=== PATIENT | female | born 1955 | race African-American/Black ===

== ENCOUNTER 2016-10-01 20:55 | Inpatient (IN) | payer OTHER ==
[~2016-10-01] VITALS: Ht 165.1 cm; Wt 65.5 kg
[~2016-10-01 20:55] MED LIST: AMLO-145 PO; ATEN50TA PO; CLON0.2T5 PO; HYDR-762 PO; LORA-444 PO; OXYC20TA41 PO
[2016-10-01] MEDS ORDERED: ONDANSETRON 4 MG INJ IV STA (22:24)
[2016-10-01] MEDS ORDERED: SOD CHLORIDE 0.9% 1,000 ML IV STA (22:24)
[2016-10-01] MEDS ORDERED: morphine 4 MG/ML VIAL IV STA (22:24)
[2016-10-01] MEDS ORDERED: LABETALOL HCL 20MG INJ IV ONE (22:30)
[2016-10-01] MEDS ORDERED: DICLOFENAC SODIUM 37.5 MG/ML VIAL IV STA (23:18)
[2016-10-01 23:27] LABS: BASOPHIL # 0.1 10^3/ul (0.0-0.1); BASOPHILS % 0.7 % (0.0-2.0); EOSINOPHILS # 0.1 10^3/ul (0.0-0.5); EOSINOPHILS % 0.5 % (0.0-7.0); HEMATOCRIT 34.6 % (37.0-47.0); HEMOGLOBIN 12.4 g/dl (12.0-16.0); LYMPHOCYTES # 2.9 10^3/ul (0.8-2.9); LYMPHOCYTES % 16.9 % (15.0-51.0); MEAN CORPUSCULAR HEMOGLOBIN 30.2 pg (29.0-33.0); MEAN CORPUSCULAR HGB CONC 35.9 g/dl (32.0-37.0); MEAN CORPUSCULAR VOLUME 84.2 fl (82.0-101.0); MEAN PLATELET VOLUME 8.9 fl (7.4-10.4); MONOCYTE # 0.9 10^3/ul (0.3-0.9); MONOCYTES % 5.5 % (0.0-11.0); NEUTROPHILS % 76.4 % (39.0-77.0); PLATELET COUNT 484 10^3/UL (140-440); RED BLOOD COUNT 4.11 10^6/ul (4.20-5.40); RED CELL DISTRIBUTION WIDTH 13.6 % (11.5-14.5)
[2016-10-01 23:34] LABS: ALBUMIN 3.8 g/dl (3.3-4.9); POTASSIUM 3.3 mmol/L (3.5-5.1)
[2016-10-01 23:36] LABS: BILIRUBIN,INDIRECT 0.2 mg/dl (0-1.1); BILIRUBIN,TOTAL 0.2 mg/dl (0.2-1.3); CREATININE 1.39 mg/dl (0.44-1.00)
[2016-10-01 23:37] LABS: ALBUMIN/GLOBULIN RATIO 1.05; CALCIUM 9.5 mg/dl (8.4-10.2); TOTAL PROTEIN 7.4 g/dl (6.1-8.1)
[2016-10-01 23:46] LABS: CONDITION 1; PARTIAL THROMBOPLASTIN TIME 27.4 Sec (25.0-35.0); PROTIME 13.2 Sec (12.2-14.2)
[2016-10-01 23:49] LABS: TROPONIN-I 0.029 ng/ml (0.00-0.12)
[2016-10-01 23:54] LABS: ADD UMIC YES; URINE BILIRUBIN (Dip) NEGATIVE (NEGATIVE); URINE BLOOD (Dip) TRACE (NEGATIVE); URINE COLOR LT. YELLOW (YELLOW); URINE GLUCOSE (Dip) NEGATIVE (NEGATIVE); URINE KETONES (Dip) TRACE (NEGATIVE); URINE LEUKOCYTE ESTERASE (Dip) 1+ (NEGATIVE); URINE NITRITE (Dip) NEGATIVE (NEGATIVE); URINE TOTAL PROTEIN (Dip) 2+ (NEGATIVE); URINE UROBILINOGEN (Dip) 0.2 E.U./dL (0.1-1.0)
[2016-10-02] VITALS (13 sets, daily range): BP systolic 132–227; BP diastolic 70–107; PULSE 82–101; RESP 18–20; Ht 165.1 cm; Wt 65.5 kg
[2016-10-02] MEDS ORDERED: FENTAnyl 50 MCG/ML VIAL IV ONE
[2016-10-02 00:11] LABS: BACTERIA,URINE MODERATE; SQUAMOUS EPITHELIAL CELL,UR MANY; URINE RBCS 0-2 /HPF ([, 0])
--- NOTE | 2016-10-02 00:21 | RADRPT ---
PROCEDURE: CT Abdomen and pelvis without contrast. CLINICAL INDICATION: Abdominal pain. TECHNIQUE: CT scan of the abdomen and pelvis was performed on the [employer] 6 4 slice VCT scanner. Contiguous axial images using 2.5 mm slice thickness were obtained from the lisa ng bases to the ischial tuberosities without intravenous contrast. Coronal and sagittal reformatted images were also obtained. Images were reviewed on the PACS workstation. One or more of the following dose reduction techniques were used: - Automated exposure control. - Adjustment of the mA and/or kV according to patient size. - Use of iterative reconstruction technique. Exam CTD/vol = 6.56 mGy. Total exam DLP = 358.25 mGy-cm. COMPARISON: None. FINDINGS: Evaluation of the lung bases demonstrates mild bibasilar atelectasis. The heart is mildly enlarged with coronary artery calcifications. Abdomen: The liver is normal in size. There is no focal mass or dilatation of the biliary tree. T he gallbladder is not distended. A small gallstone is identified. The spleen, pancreas and bilateral adrenal glands are within normal limits. The right kidney is mildly atrophic. There is bilateral renal cortical scarring. There is a hyperdense lesion off of the lower pole of the right kidney agatha suring 3.8 x 4.1 cm. There are 1-2 mm renal calculi bilaterally. There is no radiopaque ureteral c alculus identified. There is no hydronephrosis or hydroureter. There is no retroperitoneal adenopa thy. The abdominal aorta is of normal caliber with scattered atherosclerotic calcifications. There is no abnormal bowel wall thickening or distension. There is no bowel obstruction or free air . A normal appendix is identified. There is no diverticulosis or diverticulitis. There is no asci maegan. Pelvis: The bladder is unremarkable. The uterus and adnexa are within normal limits. There is no significant pelvic adenopathy or free fluid. Evaluation of the osseous structures demonstrates diffuse ground-glass and bony expansion of the pel vis, T12 and L5 vertebral bodies consistent with Paget's disease. IMPRESSION: Hyperdense lesion off of the lower pole of the right kidney measuring 3.8 x 4.1 cm. Further evaluat ion by ultrasound is recommended to determine solid or cystic. Bilateral renal scarring and mild right renal atrophy. Bilateral nonobstructing renal calculi. Mild bibasilar atelectasis. Mild cardiomegaly with coronary artery calcifications. Cholelithiasis. Vascular calcifications reflective of atherosclerosis. Diffuse ground-glass and bony expansion of the pelvis, T12 and L5 vertebral bodies consistent with P aget's disease. .Arnaud Zurita MD, Date Time Electronically viewed and signed by .Arnaud Zurita MD, on 10/02/2016 00:21 .T/
[2016-10-02] MEDS ORDERED: POTASSIUM CHLORIDE (SR) 20 MEQ TAB PO STA ×2 (00:46→09:33)
[2016-10-02] MEDS ORDERED: HYDROmorphONE 1 MG/ML SYG IV STA (00:55)
[2016-10-02] MEDS ORDERED: hydrALAzine 20 MG INJ IV ONE ×2 (01:00→03:00)
[2016-10-02] MEDS ORDERED: CEFTRIAXONE 1 GM/50 ML (PMX) 50 ML IVPB ONE (01:00)
--- NOTE | 2016-10-02 01:18 | RADRPT ---
PROCEDURE: Chest. CLINICAL INDICATION: Chest pain. TECHNIQUE: Single frontal view of the chest was obtained. COMPARISON: 01/05/2015. FINDINGS: The cardiac silhouette is enlarged. The aortic arch is tortuous and calcified. There is no focal c onsolidation, vascular congestion or pleural effusion. There is no pneumothorax. IMPRESSION: Cardiomegaly. Tortuous aorta with atherosclerotic calcifications. .Arnaud Zurita MD, Date Time Electronically viewed and signed by .Arnaud Zurita MD, MD on 10/02/2016 01:18 .T/
[2016-10-02] MEDS ORDERED: ACETAMINOPHEN 325 MG TAB PO PRN ×2 (02:30→08:30)
[2016-10-02] MEDS ORDERED: ONDANSETRON 4 MG INJ IV PRN ×2 (02:30→08:30)
[2016-10-02] MEDS ORDERED: LABETALOL HCL 20MG INJ IV PRN (03:40)
[2016-10-02] MEDS ORDERED: LORAZEPAM 2 MG INJ IV PRN (04:00)
[2016-10-02] MEDS: morphine 2 MG INJ IV PRN (05:06)
[2016-10-02] MEDS: HYDROmorphONE 1 MG/ML SYG IV PRN ×5 (06:24→21:57)
[2016-10-02] MEDS ORDERED: morphine 2 MG INJ IV PRN (08:30)
[2016-10-02] MEDS ORDERED: NACL 0.9% 3 ML SYG IV SCH (08:30)
[2016-10-02] MEDS ORDERED: NITROGLYCERIN (SL) 0.4 MG TAB SL PRN (08:30)
[2016-10-02] MEDS ORDERED: ZOLPIDEM 5 MG TAB PO PRN (08:30)
[2016-10-02] MEDS: ENOXAPARIN 40 MG/0.4 ML SYG SC SCH (09:00)
[2016-10-02] MEDS: CEFTRIAXONE 1 GM/50 ML (PMX) 50 ML IVPB SCH (09:31)
[2016-10-02] MEDS: ATENOLOL 50 MG TAB PO SCH ×2 (09:31→21:02)
[2016-10-02] MEDS: AMLODIPINE 5 MG TAB PO SCH ×2 (09:32→21:02)
[2016-10-02] MEDS: LORAZEPAM 2 MG INJ IV PRN (09:52)
--- NOTE | 2016-10-02 10:43 | HP ---
DATE OF ADMISSION: 10/02/2016 TIME: 7:30 a.m. CHIEF COMPLAINT: Diffuse pains of the body. 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 The patient also has a history of hypertension. Patient is on chronic pain me dications. The patient comes in with unbearable pain throughout her body. She states that typicall y she can handle it with p.o. medications, but her pain became excessive. It is diffuse throughout her chest and back and secondary to her Paget disease. 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 She has no other complaints at this time. She denies any dysuria. PAST MEDICAL HISTORY: Paget disease, hypertension, and chronic pain secondary to Padget, also deafn ess secondary to Padget. HOME MEDICATIONS: 1. Norvasc. 2. Atenolol. 3. Clonidine. 4. [place]. 5. Ativan. 6. Oxycodone. ALLERGIES: 1. KETOROLAC. 2. MOXIFLOXACIN. FAMILY HISTORY: Diabetes in sister. SOCIAL HISTORY: Denies alcohol, tobacco, or drug abuse. REVIEW OF SYSTEMS: A 12-point review of systems negative except for that as in HPI. PHYSICAL EXAMINATION: VITAL SIGNS: Temperature is 98.1, pulse 75, respirations 18, BP is 137/88, O2 saturation 92% on petey m air. GENERAL: No acute distress, alert and oriented. HEENT: Dysmorphic head shape. CHEST: Clear to auscultation. CARDIOVASCULAR: Regular rate and rhythm. ABDOMEN: Nondistended, nontender, soft. EXTREMITIES: No clubbing, cyanosis, or edema. LABORATORIES: White count 17.0, hemoglobin 12.4, platelets are 284,000. Chemistry: Sodium is 143, potassium is 3.3, anion gap is 19, BUN is 27, creatinine is 1.39. Alkaline phosphatase . INR is 1.0. UA shows trace ketones, 1+ leukocyte esterase, WBCs 5 to 10. DIAGNOSTICS: Abdominal pelvis CT shows hypodense lesion of the lower pole of the right kidney measu ring 0.2 x 4.1 cm, bilateral renal scarring, and mild renal atrophy, bilateral nonobstructing renal calculi, mild basilar atelectasis, mild cardiomegaly, cholelithiasis, vascular calcification reflect nicolas of atherosclerosis, diffuse ground glass and bony extension of the pelvis, T12 and L5 vertebral bodies consistent with Paget disease. Chest x-ray shows cardiomegaly, tortuous aorta with atherosclerotic calcifications. ASSESSMENT AND PLAN: 1. Atypical chest pain. The patient has chronic pain in the chest and back, but is acutely worse. The pain is likely secondary to bone pain for her Padget disease, rule out any acute coronary syndr ome with troponins. 2. Right kidney mass. We will obtain an ultrasound to further evaluate if Padget disease. Continue pain medications. 3. Hypertension. Continue home atenolol and Norvasc. 4. History of tachycardia. We will continue patient's home Ativan, which she states she takes keep her heart rate down. 5. Urinary tract infection. Obtain a urine culture and treat with Rocephin empirically. 6. Prophylaxis. Lovenox. Dictated By: SHAWANDA RANDALL/YARI Conf#: [id number] DID#: [id number]
[2016-10-02] MEDS: LORAZEPAM 1 MG TAB PO PRN ×2 (16:42→23:59)
[2016-10-02] MEDS: oxyCODONE (CR) 20 MG TAB [oxyCONTIN] PO SCH (21:00)
[2016-10-03] VITALS (11 sets, daily range): BP systolic 120–196; BP diastolic 70–100; PULSE 70–87; RESP 17–20
[2016-10-03] MEDS: morphine 2 MG INJ IV PRN ×2 (00:39→05:36)
[2016-10-03 07:23] LABS: BASOPHIL # 0.1 10^3/ul (0.0-0.1); BASOPHILS % 0.7 % (0.0-2.0); EOSINOPHILS # 0.2 10^3/ul (0.0-0.5); EOSINOPHILS % 1.5 % (0.0-7.0); HEMATOCRIT 31.1 % (37.0-47.0); LYMPHOCYTES # 3.4 10^3/ul (0.8-2.9); LYMPHOCYTES % 26.3 % (15.0-51.0); MEAN CORPUSCULAR HEMOGLOBIN 30.1 pg (29.0-33.0); MEAN CORPUSCULAR HGB CONC 35.5 g/dl (32.0-37.0); MEAN CORPUSCULAR VOLUME 84.8 fl (82.0-101.0); MEAN PLATELET VOLUME 9.1 fl (7.4-10.4); MONOCYTE # 1.1 10^3/ul (0.3-0.9); MONOCYTES % 8.2 % (0.0-11.0); NEUTROPHIL # 8.2 10^3/ul (1.6-7.5); NEUTROPHILS % 63.3 % (39.0-77.0); PLATELET COUNT 440 10^3/UL (140-440); RED BLOOD COUNT 3.67 10^6/ul (4.20-5.40); RED CELL DISTRIBUTION WIDTH 13.5 % (11.5-14.5); UNCORRECTED WBC 12.9 10^3/ul (4.8-10.8); WHITE BLOOD COUNT 12.9 10^3/ul (4.8-10.8)
[2016-10-03 07:26] LABS: CONDITION 1
[2016-10-03 07:44] LABS: POTASSIUM 3.3 mmol/L (3.5-5.1)
[2016-10-03 07:47] LABS: CREATININE 1.03 mg/dl (0.44-1.00)
[2016-10-03 07:48] LABS: CALCIUM 9.4 mg/dl (8.4-10.2); CHOL/HDL RATIO 4.3 RATIO; MAGNESIUM 1.4 mg/dl (1.7-2.5)
[2016-10-03] MEDS: oxyCODONE (CR) 20 MG TAB [oxyCONTIN] PO SCH ×2 (09:00→21:00)
[2016-10-03] MEDS: ENOXAPARIN 40 MG/0.4 ML SYG SC SCH (09:00)
[2016-10-03] MEDS: CEFTRIAXONE 1 GM/50 ML (PMX) 50 ML IVPB SCH (09:11)
[2016-10-03] MEDS: LORAZEPAM 1 MG TAB PO PRN ×3 (09:12→21:09)
[2016-10-03] MEDS: ATENOLOL 50 MG TAB PO SCH ×2 (09:12→21:10)
[2016-10-03] MEDS: AMLODIPINE 5 MG TAB PO SCH ×2 (09:13→21:10)
[2016-10-03] MEDS: HYDROmorphONE 1 MG/ML SYG IV PRN ×4 (11:47→22:50)
[2016-10-03] MEDS: HYDROCODONE/APAP (10/325) TAB PO PRN ×2 (13:22→21:22)
--- NOTE | 2016-10-03 16:43 | CONS ---
Date/Time of Note Date/Time of Note DATE: 10/03/16 TIME: 16:34 Consult Date/Type/Reason Admit Date/Time Oct 02, 2016 at 02:14 Initial Consult Date Type of Consultation: Internal Medicine. Subjective Feels little better, less pain. Objective Vital Signs Date Time Temp Pulse Resp B/P Pulse Ox O2 Delivery O2 Flow Rate FiO2 10/03/16 15:47 98.1 72 17 164/83 95 10/02/16 03:50 Room Air Intake and Output 10/02/16 10/02/16 10/03/16 15:00 23:00 07:00 Intake Total 830 ml 400 ml Output Total 400 ml Balance -400 ml 830 ml 400 ml PHYSICAL EXAMINATION: VITAL SIGNS: as above GENERAL: No acute distress, alert and oriented. HEENT: Dysmorphic head shape. CHEST: Clear to auscultation. CARDIOVASCULAR: Regular rate and rhythm. ABDOMEN: Nondistended, nontender, soft. EXTREMITIES: No clubbing, cyanosis, or edema. Results/Medications Result Diagram: 10/03/16 0628 10/03/16 0628 Results 24 hrs Laboratory Tests Test 10/02/16 18:50 10/03/16 06:28 10/03/16 16:30 Troponin I 0.028 Anion Gap 14 Basophils # 0.1 Basophils % 0.7 Blood Urea Nitrogen 20 Calcium Level 9.4 Carbon Dioxide Level 28 Chloride Level 103 Cholesterol Level 166 Cholesterol/HDL Ratio 4.3 Creatinine 1.03 H Eosinophils # 0.2 Eosinophils % 1.5 Glucose Level 164 HDL Cholesterol 38 Hematocrit 31.1 L Hemoglobin 11.0 L Hemoglobin A1c 7.7 H LDL Cholesterol, Calculated 100 Lymphocytes # 3.4 H Lymphocytes % 26.3 Magnesium Level 1.4 L Mean Corpuscular Hemoglobin 30.1 Mean Corpuscular Hemoglobin Concent 35.5 Mean Corpuscular Volume 84.8 Mean Platelet Volume 9.1 Monocytes # 1.1 H Monocytes % 8.2 Neutrophils # 8.2 H Neutrophils % 63.3 Nucleated Red Blood Cells # 0.0 Nucleated Red Blood Cells % 0.0 Platelet Count 440 Potassium Level 3.3 L Red Blood Count 3.67 L Red Cell Distribution Width 13.5 Sodium Level 142 Triglycerides Level 138 White Blood Count 12.9 #H Bedside Glucose 138 Medications Current Medications Labetalol HCl (Labetalol) 20 mg Q2 PRN IV ELEVATED BP Last administered on 03:52; Admin Dose 20 MG; Start 10/02/16 at 03:40 Morphine Sulfate (morphine) 2 mg Q4H PRN IV PAIN LEVEL 6-10 Last administered on 10/03/16 05:36; Admin Dose 2 MG; Start 10/02/16 at 03:40 Hydromorphone HCl (Dilaudid) 0.5 mg Q3 PRN IV PAIN Last administered on 15:32; Admin Dose 0.5 MG; Start 10/02/16 at 06:00 Ondansetron HCl (Zofran Inj) 4 mg Q6H PRN IV NAUSEA AND/OR VOMITING; Start 10/02 at 08:30 Acetaminophen (Tylenol Tab) 650 mg Q6H PRN PO PAIN LEVEL 1-3 OR FEVER; Start at 08:30 Acetaminophen/ Hydrocodone Bitart ([place] (5/325)) 1 tab Q6H PRN PO MODERATE PAIN LEVEL 4-6; Start 10/02/16 at 08:30 Morphine Sulfate (morphine) 2 mg Q2 PRN IV SEVERE PAIN LEVEL 7-10 Last administered on 10/03/16 09:11; Admin Dose 2 MG; Start 10/02/16 at 08:30 Zolpidem Tartrate (Ambien) 5 mg QHS PRN PO SLEEP; Start 10/02/16 at 08:30 Enoxaparin Sodium (Lovenox) 40 mg DAILY SC ; Start 10/02/16 at 09:00 Nitroglycerin 1 tab 1 tab Q5M PRN SL CHEST PAIN; Start 10/02/16 at 08:30 Ceftriaxone Sodium (Rocephin) 50 ml @ 100 mls/hr Q24H IVPB Last administered on 10/03/16 09:11; Admin Dose 100 MLS/HR; Start 10/02/16 at 08:30 Amlodipine Besylate (Norvasc) 5 mg BID PO Last administered on 10/03/16 09:13; Admin Dose 5 MG; Start 10/02/16 at 09:00 Atenolol (Tenormin) 50 mg BID PO Last administered on 10/03/16 09:12; Admin Dose 50 MG; Start 10/02/16 at 09:00 Clonidine (Catapres) 0.2 mg QID PO Last administered on 10/03/16 13:26; Admin Dose 0.2 MG; Start 10/02/16 at 09:00 Acetaminophen/ Hydrocodone Bitart ([place] (10/325)) 1 tab QID PRN PO PAIN Last administered on 10/03/16 13:22; Admin Dose 1 TAB; Start 10/02/16 at 08:30 Lorazepam (Ativan) 2 mg Q6H PRN PO AGITATION/ANXIETY Last administered on 14:59; Admin Dose 2 MG; Start 10/02/16 at 08:30 Oxycodone HCl (Oxycontin) 20 mg Q12 PO ; Start 10/02/16 at 21:00 Lorazepam (Ativan) 0.5 mg Q4H PRN IV ANXIETY Last administered on 10/02/16 09: 52; Admin Dose 0.5 MG; Start 10/02/16 at 09:00 Assessment/Plan Chief Complaint/Hosp Course ASSESSMENT AND PLAN: 1. Atypical chest pain. The patient has chronic pain in the chest and back, pain likely musculoskeletal, unlikely cardiac. Continue current meds. 2. Right kidney mass. We will obtain an ultrasound to further evaluate if Padget disease. Continue pain medications. 3. Hypertension. Continue home atenolol and Norvasc. 4. History of tachycardia. We will continue patient's home Ativan, which she states she takes keep her heart rate down. 5. Urinary tract infection. Obtain a urine culture and treat with Rocephin empirically. 6. Prophylaxis. Lovenox. Problems: CHEPE VALENZUELA MD, [facility] Oct 03, 2016 16:43
--- NOTE | 2016-10-03 16:44 | RADRPT ---
Echocardiogram Report Patient Name: OMKAR ELIZALDE Gender: Female Date: 1955 Study Date: 03-Oct-2016 Motor Grader Operator: Liyah Son [facility] Location: [place] Ref. Physician: SHAWANDA QUINONES Quality: Good Procedures: Transthoracic echocardiogram with complete 2D, M-Mode, and doppler examination. Indications: Chest Pain. 2D/M Mode Doppler Measurement Value Normal Ranges Measurement Value Normal Ranges LVIDd 2D 4.6 3.5 - 5.6 cm AV Peak Floyd 1.6 m/sec LVIDs 2D 2.3 2.1 - 4.1 cm AV Peak PG 10.2 mmHg LVPWd 2D 1.2 0.6 - 1.1 cm LVOT Peak Floyd 1.1 m/sec IVSd 2D 1.3 0.6 - 1.1 cm LVOT Peak PG 4.5 mmHg AoR Diam 2D 2.6 2.0 - 3.7 cm MV E Peak Floyd 0.5 m/sec EDV 2D 96.9 cm3 MV A Peak Floyd 1.0 m/sec ESV 2D 12.1 cm3 MV E/A 0.5 LA Dimen 2D 3.8 2.3 - 4.0 cm MV Decel Time 141 msec MV Decel [place] 4 MV E/A 0.5 TR Peak Floyd 2.3 m/sec TR Peak PG 21.1 mmHg RVSP 24.0 mmHg Findings Left Ventricle: Normal left ventricular systolic function. Normal left ventricular cavity size. Mild concentric left ventricular hypertrophy. Ejection fraction is visually estimated at 6065 %. Tissue Doppler/Mitral Doppler indices are consistent with impaired relaxation (Stage I diastolic dysfunction). Right Ventricle: Normal right ventricular size. Normal right ventricular systolic function. Left Atrium: The left atrium is normal in size. Right Atrium: The right atrium is normal in size. Mitral Valve: Mild mitral leaflet calcification. Mild mitral annular calcification. Trace mitral regurgitation. Aortic Valve: No hemodynamically significant aortic stenosis by doppler. Aortic cusps appear mildly calcified. Mild aortic valve regurgitation. Tricuspid Valve: Normal appearance of the tricuspid valve. Estimated peak PA systolic pressure 24 mmHg. There is trace tricuspid regurgitation. Pericardium: Normal pericardium with no significant pericardial effusion. Aorta: Normal aortic root. IVC: Normal size and normal respiratory collapse consistent with normal right atrial pressure. Conclusions 1.The left ventricle is normal in size and systolic function. 2.Estimated left ventricular ejection fraction of 60-65%. 3.Mild concentric left ventricular hypertrophy. Mild left ventricular diastolic dysfunction. Electronically Signed By: Jorge Mcqueen 03-Oct-2016 16:43:21 -0800 Patient Name: OMKAR ELIZALDE Study Date: 03-Oct-[id number]
--- NOTE | 2016-10-03 19:25 | RADRPT ---
PROCEDURE: Retroperitoneal US. CLINICAL INDICATION: renal mass on CT TECHNIQUE: Multiple sonographic images of the retroperitoneum were obtained. The images were revi ewed on a PACS workstation. COMPARISON: CT abdomen/pelvis from 10/02/2016 FINDINGS: The right kidney measures 10.7 x 4.6 x 4.3 cm. The left kidney measures 8.7 x 4.8 x 4.2 cm. There is renal cortical thinning bilaterally. The renal parenchymal echotexture is normal. There is no hydronephrosis. There is no focal renal mass or calcification seen. There is a 4.3 cm simple cyst in the lower pole of the right kidney which likely correlates with the similarly sized lesion seen in this region on the CT study from yesterday. IMPRESSION: 4.3 cm simple cyst in the lower pole of the right kidney correlates with the similarly sized lesion seen in this region on the CT study from yesterday. Atrophic and echogenic kidneys suggest medical renal disease. Correlation with BUN and creatinine l evels is recommended. RPTAT: EE Physician Giovanny Date Time Electronically viewed and signed by Physician Giovanny on 10/03/2016 19:24 /
[2016-10-04] MEDS: HYDROmorphONE 1 MG/ML SYG IV PRN ×7 (03:07→23:35)
[2016-10-04] MEDS: LORAZEPAM 2 MG INJ IV PRN (04:16)
[2016-10-04 07:57] VITALS: BP 193/84; RESP 20
[2016-10-04] MEDS: ATENOLOL 50 MG TAB PO SCH ×2 (08:20→20:50)
[2016-10-04] MEDS: AMLODIPINE 5 MG TAB PO SCH ×2 (08:20→20:50)
[2016-10-04] MEDS: LORAZEPAM 1 MG TAB PO PRN ×3 (08:28→22:22)
[2016-10-04] MEDS: CEFTRIAXONE 1 GM/50 ML (PMX) 50 ML IVPB SCH ×2 (08:30→09:49)
[2016-10-04] MEDS: ENOXAPARIN 40 MG/0.4 ML SYG SC SCH (08:32)
[2016-10-04] MEDS: oxyCODONE (CR) 20 MG TAB [oxyCONTIN] PO SCH ×2 (09:48→20:49)
[2016-10-04 13:08] VITALS: BP 145/65
[2016-10-04] MEDS ORDERED: POTASSIUM CHLORIDE (SR) 20 MEQ TAB PO STA (14:08)
--- NOTE | 2016-10-04 14:23 | PN ---
Date/Time of Note Date/Time of Note DATE: 10/04/16 TIME: 14:11 Assessment/Plan VTE Prophylaxis VTE Prophylaxis Intervention: LMWH Lines/Catheters IV Catheter Type (from Nrsg): Saline Lock Urinary Cath still in place: No Assessment/Plan Assessment/Plan 1. Chest pain, musculoskeletal from Paget disease, pain management 2. Urinary tract infection, on rocephin 3. Hypokalemia, KCl 4. Hypomagnesemia, MgSO4 5. Right kidney cyst, no further treatment needed 6. Hypertension. Continue home atenolol and Norvasc. 7. Acute renal failure, improving, follow up with BMP 8. DM, start metformin, on ISS 9. Prophylaxis. Lovenox. Subjective 24 Hr Interval Summary Free Text/Dictation generalized body pain, especially on pelvis Exam/Review of Systems Vital Signs Vitals Vital Signs Date Time Temp Pulse Resp B/P Pulse Ox O2 Delivery O2 Flow Rate FiO2 10/04/16 13:08 145/65 10/04/16 07:57 97.8 78 20 98 10/03/16 22:30 Room Air Intake and Output 10/03/16 10/03/16 10/04/16 15:00 23:00 07:00 Intake Total 50 ml 250 ml 380 ml Balance 50 ml 250 ml 380 ml Exam Constitutional: alert, oriented, well developed Psych: nl mood/affect, no complaints Head: atraumatic, normocephalic Eyes: EOMI, PERRL, nl conjunctiva, nl lids, nl sclera ENMT: mucosa pink and moist, nl external ears & nose, nl lips & teeth, nl nasal mucosa & septum Neck: non-tender, supple Respiratory: clear to auscultation, normal air movement Cardiovascular: regular rate and rhythm Gastrointestinal: nl liver, spleen, non-tender, soft Musculoskeletal: nl extremities to inspection, nl gait and stance Extremities: normal pulses Neurological: CHILD PROTECTIVE SERVICES SPECIALIST II-XII intact, nl mental status, nl speech, nl strength Skin: nl turgor, rash or lesions Lymph: nl lymph nodes Results Result Diagram: 10/03/1628 10/03/16627 Results 24 hrs Laboratory Tests Test 10/03/16 16:30 Bedside Glucose 138 Medications Medications Current Medications Morphine Sulfate (morphine) 2 mg Q4H PRN IV PAIN LEVEL 6-10 Last administered on 10/03/16t 05:36; Admin Dose 2 MG; Start 10/02/16 at 03:40 Hydromorphone HCl (Dilaudid) 0.5 mg Q3 PRN IV PAIN Last administered on 13:08; Admin Dose 0.5 MG; Start 10/02/16 at 06:00 Ondansetron HCl (Zofran Inj) 4 mg Q6H PRN IV NAUSEA AND/OR VOMITING; Start 10/02 at 08:30 Acetaminophen (Tylenol Tab) 650 mg Q6H PRN PO PAIN LEVEL 1-3 OR FEVER Last administered on 10/04/16 00:05; Admin Dose 650 MG; Start 10/02/16 at 08:30 Acetaminophen/ Hydrocodone Bitart ([place] (5/325)) 1 tab Q6H PRN PO MODERATE PAIN LEVEL 4-6; Start 10/02/16 at 08:30 Morphine Sulfate (morphine) 2 mg Q2 PRN IV SEVERE PAIN LEVEL 7-10 Last administered on 10/03/16 09:11; Admin Dose 2 MG; Start 10/02/16 at 08:30 Zolpidem Tartrate (Ambien) 5 mg QHS PRN PO SLEEP; Start 10/02/16 at 08:30 Enoxaparin Sodium (Lovenox) 40 mg DAILY SC ; Start 10/02/16 at 09:00 Nitroglycerin 1 tab 1 tab Q5M PRN SL CHEST PAIN; Start 10/02/16 at 08:30 Ceftriaxone Sodium (Rocephin) 50 ml @ 100 mls/hr Q24H IVPB Last administered on 10/03/16 09:11; Admin Dose 100 MLS/HR; Start 10/02/16 at 08:30 Amlodipine Besylate (Norvasc) 5 mg BID PO Last administered on 10/04/16 08:20 ; Admin Dose 5 MG; Start 10/02/16 at 09:00 Atenolol (Tenormin) 50 mg BID PO Last administered on 10/04/16 08:20; Admin Dose 50 MG; Start 10/02/16 at 09:00 Clonidine (Catapres) 0.2 mg QID PO Last administered on 10/04/16 13:09; Admin Dose 0.2 MG; Start 10/02/16 at 09:00 Acetaminophen/ Hydrocodone Bitart ([place] (10/325)) 1 tab QID PRN PO PAIN Last administered on 10/03/16 21:22; Admin Dose 1 TAB; Start 10/02/16 at 08:30 Lorazepam (Ativan) 2 mg Q6H PRN PO AGITATION/ANXIETY Last administered on 08:28; Admin Dose 2 MG; Start 10/02/16 at 08:30 Oxycodone HCl (Oxycontin) 20 mg Q12 PO Last administered on 10/04/16 09:48; Admin Dose 20 MG; Start 10/02/16 at 21:00 Lorazepam (Ativan) 0.5 mg Q4H PRN IV ANXIETY Last administered on 10/04/16 04: 16; Admin Dose 0.5 MG; Start 10/02/16 at 09:00 JOSSELIN KIDD MD Oct 04, 2016 14:23
[2016-10-04] MEDS ORDERED: DEXTROSE 50% 50 ML SYRINGE IV PRN ×2 (14:30)
[2016-10-04] MEDS ORDERED: GLUCOSE GEL 15 GRAM TUBE BUCCAL PRN (14:30)
[2016-10-04] MEDS ORDERED: GLUCAGON 1 MG INJ IM PRN (14:30)
[2016-10-04] MEDS ORDERED: GLUCOSE GEL 15 GRAM TUBE PO PRN ×2 (14:30)
[2016-10-04] MEDS ORDERED: MAGNESIUM SULFATE 2 GM/50 ML 50 ML IVPB ONE (16:00)
[2016-10-04] MEDS: INSULIN ASPART [NOVOLOG] 3 ML PEN SC SCH ×2 (17:55→21:00)
[2016-10-04] MEDS: metFORMIN 500 MG TAB PO SCH (17:55)
[2016-10-04 19:42] VITALS: BP 187/80; RESP 19
[2016-10-05] MEDS: ACCUCHECK XX SCH (01:55)
[2016-10-05] MEDS: HYDROmorphONE 1 MG/ML SYG IV PRN ×5 (03:19→22:14)
[2016-10-05] MEDS: LORAZEPAM 1 MG TAB PO PRN ×3 (05:00→17:55)
[2016-10-05 05:24] LABS: BASOPHIL # 0.1 10^3/ul (0.0-0.1); BASOPHILS % 0.4 % (0.0-2.0); EOSINOPHILS # 0.1 10^3/ul (0.0-0.5); EOSINOPHILS % 1.2 % (0.0-7.0); HEMOGLOBIN 11.5 g/dl (12.0-16.0); LYMPHOCYTES % 25.1 % (15.0-51.0); MEAN CORPUSCULAR HEMOGLOBIN 30.6 pg (29.0-33.0); MEAN CORPUSCULAR HGB CONC 35.9 g/dl (32.0-37.0); MEAN CORPUSCULAR VOLUME 85.2 fl (82.0-101.0); MEAN PLATELET VOLUME 8.9 fl (7.4-10.4); MONOCYTE # 0.9 10^3/ul (0.3-0.9); MONOCYTES % 7.4 % (0.0-11.0); NEUTROPHILS % 65.9 % (39.0-77.0); PLATELET COUNT 414 10^3/UL (140-440); RED BLOOD COUNT 3.75 10^6/ul (4.20-5.40); RED CELL DISTRIBUTION WIDTH 13.7 % (11.5-14.5); UNCORRECTED WBC 12.1 10^3/ul (4.8-10.8); WHITE BLOOD COUNT 12.1 10^3/ul (4.8-10.8)
[2016-10-05 05:28] LABS: POTASSIUM 4.1 mmol/L (3.5-5.1)
[2016-10-05 05:30] LABS: CREATININE 1.07 mg/dl (0.44-1.00)
[2016-10-05 05:31] LABS: CALCIUM 9.7 mg/dl (8.4-10.2); MAGNESIUM 1.6 mg/dl (1.7-2.5)
[2016-10-05 05:34] LABS: CONDITION 1
[2016-10-05] MEDS: INSULIN ASPART [NOVOLOG] 3 ML PEN SC SCH ×4 (07:50→21:00)
[2016-10-05] MEDS: metFORMIN 500 MG TAB PO SCH ×2 (08:06→17:55)
[2016-10-05] MEDS: CEFTRIAXONE 1 GM/50 ML (PMX) 50 ML IVPB SCH (08:09)
[2016-10-05] MEDS: ATENOLOL 50 MG TAB PO SCH ×2 (08:09→21:37)
[2016-10-05] MEDS: AMLODIPINE 5 MG TAB PO SCH (08:09)
[2016-10-05] MEDS: oxyCODONE (CR) 20 MG TAB [oxyCONTIN] PO SCH ×2 (09:00→21:37)
[2016-10-05] MEDS: ENOXAPARIN 40 MG/0.4 ML SYG SC SCH (09:00)
[2016-10-05 09:14] VITALS: BP 178/95; PULSE 85
[2016-10-05] MEDS ORDERED: METF500T PO (13:20)
--- NOTE | 2016-10-05 13:28 | PN ---
Date/Time of Note Date/Time of Note DATE: 10/05/16 TIME: 13:26 Assessment/Plan VTE Prophylaxis VTE Prophylaxis Intervention: SCD's Lines/Catheters IV Catheter Type (from Nrsg): Saline Lock Urinary Cath still in place: No Assessment/Plan Assessment/Plan 1. Chest pain, musculoskeletal from Paget disease, pain management 2. Urinary tract infection, on rocephin 3. Hypokalemia, corrected 4. Hypomagnesemia, MgSO4 5. Right kidney cyst, no further treatment needed 6. Hypertension. not controlled, change norvasc to procardia, decrease clonidine 7. Acute renal failure, improving, follow up with BMP 8. DM, start metformin, on ISS Subjective 24 Hr Interval Summary Free Text/Dictation tired, generalized body ache Exam/Review of Systems Vital Signs Vitals Vital Signs Date Time Temp Pulse Resp B/P Pulse Ox O2 Delivery O2 Flow Rate FiO2 10/05/16 09:14 97.3 85 178/95 10/04/16 19:42 19 96 10/03/16 22:30 Room Air Intake and Output 10/04/16 10/04/16 10/05/16 15:00 23:00 07:00 Intake Total 650 ml 400 ml Balance 650 ml 400 ml Exam Constitutional: alert, oriented, well developed Psych: nl mood/affect, no complaints Head: atraumatic, normocephalic Eyes: EOMI, PERRL, nl conjunctiva, nl lids, nl sclera ENMT: mucosa pink and moist, nl external ears & nose, nl lips & teeth, nl nasal mucosa & septum Neck: non-tender, supple Respiratory: clear to auscultation, normal air movement Cardiovascular: nl pulses, regular rate and rhythm Gastrointestinal: nl liver, spleen, non-tender, soft Extremities: normal pulses, No calf tenderness, No clubbing, No cyanosis, No edema, No palpable cord, No pitting pedal edema, No tenderness Neurological: WIRE FENCE ERECTOR II-XII intact, nl mental status, nl speech, nl strength Skin: nl turgor, rash or lesions Lymph: nl lymph nodes Results Result Diagram: 10/05/16 0430 10/05/16 0420 Results 24 hrs Laboratory Tests Test 10/04/16 21:05 10/05/16 04:20 10/05/16 04:30 10/05/16 07:54 Bedside Glucose 234 H 175 Anion Gap 14 Blood Urea Nitrogen 24 H Calcium Level 9.7 Carbon Dioxide Level 30 Chloride Level 102 Creatinine 1.07 H Glucose Level 165 Magnesium Level 1.6 L Potassium Level 4.1 Sodium Level 142 Basophils # 0.1 Basophils % 0.4 Eosinophils # 0.1 Eosinophils % 1.2 Hematocrit 32.0 L Hemoglobin 11.5 L Lymphocytes # 3.0 H Lymphocytes % 25.1 Mean Corpuscular Hemoglobin 30.6 Mean Corpuscular Hemoglobin Concent 35.9 Mean Corpuscular Volume 85.2 Mean Platelet Volume 8.9 Monocytes # 0.9 Monocytes % 7.4 Neutrophils # 8.0 H Neutrophils % 65.9 Nucleated Red Blood Cells # 0.0 Nucleated Red Blood Cells % 0.0 Platelet Count 414 Red Blood Count 3.75 L Red Cell Distribution Width 13.7 White Blood Count 12.1 H Test 10/05/16 11:57 Bedside Glucose 142 Medications Medications Current Medications Morphine Sulfate (morphine) 2 mg Q4H PRN IV PAIN LEVEL 6-10 Last administered on 10/03/16 05:36; Admin Dose 2 MG; Start 10/02/16 at 03:40 Hydromorphone HCl (Dilaudid) 0.5 mg Q3 PRN IV PAIN Last administered on 11:06; Admin Dose 0.5 MG; Start 10/02/16 at 06:00 Ondansetron HCl (Zofran Inj) 4 mg Q6H PRN IV NAUSEA AND/OR VOMITING; Start 10/02 at 08:30 Acetaminophen (Tylenol Tab) 650 mg Q6H PRN PO PAIN LEVEL 1-3 OR FEVER Last administered on 10/04/16 00:05; Admin Dose 650 MG; Start 10/02/16 at 08:30 Acetaminophen/ Hydrocodone Bitart ([place] (5/325)) 1 tab Q6H PRN PO MODERATE PAIN LEVEL 4-6; Start 10/02/16 at 08:30 Morphine Sulfate (morphine) 2 mg Q2 PRN IV SEVERE PAIN LEVEL 7-10 Last administered on 10/03/16 09:11; Admin Dose 2 MG; Start 10/02/16 at 08:30 Zolpidem Tartrate (Ambien) 5 mg QHS PRN PO SLEEP; Start 10/02/16 at 08:30 Enoxaparin Sodium (Lovenox) 40 mg DAILY SC ; Start 10/02/16 at 09:00 Nitroglycerin 1 tab 1 tab Q5M PRN SL CHEST PAIN; Start 10/02/16 at 08:30 Ceftriaxone Sodium (Rocephin) 50 ml @ 100 mls/hr Q24H IVPB Last administered on 10/05/16 08:09; Admin Dose 100 MLS/HR; Start 10/02/16 at 08:30 Amlodipine Besylate (Norvasc) 5 mg BID PO Last administered on 10/05/16 08:09 ; Admin Dose 5 MG; Start 10/02/16 at 09:00 Atenolol (Tenormin) 50 mg BID PO Last administered on 10/05/16 08:09; Admin Dose 50 MG; Start 10/02/16 at 09:00 Clonidine (Catapres) 0.2 mg QID PO Last administered on 10/05/16 13:12; Admin Dose 0.2 MG; Start 10/02/16 at 09:00 Acetaminophen/ Hydrocodone Bitart ([place] (10/325)) 1 tab QID PRN PO PAIN Last administered on 10/03/16 21:22; Admin Dose 1 TAB; Start 10/02/16 at 08:30 Lorazepam (Ativan) 2 mg Q6H PRN PO AGITATION/ANXIETY Last administered on 11:53; Admin Dose 2 MG; Start 10/02/16 at 08:30 Oxycodone HCl (Oxycontin) 20 mg Q12 PO Last administered on 10/04/16 20:49; Admin Dose 20 MG; Start 10/02/16 at 21:00 Lorazepam (Ativan) 0.5 mg Q4H PRN IV ANXIETY Last administered on 10/04/16 04: 16; Admin Dose 0.5 MG; Start 10/02/16 at 09:00 Diagnostic Test (Pha) (Accucheck) 1 ea 02 XX ; Start 10/05/16 at 02:00 Miscellaneous Information 1 ea NOTE XX ; Start 10/04/16 at 14:30 Glucose (Glutose) 15 gm Q15M PRN PO DECREASED GLUCOSE; Start 10/04/16 at 14:30 Glucose (Glutose) 22.5 gm Q15M PRN PO DECREASED GLUCOSE; Start 10/04/16 at 14: 30 Dextrose (D50w Syringe) 25 ml Q15M PRN IV DECREASED GLUCOSE; Start 10/04/16 at 14:30 Dextrose (D50w Syringe) 50 ml Q15M PRN IV DECREASED GLUCOSE; Start 10/04/16 at 14:30 Glucagon (Glucagen) 1 mg Q15M PRN IM DECREASED GLUCOSE; Start 10/04/16 at 14:30 Glucose (Glutose) 15 gm Q15M PRN BUCCAL DECREASED GLUCOSE; Start 10/04/16 at 14 :30 JOSSELIN KIDD MD Oct 05, 2016 13:28
[2016-10-05] MEDS ORDERED: MAGNESIUM SULFATE 2 GM/50 ML 50 ML IVPB ONE (14:30)
[2016-10-05] MEDS: NIFEdipine (XL) 60 MG TAB PO SCH (16:20)
[2016-10-05 19:54] VITALS: BP 131/61; RESP 18
[2016-10-06] MEDS: LORAZEPAM 1 MG TAB PO PRN ×4 (00:28→18:13)
[2016-10-06] MEDS: HYDROmorphONE 1 MG/ML SYG IV PRN ×7 (01:11→22:11)
[2016-10-06] MEDS: ACCUCHECK XX SCH (02:00)
[2016-10-06 06:27] LABS: CREATININE 1.33 mg/dl (0.44-1.00)
[2016-10-06 06:28] LABS: CALCIUM 9.6 mg/dl (8.4-10.2); MAGNESIUM 2.1 mg/dl (1.7-2.5)
[2016-10-06] MEDS: INSULIN ASPART [NOVOLOG] 3 ML PEN SC SCH ×4 (07:50→21:00)
[2016-10-06 08:15] VITALS: BP 180/86; RESP 18
[2016-10-06] MEDS: metFORMIN 500 MG TAB PO SCH ×2 (08:19→17:20)
[2016-10-06] MEDS: ATENOLOL 50 MG TAB PO SCH ×2 (08:20→21:08)
[2016-10-06] MEDS: NIFEdipine (XL) 60 MG TAB PO SCH (08:20)
[2016-10-06] MEDS: CEFTRIAXONE 1 GM/50 ML (PMX) 50 ML IVPB SCH (08:23)
[2016-10-06] MEDS: oxyCODONE (CR) 20 MG TAB [oxyCONTIN] PO SCH ×3 (08:25→22:34)
[2016-10-06] MEDS: ENOXAPARIN 40 MG/0.4 ML SYG SC SCH (08:25)
[2016-10-06 11:43] VITALS: BP 199/89; PULSE 64
--- NOTE | 2016-10-06 12:32 | PN ---
Date/Time of Note Date/Time of Note DATE: 10/06/16 TIME: 12:29 Assessment/Plan VTE Prophylaxis VTE Prophylaxis Intervention: SCD's Lines/Catheters IV Catheter Type (from Nrsg): Saline Lock Urinary Cath still in place: No Assessment/Plan Assessment/Plan 1.Hypertension. not controlled, increase procardia 2. 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 Urinary tract infection, treated 4. Hypokalemia, corrected 5. Hypomagnesemia, corrected 6. Right kidney cyst, no further treatment needed 7. Acute renal failure, improving, follow up with BMP 8. DM, start metformin, on ISS Subjective 24 Hr Interval Summary Free Text/Dictation weak, generalized body pain Exam/Review of Systems Vital Signs Vitals Vital Signs Date Time Temp Pulse Resp B/P Pulse Ox O2 Delivery O2 Flow Rate FiO2 10/06/16 11:43 64 199/89 10/06/16 08:15 97.9 18 98 10/03/16 22:30 Room Air Intake and Output 10/05/16 10/05/16 10/06/16 15:00 23:00 07:00 Intake Total 100 ml 800 ml Balance 100 ml 800 ml Exam Constitutional: alert, oriented, well developed Head: atraumatic, normocephalic Eyes: EOMI, PERRL, nl conjunctiva, nl lids ENMT: nl external ears & nose, nl lips & teeth, nl nasal mucosa & septum Neck: non-tender, supple Respiratory: clear to auscultation, normal air movement Cardiovascular: nl pulses, regular rate and rhythm Gastrointestinal: nl liver, spleen, non-tender, soft Musculoskeletal: nl extremities to inspection, nl gait and stance Extremities: normal pulses Neurological: TECHNICAL DELIVERY MANAGER II-XII intact, nl mental status, nl speech, nl strength Skin: nl turgor, rash or lesions Lymph: nl lymph nodes Results Result Diagram: 10/05/16 0430 10/06/16 0510 Results 24 hrs Laboratory Tests Test 10/05/16 17:48 10/06/16 05:10 10/06/16 08:05 10/06/16 11:31 Bedside Glucose 158 169 198 Anion Gap 14 Blood Urea Nitrogen 35 #H Calcium Level 9.6 Carbon Dioxide Level 29 Chloride Level 100 Creatinine 1.33 H Glucose Level 138 Magnesium Level 2.1 Potassium Level 4.0 Sodium Level 139 Medications Medications Current Medications Morphine Sulfate (morphine) 2 mg Q4H PRN IV PAIN LEVEL 6-10 Last administered on 10/03/16 05:36; Admin Dose 2 MG; Start 10/02/16 at 03:40 Hydromorphone HCl (Dilaudid) 0.5 mg Q3 PRN IV PAIN Last administered on 11:27; Admin Dose 0.5 MG; Start 10/02/16 at 06:00 Ondansetron HCl (Zofran Inj) 4 mg Q6H PRN IV NAUSEA AND/OR VOMITING; Start 10/02 at 08:30 Acetaminophen (Tylenol Tab) 650 mg Q6H PRN PO PAIN LEVEL 1-3 OR FEVER Last administered on 10/04/16 00:05; Admin Dose 650 MG; Start 10/02/16 at 08:30 Acetaminophen/ Hydrocodone Bitart ([place] (5/325)) 1 tab Q6H PRN PO MODERATE PAIN LEVEL 4-6; Start 10/02/16 at 08:30 Morphine Sulfate (morphine) 2 mg Q2 PRN IV SEVERE PAIN LEVEL 7-10 Last administered on 10/03/16 09:11; Admin Dose 2 MG; Start 10/02/16 at 08:30 Zolpidem Tartrate (Ambien) 5 mg QHS PRN PO SLEEP; Start 10/02/16 at 08:30 Enoxaparin Sodium (Lovenox) 40 mg DAILY SC ; Start 10/02/16 at 09:00 Nitroglycerin 1 tab 1 tab Q5M PRN SL CHEST PAIN; Start 10/02/16 at 08:30 Ceftriaxone Sodium (Rocephin) 50 ml @ 100 mls/hr Q24H IVPB Last administered on 10/06/16 08:23; Admin Dose 100 MLS/HR; Start 10/02/16 at 08:30 Atenolol (Tenormin) 50 mg BID PO Last administered on 10/06/16 08:20; Admin Dose 50 MG; Start 10/02/16 at 09:00 Acetaminophen/ Hydrocodone Bitart ([place] (10/325)) 1 tab QID PRN PO PAIN Last administered on 10/03/16 21:22; Admin Dose 1 TAB; Start 10/02/16 at 08:30 Lorazepam (Ativan) 2 mg Q6H PRN PO AGITATION/ANXIETY Last administered on 12:21; Admin Dose 2 MG; Start 10/02/16 at 08:30 Oxycodone HCl (Oxycontin) 20 mg Q12 PO Last administered on 10/05/16 21:37; Admin Dose 20 MG; Start 10/02/16 at 21:00 Lorazepam (Ativan) 0.5 mg Q4H PRN IV ANXIETY Last administered on 10/04/16 04: 16; Admin Dose 0.5 MG; Start 10/02/16 at 09:00 Diagnostic Test (Pha) (Accucheck) 1 ea 02 XX ; Start 10/05/16 at 02:00 Miscellaneous Information 1 ea NOTE XX ; Start 10/04/16 at 14:30 Glucose (Glutose) 15 gm Q15M PRN PO DECREASED GLUCOSE; Start 10/04/16 at 14:30 Glucose (Glutose) 22.5 gm Q15M PRN PO DECREASED GLUCOSE; Start 10/04/16 at 14: 30 Dextrose (D50w Syringe) 25 ml Q15M PRN IV DECREASED GLUCOSE; Start 10/04/16 at 14:30 Dextrose (D50w Syringe) 50 ml Q15M PRN IV DECREASED GLUCOSE; Start 10/04/16 at 14:30 Glucagon (Glucagen) 1 mg Q15M PRN IM DECREASED GLUCOSE; Start 10/04/16 at 14:30 Glucose (Glutose) 15 gm Q15M PRN BUCCAL DECREASED GLUCOSE; Start 10/04/16 at 14 :30 Clonidine (Catapres) 0.1 mg QID PO Last administered on 10/06/16 12:21; Admin Dose 0.1 MG; Start 10/05/16 at 17:00 Nifedipine (Procardia Xl) 90 mg DAILY PO ; Start 10/07/16 at 09:00; Status JOSSELIN SANDOVAL MD Oct 06, 2016 12:32
[2016-10-06] MEDS: HYDROCODONE/APAP (10/325) TAB PO PRN (12:50)
[2016-10-06] MEDS ORDERED: BISACODYL (EC) 5 MG TAB PO ONE (13:00)
[2016-10-06 19:06] VITALS: BP_SYST 181; BP_SYST 221; BP_DIAS 102; BP_DIAS 80; PULSE 68; PULSE 73; RESP 16
[2016-10-06 22:20] VITALS: BP 221/102; PULSE 73; RESP 16
[2016-10-06] MEDS ORDERED: ENALAPRILAT 1.25 MG INJ IV ONE (22:30)
[2016-10-06 22:50] VITALS: BP 213/100; PULSE 75; RESP 18
[2016-10-06 23:30] VITALS: BP 203/98; PULSE 72; RESP 17
[2016-10-06] MEDS ORDERED: NA PHOSPHATE/BIPHOS 133 ML ENEMA PR PRN (23:30)
[2016-10-06] MEDS ORDERED: BISACODYL (EC) 5 MG TAB PO PRN (23:30)
[2016-10-07] VITALS (9 sets, daily range): BP systolic 140–203; BP diastolic 68–97; PULSE 68–78; RESP 16–20
[2016-10-07] MEDS: LORAZEPAM 1 MG TAB PO PRN ×5 (00:17→23:57)
[2016-10-07] MEDS: ACCUCHECK XX SCH (00:24)
[2016-10-07] MEDS: HYDROmorphONE 1 MG/ML SYG IV PRN ×6 (01:14→22:35)
[2016-10-07] MEDS ORDERED: NIFEdipine (XL) 90 MG TAB PO SCH ×2 (05:36→09:00)
[2016-10-07 06:30] LABS: CREATININE 1.05 mg/dl (0.44-1.00)
[2016-10-07 06:31] LABS: CALCIUM 9.9 mg/dl (8.4-10.2)
[2016-10-07] MEDS: INSULIN ASPART [NOVOLOG] 3 ML PEN SC SCH ×4 (07:50→20:39)
[2016-10-07] MEDS: metFORMIN 500 MG TAB PO SCH ×2 (07:50→17:26)
[2016-10-07] MEDS: CEFTRIAXONE 1 GM/50 ML (PMX) 50 ML IVPB SCH (08:59)
[2016-10-07] MEDS ORDERED: NIFEdipine (XL) 60 MG TAB PO SCH (09:00)
[2016-10-07] MEDS: ENOXAPARIN 40 MG/0.4 ML SYG SC SCH (09:00)
[2016-10-07] MEDS: ATENOLOL 50 MG TAB PO SCH ×2 (09:00→20:35)
[2016-10-07] MEDS: oxyCODONE (CR) 20 MG TAB [oxyCONTIN] PO SCH ×2 (09:00→20:35)
--- NOTE | 2016-10-07 13:55 | PN ---
Date/Time of Note Date/Time of Note DATE: 10/07/16 TIME: 13:48 Assessment/Plan VTE Prophylaxis VTE Prophylaxis Intervention: LMWH Lines/Catheters IV Catheter Type (from Nrs): Saline Lock Urinary Cath still in place: No Assessment/Plan Assessment/Plan 1.Hypertension. not controlled, patient has been refusiong procardia, I talked to her she agrees to take it today 2. 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 Urinary tract infection, treated 4. Hypokalemia, corrected 5. Hypomagnesemia, corrected 6. Right kidney cyst, no further treatment needed 7. Acute renal failure, improving, follow up with BMP 8. DM, start metformin, on ISS Subjective 24 Hr Interval Summary Free Text/Dictation weak, generalized body pain Exam/Review of Systems Vital Signs Vitals Vital Signs Date Time Temp Pulse Resp B/P Pulse Ox O2 Delivery O2 Flow Rate FiO2 10/07/16 09:02 71 169/83 95 Room Air 10/07/16 05:00 17 10/06/16 08:15 97.9 Intake and Output 10/06/16 10/06/16 10/07/16 15:00 23:00 07:00 Intake Total 50 ml 740 ml Balance 50 ml 740 ml Exam Constitutional: alert, oriented, well developed Head: atraumatic, normocephalic Eyes: EOMI, PERRL, nl conjunctiva, nl lids, nl sclera ENMT: nl external ears & nose, nl lips & teeth, nl nasal mucosa & septum Neck: non-tender, supple Respiratory: clear to auscultation, normal air movement Cardiovascular: nl pulses, regular rate and rhythm Gastrointestinal: nl liver, spleen, non-tender, soft Extremities: normal pulses, No calf tenderness, No clubbing, No cyanosis, No edema, No palpable cord, No pitting pedal edema, No tenderness Neurological: PATIENT SERVICE SPECIALIST II-XII intact, nl mental status, nl speech, nl strength Skin: nl turgor, rash or lesions Lymph: nl lymph nodes Results Result Diagram: 10/05/16 0430 10/07/16 0445 Results 24 hrs Laboratory Tests Test 10/06/16 16:25 10/06/16 21:09 10/07/16 04:45 10/07/16 08:05 Bedside Glucose 150 162 164 Anion Gap 18 H Blood Urea Nitrogen 23 #H Calcium Level 9.9 Carbon Dioxide Level 30 Chloride Level 99 Creatinine 1.05 H Glucose Level 144 Potassium Level 4.0 Sodium Level 143 Test 10/07/16 12:05 Bedside Glucose 152 Medications Medications Current Medications Morphine Sulfate (morphine) 2 mg Q4H PRN IV PAIN LEVEL 6-10 Last administered on 10/03/16 05:36; Admin Dose 2 MG; Start 10/02/16 at 03:40 Hydromorphone HCl (Dilaudid) 0.5 mg Q3 PRN IV PAIN Last administered on 12:28; Admin Dose 0.5 MG; Start 10/02/16 at 06:00 Ondansetron HCl (Zofran Inj) 4 mg Q6H PRN IV NAUSEA AND/OR VOMITING; Start 10/02 at 08:30 Acetaminophen (Tylenol Tab) 650 mg Q6H PRN PO PAIN LEVEL 1-3 OR FEVER Last administered on 10/04/16 00:05; Admin Dose 650 MG; Start 10/02/16 at 08:30 Acetaminophen/ Hydrocodone Bitart ([place] (5/325)) 1 tab Q6H PRN PO MODERATE PAIN LEVEL 4-6; Start 10/02/16 at 08:30 Morphine Sulfate (morphine) 2 mg Q2 PRN IV SEVERE PAIN LEVEL 7-10 Last administered on 10/03/16 09:11; Admin Dose 2 MG; Start 10/02/16 at 08:30 Zolpidem Tartrate (Ambien) 5 mg QHS PRN PO SLEEP; Start 10/02/16 at 08:30 Enoxaparin Sodium (Lovenox) 40 mg DAILY SC ; Start 10/02/16 at 09:00 Nitroglycerin 1 tab 1 tab Q5M PRN SL CHEST PAIN; Start 10/02/16 at 08:30 Ceftriaxone Sodium (Rocephin) 50 ml @ 100 mls/hr Q24H IVPB Last administered on 10/07/16 08:59; Admin Dose 100 MLS/HR; Start 10/02/16 at 08:30 Atenolol (Tenormin) 50 mg BID PO Last administered on 10/06/16 21:08; Admin Dose 50 MG; Start 10/02/16 at 09:00 Acetaminophen/ Hydrocodone Bitart ([place] (10/325)) 1 tab QID PRN PO PAIN Last administered on 10/06/16 12:50; Admin Dose 1 TAB; Start 10/02/16 at 08:30 Lorazepam (Ativan) 2 mg Q6H PRN PO AGITATION/ANXIETY Last administered on 12:03; Admin Dose 2 MG; Start 10/02/16 at 08:30 Oxycodone HCl (Oxycontin) 20 mg Q12 PO Last administered on 10/06/16 22:34; Admin Dose 20 MG; Start 10/02/16 at 21:00 Lorazepam (Ativan) 0.5 mg Q4H PRN IV ANXIETY Last administered on 10/04/16 04: 16; Admin Dose 0.5 MG; Start 10/02/16 at 09:00 Diagnostic Test (Pha) (Accucheck) 1 ea 02 XX ; Start 10/05/16 at 02:00 Miscellaneous Information 1 ea NOTE XX ; Start 10/04/16 at 14:30 Glucose (Glutose) 15 gm Q15M PRN PO DECREASED GLUCOSE; Start 10/04/16 at 14:30 Glucose (Glutose) 22.5 gm Q15M PRN PO DECREASED GLUCOSE; Start 10/04/16 at 14: 30 Dextrose (D50w Syringe) 25 ml Q15M PRN IV DECREASED GLUCOSE; Start 10/04/16 at 14:30 Dextrose (D50w Syringe) 50 ml Q15M PRN IV DECREASED GLUCOSE; Start 10/04/16 at 14:30 Glucagon (Glucagen) 1 mg Q15M PRN IM DECREASED GLUCOSE; Start 10/04/16 at 14:30 Glucose (Glutose) 15 gm Q15M PRN BUCCAL DECREASED GLUCOSE; Start 10/04/16 at 14 :30 Bisacodyl (Dulcolax) 10 mg DAILY PRN PO CONSTIPATION Last administered on 00:16; Admin Dose 10 MG; Start 10/06/16 at 23:30 Sodium Biphosphate/ Sodium Phosphate (Fleet Enema) 133 ml DAILY PRN [place] CONSTIPATION Last administered on 10/07/16 04:11; Admin Dose 133 ML; Start 09/10 at 23:30 Nifedipine (Procardia Xl) 90 mg DAILY PO ; Start 10/07/16 at 05:36 Clonidine (Catapres) 0.2 mg QID PO ; Start 10/07/16 at 17:00 JOSSELIN KIDD MD Oct 07, 2016 13:55
[2016-10-07] MEDS: NIFEdipine (XL) 90 MG TAB PO SCH ×2 (14:00→17:28)
[2016-10-08 00:05] VITALS: BP 129/70; PULSE 70; RESP 18
[2016-10-08] MEDS: HYDROCODONE/APAP (5/325) TAB PO PRN ×2 (00:56→13:24)
[2016-10-08] MEDS: HYDROmorphONE 1 MG/ML SYG IV PRN ×4 (01:41→11:42)
[2016-10-08] MEDS: ACCUCHECK XX SCH (02:00)
[2016-10-08 03:50] VITALS: BP 130/75; PULSE 69; RESP 18
[2016-10-08 05:19] LABS: HEMATOCRIT 34.5 % (37.0-47.0); HEMOGLOBIN 12.3 g/dl (12.0-16.0); MEAN CORPUSCULAR HEMOGLOBIN 30.2 pg (29.0-33.0); MEAN CORPUSCULAR HGB CONC 35.5 g/dl (32.0-37.0); MEAN CORPUSCULAR VOLUME 85.1 fl (82.0-101.0); MEAN PLATELET VOLUME 9.9 fl (7.4-10.4); PLATELET COUNT 279 10^3/UL (140-440); RED BLOOD COUNT 4.06 10^6/ul (4.20-5.40); RED CELL DISTRIBUTION WIDTH 13.7 % (11.5-14.5); WHITE BLOOD COUNT 13.3 10^3/ul (4.8-10.8)
[2016-10-08 05:51] LABS: POTASSIUM 3.8 mmol/L (3.5-5.1)
[2016-10-08 05:54] LABS: CREATININE 1.04 mg/dl (0.44-1.00)
[2016-10-08 05:55] LABS: CALCIUM 9.8 mg/dl (8.4-10.2)
[2016-10-08] MEDS: LORAZEPAM 1 MG TAB PO PRN ×2 (05:59→12:15)
[2016-10-08 06:46] LABS: CONDITION 1; LH ANALYZER COMMENTS 1; SUSPECT 1; UNCORRECTED WBC 15.8 10^3/ul (4.8-10.8)
[2016-10-08] MEDS: INSULIN ASPART [NOVOLOG] 3 ML PEN SC SCH ×2 (07:50→11:40)
[2016-10-08] MEDS: metFORMIN 500 MG TAB PO SCH (08:32)
[2016-10-08] MEDS: ATENOLOL 50 MG TAB PO SCH (08:33)
[2016-10-08] MEDS: oxyCODONE (CR) 20 MG TAB [oxyCONTIN] PO SCH (08:35)
[2016-10-08] MEDS: NIFEdipine (XL) 90 MG TAB PO SCH (08:35)
[2016-10-08] MEDS: ENOXAPARIN 40 MG/0.4 ML SYG SC SCH (08:42)
[2016-10-08 10:11] LABS: EOSINOPHILS # 0.1 10^3/ul (0.0-0.5); LYMPHOCYTES # 4.9 10^3/ul (0.8-2.9); MONOCYTE # 1.3 10^3/ul (0.3-0.9); NEUTROPHIL # 6.7 10^3/ul (1.6-7.5)
[2016-10-08 10:12] LABS: POIKILOCYTOSIS 1+
[2016-10-08 10:13] LABS: ACANTHOCYTES OCCASIONAL; BURR CELLS FEW; OVALOCYTES OCCASIONAL; PLATELET ESTIMATE PLT APPEAR ADEQUATE; PLATELETS CLUMPS OCCASIONAL
[2016-10-08 11:25] VITALS: BP 143/74
[2016-10-08] MEDS ORDERED: LORA1TAB PO (13:08)
--- NOTE | 2016-10-08 13:10 | PDOCDIS ---
Discharge Instructions CONDITION Patient Condition: Good HOME CARE INSTRUCTIONS: Special Diet: low fat, low salt ACTIVITY: Activity Restrictions: No Restrictions FOLLOW UP/APPOINTMENTS Appointments Follow-up with primary care physician as outpatient Follow up with nephrology as outpatient WILLY BAPTISTE MD Oct 08, 2016 13:09
[2016-10-08] MEDS ORDERED: LEVO500T72 PO (13:25)
[2016-10-08] MEDS ORDERED: NIFE60TA7 PO (13:25)
[2016-10-08] MEDS ORDERED: ATEN50TA PO (13:26)
--- NOTE | 2016-10-08 18:08 | DS ---
DATE OF ADMISSION: 10/02/2016 DATE OF DISCHARGE: 10/08/2016 CONSULTANTS: None. DIAGNOSES 1. Essential hypertension, better controlled. 2. Atypical chest musculoskeletal secondary to Paget's disease. Continue pain medication. 3. Urinary tract infection, status post Levaquin. The patient will be discharged home on Levaquin for 5 days. 4. Hypokalemia, repleted. 5. Hypomagnesia, repleted. 6. Right renal cyst, no further treatment needed. 7. Acute renal insufficiency, improved status post IV fluid. 8. Diabetes mellitus, status post insulin sliding scale, has been started on metformin. MEDICATIONS: 1. [place]. 2. Amlodipine. 3. Atenolol. 4. Clonidine 5. Lorazepam. 6. Metformin. 7. OxyContin. 8. Will be discharged home on Levaquin. 9. Hypokalemia, repleted. 10. Hypomagnesia, repleted. 11. Acute renal insufficiency, improved. 12. Diabetes mellitus, has been started on metformin. 13. Right kidney cyst, no further treatment needed. MEDICATIONS: 1. Atenolol 50 mg p.o. b.i.d. 2. Levaquin 500 mg daily. 3. Lorazepam 1 mg p.o. q. 6 hours. 4. Metformin 500 mg p.o. b.i.d. 5. Nifedipine 60 mg p.o. b.i.d. 6. Clonidine 0.2 mg p.o. q.i.d. 7. [place] 10/325. 8. OxyContin 20 mg p.o. q. 12 hours. ALLERGIES: KETOROLAC AND MOXIFLOXACIN. VITAL SIGNS: Temperature 97.9, pulse 69, respiration 18, blood pressure 143/74, oxygen saturation 9 5%. LABORATORY: WBC 13.3, hemoglobin 12.3, hematocrit 34.5, platelets 79. Sodium 139, potassium 3.8, c hloride 98, bicarbonate 28, BUN 27, creatinine 1.04, glucose 184, calcium 9.8, hemoglobin A1c 7.7. Triglyceride 138, total cholesterol , LDL 100, HDL 38. HOSPITAL COURSE: This is a 61,-year-old female with past medical history of Paget's disease with di ffuse body aches, hypertension, chronic pain syndrome, anxiety who presents to [facility] secondary to having diffuse body ache and atypical chest pain. The pain has been unbearable in the body. She states that the patient can handle the p.o. medication but her pain became excess nicolas, was diffuse throughout her chest, back, secondary to Paget's disease. She also has some deafne ss as a results from Paget's disease. A 2D echocardiogram was obtained, showed the left ventricle w as normal in size and systolic function, estimated ejection fraction 60% to 65%, mild conservative l eft ventricular hypertrophy, moderate left ventricle diastolic dysfunction. The patient was placed on Dilaudid, morphine and [place]. The patient was also found to have uncontrolled hypertension upon evaluation in the course of the emergency with systolic blood pressure 230/118. The patient was sta rted on nifedipine, clonidine, continued on Atenolol. Her blood pressure has been labile during the course of the hospitalization, although since 10/07/2016, patient's blood pressure has been improvi ng significantly since patient has been placed on nifedipine and continued on atenolol and has been on clonidine. The patient has refused some medical management during this course of hospitalization such as refusi ng nifedipine during this course of hospitalization, although today she has been compliant with her medication and her blood pressure is 130/75, 143/74. The patient also was found to have new diagnos is of diabetes mellitus. The patient was placed on low carb diet, insulin sliding scale, has been s tarted on metformin but Dr. Sam Elizondo. This morning, the patient's blood glucose is better contr olled and 184, 158, and 173. I have discussed the importance of low carb diet her. The patient at this time is medically stable to be discharged home with close followup with primary care physician as outpatient. CONDITION AT TIME OF DISCHARGE: Stable. Total amount of time was spent for evaluation of patient and discharge workup 40 minutes. Dictated By: WILLY HOLLIS/YARI Conf#: [id number] DID#: [id number]
--- NOTE | 2016-10-12 14:23 | ERA ---
DATE OF SERVICE: 10/02/2016 HISTORY OF PRESENT ILLNESS: This 61-year-old female complains of chest pain as well as what she calls kidney pain of her left flank that has been going on for 2 hours. She also has a headache and nausea that is preventing her from being able to eat. The patient is well known to the ER and has chronic pain from her Paget disease. She says at this time it is different. She states that she has had chills but is not sure if she has had fevers. REVIEW OF SYSTEMS: A 10-point review of systems is negative except as in the HPI. PAST MEDICAL HISTORY: Paget disease, hypertension, anxiety, chronic pain, IV drug abuse. PAST SURGICAL HISTORY: Denies. FAMILY HISTORY: Noncontributory. SOCIAL HISTORY: Currently denies tobacco, alcohol, or other drug abuse. PHYSICAL EXAMINATION: VITAL SIGNS: Temperature 98.9, pulse 89, blood pressure 130/118, respirations 18, oxygen saturation 99% on room air. GENERAL: Mild distress. HEENT: Normocephalic, atraumatic. Dry mucous membranes in the mouth. NECK: Supple, no JVD. No meningismus. HEART: Regular tachycardia. LUNGS: Clear to auscultation bilaterally. ABDOMEN: Soft. Moderate left lower abdominal tenderness without guarding or rebound. Nondistended. Bowel sounds positive. EXTREMITIES: No cyanosis, clubbing, or edema. NEUROLOGIC: Alert and oriented x3, no focal deficits. SKIN: No rashes or other lesions. DIAGNOSTIC DATA: Imaging: Chest x-ray interpretation by myself: Cardiomegaly with no acute process, no infiltrates, no pulmonary edema, no pneumothorax, no fractures. CT abdomen and pelvis interpretation: Large hyperdense lesion of the right kidney, 4 x 4 cm, right renal atrophy, bilateral kidney stones without signs of obstruction, gallstones, bony abnormalities of pelvis consistent with erosion of Paget disease, no obstruction, no free air. LABORATORY DATA: BMP significant for a mildly depressed potassium, elevated BUN at 27, and creatinine of 1.39. When compared to patient's earlier levels, this is significantly elevated somewhat. Lactic acid is 2. LFTs are within normal limits except for alkaline phosphatase of 1450. Lipase is not elevated. Coagulation studies within normal limits. INR of 1. CBC significant for elevated white blood cell count at 17 and platelet increase to 44, likely reactive. Urinalysis is unequivocal for urinary tract infection as the patient has 5 to 10 white cells and moderate bacteria; however, there were many squamous epithelial cells indicating possible dirty catch. EMERGENCY DEPARTMENT COURSE AND MEDICAL DECISION MAKING: The patient was somewhat ill appearing and does have an elevated white blood cell count compared to others and tachycardia in the emergency room consistent with sepsis , possibly secondary to urinary tract infection which would explain the flank pain. The patient also has significantly elevated blood pressure in the emergency room along with a headache making a hypertensive urgency and was given labetalol and hydralazine in order to lower her blood pressure. She was also given potassium for hypokalemia. She has acute kidney injury as well indicating dehydration likely secondary to nausea, her other acute processes, and sepsis. She was hydrated with normal saline, and pain was treated with fentanyl and Dyloject which reduced her pain. Rocephin was given for possible sepsis with septic diagnosis made at 22:50 when her laboratories and urine studies returned. I spoke with Dr. Garcia who will be admitting the patient to telemetry for further evaluation and management and monitoring. teletypesetter monitor interpretation: Sinus tachycardia alternating with normal sinus rhythm, no other arrhythmias. Critical care time: 42 minutes. This includes treatment of such things as dehydration as well as hypertensive urgency with extremely high blood pressure using labetalol and hydralazine as a vasoactive agent, multiple visits to the patient's bedside to assess status while receiving these as well as assess fluid status after fluid administration, chart review, antibiotic selection, discussion with patient and admitting doctor. This does not include any billable procedures. ADMISSION DIAGNOSES 1. Sepsis. 2. Hypertensive emergency. 3. Acute kidney injury. 4. Flank pain. 5. Large renal density. 6. Gallstones. 7. Thrombocytosis. 8. Acute headache. DISPOSITION: Admitted in serious condition. Dictated By: TONE SWAIN Conf#: [id number] DID#: [id number] MTDD
== END 2016-10-08 16:10 | disposition home or self-care (01) | DRG 92 ==
LOC: E/R 20:55 → TEL 10-02 02:14 → MS1 10-03 22:25
PROVIDERS: ADMIT Internal Medicine; ATTEND Internal Medicine
DX: G89.29 Other chronic pain (principal); N17.9 Acute kidney failure, unspecified; N39.0 Urinary tract infection, site not specified; E83.42 Hypomagnesemia; M88.89 Osteitis deformans of multiple sites; R07.89 Other chest pain; I10 Essential (primary) hypertension; N28.89 Other specified disorders of kidney and ureter; E87.6 Hypokalemia; E11.9 Type 2 diabetes mellitus without complications; F41.9 Anxiety disorder, unspecified
CPT/HCPCS: 71010; 74176; 76775; 80048; 80053; 80061; 81001; 81003; 82962; 83036; 83605; 83690; 83735; 84484; 85025; 85610; 85730; 87040; 87086; 93005; 93306; J0360; J0696; J1170; J1650; J1815; J2060; J2270; J2405; J3010; J3475; J7030

== ENCOUNTER 2017-03-22 21:29 | Emergency (ER) | payer OTHER ==
[~2017-03-22] VITALS: Ht 167.6 cm; Wt 65.0 kg
[~2017-03-22 21:29] MED LIST changes: -AMLO-145 PO; +LEVO500T72 PO; -LORA-444 PO; +LORA1TAB PO; +METF500T PO; +NIFE60TA7 PO
[2017-03-22 21:31] VITALS: Ht 167.6 cm; Wt 65.0 kg
[2017-03-22] MEDS ORDERED: BENA40TA41 PO (23:21)
[2017-03-22] MEDS ORDERED: LORAZEPAM 1 MG TAB PO ONE (23:30)
[2017-03-22] MEDS ORDERED: NICARDipine HCL 30 MG CAPSULE PO ONE (23:30)
[2017-03-23] MEDS ORDERED: LORAZEPAM 1 MG TAB PO ONE (01:30)
[2017-03-23] MEDS ORDERED: HYDR-906 PO (01:46)
--- NOTE | 2017-03-23 01:48 | ERD ---
ER Documentation Chief Complaint Date/Time DATE: 03/23/17 TIME: 01:46 Chief Complaint elevated BP = 240/100 HPI This is a 62-year-old female with a history of hypertension. The patient says that she was feeling dizzy so she checked her blood pressure at home and it was 240s over 100. The patient denies headache chest pain or shortness of breath but does feel slightly dizzy. She has no numbness weakness or focal neurological complaint. She says that works the best is taking Ativan to lower her pressure. She says she takes multiple blood pressure medications and may have forgotten to take some today. ROS All systems reviewed and are negative except as per history of present illness. Medications Home Meds Active Scripts Hydrocodone/Acetaminophen ([place] 5-325 Tablet) 1 Each Tablet, 1 TAB PO Q6H Y for PAIN, #20 TAB Prov:NUHA ROSA DO 03/23/17 Nifedipine* (Nifedipine ER*) 60 Mg Tablet.sa, 60 MG PO BID, #60 TAB.SA Prov:WILLY BAPTISTE MD 10/08/16 Lorazepam* (Lorazepam*) 1 Mg Tablet, 1 MG PO Q6 Y for ANXIETY, #30 TAB Prov:WILLY BAPTISTE MD 10/08/16 Metformin Hcl (Glucophage) 500 Mg Tablet, 500 MG PO BID WITH MEALS for 30 Days, TAB Prov:JOSSELIN KIDD MD 10/05/16 Reported Medications Benazepril Hcl* (Benazepril Hcl*) 40 Mg Tablet, 40 MG PO DAILY, #30 TAB 03/22/17 Atenolol* (Atenolol*) 50 Mg Tablet, 50 MG PO BID, TAB 06/22/14 Hydrocodone Bit-Acetaminophen* ([place]*) 10-325 Mg Tablet, 1 TAB PO QID Y for PAIN, TAB 06/22/14 Clonidine Hcl* (Clonidine Hcl*) 0.2 Mg Tablet, 0.2 MG PO QID, TAB 06/22/14 Discontinued Reported Medications Oxycodone Hcl* (Oxycontin*) 20 Mg Tab.er.12h, 20 MG PO Q12 Y for SEVERE PAIN LEVEL 7-10, TAB 06/22/14 Discontinued Scripts Atenolol* (Atenolol*) 50 Mg Tablet, 50 MG PO BID, #60 TAB Prov:WILLY BAPTISTE MD 10/08/16 Levofloxacin* (Levaquin*) 500 Mg Tablet, 500 MG PO DAILY, #5 TAB Prov:WILLY BAPTISTE MD 10/08/16 Allergies Allergies: Coded Allergies: ketorolac (Unverified Allergy, Mild, RASHES, 03/22/17) moxifloxacin HCl (Unverified Allergy, Mild, 03/22/17) PMhx/Soc History of Surgery: Yes (SPLEENECTOMY) Anesthesia Reaction: No Hx Neurological Disorder: No Hx Respiratory Disorders: No Hx Cardiac Disorders: Yes (HTN) Hx Psychiatric Problems: Yes (anxiety) Hx Miscellaneous Medical Probl: No (CHRONIC BACK PAIN) Hx Alcohol Use: No Hx Substance Use: Yes Hx Tobacco Use: Yes (quit) Smoking Status: Former smoker FmHx Family History: No coronary disease Physical Exam Vitals Vital Signs Date Time Temp Pulse Resp B/P Pulse Ox O2 Delivery O2 Flow Rate FiO2 03/23/17 01:24 80 16 127/71 100 Room Air 03/23/17 00:10 64 14 184/81 96 Room Air 03/22/17 21:31 98.5 87 20 240/100 98 Physical Exam Const: Well-developed, well-nourished Head: Atraumatic, normocephalic Eyes: Normal Conjunctiva, PERRLA, EOMI, normal sclera, no nystagmus ENT: Normal External Ears, Nose and Mouth, moist mucus membranes. Neck: Full range of motion. No meningismus, no lymphadenopathy. Resp: Clear to auscultation bilaterally, no wheezing, rhonchi, rales Cardio: Regular rate and rhythm, no murmurs, S1 S2 present Abd: Soft, non tender x 4, non distended. Normal bowel sounds, no guarding or rebound, no pulsitile abdominal masses or bruits Skin: No petechiae or rashes, no ecchymosis , no maculopapular rash Back: No midline or flank tenderness Ext: No cyanosis, or edema, FROM x 4, normal inspection, neurovascularly intact x 4 Neur: Awake and alert, STR 5/5 x 4, sensation intact x 4, no focal findings, cerebellum intact Psych: Normal Mood and Affect Results 24 hrs Current Medications Medications (Trade) Dose Ordered Sig/Jordin Route PRN Reason Start Time Stop Time Status Last Admin Dose Admin Nicardipine HCl (Cardene) 60 mg ONCE ONCE PO 03/22/17 23:30 03/22/17 23:31 DC 03/22/17 23:32 Lorazepam (Ativan) 1 mg ONCE ONCE PO 03/22/17 23:30 03/22/17 23:31 DC 03/22/17 23:32 Lorazepam (Ativan) 1 mg ONCE ONCE PO 03/23/17 01:30 03/23/17 01:31 DC 03/23/17 01:22 Procedures/MDM She is given Cardene 60 mg p.o. followed by some Ativan. The patient says she feels better. Blood pressures currently 140/84 Departure Diagnosis: Primary Impression: Hypertension, uncontrolled Condition: Stable Patient Instructions: High Blood Pressure (Hypertension) Referrals: ADITI REES MD (PCP) NUHA ROSA DO Mar 23, 2017 01:48
[2017-03-23 01:55] VITALS: BP 128/77; PULSE 80; RESP 16; TEMP 98.5
== END 2017-03-23 01:59 | disposition home or self-care (01) ==
LOC: E/R 21:29
DX: I10 Essential (primary) hypertension (principal); R40.2142 Coma scale, eyes open, spontaneous, at arrival to emergency department; R40.2252 Coma scale, best verbal response, oriented, at arrival to emergency department; R40.2362 Coma scale, best motor response, obeys commands, at arrival to emergency department; Z87.891 Personal history of nicotine dependence
CPT/HCPCS: Z7502; Z7610; 99283

== ENCOUNTER 2017-09-05 19:58 | Emergency (ER) | payer OTHER ==
[~2017-09-05] VITALS: Ht 175.3 cm; Wt 79.5 kg
[~2017-09-05 19:58] MED LIST changes: +BENA40TA41 PO; +HYDR-906 PO; -LEVO500T72 PO; -OXYC20TA41 PO
[2017-09-05 20:28] VITALS: Ht 175.3 cm; Wt 79.5 kg
[2017-09-05] MEDS ORDERED: ASPIRIN 325 MG TAB PO STA (21:50)
--- NOTE | 2017-09-05 22:29 | RADRPT ---
PROCEDURE: XR Chest. CLINICAL INDICATION: Chest pain TECHNIQUE: Single AP portable chest. COMPARISON: 10/02/2016 Chest x-ray FINDINGS: The cardiac silhouette is mildly enlarged. Patchy upper and lower lobe airspace opacity and areas of atelectasis right greater than left. Atherosclerotic calcification of the aorta. The lungs are kayla ar without pleural effusion or focal consolidation. No pneumothorax. The osseous structures and sof t tissues are unremarkable. IMPRESSION: 1. Patchy right upper and lower lobe airspace disease and atelectasis suspicious for multifocal pneu monia . RPTAT:AAJJ Hannah Sagastume Physician Date Time Electronically viewed and signed by Physician Sergio on 09/05/2017 22:29 TERELL/
[2017-09-05] MEDS ORDERED: BUME1TAB18 PO (22:54)
[2017-09-05] MEDS ORDERED: APIX5TAB PO (22:55)
[2017-09-05] MEDS ORDERED: LABETALOL HCL 20MG INJ IV ONE (23:00)
[2017-09-05] MEDS ORDERED: NITROGLYCERIN (SL) 0.4 MG TAB SL ONE (23:30)
[2017-09-05] MEDS ORDERED: LORA-444 PO (23:30)
[2017-09-05 23:49] LABS: ABNORMAL IP MESSAGE 1; HEMATOCRIT 42.1 % (37.0-47.0); HEMOGLOBIN 14.7 g/dl (12.0-16.0); MEAN CORPUSCULAR HEMOGLOBIN 30.4 pg (29.0-33.0); MEAN CORPUSCULAR HGB CONC 34.9 g/dl (32.0-37.0); MEAN PLATELET VOLUME 11.8 fl (7.4-10.4); NUCLEATED RED BLOOD CELLS% 0.1 /100WBC (0.0-0.0); PLATELET COUNT 285 10^3/UL (140-415); RED BLOOD COUNT 4.84 10^6/ul (4.20-5.40); RED CELL DISTRIBUTION WIDTH 13.2 % (11.5-14.5); WHITE BLOOD COUNT 29.1 10^3/ul (4.8-10.8)
[2017-09-05 23:51] LABS: POSITIVE DIFF @See below
[2017-09-06 00:13] LABS: CALCIUM 8.4 mg/dl (8.4-10.2); CREATININE 2.01 mg/dl (0.44-1.00); POTASSIUM 3.3 mmol/L (3.5-5.1)
[2017-09-06 00:22] LABS: TROPONIN-I 0.059 ng/ml (0.00-0.12)
[2017-09-06] MEDS ORDERED: ONDANSETRON 4 MG INJ IV STA (00:29)
[2017-09-06] MEDS ORDERED: HYDROmorphONE 1 MG/ML SYG IV STA ×2 (00:29→02:30)
[2017-09-06 01:22] LABS: ANISOCYTOSIS 3+ (0-0); GIANT THROMBO% (M) 1 % (0-0); MICROCYTOSIS 3+ (0-0); MONOCYTES % (M) 1 % (0-11); PLATELET ESTIMATE NORMAL; POIKILOCYTOSIS 2+ (0-0); POLYCHROMASIA 3+ (0-0)
--- NOTE | 2017-09-06 01:36 | ERD ---
ER Documentation Chief Complaint Chief Complaint BIB SELF, CC: CHEST PAIN AND SOB X 2 DAYS, UNABLE TO EAT HPI This is a 62-year-old female brought in by her son complaining of chest pain shortness breath for 2 days. She is well-known to us secondary to multiple previous visits. Patient states she wants pain medication. Denies any nausea vomiting fevers or chills. Denies any other current issues. Patient has history of Paget's disease ROS All systems reviewed and are negative except as per history of present illness. Medications Home Meds Active Scripts Metformin Hcl (Glucophage) 500 Mg Tablet, 500 MG PO BID WITH MEALS for 30 Days, TAB Prov:JOSSELIN KIDD MD 10/05/16 Reported Medications Lorazepam* (Ativan*) 2 Mg Tablet, 1 MG PO HS Y for ANXIETY, #30 TAB 09/05/17 Apixaban* (Eliquis*) 5 Mg Tablet, 5 MG PO BID, TAB 09/05/17 Bumetanide* (Bumetanide*) 1 Mg Tablet, 1 MG PO DAILY, TAB 09/05/17 Clonidine Hcl* (Clonidine Hcl*) 0.2 Mg Tablet, 0.2 MG PO QID, TAB 06/22/14 Discontinued Reported Medications Benazepril Hcl* (Benazepril Hcl*) 40 Mg Tablet, 40 MG PO DAILY, #30 TAB 03/22/17 Atenolol* (Atenolol*) 50 Mg Tablet, 50 MG PO BID, TAB 06/22/14 Hydrocodone Bit-Acetaminophen* ([place]*) 10-325 Mg Tablet, 1 TAB PO QID Y for PAIN, TAB 06/22/14 Discontinued Scripts Hydrocodone/Acetaminophen ([place] 5-325 Tablet) 1 Each Tablet, 1 TAB PO Q6H Y for PAIN, #20 TAB Prov:NUHA ROSA DO 03/23/17 Nifedipine* (Nifedipine ER*) 60 Mg Tablet.sa, 60 MG PO BID, #60 TAB.SA Prov:WILLY BAPTISTE MD 10/08/16 Lorazepam* (Lorazepam*) 1 Mg Tablet, 1 MG PO Q6 Y for ANXIETY, #30 TAB Prov:WILLY BAPTISTE MD 10/08/16 Allergies Allergies: Coded Allergies: ketorolac (Unverified Allergy, Mild, RASHES, 09/05/17) moxifloxacin HCl (Unverified Allergy, Mild, 09/05/17) PMhx/Soc History of Surgery: Yes (SPLEENECTOMY) Anesthesia Reaction: No Hx Neurological Disorder: No Hx Respiratory Disorders: No Hx Cardiac Disorders: Yes (HTN) Hx Psychiatric Problems: Yes (anxiety) Hx Miscellaneous Medical Probl: No (CHRONIC BACK PAIN) Hx Alcohol Use: No Hx Substance Use: Yes Hx Tobacco Use: Yes (quit) Smoking Status: Former smoker Physical Exam Vitals Vital Signs Date Time Temp Pulse Resp B/P Pulse Ox O2 Delivery O2 Flow Rate FiO2 09/05/17 20:28 98.2 82 18 230/101 92 Physical Exam Const: [] Head: Atraumatic Eyes: Normal Conjunctiva ENT: Normal External Ears, Nose and Mouth. Neck: Full range of motion..~ No meningismus. Resp: Clear to auscultation bilaterally Cardio: Regular rate and rhythm, no murmurs Abd: Soft, non tender, non distended. Normal bowel sounds Skin: No petechiae or rashes Back: No midline or flank tenderness Ext: No cyanosis, or edema Neur: Awake and alert Psych: Normal Mood and Affect Result Diagram: 09/05/17230609/05/172306 Results 24 hrs Laboratory Tests Test 09/05/17 23:07 White Blood Count 29.110^3/ul Red Blood Count 4.8410^6/ul Hemoglobin 14.7g/dl Hematocrit 42.1% Mean Corpuscular Volume 87.0fl Mean Corpuscular Hemoglobin 30.4pg Mean Corpuscular Hemoglobin Concent 34.9g/dl Red Cell Distribution Width 13.2% Platelet Count 04241^3/UL Mean Platelet Volume 11.8fl Neutrophils % % Segmented Neutrophils % (Manual) 77% Band Neutrophils % (Manual) 17% Lymphocytes % % Lymphocytes % (Manual) 5% Monocytes % % Monocytes % (Manual) 1% Eosinophils % % Basophils % % Nucleated Red Blood Cells % 0.1/100WBC Neutrophils # 10^3/ul Neutrophils # (Manual) 23.810^3/ul Band Neutrophils # 4.910^3/ul Absolute Lymphocytes (Manual) 1.410^3/ul Lymphocytes # 10^3/ul Monocytes # 10^3/ul Absolute Monocytes (Manual) 0.210^3/ul Eosinophils # 10^3/ul Basophils # 10^3/ul Nucleated Red Blood Cells # 10^3/ul Platelet Estimate NORMAL Giant Platelets 1% Polychromasia 3+ Poikilocytosis 2+ Anisocytosis 3+ Microcytosis 3+ Sodium Level 140mmol/L Potassium Level 3.3mmol/L Chloride Level 99mmol/L Carbon Dioxide Level 27mmol/L Anion Gap 17 Blood Urea Nitrogen 70mg/dl Creatinine 2.01mg/dl Glucose Level 158mg/dl Calcium Level 8.4mg/dl Troponin I 0.059ng/ml B-Type Natriuretic Peptide Pending Current Medications Medications (Trade) Dose Ordered Sig/Jordin Route PRN Reason Start Time Stop Time Status Last Admin Dose Admin Aspirin (Aspirin) 325 mg ONCE STAT PO 09/05/17 21:50 09/05/17 21:51 DC 09/05/17 22:00 Labetalol HCl (Labetalol) 20 mg ONCE ONCE IV 09/05/17 23:00 09/05/17 23:01 DC 09/05/17 23:56 Nitroglycerin (Nitroglycerin (Sl Tab) 0.4 Mg) 1 tab ONCE ONCE SL 09/05/17 23:30 09/05/17 23:31 DC 09/05/17 23:56 Hydromorphone HCl (Dilaudid) 1 mg ONCE STAT IV 09/06/17 00:29 09/06/17 00:30 DC 09/06/17 00:37 Ondansetron HCl (Zofran Inj) 4 mg ONCE STAT IV 09/06/17 00:29 09/06/17 00:30 DC 09/06/17 00:37 Procedures/MDM EKG: Rate/Rhythm: [Normal Sinus Rhythm] QRS, ST, T-waves: [No changes consistent w/ acute ischemia] Impression: [No evidence of ischemia or arrhythmia] Chest X-ray 1V Interpreted by me: Soft Tissue: No acute abnormalities Bones: No acute abnormalities Mediastinum/Cardiac Silhouette/Lungs: [No acute abnormalities] Patient's thoracic symptoms have stabilized while in the department and are stable for outpatient follow up. Exam and work up not consistent w/ ischemia, arrhythmia, PE or dissection. His elevated white count, likely stress reaction. No evidence of infection. Departure Diagnosis: Primary Impression: Chest pain Chest pain type: unspecified Qualified Code: R07.9 - Chest pain, unspecified type Additional Impressions: Chronic pain disorder Hypertension, uncontrolled Paget's disease of bone Condition: Stable SADIE JIMENEZ Sep 06, 2017 01:36
[2017-09-06] MEDS ORDERED: BUME1TAB18 PO (01:37)
[2017-09-06] MEDS ORDERED: APIX5TAB PO (01:37)
[2017-09-06] MEDS ORDERED: METF500T PO (01:37)
[2017-09-06] MEDS ORDERED: CLON0.2T5 PO (01:37)
[2017-09-06] MEDS ORDERED: LORA-444 PO (01:37)
[2017-09-06 02:48] VITALS: BP 170/96; RESP 16
== END 2017-09-06 02:48 | disposition home or self-care (01) ==
LOC: E/R 19:58
DX: R07.9 Chest pain, unspecified (principal); G89.4 Chronic pain syndrome; I10 Essential (primary) hypertension; M88.9 Osteitis deformans of unspecified bone; Z87.891 Personal history of nicotine dependence
CPT/HCPCS: 36415; 71010; 80048; 83880; 84484; 85025; 93005; 96374; 96375; 96376; J1170; J2405; Z7502; Z7610

== ENCOUNTER 2018-05-01 10:48 | Inpatient (IN) | END 2018-05-04 19:16 | disposition home or self-care (01) | DRG 639 ==

== ENCOUNTER 2018-09-09 11:00 | Inpatient (IN) | payer OTHER ==
[~2018-09-09] VITALS: Ht 165.1 cm; Wt 75.7 kg
[~2018-09-09 11:00] MED LIST changes: -ATEN50TA PO; -BENA40TA41 PO; +BENA40TA56 PO; +BLOO1EAC85 MC; +CLON0.1T14 PO; -CLON0.2T5 PO; -HYDR-762 PO; -HYDR-906 PO; +INSU100I12 SQ; +INSU100I33 SC; +ISOP1TOW MC; +LANC-831 MC; -LORA1TAB PO; -METF500T PO; +METF500T24 PO; +NIFE60TA2 PO; -NIFE60TA7 PO; +TRAM50TA PO; +glucose test strips
[2018-09-09] MEDS ORDERED: ASPIRIN 325 MG TAB PO STA (12:05)
[2018-09-09] MEDS ORDERED: ONDANSETRON 4 MG INJ IV STA (12:05)
[2018-09-09] MEDS ORDERED: morphine 4 MG/ML VIAL IV STA (12:05)
[2018-09-09] MEDS ORDERED: LORA-444 PO (12:27)
[2018-09-09] MEDS ORDERED: CLON0.2T5 PO (12:27)
[2018-09-09] MEDS ORDERED: APIX5TAB PO (12:28)
[2018-09-09] MEDS ORDERED: traMADol 50 MG TAB PO ONE (13:00)
[2018-09-09] MEDS ORDERED: NITROGLYCERIN (SL) 0.4 MG TAB SL PRN ×2 (13:00→15:00)
[2018-09-09] MEDS ORDERED: FUROSEMIDE 40 MG INJ IV ONE (13:30)
[2018-09-09] MEDS ORDERED: NITROGLYCERIN 50 MG/D5W (PMX) 250 ML IV STA (14:03)
--- NOTE | 2018-09-09 14:03 | ERD ---
ER Documentation Chief Complaint Chief Complaint CHEST PAIN, SWELLING ON ARMS/LEGS X1 WEEK HPI This is a 63-year-old female with a known history of Paget's disease, diabetes mellitus hypertension on Eliquis who presents to the emergency department complaining of chest pressure. Patient indicates that the chest pre ssure has been present for 1 week. It is intermittent. She also states that she is noticed swelling of both her lower extremities. She denies any pain in her lower extremities. She complains of paroxysmal nocturnal dyspnea. She denies any recent travel or prolonged immobilization. The patient has a remote history of heroin abuse but denies any recent drug use. The pain in the chest does not radiate to the neck arm back or jaw. She denies a headache. She has no neck pain. She said no fevers or shaking or chills. ROS All systems reviewed and are negative except as per history of present illness. Medications Home Meds Active Scripts Tramadol Hcl* (Ultram*) 50 Mg Tablet, 25 MG PO Q6H PRN for PAIN for 3 Days, #10 TAB Prov:NURYS CHATMAN MD 05/04/18 Insulin Lispro (Humalog Kwikpen U-100) 100 Unit/1 Ml Insuln.pen, 6 UNIT SQ TIDAC for 30 Days, #1 EA Prov:NURYS CHATMAN MD 05/04/18 Metformin Hcl* (Metformin Hcl*) 500 Mg Tablet, 500 MG PO WITH BREAKFAST DINNE for 30 Days, #60 TAB Prov:NURYS CHATMAN MD 05/04/18 Benazepril Hcl* (Benazepril Hcl*) 40 Mg Tablet, 40 MG PO BID for 30 Days, #60 TAB Prov:NURYS CHATMAN MD 05/04/18 Reported Medications Apixaban* (Eliquis*) 5 Mg Tablet, 5 MG PO BID, TAB 09/09/18 Lorazepam* (Ativan*) 2 Mg Tablet, 2 MG PO Q6 PRN for ANXIETY, #60 TAB 09/09/18 Clonidine Hcl* (Clonidine Hcl*) 0.2 Mg Tablet, 0.2 MG PO QID, TAB 09/09/18 Discontinued Scripts [glucose test strips] No Conflict Check, EA, #100 check your blood sugar three times daily before meals and before bed Prov:NURYS CHATMAN MD 8/10/18 Isopropyl Alcohol (ALCOH-WIPE) 1 Each [place], EACH , #100 check your blood sugar three times daily before meals and before bed Prov:NURYS CHATMAN MD 05/04/18 Lancets (Blood Lancets) 1 Each Each, EACH , #100 check your blood sugar three times daily before meals and before bed Prov:NURYS CHATMAN MD 05/04/18 Blood-Glucose Meter (Blood Glucose Meter) 1 Each Each, EACH MC, #1 check your blood sugar three times daily before meals and before bed Prov:NURYS CHATMAN MD 05/04/18 Insulin Glargine,Hum.rec.anlog (Basaglar Kwikpen U-100) 100 Unit/1 Ml Ins uln.pen, 16 UNIT SC DAILY for 30 Days, #1 EA Prov:NURYS CHATMAN MD 05/04/18 Nifedipine (Procardia Xl) 60 Mg Tab.er.24, 60 MG PO DAILY for 30 Days, #30 TAB Prov:NURYS CHATMAN MD 05/04/18 Clonidine Hcl* (Catapres*) 0.1 Mg Tablet, 0.3 MG PO Q8H for 30 Days, #90 TAB Prov:NURYS CHATMAN MD 05/04/18 Allergies Allergies: Coded Allergies: ketorolac (Unverified Allergy, Mild, RASHES, 09/09/18) moxifloxacin HCl (Unverified Allergy, Mild, 09/09/18) PMhx/Soc History of Surgery: No Anesthesia Reaction: No Hx Neurological Disorder: No Hx Respiratory Disorders: No Hx Cardiac Disorders: Yes (HTN) Hx Psychiatric Problems: Yes (FORMER HEROIN ADDICT) Hx Miscellaneous Medical Probl: Yes (THIN, PAGET'S) Hx Alcohol Use: Yes Hx Substance Use: No Hx Tobacco Use: No Smoking Status: Never smoker Physical Exam Vitals Vital Signs Date Temp Pulse Resp B/P (MAP) Pulse Ox O2 O2 Flow FiO2 Time Delivery Rate 09/09/18 98.5 71 24 217/131 94 11:11 (159) Physical Exam Constitutional:Well-developed. Well-nourished. HEENT:Normocephalic. Atraumatic.Pupils were equal round reactive to light. Moist mucous membranes.No tonsillar exudates. Neck: No nuchal rigidity. No lymphadenopathy. No posterior cervical spine tenderness or step-offs. Respiratory: Not using accessory muscles of respiration.Lungs were clear to auscultation bilaterally. No rhonchi. No rales. No wheezing. Cardiovascular: Regular rate regular rhythm.No murmurs. No rubs were appreciated.S1, S2 normal. Distal pulses palpable 1+ bilaterally GI: Abdomen was soft. Nontender. Non Distended. No pulsatile abdominal masses or bruits. No rebound. No guarding. Bowel sounds were present and normal. Muscle skeletal: Full range of motion of both the upper and lower extremities bilaterally.Normal muscle tone. Skin: Multiple pot mckenna on the bilateral lower extremities from previous heroin use. No fluctuance no induration. NEURO: Patient was alert, awake, orientated x3.No facial droop. Gait observed and normal with no ataxia.Speech had regular rate and rhythm. No focal neurological deficits. Result Diagram: 09/09/18 1215 09/09/18 1215 Results 24 hrs Laboratory Tests Test 09/09/18 12:15 White Blood Count 7.3 10^3/ul Red Blood Count 5.27 10^6/ul Hemoglobin 15.7 g/dl Hematocrit 50.9 % Mean Corpuscular Volume 96.6 fl Mean Corpuscular Hemoglobin 29.8 pg Mean Corpuscular Hemoglobin Concent 30.8 g/dl Red Cell Distribution Width 15.4 % Platelet Count 197 10^3/UL Mean Platelet Volume 12.1 fl Immature Granulocytes % 0.400 % Neutrophils % 66.6 % Lymphocytes % 25.6 % Monocytes % 6.7 % Eosinophils % 0.3 % Basophils % 0.4 % Nucleated Red Blood Cells % 0.0 /100WBC Immature Granulocytes # 0.030 10^3/ul Neutrophils # 4.8 10^3/ul Lymphocytes # 1.9 10^3/ul Monocytes # 0.5 10^3/ul Eosinophils # 0.0 10^3/ul Basophils # 0.0 10^3/ul Nucleated Red Blood Cells # 0.0 10^3/ul Prothrombin Time 13.1 Sec Prothrombin Time Ratio 1.0 INR International Normalized Ratio 0.98 Activated Partial Thromboplast Time 26.4 Sec Sodium Level 143 mmol/L Potassium Level 4.1 mmol/L Chloride Level 105 mmol/L Carbon Dioxide Level 27 mmol/L Anion Gap 11 Blood Urea Nitrogen 32 mg/dl Creatinine 1.59 mg/dl Est Glomerular Filtrat Rate mL/min 40 mL/min Glucose Level 155 mg/dl Calcium Level 9.3 mg/dl Total Bilirubin 0.9 mg/dl Direct Bilirubin 0.00 mg/dl Indirect Bilirubin 0.9 mg/dl Aspartate Amino Transf (AST/SGOT) 52 IU/L Alanine Aminotransferase (ALT/SGPT) 35 IU/L Alkaline Phosphatase 1315 IU/L Creatine Kinase 54 IU/L Creatine Kinase Index 4.6 Creatinine Kinase MB (Mass) 2.46 ng/ml Troponin I 0.130 ng/ml B-Type Natriuretic Peptide 17281 PG/ML Total Protein 6.8 g/dl Albumin 3.8 g/dl Globulin 3.00 g/dl Albumin/Globulin Ratio 1.26 Lipase 459 U/L Current Medications Medications Dose Sig/Jordin Start Time Status Last (Trade) Ordered Route PRN Stop Time Admin Dose Reason Admin Aspirin 325 mg ONCE STAT 09/09/18 DC 09/09/18 (Aspirin) PO 12:05 12:58 09/09/18 12:07 Morphine 4 mg ONCE STAT 09/09/18 DC Sulfate IV 12:05 (morphine) 09/09/18 12:07 Ondansetron 4 mg ONCE STAT 09/09/18 DC HCl (Zofran IV 12:05 Inj) 09/09/18 12:07 Tramadol 50 mg ONCE ONCE 09/09/18 DC 09/09/18 HCl PO 13:00 13:05 (Ultram) 09/09/18 13:01 1 tab Q5M UP TO 3 09/09/18 Nitroglycerin DOSES PRN 13:00 SL CHEST (Nitroglyceri PAIN n (Sl Tab) 0.4 Mg) Furosemide 40 mg ONCE ONCE 09/09/18 UNV (Lasix) IV 13:30 09/09/18 13:31 Procedures/MDM The patient presented to the emergency department with chest pain. My clinical evaluation and workup was to distinguish minor causes of chest pain from acute life threatening conditions such as myocardial infarction, pulmonary embolism, aortic dissection, esophageal rupture, cardiac tamponade. The patient was placed on a cardiac technician and continuous pulse oximetry. IV access established by nursing staff. The patient was given aspirin and nitroglycerin. This did not improve her chest pain and therefore she was requesting tramadol which was provided to the patient. The patient presented with significantly elevated blood pressure and concerns of endorgan damage given that the troponin was elevated and the patient also was in severe congestive heart failure exacerbation with pulmonary vascular congestion seen on chest radiograph reviewed by myself and an elevated BNP. The patient was given nitroglycerin drip for improvement of her blood pressure. 12 Lead EKG tracing ordered and reviewed by myself showed: Normal sinus rhythm of 100 bpm and no arrhythmia with PVCs NC interval normal. QRS duration normal. No ST segment elevation No ST segment depression. No changes consistent with acute ischemia. Also obtain venous duplex ultrasounds of her lower extremities which was read by the radiologist and reviewed by myself and indicated the following: Right leg DVT. Complex right popliteal Helms's cyst. The patient is currently already on Eliquis. Critical Care: Time: 65 minutes Treatments/Evaluations: Close monitoring and treatment of unstable vital signs, cardiorespiratory, and neurologic status, while maintaining tight balance of fluid, respiratory, and cardiac interventions. Time does not include performing any of the above billable procedures. Departure Diagnosis: Primary Impression: Acute exacerbation of CHF (congestive heart failure) Heart failure type: unspecified Qualified Codes: I50.9 - Heart failure, unspecified Additional Impressions: Non-STEMI (non-ST elevated myocardial infarction) Deep vein thrombosis DVT location: lower extremity Affected thrombotic vein of extremity: unspecified vein of extremity Chronicity: acute Laterality: right Qualified Codes: I82.401 - Acute embolism and thrombosis of unspecified deep veins of right lower extremity Hypertensive emergency Condition: Serious LINDA MEI MD Sep 09, 2018 13:48
[2018-09-09] MEDS ORDERED: ACETAMINOPHEN 325 MG TAB PO PRN (14:30)
[2018-09-09] MEDS ORDERED: ONDANSETRON 4 MG INJ IV PRN (14:30)
[2018-09-09] MEDS ORDERED: LORAZEPAM 2 MG INJ IV ONE (14:30)
[2018-09-09] MEDS ORDERED: LABETALOL HCL 20MG INJ IV ONE (14:30)
[2018-09-09] MEDS ORDERED: LORAZEPAM 4 MG/ML VIAL IV ONE (14:36)
--- NOTE | 2018-09-09 14:55 | HP ---
Date/Time of Note Date/Time of Note DATE: 09/09/18 TIME: 14:55 Assessment/Plan VTE Prophylaxis SCD applied (from Nsg): Yes Pharmacological prophylaxis: apixaban Lines/Catheters IV Catheter Type (from Nrsg): Peripheral IV Assessment/Plan Assessment/Plan 1. Acute bilateral lower extremity swelling - Most likely secondary to CHF exacerbation - LE doppler shows R DVT but patient already on Eliquis. Unsure if new or chronic. Will continue to monitor - No rashes or erythema noted 2. Acute congestive heart failure - Patient denies history of CHF so most likely new onset - Will check ECHO to assess EF - [place], [address] - CXR shows pulmonary congestion as well as b/l effusion - Lasix IV BID initiated and will monitor I/O and daily weights - Cardiology consultation placed for further recommendations 3. Hypertensive emergency - BP improved after given Labetalol in ED. Was also on nitro for chest pressure - Continue home medication and will need to adjust as needed- - secondary to noncompliance as patient states she ran out of "one of her medications" - per last d/c summary was on Nifedipine 60 and will restart 4. ARMIDA - most likely ATN vs cardiorenal - Will avoid nephrotoxic agents - Monitor for improvement and if needed consider Nephrology if continues to worsen - Baseline Cr appears 0.9 5. Elevated trop - most likely secondary to demand given uncontrolled BP, acute CHF and elevated Cr - Will continue to trend. Currently denies any chest pain - Cardiology aware of trop level 6. Elevated Alk Phos - chronically elevated - most likely secondary to Pagets 7. Right popliteal Bakers cyst - chronic. pt aware 8. Diabetes mellitus - Will check A1c. noted to be >14 04/2018 - continue ISS and accuchecks - hold home Metformin - On AC coverage but unsure why not on Lantus. Noted to be on 16 during last admission and will restart as well 9. Pagets disease - pain control 10. Diet - cardiac/carb controlled 11. DVT ppx - Eliquis 12. Disposition - Admit to telemetry for treatment of uncontrolled HTN and CHF exacerbation HPI/ROS Admit Date/Time Admit Date/Time 09/09/18 1500 Hx of Present Illness 63 yo F with PMH Pagets disease with hearing loss, Diabetes Mellitus, HTN, ?afib on Eliquis presented to ED complaining of lower extremity pain and swelling. Patient is hard of hearing and history challenging to obtain. Patient states shes been experiencing pain and swelling in lower legs as well as chest pressure and shortness of breath for the past week. She states she feels as if her legs are very heavy and has been difficult to walk. She was found with elevated BP as well as states she does take her medication as home but ran out recently of one but unsure of name. Patient currently admits to pain in legs but denies any chest pain, worsening shortness of breath, wheezing, dizziness, abdominal pain, constipation or diarrhea. ROS All 12 systems reviewed and pertinent positives as per HPI. All others negative. Constitutional: No fatigue, No febrile Eyes: No discharge ENT: other (hard of hearing); No congestion Respiratory: shortness of breath; No pain, No cough, No sputum, No wheezing Cardiovascular: No chest pain, No lightheadedness, No palpitations Gastrointestinal: No pain, No constipation, No diarrhea, No nausea, No vomiting Genitourinary: no complaints Musculoskeletal: bone/joint pain, swelling (lower extremities) Skin: other (chronic skin changes lower extremities) Neurologic: headache; No confusion, No focal-weakness, No syncope Endocrine: no complaints Lymphatic: no complaints Psychological: nl mood/affect Immunologic: no complaints PMH/Family/Social Past Medical History Medical History: diabetes, hypertension, other (Pagets disease) Coded Allergies: ketorolac (Unverified Allergy, Mild, RASHES, 09/09/18) moxifloxacin HCl (Unverified Allergy, Mild, 09/09/18) Past Surgical History Past Surgical Hx: noncontributory Family History Significant Family History: no pertinent family hx Social History Alcohol Use: none Smoking Status: Former smoker Drug Use: none, other (past IVDU history, 20 years ago) Exam/Review of Systems Vital Signs Vitals Vital Signs Date Temp Pulse Resp B/P (MAP) Pulse Ox O2 O2 Flow FiO2 Time Delivery Rate 09/09/18 88 16 162/88 97 Nasal 3.0 14:53 (112) Cannula 09/09/18 98.5 14:01 Exam Exam General: Patient is a very pleasant female, hard of hearing, no acute distress. answering questions appropriately HEENT: Atraumatic, normocephalic. The pupils are equal, round and reactive. Extraocular motor are intact Neck: Supple with full range of motion. No rigidity or meningismus Chest: Tender to palpation Lungs: Diminished bibasilar R>L. no wheezing or rhonchi Heart: Normal S1-S2, Regular rhythm and rate. no murmurs appreciated Abdomen: Soft , nontender, nondistended , bowel sounds are present. No guarding no rebound tenderness, No masses or organomegaly. No costovertebral temporal angle mass Extremities: Lower extremity edema bilaterally R>L. no clubbing or cyanosis Neurologic: Normal mental status, speech normal, cranial nerves II through XII are intact, motor and sensory are intact, no focal neurological deficits noted. Skin: chronic pitting in lower extremities, no new rashes or lesions appreciated. Medications Medications Home medications reviewed Current Medications Nitroglycerin (Nitroglycerin (Sl Tab) 0.4 Mg) 1 tab Q5M UP TO 3 DOSES PRN SL CHEST PAIN; Start 09/09/18 at 13:00 Nitroglycerin/ Dextrose 250 ml @ 12 mls/hr ONCE STAT IV Last administered on 09/09/18at 14:08; Admin Dose 30 MLS/HR; Start 09/09/18 at 14:03; Stop 09/10/18 at 10:52 Ondansetron HCl (Zofran Inj) 4 mg ER BRIDGE PRN IV NAUSEA AND/OR VOMITING; Start 09/09/18 at 14:30; Stop 09/10/18 at 14:29 Acetaminophen (Tylenol Tab) 650 mg ER BRIDGE PRN PO MILD PAIN(1-3)OR ELEVATED TEMP; Start 09/09/18 at 14:30; Stop 09/10/18 at 14:29 Benazepril HCl (Lotensin) 40 mg BID PO ; Start 09/09/18 at 21:00; Status UNV Clonidine (Catapres) 0.2 mg QID PO ; Start 09/09/18 at 17:00; Status UNV Lorazepam (Ativan) 2 mg Q6 PRN PO ANXIETY; Start 09/09/18 at 15:00; Status UNV Tramadol HCl (Ultram) 25 mg Q6H PRN PO PAIN; Start 09/09/18 at 15:00; Status UNV Miscellaneous Information 6 unit TIDAC SQ ; Start 09/09/18 at 15:00; Status UNV Apixaban (Eliquis) 5 mg BID PO ; Start 09/09/18 at 21:00; Status UNV IV Flush (NS 3 ml) 3 ml PER PROTOCOL IV ; Start 09/09/18 at 15:00; Status UNV Ondansetron HCl (Zofran Inj) 4 mg Q6H PRN IV NAUSEA AND/OR VOMITING; Start 09/09/18 at 15:00; Status UNV Nitroglycerin (Nitroglycerin (Sl Tab) 0.4 Mg) 1 tab Q5M PRN SL CHEST PAIN; Start 09/09/18 at 15:00; Status UNV Acetaminophen (Tylenol Tab) 650 mg Q6H PRN PO PAIN LEVEL 1-3 OR FEVER; Start 09/09/18 at 15:00; Status UNV Acetaminophen/ Hydrocodone Bitart ([place] (5/325)) 1 tab Q6H PRN PO PAIN LEVEL 4-6; Start 09/09/18 at 15:00; Status UNV Docusate Sodium (Colace) 100 mg Q12H PRN PO CONSTIPATION; Start 09/09/18 at 15:00; Status UNV Magnesium Hydroxide (Milk Of Mag) 30 ml DAILY PRN PO CONSTIPATION; Start 09/09/18 at 15:00; Status UNV Results Result Diagram: 09/09/18 1215 09/09/18 1215 Results 24 hrs Laboratory Tests Test 09/09/18 12:15 White Blood Count 7.3 # Red Blood Count 5.27 # Hemoglobin 15.7 # Hematocrit 50.9 #H Mean Corpuscular Volume 96.6 Mean Corpuscular Hemoglobin 29.8 Mean Corpuscular Hemoglobin Concent 30.8 L Red Cell Distribution Width 15.4 #H Platelet Count 197 # Mean Platelet Volume 12.1 H Immature Granulocytes % 0.400 Neutrophils % 66.6 Lymphocytes % 25.6 Monocytes % 6.7 Eosinophils % 0.3 Basophils % 0.4 Nucleated Red Blood Cells % 0.0 Immature Granulocytes # 0.030 Neutrophils # 4.8 Lymphocytes # 1.9 Monocytes # 0.5 Eosinophils # 0.0 Basophils # 0.0 Nucleated Red Blood Cells # 0.0 Prothrombin Time 13.1 Prothrombin Time Ratio 1.0 INR International Normalized Ratio 0.98 Activated Partial Thromboplast Time 26.4 Sodium Level 143 Potassium Level 4.1 Chloride Level 105 Carbon Dioxide Level 27 Anion Gap 11 Blood Urea Nitrogen 32 H Creatinine 1.59 H Est Glomerular Filtrat Rate mL/min 40 L Glucose Level 155 Calcium Level 9.3 Total Bilirubin 0.9 Direct Bilirubin 0.00 Indirect Bilirubin 0.9 Aspartate Amino Transf (AST/SGOT) 52 H Alanine Aminotransferase (ALT/SGPT) 35 Alkaline Phosphatase 1315 H Creatine Kinase 54 Creatine Kinase Index 4.6 Creatinine Kinase MB (Mass) 2.46 H Troponin I 0.130 *H B-Type Natriuretic Peptide 41615 H Total Protein 6.8 Albumin 3.8 Globulin 3.00 Albumin/Globulin Ratio 1.26 Lipase 459 H Imaging PROCEDURE: XR Chest. CLINICAL INDICATION: shortness of breath TECHNIQUE: Single portable view of the chest was obtained COMPARISON: None FINDINGS: There is mild cardiomegaly. There is a moderate right pleural effusion and small left pleural effusion. There is mild pulmonary vascular congestion. There are bilateral lower lobe increased interstitial changes. The thoracic aorta is calcified.. There is no pneumothorax. RPTAT: AA IMPRESSION: Mild cardiomegaly with pulmonary vascular congestion. Moderate right pleural effusion and small left pleural effusion. .Nnamdi Davis MD, MD Date Time Electronically viewed and signed by .Nnamdi Davis MD, MD on 09/09/2018 12:32 TREY BOWEN MD Sep 09, 2018 14:55
[2018-09-09] MEDS ORDERED: DOCUSATE SODIUM 100 MG CAP PO PRN (15:00)
[2018-09-09] MEDS ORDERED: MAGNESIUM HYDROXIDE 30ML CUP PO PRN (15:00)
[2018-09-09] MEDS ORDERED: traMADol 50 MG TAB PO PRN (15:00)
[2018-09-09] MEDS ORDERED: NACL 0.9% 3 ML SYG IV SCH (15:00)
[2018-09-09] MEDS ORDERED: LABETALOL HCL 20MG INJ IV PRN (15:00)
[2018-09-09] MEDS ORDERED: GLUCAGON 1 MG INJ IM PRN (15:30)
[2018-09-09] MEDS ORDERED: GLUCOSE GEL 15 GRAM TUBE PO PRN ×2 (15:30)
[2018-09-09] MEDS ORDERED: DEXTROSE 50% 50 ML SYRINGE IV PRN ×2 (15:30)
[2018-09-09] MEDS ORDERED: GLUCOSE GEL 15 GRAM TUBE BUCCAL PRN (15:30)
[2018-09-09] MEDS: HYDROCODONE/APAP (5/325) TAB PO PRN (15:39)
[2018-09-09] MEDS ORDERED: HYDROmorphONE 0.5 MG/0.5 ML SYG IV PRN (16:00)
[2018-09-09] MEDS: INSULIN ASPART [NOVOLOG] 3 ML PEN SC SCH ×4 (17:30→21:00)
[2018-09-09 19:02] VITALS: PULSE 76
[2018-09-09 19:40] VITALS: BP 184/101; PULSE 76; RESP 22
[2018-09-09 20:00] VITALS: PULSE 98
[2018-09-09 20:15] VITALS: Ht 165.1 cm; Wt 75.7 kg
--- NOTE | 2018-09-09 20:15 | NUR ---
Pt refused admit photos. Pt is alert and oriented x4. See pt skin assessment.
[2018-09-09] MEDS: APIXABAN 5 MG TABLET PO SCH (20:59)
[2018-09-09] MEDS: BENAZEPRIL 40 MG TAB PO SCH (20:59)
[2018-09-09] MEDS: LORAZEPAM 1 MG TAB PO PRN (21:00)
[2018-09-09] MEDS: traMADol 50 MG TAB PO PRN (21:13)
[2018-09-09] MEDS: hydrALAzine 20 MG INJ IV PRN ×2 (21:13→21:15)
[2018-09-09] MEDS: INSULIN GLARGINE [LANTus] (100 UNITS/ML) SYG SC SCH (23:07)
[2018-09-10] VITALS (17 sets, daily range): BP systolic 121–211; BP diastolic 56–118; PULSE 76–182; RESP 15–21
[2018-09-10] MEDS: hydrALAzine 20 MG INJ IV PRN ×3 (01:19→22:19)
[2018-09-10] MEDS ORDERED: LORAZEPAM 2 MG INJ IV ONE (02:00)
[2018-09-10] MEDS: ACETAMINOPHEN 325 MG TAB PO PRN (03:33)
[2018-09-10] MEDS: LORAZEPAM 1 MG TAB PO PRN ×3 (04:43→17:57)
[2018-09-10] MEDS: traMADol 50 MG TAB PO PRN ×2 (04:44→14:13)
--- NOTE | 2018-09-10 06:00 | NUR ---
End of Shift Summary No change in pt condition. See pt assessment and EMAR. Pt complained of headache during shift. Pain medication given and headache subsided.
[2018-09-10] MEDS: INSULIN ASPART [NOVOLOG] 3 ML PEN SC SCH ×7 (08:00→20:40)
[2018-09-10] MEDS: NIFEdipine (XL) 60 MG TAB PO SCH (08:41)
[2018-09-10] MEDS: BENAZEPRIL 40 MG TAB PO SCH ×2 (08:42→21:01)
[2018-09-10] MEDS: APIXABAN 5 MG TABLET PO SCH ×2 (08:42→21:02)
--- NOTE | 2018-09-10 11:00 | NUR ---
OT KEVEN 63 yo F with PMH Pagets disease with hearing loss, Diabetes Mellitus, HTN, ?afib on Eliquis presented to ED complaining of lower extremity pain and swelling. Patient is hard of hearing and history challenging to obtain. PLOF: Pt reports living with her son who acts as her primary caregiver. Pt states that she performs all ADl's independently and uses a FWW outside the home for ambulation. Pt's son assists with cleaning and cooking. CLOF: RN cleared pt for skilled OT evaluation. PT received supine in bed and agreeable to tx. Pt stated 8/10 generalized pain. Pt performed supine->sit at EOB with supervision. Pt demonstrated functional mob using FWW with Min A requiring vc for proper positioning. Pt asked to sit after 4 steps due to weakness. Pt hayes standing at sink with CGA for 2 min while performing h/g tasks with Supervision. Pt demonstrated donning and doffing socks with SBA. Pt returned to bed with Min A and left supine in bed with all needs met. RN notified PT will benefit from skilled OT tx 1x daily for 3-5 x weekly for ther ex/act, safety awareness, balance and independence with ADL's. D/C according to MD recommendation.
--- NOTE | 2018-09-10 11:09 | NUR ---
PT NOTE Received MD orders for PT evaluation. Charts reviewed, noted pt with elevated troponin at critical levels and pending cardiology consult. Will follow up after cardiology consult. Communicated with RN.
[2018-09-10] MEDS: HYDROCODONE/APAP (5/325) TAB PO PRN ×2 (11:41→21:02)
--- NOTE | 2018-09-10 12:30 | CONS ---
Date/Time of Note Date/Time of Note DATE: 09/10/18 TIME: 12:22 Assessment/Plan Assessment/Plan Additional Assessment/Plan Hypertension urgency Acute kidney injury On anticoagulation, unclear etiology DVT Diabetes Paget's disease Poor medication compliance -Patient presents with lower extremity swelling, not feeling well and body aches. She denies any chest pain currently to me complaining of more discomfort in her legs and intermittent shortness of breath. Venous ultrasound evidence of lower extremity DVT. She is on maintenance dose anticoagulation. Review of medical chart and previous hospitalization, patient with known history of poor medication compliance and she does admit to not taking her medications regularly. Given DVT and shortness of breath, would do VQ scan to rule out pulmonary emboli. If no contraindication, would adjust anticoagulation to treatment dose. Add carvedilol for assistance with blood pressure control. Consultation Date/Type/Reason Admit Date/Time 09/09/18 1500 Type of Consult cv Reason for Consultation Cardiac evaluation for hypertension Hx of Present Illness This is a 63-year-old female past medical history of hypertension, on anticoagulation for unclear etiology, diabetes, Paget's disease who presents with leg pain, shortness of breath and body aches. Patient is complaining of swelling in her legs and pain. She denies any current chest pain but has occasional shortness of breath. She denies any dizziness or lightheadedness. She does complain of headache. On review of previous hospital visits, patient with known history of poor medication compliance. 12 point review of systems was performed with all pertinent positives and negatives mentioned above and all else is negative Past Medical History Medical History: diabetes, hypertension, other (Pagets disease) Past Surgical History Past Surgical Hx: noncontributory Family History Significant Family History: no pertinent family hx Social History Alcohol Use: none Smoking Status: Former smoker Drug Use: none, other (past IVDU history, 20 years ago) Exam/Review of Systems Vital Signs Vitals Vital Signs Date Temp Pulse Resp B/P (MAP) Pulse Ox O2 O2 Flow FiO2 Time Delivery Rate 09/10/18 98.7 100 15 211/101 97 11:35 (137) 09/10/18 Nasal 4.0 08:00 Cannula Intake and Output 09/09/18 09/09/18 09/10/18 1515:00 23:00 07:00 IntakeIntake Total 350 ml BalanceBalance 350 ml Exam Hard of hearing, follows commands, no apparent distress Constitutional: alert Head: normocephalic Respiratory: other (Coarse breath sounds bilaterally, no wheezing) Cardiovascular: regular rate and rhythm, other (S1-S2 heard) Gastrointestinal: soft, non-tender, bowel sounds Extremities: edema Medications Medications Current Medications Benazepril HCl (Lotensin) 40 mg BID PO Last administered on 09/10/18 08:42; Admin Dose 40 MG; Start 09/09/18 at 21:00 Clonidine (Catapres) 0.2 mg QID PO Last administered on 09/10/18 08:42; Admin Dose 0.2 MG; Start 09/09/18 at 17:00 Lorazepam (Ativan) 2 mg Q6 PRN PO ANXIETY Last administered on 09/10/18 11:41; Admin Dose 2 MG; Start 09/09/18 at 15:00 Insulin Aspart (Novolog Insulin Pen) 6 unit AC MEALS SC Last administered on 09/10/18at 08:35; Admin Dose 6 UNIT; Start 09/09/18 at 17:00 Apixaban (Eliquis) 5 mg BID PO Last administered on 09/10/18 08:42; Admin Dose 5 MG; Start 09/09/18 at 21:00 IV Flush (NS 3 ml) 3 ml PER PROTOCOL IV ; Start 09/09/18 at 15:00 Ondansetron HCl (Zofran Inj) 4 mg Q6H PRN IV NAUSEA AND/OR VOMITING; Start 09/09/18 at 15:00 Nitroglycerin (Nitroglycerin (Sl Tab) 0.4 Mg) 1 tab Q5M PRN SL CHEST PAIN; Start 09/09/18 at 15:00 Acetaminophen (Tylenol Tab) 650 mg Q6H PRN PO PAIN LEVEL 1-3 OR FEVER Last administered on 09/10/18at 03:33; Admin Dose 650 MG; Start 09/09/18 at 15:00 Acetaminophen/ Hydrocodone Bitart ([place] (5/325)) 1 tab Q6H PRN PO PAIN LEVEL 4-6 Last administered on 09/10/18at 11:41; Admin Dose 1 TAB; Start 09/09/18 at 15:00 Docusate Sodium (Colace) 100 mg Q12H PRN PO CONSTIPATION; Start 09/09/18 at 15:00 Magnesium Hydroxide (Milk Of Mag) 30 ml DAILY PRN PO CONSTIPATION; Start 09/09/18 at 15:00 Hydralazine HCl (Apresoline) 10 mg Q4H PRN IV SBP >170 Last administered on 09/10/18at 11:41; Admin Dose 10 MG; Start 09/09/18 at 15:00 Labetalol HCl (Labetalol) 10 mg Q4 PRN IV SBP >180; Start 09/09/18 at 15:00 Miscellaneous Information 1 ea NOTE XX ; Start 09/09/18 at 15:30 Glucose (Glutose) 15 gm Q15M PRN PO DECREASED GLUCOSE; Start 09/09/18 at 15:30 Glucose (Glutose) 22.5 gm Q15M PRN PO DECREASED GLUCOSE; Start 09/09/18 at 15:30 Dextrose (D50w Syringe) 25 ml Q15M PRN IV DECREASED GLUCOSE; Start 09/09/18 at 15:30 Dextrose (D50w Syringe) 50 ml Q15M PRN IV DECREASED GLUCOSE; Start 09/09/18 at 15:30 Glucagon (Glucagen) 1 mg Q15M PRN IM DECREASED GLUCOSE; Start 09/09/18 at 15:30 Glucose (Glutose) 15 gm Q15M PRN BUCCAL DECREASED GLUCOSE; Start 09/09/18 at 15:30 Tramadol HCl (Ultram) 50 mg Q6H PRN PO PAIN Last administered on 09/10/18at 04:44; Admin Dose 50 MG; Start 09/09/18 at 16:00 Hydromorphone HCl (Dilaudid) 0.5 mg Q6H PRN IV SEVERE PAIN LEVEL 7-10; Start 09/09/18 at 16:00 Insulin Aspart (Novolog Insulin Pen) NOVOLOG *MILD* ALGORITHM WITH MEALS BEDTIME SC ; Start 09/09/18 at 18:00 Nifedipine (Procardia Xl) 60 mg DAILY PO Last administered on 09/10/18at 08:41; Admin Dose 60 MG; Start 09/10/18 at 09:00 Insulin Glargine (Lantus) 16 units DAILY@2000 SC Last administered on 09/09/18at 23:07; Admin Dose 16 UNITS; Start 09/09/18 at 20:00 Magnesium Sulfate 50 ml @ 25 mls/hr ONCE ONCE IVPB ; Start 09/10/18 at 13:30; Stop 09/10/18 at 15:29 Furosemide (Lasix) 20 mg BID DIURETICS IV ; Start 09/10/18 at 18:00 Results Result Diagram: 09/10/18 0703 09/10/18 0703 Results 24 hrs Laboratory Tests Test 09/09/18 18:00 09/09/18 19:38 09/09/18 23:23 09/10/18 07:03 Creatine Kinase 34 43 Creatine Kinase 5.0 5.9 Index Creatinine 1.70 2.53 H Kinase MB (Mass) Troponin I 0.110 0.122 *H Bedside Glucose 160 White Blood 7.2 Count Red Blood Count 4.56 Hemoglobin 13.4 Hematocrit 43.2 Mean Corpuscular 94.7 Volume Mean Corpuscular 29.4 Hemoglobin Mean Corpuscular 31.0 L Hemoglobin Soha nt Red Cell 15.6 H Distribution Width Platelet Count 216 Mean Platelet 12.5 H Volume Immature 0.300 Granulocytes % Neutrophils % 49.7 Lymphocytes % 40.1 Monocytes % 8.9 Eosinophils % 0.4 Basophils % 0.6 Nucleated Red 0.0 Blood Cells % Immature 0.020 Granulocytes # Neutrophils # 3.6 Lymphocytes # 2.9 Monocytes # 0.6 Eosinophils # 0.0 Basophils # 0.0 Nucleated Red 0.0 Blood Cells # Sodium Level 139 Potassium Level 3.6 Chloride Level 105 Carbon Dioxide 24 Level Anion Gap 10 Blood Urea 29 H Nitrogen Creatinine 1.22 H Est Glomerular 54 L Filtrat Rate mL/min Glucose Level 120 Calcium Level 8.1 L Magnesium Level 1.4 L Total Bilirubin 0.5 Direct Bilirubin 0.00 Indirect 0.5 Bilirubin Aspartate Amino 37 Transf (AST/SGOT ) Alanine 34 Aminotransferase (ALT/SGPT) Alkaline 813 H Phosphatase Total Protein 5.3 #L Albumin 2.9 L Globulin 2.40 Albumin/Globulin 1.20 Ratio Test 09/10/18 08:27 09/10/18 11:50 Bedside Glucose 126 73 Imaging ECG demonstrates sinus rhythm at 100 bpm, PVCs, QRS 86 ms, nonspecific ST abnormality Gilbert Mederos DO Sep 10, 2018 12:30
[2018-09-10] MEDS ORDERED: MAGNESIUM SULFATE 2 GM/50 ML 50 ML IVPB ONE (13:30)
--- NOTE | 2018-09-10 14:21 | PN ---
Date/Time of Note Date/Time of Note DATE: 09/10/18 TIME: 14:21 Objective Vitals Vital Signs Date Temp Pulse Resp B/P (MAP) Pulse Ox O2 O2 Flow FiO2 Time Delivery Rate 09/10/18 109 12:32 09/10/18 98.7 15 211/101 97 11:35 (137) 09/10/18 Nasal 4.0 08:00 Cannula Intake and Output 09/09/18 09/09/18 09/10/18 1515:00 23:00 07:00 IntakeIntake Total 350 ml BalanceBalance 350 ml Results Result Diagram: 09/10/18 0703 09/10/18 0703 Medications Medications Current Medications Benazepril HCl (Lotensin) 40 mg BID PO Last administered on 09/10/18at 08:42; Admin Dose 40 MG; Start 09/09/18 at 21:00 Clonidine (Catapres) 0.2 mg QID PO Last administered on 09/10/18at 12:23; Admin Dose 0.2 MG; Start 09/09/18 at 17:00 Lorazepam (Ativan) 2 mg Q6 PRN PO ANXIETY Last administered on 09/10/18at 11:41; Admin Dose 2 MG; Start 09/09/18 at 15:00 Insulin Aspart (Novolog Insulin Pen) 6 unit AC MEALS SC Last administered on 09/10/18at 08:35; Admin Dose 6 UNIT; Start 09/09/18 at 17:00 IV Flush (NS 3 ml) 3 ml PER PROTOCOL IV ; Start 09/09/18 at 15:00 Ondansetron HCl (Zofran Inj) 4 mg Q6H PRN IV NAUSEA AND/OR VOMITING; Start 09/09/18 at 15:00 Nitroglycerin (Nitroglycerin (Sl Tab) 0.4 Mg) 1 tab Q5M PRN SL CHEST PAIN; Start 09/09/18 at 15:00 Acetaminophen (Tylenol Tab) 650 mg Q6H PRN PO PAIN LEVEL 1-3 OR FEVER Last administered on 09/10/18at 03:33; Admin Dose 650 MG; Start 09/09/18 at 15:00 Acetaminophen/ Hydrocodone Bitart ([place] (5/325)) 1 tab Q6H PRN PO PAIN LEVEL 4-6 Last administered on 09/10/18at 11:41; Admin Dose 1 TAB; Start 09/09/18 at 15:00 Docusate Sodium (Colace) 100 mg Q12H PRN PO CONSTIPATION; Start 09/09/18 at 15:00 Magnesium Hydroxide (Milk Of Mag) 30 ml DAILY PRN PO CONSTIPATION; Start 09/09/18 at 15:00 Hydralazine HCl (Apresoline) 10 mg Q4H PRN IV SBP >170 Last administered on 09/10/18at 11:41; Admin Dose 10 MG; Start 09/09/18 at 15:00 Labetalol HCl (Labetalol) 10 mg Q4 PRN IV SBP >180; Start 09/09/18 at 15:00 Miscellaneous Information 1 ea NOTE XX ; Start 09/09/18 at 15:30 Glucose (Glutose) 15 gm Q15M PRN PO DECREASED GLUCOSE; Start 09/09/18 at 15:30 Glucose (Glutose) 22.5 gm Q15M PRN PO DECREASED GLUCOSE; Start 09/09/18 at 15 :30 Dextrose (D50w Syringe) 25 ml Q15M PRN IV DECREASED GLUCOSE; Start 09/09/18 at 15:30 Dextrose (D50w Syringe) 50 ml Q15M PRN IV DECREASED GLUCOSE; Start 09/09/18 at 15:30 Glucagon (Glucagen) 1 mg Q15M PRN IM DECREASED GLUCOSE; Start 09/09/18 at 15:30 Glucose (Glutose) 15 gm Q15M PRN BUCCAL DECREASED GLUCOSE; Start 09/09/18 at 15:30 Tramadol HCl (Ultram) 50 mg Q6H PRN PO PAIN Last administered on 09/10/18at 14:13; Admin Dose 50 MG; Start 09/09/18 at 16:00 Insulin Aspart (Novolog Insulin Pen) NOVOLOG *MILD* ALGORITHM WITH MEALS BEDTIME SC ; Start 09/09/18 at 18:00 Nifedipine (Procardia Xl) 60 mg DAILY PO Last administered on 09/10/18at 08:41; Admin Dose 60 MG; Start 09/10/18 at 09:00 Insulin Glargine (Lantus) 16 units DAILY@2000 SC Last administered on 09/09/18at 23:07; Admin Dose 16 UNITS; Start 09/09/18 at 20:00 Magnesium Sulfate 50 ml @ 25 mls/hr ONCE ONCE IVPB Last administered on 09/10/18at 13:51; Admin Dose 25 MLS/HR; Start 09/10/18 at 13:30; Stop 09/10/18 at 15:29 Furosemide (Lasix) 20 mg BID DIURETICS IV ; Start 09/10/18 at 18:00 Carvedilol (Coreg) 6.25 mg BID PO Last administered on 09/10/18at 13:52; Admin Dose 6.25 MG; Start 09/10/18 at 12:30 Apixaban (Eliquis) 10 mg BID PO ; Start 09/10/18 at 21:00; Status UNV Hydromorphone HCl (Dilaudid) 0.5 mg Q4 PRN IV SEVERE PAIN LEVEL 7-10; Start 09/10/18 at 14:30; Status UNV VTE Prophylaxis Risk score (from N[place])>0 risk: 6 [place] [facility] [place]CD contraindication: other Lines/Catheters IV Catheter Type: Álvarez in Place: No Assessment/Plan Hospital Course Subjective Patient just complaining of acute on chronic pain of her lower extremity as well as other issues related to her Paget's disease Objective Physical exam General: Patient is laying in bed and answers questions appropriately Mentation: Patient is alert and oriented 4, Head: Normocephalic atraumatic Eyes: EOMI, pupils reactive to light Neck: Supple, nontender, midline Respiratory: Clear to auscultation bilaterally Cardiovascular: regular rate, no obvious murmurs Gastrointestinal: non-tender to palpation, bowel sounds heard. Neurological: Moves all extremities spontaneously Skin: Multiple chronic skin lesions, scabbed over on her lower extremity bilaterally Assessment/Plan 1. Acute bilateral lower extremity swelling - Most likely secondary to CHF exacerbation - LE doppler shows R DVT but patient already on Eliquis. Unsure if new or chronic. Will continue to monitor. cardiology increased eliquis to treatment dose, VQ pending to r/o PE, however unlikely per cardiology - No rashes or erythema noted 2. Acute congestive heart failure - Patient denies history of CHF so most likely new onset - Will check ECHO to assess EF - [place], [id number] - CXR shows pulmonary congestion as well as b/l effusion - Lasix IV BID initiated and will monitor I/O and daily weights - Cardiology consultation placed for further recommendations 3. Hypertensive emergency - BP improved after given Labetalol in ED. Was also on nitro for chest pressure - Continue home medication and will need to adjust as needed- - secondary to noncompliance as patient states she ran out of "one of her medications" - per last d/c summary was on Nifedipine 60 and will restart, adding more as tolerated and needed 4. ARMIDA - most likely ATN vs cardiorenal - Will avoid nephrotoxic agents - Monitor for improvement and if needed consider Nephrology if continues to worsen - Baseline Cr appears 0.9 5. Elevated trop - most likely secondary to demand given uncontrolled BP, acute CHF and elevated Cr - Will continue to trend. Currently denies any chest pain - Cardiology aware of trop level 6. Elevated Alk Phos - chronically elevated - most likely secondary to Pagets 7. Right popliteal Bakers cyst - chronic. pt aware 8. Diabetes mellitus - Will check A1c. noted to be >14 04/2018 - continue ISS and accuchecks - hold home Metformin - On AC coverage but unsure why not on Lantus. Noted to be on 16 during last admission and will restart as well 9. Pagets disease of the bone - pain control 10. Diet - cardiac/carb controlled 11. DVT ppx - Eliquis 12. Disposition - Admit to telemetry for treatment of uncontrolled HTN and CHF exacerbation, r/o PE HORACIO ROSARIO Sep 10, 2018 14:21
--- NOTE | 2018-09-10 15:27 | RADRPT ---
Echocardiogram Report Patient Name: FIDE ESPITIA Gender: Female Date: 1955 Study Date: 10-Sep-2018 Scheduler Maintenance: Shyann Whitaker [facility] Location: [id number] Ref. Physician: TREY BOWEN Quality: Adequate Procedures: Transthoracic echocardiogram with complete 2D, M-Mode, and doppler examination. Indications: Evaluate Left Ventricular function. 2D/M Mode Doppler Measurement Value Normal Ranges Measurement Value Normal Ranges LVIDd 2D 4.7 3.5 - 5.6 cm AV Peak Floyd 1.5 m/sec LVIDs 2D 3.4 2.1 - 4.1 cm AV Peak PG 9.0 mmHg LVPWd 2D 1.4 0.6 - 1.1 cm AI Peak PG 98.0 mmHg IVSd 2D 1.5 0.6 - 1.1 cm AI Peak Floyd 5.0 m/sec AoR Diam 2D 3.2 2.0 - 3.7 cm AI PHT 435.0 msec LA/Ao 2D 1 0 - 1 LVOT Peak Floyd 0.9 m/sec LA Dimen 2D 4.3 2.3 - 4.0 cm LVOT Peak PG 4.0 mmHg MV E Peak Floyd 1.2 m/sec MV A Peak Floyd 0.9 m/sec MV E/A 1.3 MV Decel Time 155 msec Lat E` Floyd 0.0 m/sec Lateral E/E` 27.8 MV E/A 1.3 TR Peak Floyd 4.1 m/sec TR Peak PG 66.0 mmHg RVSP 81.0 mmHg RA Pressure 15.0 Findings Left Ventricle: Normal left ventricular cavity size. Moderate concentric left ventricular hypertrophy. Mild left ventricular systolic dysfunction. Ejection fraction is visually estimated at 45 %. Tissue Doppler/Mitral Doppler indices are consistent with pseudonormalization with mildly elevated left atrial pressure (Stage II diastolic dysfunction). Right Ventricle: Normal right ventricular size. Normal right ventricular systolic function. Left Atrium: There is mild enlargement of left atrium. Right Atrium: Right atrium at upper limits of normal. Mitral Valve: Mitral valve leaflets appear mildly thickened. Mild mitral annular calcification. Moderate mitral valve regurgitation. Aortic Valve: No hemodynamically significant aortic stenosis by doppler. Aortic cusps appear mildly calcified. Mild aortic valve regurgitation. Tricuspid Valve: Normal appearance of the tricuspid valve. Estimated peak PA systolic pressure 81 mmHg. There is moderate tricuspid regurgitation. Pulmonic Valve: Normal pulmonic valve appearance. Pericardium: Normal pericardium with no significant pericardial effusion. Aorta: Normal aortic root. IVC: Dilated IVC without respiratory collapse consistent with elevated right atrial pressure. Conclusions Normal left ventricular cavity size. Moderate concentric left ventricular hypertrophy. Mild left ventricular systolic dysfunction. Ejection fraction is visually estimated at 45 %. Tissue Doppler/Mitral Doppler indices are consistent with pseudonormalization with mildly elevated left atrial pressure (Stage II diastolic dysfunction). Normal right ventricular size. Normal right ventricular systolic function. There is mild enlargement of left atrium. Right atrium at upper limits of normal. Moderate mitral valve regurgitation. Estimated peak PA systolic pressure 81 mmHg. There is moderate tricuspid regurgitation. No hemodynamically significant aortic stenosis by doppler. Mild aortic valve regurgitation. Normal pericardium with no significant pericardial effusion. Electronically Signed By: Gilbert Mederos 10-Sep-2018 15:26:39 -0800 Patient Name: FIDE ESPITIA Study Date: 10-Sep-2018 [id number]
--- NOTE | 2018-09-10 16:10 | NUR ---
SW: ATTEMPTED VISIT SW attempted to meet with pt however she was down in nuclear medicine, per RN. Joel will reattempt tomorrow.
[2018-09-10] MEDS: FUROSEMIDE 20 MG INJ IV SCH (17:54)
[2018-09-10] MEDS: HYDROmorphONE 0.5 MG/0.5 ML SYG IV PRN ×2 (17:58→23:37)
[2018-09-10] MEDS: INSULIN GLARGINE [LANTus] (100 UNITS/ML) SYG SC SCH (21:03)
[2018-09-11] VITALS (12 sets, daily range): BP systolic 106–190; BP diastolic 57–106; PULSE 79–142; RESP 16–20
[2018-09-11] MEDS: LORAZEPAM 1 MG TAB PO PRN ×3 (00:37→23:09)
[2018-09-11] MEDS: FUROSEMIDE 20 MG INJ IV SCH (06:35)
--- NOTE | 2018-09-11 07:36 | NUR ---
EOSS C/o of pain. Ativan given x1, Dilaudid given x1, [place] given x1 with good effect. Patient slept well througout the night. Vitals stable throughout shift. NSR. 4L NC. All of patient's needs attended to. Bed in locked and low position. Bed alarm kept on, patient instructed to call for help before getting out of bed. Will endorse care to oncoming nurse.
[2018-09-11] MEDS: INSULIN ASPART [NOVOLOG] 3 ML PEN SC SCH ×7 (08:00→20:20)
[2018-09-11] MEDS: NIFEdipine (XL) 60 MG TAB PO SCH (08:41)
[2018-09-11] MEDS: APIXABAN 5 MG TABLET PO SCH ×2 (08:41→20:12)
[2018-09-11] MEDS: BENAZEPRIL 40 MG TAB PO SCH ×2 (08:42→20:12)
[2018-09-11] MEDS: HYDROmorphONE 0.5 MG/0.5 ML SYG IV PRN ×3 (08:55→23:17)
[2018-09-11] MEDS ORDERED: POTASSIUM CHLORIDE 20 MEQ POWDER FOR ORAL SOLN PO ONE (10:00)
[2018-09-11] MEDS: ACETAMINOPHEN 325 MG TAB PO PRN (10:26)
[2018-09-11] MEDS ORDERED: MAGNESIUM SULFATE 2 GM/50 ML 50 ML IVPB ONE (10:30)
[2018-09-11] MEDS: hydrALAzine 20 MG INJ IV PRN (11:29)
--- NOTE | 2018-09-11 11:46 | NUR ---
OT NOTE S: RN Cleared pt for skilled OT. PT reported 8/10 generalized pain. O: Pt received seated at EOB finishing up breakfast and agreeable to tx. Pt stated she has to use the restroom. OTR educated pt on importance of using FWW however pt declined and held onto various surfaces to get to the toilet. Pt then stood at bathroom sink with CGA while completing h/g tasks with supervision. Pt returned to EOB and performed UB/LB bathing and donned a clean gown and socks with supervision. A: PT continues to be impulsive and refuses to use FWW for functional mob. OTR provided pt with bedside commode so pt would not get up by herself and use the toilet. RN notified. P: Cont OT POC.
--- NOTE | 2018-09-11 13:15 | NUR ---
REFUSED BLOOD SUGAR RE-CHECK PT REFUSED BLOOD SUGAR RE-CHECK FOR LUNCH. ATE 100% OF MEAL.
--- NOTE | 2018-09-11 13:36 | PN ---
Date/Time of Note Date/Time of Note DATE: 09/11/18 TIME: 13:33 Objective Vitals Vital Signs Date Temp Pulse Resp B/P (MAP) Pulse Ox O2 O2 Flow FiO2 Time Delivery Rate 09/11/18 86 12:23 09/11/18 97.8 20 179/89 96 11:23 (119) 09/10/18 Nasal 4.0 21:30 Cannula Intake and Output 09/10/18 09/10/18 09/11/18 1515:00 23:00 07:00 IntakeIntake Total 400 ml BalanceBalance 400 ml Results Result Diagram: 09/11/18 0506 09/11/18 0506 Medications Medications Current Medications Benazepril HCl (Lotensin) 40 mg BID PO Last administered on 09/11/18 08:42; Admin Dose 40 MG; Start 09/09/18 at 21:00 Clonidine (Catapres) 0.2 mg QID PO Last administered on 09/11/18 08:41; Admin Dose 0.2 MG; Start 09/09/18 at 17:00 Lorazepam (Ativan) 2 mg Q6 PRN PO ANXIETY Last administered on 09/11/18at 08:55; Admin Dose 2 MG; Start 09/09/18 at 15:00 Insulin Aspart (Novolog Insulin Pen) 6 unit AC MEALS SC Last administered on 09/11/18at 08:48; Admin Dose 6 UNIT; Start 09/09/18 at 17:00 IV Flush (NS 3 ml) 3 ml PER PROTOCOL IV ; Start 09/09/18 at 15:00 Ondansetron HCl (Zofran Inj) 4 mg Q6H PRN IV NAUSEA AND/OR VOMITING; Start 09/09/18 at 15:00 Nitroglycerin (Nitroglycerin (Sl Tab) 0.4 Mg) 1 tab Q5M PRN SL CHEST PAIN; Start 09/09/18 at 15:00 Acetaminophen (Tylenol Tab) 650 mg Q6H PRN PO PAIN LEVEL 1-3 OR FEVER Last administered on 09/11/18at 10:26; Admin Dose 650 MG; Start 09/09/18 at 15:00 Acetaminophen/ Hydrocodone Bitart ([place] (5/325)) 1 tab Q6H PRN PO PAIN LEVEL 4-6 Last administered on 09/10/18at 21:02; Admin Dose 1 TAB; Start 09/09/18 at 15:00 Docusate Sodium (Colace) 100 mg Q12H PRN PO CONSTIPATION; Start 09/09/18 at 15:00 Magnesium Hydroxide (Milk Of Mag) 30 ml DAILY PRN PO CONSTIPATION; Start 09/09/18 at 15:00 Hydralazine HCl (Apresoline) 10 mg Q4H PRN IV SBP >170 Last administered on 09/11/18at 11:29; Admin Dose 10 MG; Start 09/09/18 at 15:00 Labetalol HCl (Labetalol) 10 mg Q4 PRN IV SBP >180; Start 09/09/18 at 15:00 Miscellaneous Information 1 ea NOTE XX ; Start 09/09/18 at 15:30 Glucose (Glutose) 15 gm Q15M PRN PO DECREASED GLUCOSE; Start 09/09/18 at 15:30 Glucose (Glutose) 22.5 gm Q15M PRN PO DECREASED GLUCOSE; Start 09/09/18 at 15:30 Dextrose (D50w Syringe) 25 ml Q15M PRN IV DECREASED GLUCOSE; Start 09/09/18 at 15:30 Dextrose (D50w Syringe) 50 ml Q15M PRN IV DECREASED GLUCOSE; Start 09/09/18 at 15:30 Glucagon (Glucagen) 1 mg Q15M PRN IM DECREASED GLUCOSE; Start 09/09/18 at 15:30 Glucose (Glutose) 15 gm Q15M PRN BUCCAL DECREASED GLUCOSE; Start 09/09/18 at 15:30 Tramadol HCl (Ultram) 50 mg Q6H PRN PO PAIN Last administered on 09/10/18at 14:13; Admin Dose 50 MG; Start 09/09/18 at 16:00 Insulin Aspart (Novolog Insulin Pen) NOVOLOG *MILD* ALGORITHM WITH MEALS BEDTIME SC ; Start 09/09/18 at 18:00 Nifedipine (Procardia Xl) 60 mg DAILY PO Last administered on 09/11/18at 08:41; Admin Dose 60 MG; Start 09/10/18 at 09:00 Insulin Glargine (Lantus) 16 units DAILY@2000 SC Last administered on 09/10/18at 21:03; Admin Dose 16 UNITS; Start 09/09/18 at 20:00 Furosemide (Lasix) 20 mg BID DIURETICS IV Last administered on 09/11/18at 06:35; Admin Dose 20 MG; Start 09/10/18 at 18:00 Carvedilol (Coreg) 6.25 mg BID PO Last administered on 09/11/18at 08:42; Admin Dose 6.25 MG; Start 09/10/18 at 12:30 Apixaban (Eliquis) 10 mg BID PO Last administered on 09/11/18at 08:41; Admin Dose 10 MG; Start 09/10/18 at 21:00 Hydromorphone HCl (Dilaudid) 0.5 mg Q4 PRN IV SEVERE PAIN LEVEL 7-10 Last administered on 09/11/18at 08:55; Admin Dose 0.5 MG; Start 09/10/18 at 17:45 VTE Prophylaxis Risk score (from [facility])>0 risk: 7 SCD applied (from [facility]): No SCD contraindication: other Lines/Catheters IV Catheter Type: Álvarez in Place: No Assessment/Plan Hospital Course Subjective Patient just complaining of acute on chronic pain of her lower extremity as well as other issues related to her Paget's disease Objective Physical exam General: Patient is laying in bed and answers questions appropriately Mentation: Patient is alert and oriented 4, Head: Normocephalic atraumatic Eyes: EOMI, pupils reactive to light Neck: Supple, nontender, midline Respiratory: Clear to auscultation bilaterally Cardiovascular: regular rate, no obvious murmurs Gastrointestinal: non-tender to palpation, bowel sounds heard. Neurological: Moves all extremities spontaneously Skin: Multiple chronic skin lesions, scabbed over on her lower extremity bilaterally Assessment/Plan 1. Acute bilateral lower extremity swelling - Most likely secondary to CHF exacerbation - LE doppler shows R DVT but patient already on Eliquis. Unsure if new or chronic. Will continue to monitor. cardiology increased eliquis to treatment dose, VQ showing intermediate but after cardiology spoke with the radiologist, this was due to pleural effusion and edema, but she unlikely has a thrombus. continue treatment dose eliquis - No rashes or erythema noted 2. Acute congestive heart failure - Patient denies history of CHF so most likely new onset - Will check ECHO to assess EF - [place], [address] - CXR shows pulmonary congestion as well as b/l effusion - Lasix IV BID initiated and will monitor I/O and daily weights - Cardiology consultation placed for further recommendations 3. Hypertensive emergency - BP improved after given Labetalol in ED. Was also on nitro for chest pressure - Continue home medication and will need to adjust as needed- - secondary to noncompliance as patient states she ran out of "one of her medications" - per last d/c summary was on Nifedipine 60 and will restart, adding more as tolerated and needed 4. ARMIDA - most likely ATN vs cardiorenal - Will avoid nephrotoxic agents - Monitor for improvement and if needed consider Nephrology if continues to worsen - Baseline Cr appears 0.9 5. Elevated trop - most likely secondary to demand given uncontrolled BP, acute CHF and elevated Cr - Will continue to trend. Currently denies any chest pain - Cardiology aware of trop level 6. Elevated Alk Phos - chronically elevated - most likely secondary to Pagets 7. Right popliteal Bakers cyst - chronic. pt aware 8. Diabetes mellitus - Will check A1c. noted to be >14 04/2018 - continue ISS and accuchecks - hold home Metformin - On AC coverage but unsure why not on Lantus. Noted to be on 16 during last admission and will restart as well 9. Pagets disease of the bone - pain control 10. Diet - cardiac/carb controlled 11. DVT ppx - Eliquis 12. Disposition - cont to [email or web address] and monitor for improvement HORACIO ROSARIO Sep 11, 2018 13:36
--- NOTE | 2018-09-11 13:42 | NUR ---
PT EVAL Therapy day number 1 Evaluation Start Time 13:42 Evaluation Total Time 0 min Subjective Current complaint of pain Pain Scale NUMERIC Pain Intensity 7 (0-10) Patient Stated Goal for Pain Relief 0 (0-10) Pain Level Comment generalized pain Pre Treatment Vital Signs Stable Yes Exercise Assessment Label Bilat Lower Extremity Exercise Type Active ROM Additional Exercise Comments seated B APs, LAQs Supine to Sit Stand by Assist Transfer Sit to Stand Ability Contact Guard Assist Bed Mobility Sit to Supine Moderate Assist Bed Transfer Ability Moderate Assist Chair Transfer Ability Moderate Assist Toileting Ability Minimum Assist Sitting Tolerance 15 min Patient uses wheelchair Not Applicable Gait Assist Levels Moderate Assist Assistive Devices Front Wheel Walker Ambulation Distance 10 feet Additional Gait Comments 10' x 2, unsteady, impulsive, verbal cues for safety and use of FWW Weight Bearing Assessment Label Bilat Lower Extremity Weight Bearing Status Weight Bearing as Derik Static Sitting Balance Fair plus Dynamic Sitting Balance Fair plus Standing Static Balance Fair Dynamic Standing Balance Poor plus Additional Balance Assessments Comments with FWW Safety Judgement Poor Activity Tolerance Fair Equipment Present IV pump Additional Equipment Present 5LO2 via NE Post Treatment Pain Intensity 5 0-10 Quality Indicators SOB Upon Exertion Variance Documentation SEE PT EVAL PT Technical Record Comment PT EVAL Pt is a 63 yo F with PMH of Paget's disease, hearing loss, DM, HTN, afib on Eliquis who presented to ER with LE swelling and pain, chest pressure, and SOB. Admitting diagnoses included acute B LE swelling, acute CHF, hypertensive emergency. LE US revealed R leg DVT, complex R popliteal Helms's cyst, pt on Eliquis. Pt received in 6W, telemetry. Precautions: Fall precautions PLOF: Pt reports living with her son who acts as her primary caregiver. Pt states that she performs all ADl's independently and uses a FWW outside the home for ambulation. Pt's son assists with cleaning and cooking. CLOF: RUSSELL Sanchez cleared pt for PT evaluation. Pt received sleeping in bed on 5LO2 via NC, easily arousable. Pt hard of hearing. Vitals assessed at 163/80, 96%O2 sats on 5LO2, 95bpm. Pt educated in fall precautions, safety awareness, and purpose of PT evaluation. B UE/LE strength/ROM assessment found generalized weakness, and R hip flexion strength deficits when compared to L. Bed mobility, transfer, and gait assessment as described above. Noted pt impulsive throughout. Pt returned to bed, all needs in reach, no signs of distress, bed alarm activated. RN notified of pt's status. Recommendation: Pt demonstrates balance deficits and impulsivity, making pt a fall risk. Pt able to amb 10' x 2 on this date though required modA for steadying and use of FWW. Pt will benefit from additional skilled PT services during hospital stay for further mobility training and to maximize independence prior to discharge. D/c recommendations to post-acute setting once cleared by MD for further therapies vs home with 24/7 assistance and FWW. Pt already owns FWW. Plan: Continue c PT POC (Daily x 5)
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
--- NOTE | 2018-09-11 15:05 | CONS ---
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 -Patient status post VQ scan yesterday, I did discuss with nuclear radiologist, but was read as intermediate probability secondary to pleural effusions but less likely with pulmonary emboli. Given patient with DVT unclear if acute or not, would use treatment dose Eliquis as per protocol with 10 mg p.o. twice daily for 7 days and then decrease to 5 mg p.o. twice daily. Consultation Date/Type/Reason Admit Date/Time Sep 09, 2018 at 14:09 Initial Consult Date Type of Consult cv 24 HR Interval Summary Free Text/Dictation Denies shortness of breath, chest pain or palpitations Exam/Review of Systems Vital Signs Vitals Vital Signs Date Temp Pulse Resp B/P (MAP) Pulse Ox O2 O2 Flow FiO2 Time Delivery Rate 09/11/18 86 12:23 09/11/18 97.8 20 179/89 96 11:23 (119) 09/10/18 Nasal 4.0 21:30 Cannula Intake and Output 09/10/18 09/10/18 09/11/18 1515:00 23:00 07:00 IntakeIntake Total 400 ml BalanceBalance 400 ml Exam No apparent distress, niece at bedside Constitutional: alert Head: normocephalic Respiratory: other (Coarse breath sounds bilaterally and decreased at the bases) Cardiovascular: regular rate and rhythm, other (S1-S2 heard) Gastrointestinal: soft, non-tender, bowel sounds Extremities: edema Gilbert Mederos DO Sep 11, 2018 15:05
[2018-09-11] MEDS ORDERED: FUROSEMIDE 40 MG INJ IV ONE (15:30)
[2018-09-11] MEDS: HYDROCODONE/APAP (5/325) TAB PO PRN (20:21)
[2018-09-11] MEDS: INSULIN GLARGINE [LANTus] (100 UNITS/ML) SYG SC SCH (20:37)
--- NOTE | 2018-09-11 23:54 | NUR ---
Found e-cig in pts bed. Explained to her she is not allowed to have that to smoke while in the hospital. Pt got very upset and angry, started to yell. Christiano called security. Security explained to pt that they have to confiscate e-cig and that it would be returned upon discharge. Pt was still very upset. Asked for pain medication which was then given and she went to sleep. Endorsed to [facility] continuity of care at [id number]
[2018-09-12] VITALS (12 sets, daily range): BP systolic 127–182; BP diastolic 57–92; PULSE 80–92; RESP 17–23
--- NOTE | 2018-09-12 02:23 | NUR ---
Pt had 17.28 seconds of Afib that returned to sinus rhythm. Message left with Dr. Mederos. Will continue to monitor.
[2018-09-12] MEDS: HYDROmorphONE 0.5 MG/0.5 ML SYG IV PRN ×2 (04:02→08:51)
[2018-09-12] MEDS: FUROSEMIDE 20 MG INJ IV SCH ×2 (05:05→17:50)
[2018-09-12] MEDS: LORAZEPAM 1 MG TAB PO PRN ×2 (05:06→20:15)
--- NOTE | 2018-09-12 06:55 | NUR ---
EOSS: Pt resting in bed. VS stable, denies SOB. Pain and anxiety managed with prn pain and sedative medication. All home meds retrieved from patient and sent to pharmacy. Pt rounded on hourly, bed in locked and low position, bed alarm green, bed rail x2, call light within reach; pt reminded to call when in need of assistance. Will endorse to dayshift RN.
[2018-09-12] MEDS: INSULIN ASPART [NOVOLOG] 3 ML PEN SC SCH ×7 (07:00→20:32)
[2018-09-12] MEDS: NIFEdipine (XL) 60 MG TAB PO SCH (08:51)
[2018-09-12] MEDS: BENAZEPRIL 40 MG TAB PO SCH ×2 (08:52→20:25)
[2018-09-12] MEDS: APIXABAN 5 MG TABLET PO SCH ×2 (08:52→20:16)
--- NOTE | 2018-09-12 10:30 | NUR ---
OT NOTE S: RN cleared pt for skilled OT. PT agreeable to tx stating 8/10 generalized pain. O: Pt received supine in bed. Pt sat at EOB with supervision and demonstrated CGA for STS and functional mob using FWW. Pt performed toilet transfer and toilet hygiene with CGA demonstrating good safety awareness and use of grab bars. Pt then stood at bathroom sink with SBA while completing h/g tasks with Supervision. Pt hayes standing at sink for 5 min without rest break. Pt returned to bed with CGA. Pt left seated at EOB with all needs met. A: Pt demonstrates increased safety awareness while using FWW as well as increased endurance during functional mob. P: Cont POC.
[2018-09-12] MEDS: NICOTINE (14 MG/24 HR) PATCH TRANSDERM SCH (12:07)
--- NOTE | 2018-09-12 13:11 | CONS ---
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 Would give an additional 24 hours until further adjustments to maintenance medications. Would continue IV diuretics as renal function and blood pressure permits. -Patient status post VQ scan, I did discuss with nuclear radiologist, but was read as intermediate probability secondary to pleural effusions but less likely with pulmonary emboli. Given patient with DVT unclear if acute or not, would use treatment dose Eliquis as per protocol with 10 mg p.o. twice daily for 7 days and then decrease to 5 mg p.o. twice daily. Consultation Date/Type/Reason Admit Date/Time Sep 09, 2018 at 14:09 Initial Consult Date Type of Consult cv 24 HR Interval Summary Free Text/Dictation Patient seen and examined Exam/Review of Systems Vital Signs Vitals Vital Signs Date Temp Pulse Resp B/P (MAP) Pulse Ox O2 O2 Flow FiO2 Time Delivery Rate 09/12/18 82 12:42 09/12/18 97.6 21 150/61 96 Nasal 5.0 12:02 (90) Cannula Intake and Output 09/11/18 09/11/18 09/12/18 1515:00 23:00 07:00 IntakeIntake Total 930 ml 400 ml BalanceBalance 930 ml 400 ml Exam Falling asleep at times, no apparent distress Constitutional: alert Head: normocephalic Respiratory: other (Coarse breath sounds bilaterally, no wheezing) Cardiovascular: regular rate and rhythm, other (S1-S2 heard) Gastrointestinal: soft, non-tender, bowel sounds Extremities: edema Gilbert Mederos DO Sep 12, 2018 13:11
[2018-09-12] MEDS ORDERED: POTASSIUM CHLORIDE (SR) 10 MEQ TAB PO ONE (13:30)
[2018-09-12] MEDS ORDERED: MAGNESIUM SULFATE 2 GM/50 ML 50 ML IVPB ONE (13:30)
--- NOTE | 2018-09-12 14:48 | PN ---
Date/Time of Note Date/Time of Note DATE: 09/12/18 TIME: 14:47 Objective Vitals Vital Signs Date Temp Pulse Resp B/P (MAP) Pulse Ox O2 O2 Flow FiO2 Time Delivery Rate 09/12/18 82 12:42 09/12/18 97.6 21 150/61 96 Nasal 5.0 12:02 (90) Cannula Intake and Output 09/11/18 09/11/18 09/12/18 1515:00 23:00 07:00 IntakeIntake Total 930 ml 400 ml BalanceBalance 930 ml 400 ml Results Result Diagram: 09/12/1836 09/12/18535 Medications Medications Current Medications Benazepril HCl (Lotensin) 40 mg BID PO Last administered on 09/12/18 08:52; Admin Dose 40 MG; Start 09/09/18 at 21:00 Clonidine (Catapres) 0.2 mg QID PO Last administered on 09/12/18at 12:07; Admin Dose 0.2 MG; Start 09/09/18 at 17:00 Lorazepam (Ativan) 2 mg Q6 PRN PO ANXIETY Last administered on 09/12/18 05:06; Admin Dose 2 MG; Start 09/09/18 at 15:00 Insulin Aspart (Novolog Insulin Pen) 6 unit AC MEALS SC Last administered on 09/12/18at 12:01; Admin Dose 6 UNIT; Start 09/09/18 at 17:00 IV Flush (NS 3 ml) 3 ml PER PROTOCOL IV ; Start 09/09/18 at 15:00 Ondansetron HCl (Zofran Inj) 4 mg Q6H PRN IV NAUSEA AND/OR VOMITING; Start 09/09/18 at 15:00 Nitroglycerin (Nitroglycerin (Sl Tab) 0.4 Mg) 1 tab Q5M PRN SL CHEST PAIN; Start 09/09/18 at 15:00 Acetaminophen (Tylenol Tab) 650 mg Q6H PRN PO PAIN LEVEL 1-3 OR FEVER Last administered on 09/11/18at 10:26; Admin Dose 650 MG; Start 09/09/18 at 15:00 Acetaminophen/ Hydrocodone Bitart ([place] (5/325)) 1 tab Q6H PRN PO PAIN LEVEL 4-6 Last administered on 09/11/18at 20:21; Admin Dose 1 TAB; Start 09/09/18 at 15:00 Docusate Sodium (Colace) 100 mg Q12H PRN PO CONSTIPATION; Start 09/09/18 at 15:00 Magnesium Hydroxide (Milk Of Mag) 30 ml DAILY PRN PO CONSTIPATION; Start 09/09/18 at 15:00 Hydralazine HCl (Apresoline) 10 mg Q4H PRN IV SBP >170 Last administered on 09/11/18at 11:29; Admin Dose 10 MG; Start 09/09/18 at 15:00 Labetalol HCl (Labetalol) 10 mg Q4 PRN IV SBP >180; Start 09/09/18 at 15:00 Miscellaneous Information 1 ea NOTE XX ; Start 09/09/18 at 15:30 Glucose (Glutose) 15 gm Q15M PRN PO DECREASED GLUCOSE; Start 09/09/18 at 15:30 Glucose (Glutose) 22.5 gm Q15M PRN PO DECREASED GLUCOSE; Start 09/09/18 at 15:30 Dextrose (D50w Syringe) 25 ml Q15M PRN IV DECREASED GLUCOSE; Start 09/09/18 at 15:30 Dextrose (D50w Syringe) 50 ml Q15M PRN IV DECREASED GLUCOSE; Start 09/09/18 at 15:30 Glucagon (Glucagen) 1 mg Q15M PRN IM DECREASED GLUCOSE; Start 09/09/18 at 15:30 Glucose (Glutose) 15 gm Q15M PRN BUCCAL DECREASED GLUCOSE; Start 09/09/18 at 15:30 Tramadol HCl (Ultram) 50 mg Q6H PRN PO PAIN Last administered on 09/10/18at 14:13; Admin Dose 50 MG; Start 09/09/18 at 16:00 Insulin Aspart (Novolog Insulin Pen) NOVOLOG *MILD* ALGORITHM WITH MEALS BEDTIME SC Last administered on 09/12/18at 12:00; Admin Dose 1 UNIT; Start 09/09/18 at 18:00 Nifedipine (Procardia Xl) 60 mg DAILY PO Last administered on 09/12/18at 08:51; Admin Dose 60 MG; Start 09/10/18 at 09:00 Insulin Glargine (Lantus) 16 units DAILY@2000 SC Last administered on 09/11/18at 20:37; Admin Dose 16 UNITS; Start 09/09/18 at 20:00 Apixaban (Eliquis) 10 mg BID PO Last administered on 09/12/18at 08:52; Admin Dose 10 MG; Start 09/10/18 at 21:00 Hydromorphone HCl (Dilaudid) 0.5 mg Q4 PRN IV SEVERE PAIN LEVEL 7-10 Last administered on 09/12/18at 08:51; Admin Dose 0.5 MG; Start 09/10/18 at 17:45 Carvedilol (Coreg) 12.5 mg BID PO Last administered on 09/12/18at 08:52; Admin Dose 12.5 MG; Start 09/11/18 at 21:00 Furosemide (Lasix) 20 mg BID DIURETICS IV Last administered on 09/12/18at 05:05; Admin Dose 20 MG; Start 09/12/18 at 06:00 Nicotine (Nicoderm 14 Mg/ 24hr) 1 patch DAILY TRANSDERM Last administered on 09/12/18at 12:07; Admin Dose 1 PATCH; Start 09/12/18 at 11:00 Docusate Sodium (Colace) 100 mg BID PO ; Start 09/12/18 at 21:00 Magnesium Sulfate 50 ml @ 25 mls/hr ONCE ONCE IVPB ; Start 09/12/18 at 13:30; Stop 09/12/18 at 15:29 VTE Prophylaxis Risk score (from Nsg)>0 risk: 6 SCD applied (from Nsg): No SCD contraindication: other Lines/Catheters IV Catheter Type: Álvarez in Place: No Assessment/Plan Hospital Course Subjective Patient just complaining of acute on chronic pain of her lower extremity as well as other issues related to her Paget's disease Objective Physical exam General: Patient is laying in bed and answers questions appropriately Mentation: Patient is alert and oriented 4, Head: Normocephalic atraumatic Eyes: EOMI, pupils reactive to light Neck: Supple, nontender, midline Respiratory: Clear to auscultation bilaterally Cardiovascular: regular rate, no obvious murmurs Gastrointestinal: non-tender to palpation, bowel sounds heard. Neurological: Moves all extremities spontaneously Skin: Multiple chronic skin lesions, scabbed over on her lower extremity bilaterally Assessment/Plan 1. Acute bilateral lower extremity swelling - Most likely secondary to CHF exacerbation - LE doppler shows R DVT but patient already on Eliquis. Unsure if new or c hronic. Will continue to monitor. cardiology increased eliquis to treatment dose, VQ showing intermediate but after cardiology spoke with the radiologist, this was due to pleural effusion and edema, but she unlikely has a thrombus. continue treatment dose eliquis - No rashes or erythema noted 2. Acute congestive heart failure - Patient denies history of CHF so most likely new onset - Will check ECHO to assess EF - BNP [place], [address] - CXR shows pulmonary congestion as well as b/l effusion - Lasix IV BID initiated and will monitor I/O and daily weights - Cardiology consultation placed for further recommendations 3. Hypertensive emergency - BP improved after given Labetalol in ED. Was also on nitro for chest pressure - Continue home medication and will need to adjust as needed- - secondary to noncompliance as patient states she ran out of "one of her medications" - per last d/c summary was on Nifedipine 60 and will restart, adding more as tolerated and needed 4. ARMIDA - most likely ATN vs cardiorenal - Will avoid nephrotoxic agents - Monitor for improvement and if needed consider Nephrology if continues to worsen - Baseline Cr appears 0.9 5. Elevated trop - most likely secondary to demand given uncontrolled BP, acute CHF and elevated Cr - Will continue to trend. Currently denies any chest pain - Cardiology aware of trop level 6. Elevated Alk Phos - chronically elevated - most likely secondary to Pagets 7. Right popliteal Bakers cyst - chronic. pt aware 8. Diabetes mellitus - Will check A1c. noted to be >14 04/2018 - continue ISS and accuchecks - hold home Metformin - On AC coverage but unsure why not on Lantus. Noted to be on 16 during last admission and will restart as well 9. Pagets disease of the bone - pain control 10. Diet - cardiac/carb controlled 11. DVT ppx - Eliquis 12. Disposition - cont to [facility] and monitor for improvement HORACIO ROSARIO Sep 12, 2018 14:48
[2018-09-12] MEDS ORDERED: ALBUTEROL/IPRATROPIUM (NEB) 3 ML AMP HHN PRN (15:00)
--- NOTE | 2018-09-12 15:10 | NUR ---
PT NOTE Approached pt's room, pt was asleep. VCs to arouse. Pt stated, "I already walked today, so I don't need to anymore. I don't feel good I have a cold now. Last night I got sick so I am not feeling good. I need pain medication so can you tell the nurse?". Despite max encouragement and pt being educated on the benefits and importance of PT, however pt adamantly refused PT. Communicated w/RN Laura and informed her of pt's refusal and this therapists attempt. Will f/u later if time permits. Addendum: 09/12/18 at 1546 by BOUBACAR VIGIL BURNER MACHINE OPERATOR PT aide present for translation due to pt speaking only Colombian. Addendum: 09/12/18 at 1547 by BOUBACAR VIGIL BURNER MACHINE OPERATOR PT NOTE CORRECTION Please dismiss above statement, "PT aide present for translation due to pt speaking only Colombian."
[2018-09-12] MEDS: INSULIN GLARGINE [LANTus] (100 UNITS/ML) SYG SC SCH (20:00)
[2018-09-12] MEDS: ALBUTEROL/IPRATROPIUM (NEB) 3 ML AMP HHN SCH (20:01)
[2018-09-12] MEDS: DOCUSATE SODIUM 100 MG CAP PO SCH (20:15)
[2018-09-12] MEDS: traMADol 50 MG TAB PO PRN (20:18)
--- NOTE | 2018-09-12 21:00 | NUR ---
Pt blood glucose was 63. Hypoglycemia protocol initiated. Dr. Meza notified. Lantus held. Glucose recheck delayed d/t pt not eating/drinking carbohydrates. Rechecked after pt finished snack. First blood glucose 115, pt rechecked again, second blood glucose 118. Will continue to monitor.
[2018-09-13] VITALS (14 sets, daily range): BP systolic 124–185; BP diastolic 58–103; PULSE 75–96; RESP 16–20
[2018-09-13] MEDS: LORAZEPAM 1 MG TAB PO PRN ×4 (02:20→23:42)
[2018-09-13] MEDS: HYDROCODONE/APAP (5/325) TAB PO PRN (02:21)
[2018-09-13] MEDS: FUROSEMIDE 20 MG INJ IV SCH (05:19)
[2018-09-13] MEDS: traMADol 50 MG TAB PO PRN (05:20)
[2018-09-13] MEDS: HYDROmorphONE 0.5 MG/0.5 ML SYG IV PRN ×5 (05:35→23:41)
--- NOTE | 2018-09-13 06:20 | NUR ---
EOSS: Pt sitting at edge of bed. VS stable. Denies SOB. Pain managed w/prn pain meds given ATC. Ops sup and security were called to encourage the patient to let us take her pill bottle of Ativan to pharmacy, patient complied. Pt rounded on hourly, bed in locked and low position, bed alarm green, bed rail x2, call light within reach-pt needs reinforcement for using the call light to ask for help, as she continues to get out of bed without calling. Will endorse to dayshift RN.
[2018-09-13] MEDS: INSULIN ASPART [NOVOLOG] 3 ML PEN SC SCH ×7 (08:00→21:20)
[2018-09-13] MEDS: ALBUTEROL/IPRATROPIUM (NEB) 3 ML AMP HHN SCH ×3 (08:29→20:07)
--- NOTE | 2018-09-13 08:40 | NUR ---
OT NOTE S: RN cleared pt for skilled OT tx. Pt agreeable to tx stating 9/10 generalized pain. O: Pt received supine in bed. Pt performed supine->sit with supervision. Seated EOB pt performed UB bathing, donned gown with Supervision and donned socks with SBA. Pt performed toilet transfer and functional mob with CGA using FWW requiring vc for proper positioning of hands and feet. Pt returned to bed with Min A to left legs up onto the bed. Pt left supine in bed with all needs met. RN notified A: Pt requires encouragement to use FWW for transfers and functional mob. Pt tends to be impulsive and requires vc for safety and proper positioning when using FWW. P: Cont POC.
[2018-09-13] MEDS: NICOTINE (14 MG/24 HR) PATCH TRANSDERM SCH (09:45)
[2018-09-13] MEDS: DOCUSATE SODIUM 100 MG CAP PO SCH ×2 (09:47→21:07)
[2018-09-13] MEDS: NIFEdipine (XL) 60 MG TAB PO SCH (09:47)
[2018-09-13] MEDS: BENAZEPRIL 40 MG TAB PO SCH ×2 (09:48→21:07)
[2018-09-13] MEDS: APIXABAN 5 MG TABLET PO SCH ×2 (09:48→21:07)
--- NOTE | 2018-09-13 15:54 | CONS ---
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 Would increase dose of IV diuretics and continue as renal function and blood pressure permits. -Patient status post VQ scan, I did discuss with nuclear radiologist, but was read as intermediate probability secondary to pleural effusions but less likely with pulmonary emboli. Given patient with DVT unclear if acute or not, would use treatment dose Eliquis as per protocol with 10 mg p.o. twice daily for 7 days and then decrease to 5 mg p.o. twice daily. Consultation Date/Type/Reason Admit Date/Time Sep 09, 2018 at 14:09 Initial Consult Date Type of Consult cv 24 HR Interval Summary Free Text/Dictation Patient seen and examined, denies shortness of breath. Complaining of lower extremity edema Exam/Review of Systems Vital Signs Vitals Vital Signs Date Temp Pulse Resp B/P (MAP) Pulse Ox O2 O2 Flow FiO2 Time Delivery Rate 09/13/18 98.0 94 16 184/82 90 Room Air 15:36 (116) 09/13/18 4.0 09:18 09/12/18 28 20:02 Intake and Output 09/12/18 09/12/18 09/13/18 1515:00 23:00 07:00 IntakeIntake Total 770 ml 400 ml BalanceBalance 770 ml 400 ml Exam No apparent distress Constitutional: alert, oriented Head: normocephalic Respiratory: other (Coarse breath sounds bilaterally, no wheezing) Cardiovascular: regular rate and rhythm, other (S1-S2 heard) Gastrointestinal: soft, non-tender, bowel sounds Extremities: edema Gilbert Mederos DO Sep 13, 2018 15:54
--- NOTE | 2018-09-13 16:21 | NUR ---
PT NOTE Attempted to see pt for PT session. Pt adamantly refused, stating she had already been ambulating with occupational therapist in am. Pt educated in difference between OT and PT and necessity of participating in PT, but pt continued to refuse. Will follow up tomorrow. Communicated with RN.
--- NOTE | 2018-09-13 16:29 | PN ---
Date/Time of Note Date/Time of Note DATE: 09/13/18 TIME: 16:23 Objective Vitals Vital Signs Date Temp Pulse Resp B/P (MAP) Pulse Ox O2 O2 Flow FiO2 Time Delivery Rate 09/13/18 94 16:19 09/13/18 98.0 16 184/82 90 Room Air 15:36 (116) 09/13/18 4.0 09:18 09/12/18 28 20:02 Intake and Output 09/12/18 09/12/18 09/13/18 1515:00 23:00 07:00 IntakeIntake Total 770 ml 400 ml BalanceBalance 770 ml 400 ml Results Result Diagram: 09/13/18 1412 09/13/18 0523 Medications Medications Current Medications Benazepril HCl (Lotensin) 40 mg BID PO Last administered on 09/13/18at 09:48; Admin Dose 40 MG; Start 09/09/18 at 21:00 Clonidine (Catapres) 0.2 mg QID PO Last administered on 09/13/18at 12:56; Admin Dose 0.2 MG; Start 09/09/18 at 17:00 Lorazepam (Ativan) 2 mg Q6 PRN PO ANXIETY Last administered on 09/13/18at 09:48; Admin Dose 2 MG; Start 09/09/18 at 15:00 Insulin Aspart (Novolog Insulin Pen) 6 unit AC MEALS SC Last administered on 09/13/18at 12:22; Admin Dose 6 UNIT; Start 09/09/18 at 17:00 IV Flush (NS 3 ml) 3 ml PER PROTOCOL IV ; Start 09/09/18 at 15:00 Ondansetron HCl (Zofran Inj) 4 mg Q6H PRN IV NAUSEA AND/OR VOMITING; Start 09/09/18 at 15:00 Nitroglycerin (Nitroglycerin (Sl Tab) 0.4 Mg) 1 tab Q5M PRN SL CHEST PAIN; Start 09/09/18 at 15:00 Acetaminophen (Tylenol Tab) 650 mg Q6H PRN PO PAIN LEVEL 1-3 OR FEVER Last administered on 09/11/18at 10:26; Admin Dose 650 MG; Start 09/09/18 at 15:00 Acetaminophen/ Hydrocodone Bitart ([place] (5/325)) 1 tab Q6H PRN PO PAIN LEVEL 4-6 Last administered on 09/13/18at 02:21; Admin Dose 1 TAB; Start 09/09/18 at 15:00 Docusate Sodium (Colace) 100 mg Q12H PRN PO CONSTIPATION; Start 09/09/18 at 15:00 Magnesium Hydroxide (Milk Of Mag) 30 ml DAILY PRN PO CONSTIPATION; Start 09/09/18 at 15:00 Hydralazine HCl (Apresoline) 10 mg Q4H PRN IV SBP >170 Last administered on 09/11/18at 11:29; Admin Dose 10 MG; Start 09/09/18 at 15:00 Labetalol HCl (Labetalol) 10 mg Q4 PRN IV SBP >180; Start 09/09/18 at 15:00 Miscellaneous Information 1 ea NOTE XX ; Start 09/09/18 at 15:30 Glucose (Glutose) 15 gm Q15M PRN PO DECREASED GLUCOSE; Start 09/09/18 at 15:30 Glucose (Glutose) 22.5 gm Q15M PRN PO DECREASED GLUCOSE; Start 09/09/18 at 15:30 Dextrose (D50w Syringe) 25 ml Q15M PRN IV DECREASED GLUCOSE; Start 09/09/18 at 15:30 Dextrose (D50w Syringe) 50 ml Q15M PRN IV DECREASED GLUCOSE; Start 09/09/18 at 15:30 Glucagon (Glucagen) 1 mg Q15M PRN IM DECREASED GLUCOSE; Start 09/09/18 at 15:30 Glucose (Glutose) 15 gm Q15M PRN BUCCAL DECREASED GLUCOSE; Start 09/09/18 at 15:30 Tramadol HCl (Ultram) 50 mg Q6H PRN PO PAIN Last administered on 09/12/18at 20:18; Admin Dose 50 MG; Start 09/09/18 at 16:00 Insulin Aspart (Novolog Insulin Pen) NOVOLOG *MILD* ALGORITHM WITH MEALS BEDTIME SC Last administered on 09/13/18at 12:39; Admin Dose 3 UNIT; Start 09/09/18 at 18:00 Insulin Glargine (Lantus) 16 units DAILY@2000 SC Last administered on 09/11/18at 20:37; Admin Dose 16 UNITS; Start 09/09/18 at 20:00 Apixaban (Eliquis) 10 mg BID PO Last administered on 09/13/18at 09:48; Admin Dose 10 MG; Start 09/10/18 at 21:00 Hydromorphone HCl (Dilaudid) 0.5 mg Q4 PRN IV SEVERE PAIN LEVEL 7-10 Last ad ministered on 09/13/18at 14:31; Admin Dose 0.5 MG; Start 09/10/18 at 17:45 Carvedilol (Coreg) 12.5 mg BID PO Last administered on 09/13/18 09:48; Admin Dose 12.5 MG; Start 09/11/18 at 21:00 Nicotine (Nicoderm 14 Mg/ 24hr) 1 patch DAILY TRANSDERM Last administered on 09/13/18 09:45; Admin Dose 1 PATCH; Start 09/12/18 at 11:00 Docusate Sodium (Colace) 100 mg BID PO Last administered on 09/13/18 09:47; Admin Dose 100 MG; Start 09/12/18 at 21:00 Albuterol/ Ipratropium (Duoneb) 3 ml Q6HWA RESP THERAPY HHN Last administered on 09/13/18at 08:29; Admin Dose 3 ML; Start 09/12/18 at 20:00 Albuterol/ Ipratropium (Duoneb) 3 ml Q2H RESP THERAPY PRN HHN shortness of breath; Start 09/12/18 at 15:00 Furosemide (Lasix) 40 mg BID DIURETICS IV ; Start 09/13/18 at 18:00 Nifedipine (Procardia Xl) 30 mg BID PO ; Start 09/14/18 at 09:00 VTE Prophylaxis Risk score (from Ns)>0 risk: 6 SCD applied (from Ns): No SCD contraindication: other Lines/Catheters IV Catheter Type: Álvarez in Place: No Assessment/Plan Hospital Course Subjective Patient just complaining of acute on chronic pain of her lower extremity as well as other issues related to her Paget's disease Objective Physical exam General: Patient is laying in bed and answers questions appropriately Mentation: Patient is alert and oriented 4, Head: Normocephalic atraumatic Eyes: EOMI, pupils reactive to light Neck: Supple, nontender, midline Respiratory: Clear to auscultation bilaterally Cardiovascular: regular rate, no obvious murmurs Gastrointestinal: non-tender to palpation, bowel sounds heard. Neurological: Moves all extremities spontaneously Skin: Multiple chronic skin lesions, scabbed over on her lower extremity bilaterally Assessment/Plan 1. Acute bilateral lower extremity swelling - Most likely secondary to CHF exacerbation - LE doppler shows R DVT but patient already on Eliquis. Unsure if new or chronic. Will continue to monitor. cardiology increased eliquis to treatment dose, VQ showing intermediate but after cardiology spoke with the radiologist, this was due to pleural effusion and edema, but she unlikely has a thrombus. continue treatment dose eliquis - No rashes or erythema noted 2. Acute congestive heart failure - Patient denies history of CHF so most likely new onset - Will check ECHO to assess EF - BNP noted on admission, [address] - CXR shows pulmonary congestion as well as b/l effusion - Lasix IV BID initiated and will monitor I/O and daily weights - Cardiology consultation placed for further recommendations 3. Hypertensive emergency - BP improved after given Labetalol in ED. Was also on nitro for chest pressure - Continue home medication and will need to adjust as needed - secondary to noncompliance as patient states she ran out of "one of her medications" - per last d/c summary was on Nifedipine 60 and adjust as needed 4. ARMIDA - most likely ATN vs cardiorenal - Will avoid nephrotoxic agents - Monitor for improvement and if needed consider Nephrology if continues to worsen - Baseline Cr appears 0.9 5. Elevated trop - most likely secondary to demand given uncontrolled BP, acute CHF and elevated Cr - Will continue to trend. Currently denies any chest pain - Cardiology aware of trop level, stable 6. Elevated Alk Phos - chronically elevated - most likely secondary to Pagets 7. Right popliteal Bakers cyst - chronic. pt aware 8. Diabetes mellitus - Will check A1c. noted to be >14 04/2018 - continue ISS and accuchecks - hold home Metformin - On AC coverage but unsure why not on Lantus. Noted to be on 16 during last admission and will restart as well 9. Pagets disease of the bone - pain control 10. Diet - cardiac/carb controlled 11. DVT ppx - Eliquis 12. Disposition - cont to diruese and monitor for improvement - BP meds changed - will trial with no o2 before DC HORACIO ROSARIO Sep 13, 2018 16:29
[2018-09-13] MEDS ORDERED: FUROSEMIDE 20 MG INJ ONE (16:47)
[2018-09-13] MEDS ORDERED: FUROSEMIDE 40 MG INJ ONE (16:50)
[2018-09-13] MEDS: FUROSEMIDE 40 MG INJ IV SCH (17:00)
[2018-09-13] MEDS: ACETAMINOPHEN 325 MG TAB PO PRN (17:09)
--- NOTE | 2018-09-13 17:28 | NUR ---
Dr. Celso Jo made aware that he needs to include stop date for Eliquis 10 mg per pharmacy's request. Per MD he will fix it tomorrow.
--- NOTE | 2018-09-13 18:30 | NUR ---
EOSS Pt A/O x 3-4, c/o severe pain all day, she keeps asking for pain medications and Ativan to be given together. Patient gets very aggravated and her blood pressure gets elevated when she is upset. Doctor Celso made aware during his rounding. Per MD do not give patient Ativan and hydromorphone together. Pt's family was made aware of this because patient kept calling them that we are not medicating her pain and anxiety. Pt was also educated regarding fall precautions, bed alarm was activated, refused to use walker and calling for assistance when getting out of bed. Refused to call or use assistive devices. Per daughter at bedside, their mother does whatever she wants and never listens. Pt also refused to ambulate/work with physical therapy. 1800. Pt was found on her knees on the floor by RN (chilango) by the bathroom door. Per patient, she rushed to use the bathroom, caught herself on the door handle, then slid on the floor. She had refused to use the bedside commode at bedside. She denied hitting her head, only reported that Left knee was slightly more painful than usual. Dr. Houston made aware, he ordered Xray of the left knee. Patient's daughter Lisa made aware of the fall. She stated that "that is my mother, she is non complaint, she never listens, always does what she wants". Endorsed care to night nurse Rowdy. Addendum: 09/14/18 at 1206 by CHILANGO OWENS RN Charge nurse Lizzie, and clerical warehouse worker also were at bedside post fall. supervisor finish end Nikunj assessed patient for injuries as well
[2018-09-13] MEDS: INSULIN GLARGINE [LANTus] (100 UNITS/ML) SYG SC SCH (21:20)
[2018-09-14] VITALS (13 sets, daily range): BP systolic 134–192; BP diastolic 72–92; PULSE 62–101; RESP 17–20
[2018-09-14] MEDS: HYDROmorphONE 0.5 MG/0.5 ML SYG IV PRN ×3 (04:14→12:54)
--- NOTE | 2018-09-14 04:23 | NUR ---
Pt had 6.25 seconds of paroxysmal afib at 150bpm. BP 192/91. Labetalol given. Will rechceck BP.
[2018-09-14] MEDS: LORAZEPAM 1 MG TAB PO PRN ×2 (05:36→11:51)
[2018-09-14] MEDS: FUROSEMIDE 40 MG INJ IV SCH ×2 (05:36→17:29)
--- NOTE | 2018-09-14 06:57 | NUR ---
EOSS: Pt resting in bed. VS stable. Elevated BP managed w/scheduled and prn antihypertensives. Pain partially managed w/prn opiods and ativan. Pt is alert and oriented but not compliant w/teachings and unaware or refusing to acknowledge limitations. Sitter at bedside, and rounded on hourly, bed in locked and low position, bed alarm green, bed rail x3, call light within reach. Pt repeatedly educated on calling for help, and allowing to be assisted to the commode. After being assisted to the commode, the patient stood up to place her purse on her bedside table, the CHARGER was w/ the patient. The patient's legs became weak, and she began to go to the floor-the CHARGER gently lowered her to the floor without any injury. parts washer Reggie, steve rhoades, and Dr. Meza notified. Will endorse to dayshift RUSSELL.
[2018-09-14] MEDS: INSULIN ASPART [NOVOLOG] 3 ML PEN SC SCH ×7 (07:00→21:00)
--- NOTE | 2018-09-14 07:55 | NUR ---
OT NOTE S: RN cleared pt for skilled OT tx. RN stated pt fell 2x during the night. Pt agreeable to tx stating 6/10 generalized pain. O: Pt received supine in bed with cristal Merchant at bedside. Pt performed supine->sit with supervision. Pt required verbal encouragement to use FWW for transfers. Pt agreed and performed toilet transfer and functional mob with CGA using FWW requiring vc for proper positioning of hands and feet. Pt returned to bed with Min A to left legs up onto the bed. Pt left supine in bed with all needs met. RN notified A: Pt requires encouragement to use FWW for transfers and functional mob. Pt tends to be impulsive and requires vc for safety and proper positioning when using FWW. P: Cont POC
--- NOTE | 2018-09-14 08:00 | NUR ---
Pt. very non-compliant & uncooperative w/ care, getting up and refusing help or assistance, re: unsteady, advised her that staff needs to be w/ her all the time to prevent fall. Also, Pt. asking for pain med./ Dilaudin IV but it is not due, offerred Addendum: 09/14/18 at 1554 by ADELINE NIETO RN Addendum to above charting: Pt. wants IV Dilaudid but it's not due yet, offered PO med. but refused and she is so upset about it. Will continue to monitor.
[2018-09-14] MEDS: ALBUTEROL/IPRATROPIUM (NEB) 3 ML AMP HHN SCH ×3 (08:23→19:12)
[2018-09-14] MEDS: NICOTINE (14 MG/24 HR) PATCH TRANSDERM SCH (08:32)
[2018-09-14] MEDS: NIFEdipine (XL) 30 MG TAB PO SCH ×2 (08:33→20:57)
[2018-09-14] MEDS: DOCUSATE SODIUM 100 MG CAP PO SCH ×2 (08:33→20:56)
[2018-09-14] MEDS: BENAZEPRIL 40 MG TAB PO SCH ×2 (08:34→20:56)
[2018-09-14] MEDS: APIXABAN 5 MG TABLET PO SCH ×2 (08:34→20:56)
[2018-09-14] MEDS: hydrALAzine 20 MG INJ IV PRN (08:35)
[2018-09-14] MEDS ORDERED: MAGNESIUM SULFATE 2 GM/50 ML 50 ML IVPB ONE (11:00)
--- NOTE | 2018-09-14 11:45 | NUR ---
PT NOTE: S: Belen WELLS cleared patient for PT, patient agreeable to participate with PT. Patient c/o pain bilateral LEs and head rated at 8/10. O: Received patient supine in bed, on supplemental O2 @ 2.5 L via NC. Patient seen for bed mobility training supine <->, required SBA for supine to sit. Transfer training with CGA and FWW, verbal cues for proper hand placement, toilet transfer with min assist and verbal cues for safety. Gait training with FWW and min assist x 75 feet, patient unsteady, impulsive, walks at increased velocity which makes ambulation unsafe. Patient on supplemental O2 @ 2L via NC during session. Patient reported min dizziness after ambulation, denied dizziness. Patient returned to bed after ambulation, min assist for sit to supine to lift bilateral LEs back into bed, sitter present in room. Initial BP supine 160/65, HR 84, O2 sat 99%. After amb BP 134/92, HR 101, O2 sat 95%. Belen WELLS notified of patient's status at the end of the session. A: Increased ambulation endurance, min SOB with activity. Patient impulsive during session, requires close supervision at all times. P: Cont with PT daily 5x/week to improve functional mobility and activity tolerance.
--- NOTE | 2018-09-14 12:48 | CONS ---
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 Given IV diuretic regimen has been increased since yesterday evening, would hold off on increasing dosing of antihypertensives unless trend remains elevated. Would continue IV diuretics twice daily at the current time as renal function permits. -Patient status post VQ scan, I did discuss with nuclear radiologist, but was read as intermediate probability secondary to pleural effusions but less likely with pulmonary emboli. Given patient with DVT unclear if acute or not, would use treatment dose Eliquis as per protocol with 10 mg p.o. twice daily for 7 days and then decrease to 5 mg p.o. twice daily. Consultation Date/Type/Reason Admit Date/Time Sep 09, 2018 at 14:09 Initial Consult Date Type of Consult cv 24 HR Interval Summary Free Text/Dictation Denies shortness of breath, complaining of lower extremity edema. Denies chest pain Exam/Review of Systems Vital Signs Vitals Vital Signs Date Temp Pulse Resp B/P (MAP) Pulse Ox O2 O2 Flow FiO2 Time Delivery Rate 09/14/18 101 19 134/92 95 Nasal 11:45 (106) Cannula 09/14/18 98.5 11:04 09/14/18 3.0 08:32 09/12/18 28 20:02 Intake and Output 09/13/18 09/13/18 09/14/18 1515:00 23:00 07:00 IntakeIntake Total 960 ml 400 ml BalanceBalance 960 ml 400 ml Exam No apparent distress Constitutional: alert, oriented Head: normocephalic Respiratory: other (Coarse breath sounds bilaterally, no wheezing) Cardiovascular: regular rate and rhythm, other (S1-S2 heard) Gastrointestinal: soft, non-tender, bowel sounds Extremities: edema Gilbert Mederos DO Sep 14, 2018 12:48
--- NOTE | 2018-09-14 14:00 | NUR ---
Patient still very uncooperative with care and verbally abusive. She is asking for pain med. IV Dilaudid but it is not due and told her the time when it will be due. Offered PO med. but Pt. refused, will continue to monitor.
--- NOTE | 2018-09-14 15:01 | CONS ---
Date/Time of Note Date/Time of Note DATE: 09/14/18 TIME: 14:57 Assessment/Plan Assessment/Plan Additional Assessment/Plan Tril of very low dose of indocin with PPI Consultation Date/Type/Reason Admit Date/Time Sep 09, 2018 at 14:09 Initial Consult Date 24 HR Interval Summary Free Text/Dictation Preliminary note for pain management patient is a no historian all info i taken [facility] medical records... Seen for a ho Pagets disease .... , pain in lower extremities and LS spine full not to follow Exam/Review of Systems Vital Signs Vitals Vital Signs Date Temp Pulse Resp B/P (MAP) Pulse Ox O2 O2 Flow FiO2 Time Delivery Rate 09/14/18 81 18 97 Nasal 3.0 13:54 Cannula 09/14/18 134/92 11:45 (106) 09/14/18 98.5 11:04 09/12/18 28 20:02 Intake and Output 09/13/18 09/13/18 09/14/18 1515:00 23:00 07:00 IntakeIntake Total 960 ml 400 ml BalanceBalance 960 ml 400 ml Exam Constitutional: frail, other (deaf) Psych: anxiety ENMT: nl external ears & nose, nl lips & teeth, nl nasal mucosa & septum Neck: supple, non-tender Respiratory: clear to auscultation, normal air movement Cardiovascular: regular rate and rhythm, nl pulses, S4 Neurological: other (cannot ascess. cannot follow simple commands) DOUGIE LEÓN Sep 14, 2018 15:01
--- NOTE | 2018-09-14 15:58 | PN ---
Date/Time of Note Date/Time of Note DATE: 09/14/18 TIME: 15:58 Objective Vitals Vital Signs Date Temp Pulse Resp B/P (MAP) Pulse Ox O2 O2 Flow FiO2 Time Delivery Rate 09/14/18 99.0 85 18 134/72 100 Nasal 15:11 (92) Cannula 09/14/18 3.0 13:54 09/12/18 28 20:02 Intake and Output 09/13/18 09/13/18 09/14/18 1515:00 23:00 07:00 IntakeIntake Total 960 ml 400 ml BalanceBalance 960 ml 400 ml Results Result Diagram: 09/14/1851709/14/18517 Medications Medications Current Medications Benazepril HCl (Lotensin) 40 mg BID PO Last administered on 09/14/18at 08:34; Admin Dose 40 MG; Start 09/09/18 at 21:00 Clonidine (Catapres) 0.2 mg QID PO Last administered on 09/14/18at 12:55; Admin Dose 0.2 MG; Start 09/09/18 at 17:00 Insulin Aspart (Novolog Insulin Pen) 6 unit AC MEALS SC Last administered on 09/14/18at 12:01; Admin Dose 6 UNIT; Start 09/09/18 at 17:00 IV Flush (NS 3 ml) 3 ml PER PROTOCOL IV ; Start 09/09/18 at 15:00 Ondansetron HCl (Zofran Inj) 4 mg Q6H PRN IV NAUSEA AND/OR VOMITING; Start 09/09/18 at 15:00 Nitroglycerin (Nitroglycerin (Sl Tab) 0.4 Mg) 1 tab Q5M PRN SL CHEST PAIN; Start 09/09/18 at 15:00 Docusate Sodium (Colace) 100 mg Q12H PRN PO CONSTIPATION; Start 09/09/18 at 15:00 Magnesium Hydroxide (Milk Of Mag) 30 ml DAILY PRN PO CONSTIPATION; Start 09/09/18 at 15:00 Hydralazine HCl (Apresoline) 10 mg Q4H PRN IV SBP >170 Last administered on 09/14/18at 08:35; Admin Dose 10 MG; Start 09/09/18 at 15:00 Labetalol HCl (Labetalol) 10 mg Q4 PRN IV SBP >180 Last administered on 09/14/18at 04:15; Admin Dose 10 MG; Start 09/09/18 at 15:00 Miscellaneous Information 1 ea NOTE XX ; Start 09/09/18 at 15:30 Glucose (Glutose) 15 gm Q15M PRN PO DECREASED GLUCOSE; Start 09/09/18 at 15:30 Glucose (Glutose) 22.5 gm Q15M PRN PO DECREASED GLUCOSE; Start 09/09/18 at 15:30 Dextrose (D50w Syringe) 25 ml Q15M PRN IV DECREASED GLUCOSE; Start 09/09/18 at 15:30 Dextrose (D50w Syringe) 50 ml Q15M PRN IV DECREASED GLUCOSE; Start 09/09/18 at 15:30 Glucagon (Glucagen) 1 mg Q15M PRN IM DECREASED GLUCOSE; Start 09/09/18 at 15:30 Glucose (Glutose) 15 gm Q15M PRN BUCCAL DECREASED GLUCOSE; Start 09/09/18 at 15:30 Tramadol HCl (Ultram) 50 mg Q6H PRN PO PAIN Last administered on 09/12/18at 20:18; Admin Dose 50 MG; Start 09/09/18 at 16:00 Insulin Aspart (Novolog Insulin Pen) NOVOLOG *MILD* ALGORITHM WITH MEALS BEDTIME SC Last administered on 09/13/18at 21:20; Admin Dose 3 UNIT; Start 09/09/18 at 18:00 Insulin Glargine (Lantus) 16 units DAILY@2000 SC Last administered on 09/13/18at 21:20; Admin Dose 16 UNITS; Start 09/09/18 at 20:00 Apixaban (Eliquis) 10 mg BID PO Last administered on 09/14/18at 08:34; Admin Dose 10 MG; Start 09/10/18 at 21:00; Stop 09/17/18 at 23:55 Carvedilol (Coreg) 12.5 mg BID PO Last administered on 09/14/18at 08:34; Admin Dose 12.5 MG; Start 09/11/18 at 21:00 Nicotine (Nicoderm 14 Mg/ 24hr) 1 patch DAILY TRANSDERM Last administered on 09/14/18at 08:32; Admin Dose 1 PATCH; Start 09/12/18 at 11:00 Docusate Sodium (Colace) 100 mg BID PO Last administered on 09/14/18at 08:33; Admin Dose 100 MG; Start 09/12/18 at 21:00 Albuterol/ Ipratropium (Duoneb) 3 ml Q6HWA RESP THERAPY HHN Last administered on 09/14/18at 13:44; Admin Dose 3 ML; Start 09/12/18 at 20:00 Albuterol/ Ipratropium (Duoneb) 3 ml Q2H RESP THERAPY PRN HHN shortness of breath; Start 09/12/18 at 15:00 Furosemide (Lasix) 40 mg BID DIURETICS IV Last administered on 09/14/18at 05:36; Admin Dose 40 MG; Start 09/13/18 at 18:00 Nifedipine (Procardia Xl) 30 mg BID PO Last administered on 09/14/18at 08:33; Admin Dose 30 MG; Start 09/14/18 at 09:00 Apixaban (Eliquis) 5 mg BID PO ; Start 09/18/18 at 09:00 Indomethacin (Indocin) 25 mg BID PO ; Start 09/14/18 at 15:00 Pantoprazole (Protonix Tab) 40 mg DAILY@06 PO ; Start 09/15/18 at 06:00 VTE Prophylaxis Risk score (from Nsg)>0 risk: 6 [place]CD applied (from [facility] [place] Yes Lines/Catheters IV Catheter Type: Álvarez in Place: No Assessment/Plan Hospital Course Subjective Patient just complaining of acute on chronic pain of her lower extremity as well as other issues related to her Paget's disease Objective Physical exam General: Patient is laying in bed and answers questions appropriately Mentation: Patient is alert and oriented 4, Head: Normocephalic atraumatic Eyes: EOMI, pupils reactive to light Neck: Supple, nontender, midline Respiratory: Clear to auscultation bilaterally Cardiovascular: regular rate, no obvious murmurs Gastrointestinal: non-tender to palpation, bowel sounds heard. Neurological: Moves all extremities spontaneously Skin: Multiple chronic skin lesions, scabbed over on her lower extremity bilaterally Assessment/Plan 1. Acute bilateral lower extremity swelling - Most likely secondary to CHF exacerbation - LE doppler shows R DVT but patient already on Eliquis. Unsure if new or chronic. Will continue to monitor. cardiology increased eliquis to treatment dose, VQ showing intermediate but after cardiology spoke with the radiologist, this was due to pleural effusion and edema, but she unlikely has a thrombus. continue treatment dose eliquis - No rashes or erythema noted 2. Acute congestive heart failure - Patient denies history of CHF so most likely new onset - Will check ECHO to assess EF - BNP noted [place] admission, [address] - CXR shows pulmonary congestion as well as b/l effusion - Lasix IV BID initiated and will monitor I/O and daily weights - Cardiology consultation placed for further recommendations 3. Hypertensive emergency - BP improved after given Labetalol in ED. Was also on nitro for chest pressure - Continue home medication and will need to adjust as needed - secondary to noncompliance as patient states she ran out of "one of her medications" - per last d/c summary was on Nifedipine 60 and adjust as needed 4. ARMIDA - most likely ATN vs cardiorenal - Will avoid nephrotoxic agents - Monitor for improvement and if needed consider Nephrology if continues to worsen - Baseline Cr appears 0.9 5. Elevated trop - most likely secondary to demand given uncontrolled BP, acute CHF and elevated Cr - Will continue to trend. Currently denies any chest pain - Cardiology aware of trop level, stable 6. Elevated Alk Phos - chronically elevated - most likely secondary to Pagets 7. Right popliteal Bakers cyst - chronic. pt aware 8. Diabetes mellitus - Will check A1c. noted to be >14 04/2018 - continue ISS and accuchecks - hold home Metformin - On AC coverage but unsure why not on Lantus. Noted to be on 16 during last admission and will restart as well 9. Pagets disease of the bone - pain control 10. Diet - cardiac/carb controlled 11. DVT ppx - Eliquis 12. Disposition - cont to diruese and monitor for improvement - BP meds changed - will trial with no o2 before DC HORACIO ROSARIO Sep 14, 2018 15:58
[2018-09-14] MEDS: INDOMETHACIN 25 MG PO SCH ×2 (16:00→20:56)
--- NOTE | 2018-09-14 16:00 | NUR ---
Patient asking for IV Dilaudid for pain but it has been discontinued by Dr. Houston, offered Ultram 50mg PO but she does not want it. She is very upset, yelling and verbally abusive saying bad words to the RN, Charge-RN Dex sipmson.
--- NOTE | 2018-09-14 18:41 | NUR ---
EOSS: No acute change noted during the shift but pt. remains to be uncooperative and non-compliant w/ care, continue to monitor & will endorse to PM shift.
[2018-09-14] MEDS: traMADol 50 MG TAB PO PRN (18:49)
--- NOTE | 2018-09-14 20:06 | NUR ---
Pt. had episode of PAT, pt. denies chest pain BP 148/76, resting in bed and watching TV. Sitter at bedside. This episode was not new to this patient, she had this before and DR. Mederos has been aware about this.
[2018-09-14] MEDS: INSULIN GLARGINE [LANTus] (100 UNITS/ML) SYG SC SCH (20:59)
[2018-09-15] VITALS (10 sets, daily range): BP systolic 112–181; BP diastolic 68–90; PULSE 79–98; RESP 18–20
[2018-09-15] MEDS: traMADol 50 MG TAB PO PRN ×2 (04:07→10:14)
[2018-09-15] MEDS: hydrALAzine 20 MG INJ IV PRN (04:07)
[2018-09-15] MEDS: FUROSEMIDE 40 MG INJ IV SCH ×2 (05:39→17:38)
[2018-09-15] MEDS: PANTOPRAZOLE (EC) 40 MG TAB PO SCH (05:39)
[2018-09-15] MEDS: INSULIN ASPART [NOVOLOG] 3 ML PEN SC SCH ×7 (06:43→22:56)
--- NOTE | 2018-09-15 07:27 | NUR ---
Patient in bed, no respiratory distress, sitter at bedside with bed alarm on. Bedside report given to AM nurse.
[2018-09-15] MEDS: ALBUTEROL/IPRATROPIUM (NEB) 3 ML AMP HHN SCH ×3 (08:00→20:35)
[2018-09-15] MEDS: APIXABAN 5 MG TABLET PO SCH ×2 (08:40→20:55)
[2018-09-15] MEDS: DOCUSATE SODIUM 100 MG CAP PO SCH ×2 (08:40→20:55)
[2018-09-15] MEDS: INDOMETHACIN 25 MG PO SCH ×2 (08:41→20:55)
[2018-09-15] MEDS: BENAZEPRIL 40 MG TAB PO SCH ×2 (08:41→22:00)
[2018-09-15] MEDS: NICOTINE (14 MG/24 HR) PATCH TRANSDERM SCH (08:42)
[2018-09-15] MEDS: NIFEdipine (XL) 30 MG TAB PO SCH ×2 (08:42→20:55)
--- NOTE | 2018-09-15 13:05 | PN ---
Date/Time of Note Date/Time of Note DATE: 09/15/18 TIME: 13:02 Objective Vitals Vital Signs Date Temp Pulse Resp B/P (MAP) Pulse Ox O2 O2 Flow FiO2 Time Delivery Rate 09/15/18 88 12:00 09/15/18 98.1 20 174/86 93 Room Air 11:42 (115) 09/15/18 3.0 10:46 09/14/18 21 19:12 Intake and Output 09/14/18 09/14/18 09/15/18 1515:00 23:00 07:00 IntakeIntake Total 900 ml 900 ml BalanceBalance 900 ml 900 ml Results Result Diagram: 09/14/1851709/14/18517 Medications Medications Current Medications Benazepril HCl (Lotensin) 40 mg BID PO Last administered on 09/15/18at 08:41; Admin Dose 40 MG; Start 09/09/18 at 21:00 Clonidine (Catapres) 0.2 mg QID PO Last administered on 09/15/18at 08:41; Admin Dose 0.2 MG; Start 09/09/18 at 17:00 Insulin Aspart (Novolog Insulin Pen) 6 unit AC MEALS SC Last administered on 09/15/18at 06:43; Admin Dose 6 UNIT; Start 09/09/18 at 17:00 IV Flush (NS 3 ml) 3 ml PER PROTOCOL IV ; Start 09/09/18 at 15:00 Ondansetron HCl (Zofran Inj) 4 mg Q6H PRN IV NAUSEA AND/OR VOMITING; Start 09/09/18 at 15:00 Nitroglycerin (Nitroglycerin (Sl Tab) 0.4 Mg) 1 tab Q5M PRN SL CHEST PAIN; Start 09/09/18 at 15:00 Docusate Sodium (Colace) 100 mg Q12H PRN PO CONSTIPATION; Start 09/09/18 at 15:00 Magnesium Hydroxide (Milk Of Mag) 30 ml DAILY PRN PO CONSTIPATION; Start 09/09/18 at 15:00 Hydralazine HCl (Apresoline) 10 mg Q4H PRN IV SBP >170 Last administered on 09/15/18at 04:07; Admin Dose 10 MG; Start 09/09/18 at 15:00 Labetalol HCl (Labetalol) 10 mg Q4 PRN IV SBP >180 Last administered on 09/14/18at 04:15; Admin Dose 10 MG; Start 09/09/18 at 15:00 Miscellaneous Information 1 ea NOTE XX ; Start 09/09/18 at 15:30 Glucose (Glutose) 15 gm Q15M PRN PO DECREASED GLUCOSE; Start 09/09/18 at 15:30 Glucose (Glutose) 22.5 gm Q15M PRN PO DECREASED GLUCOSE; Start 09/09/18 at 15:30 Dextrose (D50w Syringe) 25 ml Q15M PRN IV DECREASED GLUCOSE; Start 09/09/18 at 15:30 Dextrose (D50w Syringe) 50 ml Q15M PRN IV DECREASED GLUCOSE; Start 09/09/18 at 15:30 Glucagon (Glucagen) 1 mg Q15M PRN IM DECREASED GLUCOSE; Start 09/09/18 at 1 5:30 Glucose (Glutose) 15 gm Q15M PRN BUCCAL DECREASED GLUCOSE; Start 09/09/18 at 15:30 Tramadol HCl (Ultram) 50 mg Q6H PRN PO PAIN Last administered on 09/15/18at 10:14; Admin Dose 50 MG; Start 09/09/18 at 16:00 Insulin Aspart (Novolog Insulin Pen) NOVOLOG *MILD* ALGORITHM WITH MEALS BEDTIME SC Last administered on 09/15/18at 10:11; Admin Dose 2 UNIT; Start 09/09/18 at 18:00 Insulin Glargine (Lantus) 16 units DAILY@2000 SC Last administered on 09/14/18at 20:59; Admin Dose 16 UNITS; Start 09/09/18 at 20:00 Apixaban (Eliquis) 10 mg BID PO Last administered on 09/15/18at 08:40; Admin D ose 10 MG; Start 09/10/18 at 21:00; Stop 09/17/18 at 23:55 Nicotine (Nicoderm 14 Mg/ 24hr) 1 patch DAILY TRANSDERM Last administered on 09/15/18at 08:42; Admin Dose 1 PATCH; Start 09/12/18 at 11:00 Docusate Sodium (Colace) 100 mg BID PO Last administered on 09/15/18at 08:40; Admin Dose 100 MG; Start 09/12/18 at 21:00 Albuterol/ Ipratropium (Duoneb) 3 ml Q6HWA RESP THERAPY HHN Last administered on 09/14/18at 13:44; Admin Dose 3 ML; Start 09/12/18 at 20:00 Albuterol/ Ipratropium (Duoneb) 3 ml Q2H RESP THERAPY PRN HHN shortness of breath; Start 09/12/18 at 15:00 Furosemide (Lasix) 40 mg BID DIURETICS IV Last administered on 09/15/18at 05:39; Admin Dose 40 MG; Start 09/13/18 at 18:00 Nifedipine (Procardia Xl) 30 mg BID PO Last administered on 09/15/18at 08:42; Admin Dose 30 MG; Start 09/14/18 at 09:00 Apixaban (Eliquis) 5 mg BID PO ; Start 09/18/18 at 09:00 Indomethacin (Indocin) 25 mg BID PO Last administered on 09/15/18at 08:41; Admin Dose 25 MG; Start 09/14/18 at 15:00 Pantoprazole (Protonix Tab) 40 mg DAILY@06 PO Last administered on 09/15/18at 05:39; Admin Dose 40 MG; Start 09/15/18 at 06:00 Carvedilol (Coreg) 25 mg BID PO ; Start 09/15/18 at 21:00 VTE Prophylaxis Risk score (from Nsg)>0 risk: 6 SCD applied (from Nsg): Yes Lines/Catheters IV Catheter Type: Álvarez in Place: No Assessment/Plan Hospital Course Subjective Patient just complaining of acute on chronic pain of her lower extremity as well as other issues related to her Paget's disease Objective Physical exam General: Patient is laying in bed and answers questions appropriately Mentation: Patient is alert and oriented 4, Head: Normocephalic atraumatic Eyes: EOMI, pupils reactive to light Neck: Supple, nontender, midline Respiratory: Clear to auscultation bilaterally Cardiovascular: regular rate, no obvious murmurs Gastrointestinal: non-tender to palpation, bowel sounds heard. Neurological: Moves all extremities spontaneously Skin: Multiple chronic skin lesions, scabbed over on her lower extremity bilaterally Assessment/Plan Acute bilateral lower extremity swelling - Most likely secondary to CHF exacerbation - LE doppler shows R DVT but patient already on Eliquis. Unsure if new or chronic. Will continue to monitor. cardiology increased eliquis to treatment dose, VQ showing intermediate but after cardiology spoke with the radiologist, this was due to pleural effusion and edema, but she unlikely has a thrombus. continue treatment dose eliquis - No rashes or erythema noted pain seeking behavior -patient is constantly and only occupied with pain medication -Pain management has seen patient and DC narcotic pain medication Acute congestive heart failure - Patient denies history of CHF so most likely new onset - Will check ECHO to assess EF - BNP noted on admission, [address] - CXR shows pulmonary congestion as well as b/l effusion - Lasix IV BID initiated and will monitor I/O and daily weights - Cardiology consultation placed for further recommendations Hypertensive emergency - BP improved after given Labetalol in ED. Was also on nitro for chest pressure - Continue home medication and will need to adjust as needed - secondary to noncompliance as patient states she ran out of "one of her medications" - per last d/c summary was on Nifedipine 60 and adjust as needed ARMIDA - most likely ATN vs cardiorenal - Will avoid nephrotoxic agents - Monitor for improvement and if needed consider Nephrology if continues to worsen - Baseline Cr appears 0.9 Elevated trop - most likely secondary to demand given uncontrolled BP, acute CHF and elevated Cr - Will continue to trend. Currently denies any chest pain - Cardiology aware of trop level, stable Elevated Alk Phos - chronically elevated - most likely secondary to Pagets Right popliteal Bakers cyst - chronic. pt aware Diabetes mellitus - Will check A1c. noted to be >14 04/2018 - continue ISS and accuchecks - hold home Metformin - On AC coverage but unsure why not on Lantus. Noted to be on 16 during last admission and will restart as well Pagets disease of the bone - pain control Disposition - After a long discussion with patient's daughter, it was determined that patient cannot adequately make decisions as I also assessed patient and determined patient can not have capacity to make her own decisions, it was decided that a short stay at a senior care facility would benefit the patient the most. CM notified HORACIO ROSARIO Sep 15, 2018 13:05
--- NOTE | 2018-09-15 14:50 | NUR ---
Discharge planning; Discussed and clarified with Family-Lisa about discharge plan of care. As agreed upon with MD, plan is to send Patient to retirement facility for short term. As such sent inquiry to following facilities; [facility] ; [facility] , faxed to ; [facility] , faxed to ; [facility] , faxed to ; [facility] faxed to ; [facility] , faxed to ; [facility] faxed to ; [facility] , faxed to ; [facility] , faxed to ; [facility] , faxed to ; will await each facility to review case and get back with their decision. Addendum: 09/17/18 at 1319 by FRANKI WILSON RN, CM Follow Up; Contacted SNF and requested to resend inquiry for review. Will re-fax inquiry to the facilities again and will call to confirm if they have received it.
--- NOTE | 2018-09-15 19:16 | NUR ---
EOSS: NO ACUTE DISTRESS DURING DAY SHIFT. PT IS AOX2-3, ON ROOM AIR, AMBULATES WITH ASSIST. ALL MEDICATIONS HAVE BEEN GIVEN PRESCRIBED. ALL PT'S NEEDS HAVE BEEN MET. WILL ENDORSE TO OPTICAL ASSISTANT NURSE.
[2018-09-15] MEDS: INSULIN GLARGINE [LANTus] (100 UNITS/ML) SYG SC SCH (22:55)
[2018-09-16] VITALS (11 sets, daily range): BP systolic 110–180; BP diastolic 63–91; PULSE 61–150; RESP 17–20
[2018-09-16] MEDS: traMADol 50 MG TAB PO PRN ×4 (01:34→21:13)
[2018-09-16] MEDS: PANTOPRAZOLE (EC) 40 MG TAB PO SCH (06:07)
[2018-09-16] MEDS: FUROSEMIDE 40 MG INJ IV SCH ×2 (06:08→17:55)
--- NOTE | 2018-09-16 07:46 | NUR ---
Pt. stable, uneventful night, asked for her Ativan po. & iv pain med; mad that it was discontinued; gave her Tramadol po 2x, slept good, v/s stable.
[2018-09-16] MEDS: INSULIN ASPART [NOVOLOG] 3 ML PEN SC SCH ×7 (08:00→21:00)
[2018-09-16] MEDS: ALBUTEROL/IPRATROPIUM (NEB) 3 ML AMP HHN SCH ×3 (08:00→21:17)
[2018-09-16] MEDS: APIXABAN 5 MG TABLET PO SCH ×2 (08:24→21:14)
[2018-09-16] MEDS: BENAZEPRIL 40 MG TAB PO SCH ×2 (08:24→21:15)
[2018-09-16] MEDS: INDOMETHACIN 25 MG PO SCH ×2 (08:24→21:14)
[2018-09-16] MEDS: NIFEdipine (XL) 30 MG TAB PO SCH ×2 (08:25→21:14)
[2018-09-16] MEDS: DOCUSATE SODIUM 100 MG CAP PO SCH ×2 (08:25→21:14)
[2018-09-16] MEDS: NICOTINE (14 MG/24 HR) PATCH TRANSDERM SCH (09:00)
[2018-09-16] MEDS ORDERED: POTASSIUM CHLORIDE (SR) 20 MEQ TAB PO STA (09:15)
[2018-09-16] MEDS ORDERED: MAGNESIUM SULFATE 2 GM/50 ML 50 ML IVPB ONE (10:30)
--- NOTE | 2018-09-16 12:00 | PN ---
Date/Time of Note Date/Time of Note DATE: 09/16/18 TIME: 11:54 Objective Vitals Vital Signs Date Temp Pulse Resp B/P (MAP) Pulse Ox O2 O2 Flow FiO2 Time Delivery Rate 09/16/18 Nasal 2.0 11:31 Cannula 09/16/18 86 08:00 09/16/18 98.0 20 180/91 96 07:44 (120) 09/14/18 21 19:12 Intake and Output 09/15/18 09/15/18 09/16/18 1515:00 23:00 07:00 IntakeIntake Total 400 ml BalanceBalance 400 ml Results Result Diagram: 09/16/18 0531 09/16/18 0531 Medications Medications Current Medications Benazepril HCl (Lotensin) 40 mg BID PO Last administered on 09/16/18at 08:24; Admin Dose 40 MG; Start 09/09/18 at 21:00 Clonidine (Catapres) 0.2 mg QID PO Last administered on 09/16/18at 08:25; Admin Dose 0.2 MG; Start 09/09/18 at 17:00 Insulin Aspart (Novolog Insulin Pen) 6 unit AC MEALS SC Last administered on 09/16/18at 09:47; Admin Dose 6 UNIT; Start 09/09/18 at 17:00 IV Flush (NS 3 ml) 3 ml PER PROTOCOL IV ; Start 09/09/18 at 15:00 Ondansetron HCl (Zofran Inj) 4 mg Q6H PRN IV NAUSEA AND/OR VOMITING; Start 09/09/18 at 15:00 Nitroglycerin (Nitroglycerin (Sl Tab) 0.4 Mg) 1 tab Q5M PRN SL CHEST PAIN; Start 09/09/18 at 15:00 Docusate Sodium (Colace) 100 mg Q12H PRN PO CONSTIPATION; Start 09/09/18 at 15:00 Magnesium Hydroxide (Milk Of Mag) 30 ml DAILY PRN PO CONSTIPATION; Start 09/09/18 at 15:00 Hydralazine HCl (Apresoline) 10 mg Q4H PRN IV SBP >170 Last administered on 09/15/18at 04:07; Admin Dose 10 MG; Start 09/09/18 at 15:00 Labetalol HCl (Labetalol) 10 mg Q4 PRN IV SBP >180 Last administered on 09/14/18at 04:15; Admin Dose 10 MG; Start 09/09/18 at 15:00 Miscellaneous Information 1 ea NOTE XX ; Start 09/09/18 at 15:30 Glucose (Glutose) 15 gm Q15M PRN PO DECREASED GLUCOSE; Start 09/09/18 at 15:30 Glucose (Glutose) 22.5 gm Q15M PRN PO DECREASED GLUCOSE; Start 09/09/18 at 15:30 Dextrose (D50w Syringe) 25 ml Q15M PRN IV DECREASED GLUCOSE; Start 09/09/18 at 15:30 Dextrose (D50w Syringe) 50 ml Q15M PRN IV DECREASED GLUCOSE; Start 09/09/18 at 15:30 Glucagon (Glucagen) 1 mg Q15M PRN IM DECREASED GLUCOSE; Start 09/09/18 at 15:30 Glucose (Glutose) 15 gm Q15M PRN BUCCAL DECREASED GLUCOSE; Start 09/09/18 at 15:30 Tramadol HCl (Ultram) 50 mg Q6H PRN PO PAIN Last administered on 09/16/18at 07:28; Admin Dose 50 MG; Start 09/09/18 at 16:00 Insulin Aspart (Novolog Insulin Pen) NOVOLOG *MILD* ALGORITHM WITH MEALS BEDTIME SC Last administered on 09/15/18at 22:56; Admin Dose 2 UNIT; Start 09/09/18 at 18:00 Insulin Glargine (Lantus) 16 units DAILY@2000 SC Last administered on 09/15/18at 22:55; Admin Dose 16 UNITS; Start 09/09/18 at 20:00 Apixaban (Eliquis) 10 mg BID PO Last administered on 09/16/18at 08:24; Admin Dose 10 MG; Start 09/10/18 at 21:00; Stop 09/17/18 at 23:55 Nicotine (Nicoderm 14 Mg/ 24hr) 1 patch DAILY TRANSDERM Last administered on 09/15/18at 08:42; Admin Dose 1 PATCH; Start 09/12/18 at 11:00 Docusate Sodium (Colace) 100 mg BID PO Last administered on 09/16/18at 08:25; Admin Dose 100 MG; Start 09/12/18 at 21:00 Albuterol/ Ipratropium (Duoneb) 3 ml Q6HWA RESP THERAPY HHN Last administered on 09/15/18at 20:35; Admin Dose 3 ML; Start 09/12/18 at 20:00 Albuterol/ Ipratropium (Duoneb) 3 ml Q2H RESP THERAPY PRN HHN shortness of breath; Start 09/12/18 at 15:00 Furosemide (Lasix) 40 mg BID DIURETICS IV Last administered on 09/16/18at 06:08; Admin Dose 40 MG; Start 09/13/18 at 18:00 Nifedipine (Procardia Xl) 30 mg BID PO Last administered on 09/16/18at 08:25; Admin Dose 30 MG; Start 09/14/18 at 09:00 Apixaban (Eliquis) 5 mg BID PO ; Start 09/18/18 at 09:00 Indomethacin (Indocin) 25 mg BID PO Last administered on 09/16/18at 08:24; Admin Dose 25 MG; Start 09/14/18 at 15:00 Pantoprazole (Protonix Tab) 40 mg DAILY@06 PO Last administered on 09/16/18at 06:07; Admin Dose 40 MG; Start 09/15/18 at 06:00 Carvedilol (Coreg) 25 mg BID PO Last administered on 09/16/18at 08:25; Admin Dose 25 MG; Start 09/15/18 at 21:00 Magnesium Sulfate 50 ml @ 25 mls/hr ONCE ONCE IVPB ; Start 09/16/18 at 10:30; Stop 09/16/18 at 12:29 VTE Prophylaxis Risk score (from Nsg)>0 risk: 9 SCD applied (from Ns): Yes Lines/Catheters IV Catheter Type: Álvarez in Place: No Assessment/Plan Hospital Course Subjective Patient only reoccupied about trying to get pain medication, but is observed sleeping everytime I enter the room Objective Physical exam General: Patient is laying in bed and answers questions appropriately Mentation: Patient is alert and oriented somewhat, not oriented to situation completely Head: Normocephalic atraumatic Eyes: EOMI, pupils reactive to light Neck: Supple, nontender, midline Respiratory: Clear to auscultation bilaterally Cardiovascular: regular rate, no obvious murmurs Gastrointestinal: non-tender to palpation, bowel sounds heard. Neurological: Moves all extremities spontaneously Skin: Multiple chronic skin lesions, scabbed over on her lower extremity bilaterally Assessment/Plan Acute bilateral lower extremity swelling - Most likely secondary to CHF exacerbation - LE doppler shows R DVT but patient already on Eliquis. Unsure if new or chronic. Will continue to monitor. cardiology increased eliquis to treatment dose, VQ showing intermediate but after cardiology spoke with the radiologist, this was due to pleural effusion and edema, but she unlikely has a thrombus. continue treatment dose eliquis - No rashes or erythema noted R DVT -unknown chronicity -spoke with cardiology, recommends tx dose of eliquis then transition to maintenance dose when appropriate (last treatment dose the night of the , start maintenance dose on the ) pain seeking behavior -patient is constantly and only occupied with pain medication -Pain management has seen patient and DC narcotic pain medication Acute congestive heart failure - Patient denies history of CHF so most likely new onset - Will check ECHO to assess EF - BNP noted on admission, [address] - CXR shows pulmonary congestion as well as b/l effusion - Lasix IV BID initiated and will monitor I/O and daily weights - Cardiology consultation placed for further recommendations Hypertensive emergency - BP improved after given Labetalol in ED. Was also on nitro for chest pressure - Continue home medication and will need to adjust as needed - secondary to noncompliance as patient states she ran out of "one of her medications" - per last d/c summary was on Nifedipine 60 and adjust as needed ARMIDA - most likely ATN vs cardiorenal - Will avoid nephrotoxic agents - Monitor for improvement and if needed consider Nephrology if continues to worsen - Baseline Cr appears 0.9 Elevated trop - most likely secondary to demand given uncontrolled BP, acute CHF and elevated Cr - Will continue to trend. Currently denies any chest pain - Cardiology aware of trop level, stable Elevated Alk Phos - chronically elevated - most likely secondary to Pagets Right popliteal Bakers cyst - chronic. pt aware Diabetes mellitus - Will check A1c. noted to be >14 04/2018 - continue ISS and accuchecks - hold home Metformin - On AC coverage but unsure why not on Lantus. Noted to be on 16 during last admission and will restart as well Pagets disease of the bone - pain control Disposition - After a long discussion with patient's daughter, it was determined that patient cannot adequately make decisions as I also assessed patient and determined patient can not have capacity to make her own decisions, it was decided that a short stay at a intermediate facility would benefit the patient the most. CM notified HORACIO ROSARIO Sep 16, 2018 12:00
--- NOTE | 2018-09-16 15:08 | CONS ---
Date/Time of Note Date/Time of Note DATE: 09/16/18 TIME: 15:03 Consult Date/Type/Reason Admit Date/Time Sep 09, 2018 at 14:09 Initial Consult Date Subjective cardiology follow-up progress note covering for Dr. Mederos Subjective: Discussed with the staff and rhythm was reviewed. Patient with normal sinus rhythm but has had short episodes of nonsustained asymptomatic VT Patient denies any chest pain or pressure to me and stated she wants to go home She complains of leg pain Objective: General: no acute distress HEENT: NC/AT. pupils are equal. round. NECK: NO JVD. no stridor. CV: RRR. systolic murmur; no gallop or rubs. PULM: no wheezing GI: SOFT, NT, ND, no rebound or guarding Extremity: + B/L LE edema. Right more than left neuro: awake and alert, Psych: calm and pleasant rectal: deferred Echocardiogram shows: Normal left ventricular cavity size. Moderate concentric left ventricular hypertrophy. Mild left ventricular systolic dysfunction. Ejection fraction is visually estimated at 45 %. Tissue Doppler/Mitral Doppler indices are consistent with pseudonormalization with mildly elevated left atrial pressure (Stage II diastolic dysfunction). Normal right ventricular size. Normal right ventricular systolic function. There is mild enlargement of left atrium. Right atrium at upper limits of normal. Moderate mitral valve regurgitation. Estimated peak PA systolic pressure 81 mmHg. There is moderate tricuspid regurgitation. No hemodynamically significant aortic stenosis by doppler. Mild aortic valve regurgitation. Normal pericardium with no significant pericardial effusion. Objective Vital Signs Date Temp Pulse Resp B/P (MAP) Pulse Ox O2 O2 Flow FiO2 Time Delivery Rate 09/16/18 98.3 66 20 136/73 96 12:09 (94) 09/16/18 Nasal 2.0 11:31 Cannula 09/14/18 21 19:12 Intake and Output 09/15/18 09/15/18 09/16/18 1515:00 23:00 07:00 IntakeIntake Total 400 ml BalanceBalance 400 ml Results/Medications Result Diagram: 09/16/18 0531 09/16/18 0531 Results 24 hrs Laboratory Tests Test 09/15/18 16:23 09/15/18 17:13 09/15/18 22:47 09/16/18 02:24 White Blood 6.3 Count Red Blood Count 4.07 L Hemoglobin 12.0 Hematocrit 38.3 Mean Corpuscular 94.1 Volume Mean Corpuscular 29.5 Hemoglobin Mean Corpuscular 31.3 L Hemoglobin Soha nt Red Cell 14.9 H Distribution Width Platelet Count 302 Mean Platelet 11.6 H Volume Immature 0.200 Granulocytes % Neutrophils % 38.2 L Lymphocytes % 48.9 Monocytes % 11.5 H Eosinophils % 1.0 Basophils % 0.2 Nucleated Red 0.0 Blood Cells % Immature 0.010 Granulocytes # Neutrophils # 2.4 Lymphocytes # 3.1 H Monocytes # 0.7 Eosinophils # 0.1 Basophils # 0.0 Nucleated Red 0.0 Blood Cells # Sodium Level 139 Potassium Level 3.6 Chloride Level 100 Carbon Dioxide 33 H Level Anion Gap 6 Blood Urea 29 H Nitrogen Creatinine 1.01 H Est Glomerular > 60 Filtrat Rate mL/min Glucose Level 144 Calcium Level 8.5 Phosphorus Level 3.2 Magnesium Level 1.4 L Bedside Glucose 143 241 H 197 Test 09/16/18 05:31 09/16/18 08:23 09/16/18 11:44 White Blood 6.7 Count Red Blood Count 4.22 Hemoglobin 12.4 Hematocrit 40.2 Mean Corpuscular 95.3 Volume Mean Corpuscular 29.4 Hemoglobin Mean Corpuscular 30.8 L Hemoglobin Soha nt Red Cell 14.7 H Distribution Width Platelet Count 353 Mean Platelet 11.7 H Volume Immature 0.300 Granulocytes % Neutrophils % 34.2 L Lymphocytes % 52.2 H Monocytes % 11.4 H Eosinophils % 1.5 Basophils % 0.4 Nucleated Red 0.0 Blood Cells % Immature 0.020 Granulocytes # Neutrophils # 2.3 Lymphocytes # 3.5 H Monocytes # 0.8 Eosinophils # 0.1 Basophils # 0.0 Nucleated Red 0.0 Blood Cells # Sodium Level 140 Potassium Level 3.3 L Chloride Level 100 Carbon Dioxide 32 H Level Anion Gap 8 Blood Urea 32 H Nitrogen Creatinine 1.09 H Est Glomerular > 60 Filtrat Rate mL/min Glucose Level 132 Calcium Level 8.4 Phosphorus Level 3.1 Magnesium Level 1.4 L Bedside Glucose 124 154 Medications Current Medications Benazepril HCl (Lotensin) 40 mg BID PO Last administered on 09/16/18at 08:24; Admin Dose 40 MG; Start 09/09/18 at 21:00 Clonidine (Catapres) 0.2 mg QID PO Last administered on 09/16/18at 13:00; Admin Dose 0.2 MG; Start 09/09/18 at 17:00 Insulin Aspart (Novolog Insulin Pen) 6 unit AC MEALS SC Last administered on 09/16/18at 12:15; Admin Dose 6 UNIT; Start 09/09/18 at 17:00 IV Flush (NS 3 ml) 3 ml PER PROTOCOL IV ; Start 09/09/18 at 15:00 Ondansetron HCl (Zofran Inj) 4 mg Q6H PRN IV NAUSEA AND/OR VOMITING; Start 09/09/18 at 15:00 Nitroglycerin (Nitroglycerin (Sl Tab) 0.4 Mg) 1 tab Q5M PRN SL CHEST PAIN; Start 09/09/18 at 15:00 Docusate Sodium (Colace) 100 mg Q12H PRN PO CONSTIPATION; Start 09/09/18 at 15:00 Magnesium Hydroxide (Milk Of Mag) 30 ml DAILY PRN PO CONSTIPATION; Start 09/09/18 at 15:00 Hydralazine HCl (Apresoline) 10 mg Q4H PRN IV SBP >170 Last administered on 09/15/18at 04:07; Admin Dose 10 MG; Start 09/09/18 at 15:00 Labetalol HCl (Labetalol) 10 mg Q4 PRN IV SBP >180 Last administered on 09/14/18at 04:15; Admin Dose 10 MG; Start 09/09/18 at 15:00 Miscellaneous Information 1 ea NOTE XX ; Start 09/09/18 at 15:30 Glucose (Glutose) 15 gm Q15M PRN PO DECREASED GLUCOSE; Start 09/09/18 at 15:30 Glucose (Glutose) 22.5 gm Q15M PRN PO DECREASED GLUCOSE; Start 09/09/18 at 15:30 Dextrose (D50w Syringe) 25 ml Q15M PRN IV DECREASED GLUCOSE; Start 09/09/18 at 15:30 Dextrose (D50w Syringe) 50 ml Q15M PRN IV DECREASED GLUCOSE; Start 09/09/18 at 15:30 Glucagon (Glucagen) 1 mg Q15M PRN IM DECREASED GLUCOSE; Start 09/09/18 at 15 :30 Glucose (Glutose) 15 gm Q15M PRN BUCCAL DECREASED GLUCOSE; Start 09/09/18 at 15:30 Tramadol HCl (Ultram) 50 mg Q6H PRN PO PAIN Last administered on 09/16/18 12:46; Admin Dose 50 MG; Start 09/09/18 at 16:00 Insulin Aspart (Novolog Insulin Pen) NOVOLOG *MILD* ALGORITHM WITH MEALS BEDTIME SC Last administered on 09/16/18 12:16; Admin Dose 1 UNIT; Start 09/09/18 at 18:00 Insulin Glargine (Lantus) 16 units DAILY@2000 SC Last administered on 09/15/18 22:55; Admin Dose 16 UNITS; Start 09/09/18 at 20:00 Apixaban (Eliquis) 10 mg BID PO Last administered on 09/16/18 08:24; Admin Do se 10 MG; Start 09/10/18 at 21:00; Stop 09/17/18 at 23:55 Nicotine (Nicoderm 14 Mg/ 24hr) 1 patch DAILY TRANSDERM Last administered on 09/15/18 08:42; Admin Dose 1 PATCH; Start 09/12/18 at 11:00 Docusate Sodium (Colace) 100 mg BID PO Last administered on 09/16/18 08:25; Admin Dose 100 MG; Start 09/12/18 at 21:00 Albuterol/ Ipratropium (Duoneb) 3 ml Q6HWA RESP THERAPY HHN Last administered on 09/15/18at 20:35; Admin Dose 3 ML; Start 09/12/18 at 20:00 Albuterol/ Ipratropium (Duoneb) 3 ml Q2H RESP THERAPY PRN HHN shortness of breath; Start 09/12/18 at 15:00 Furosemide (Lasix) 40 mg BID DIURETICS IV Last administered on 09/16/18at 06:08; Admin Dose 40 MG; Start 09/13/18 at 18:00 Nifedipine (Procardia Xl) 30 mg BID PO Last administered on 09/16/18 08:25; Admin Dose 30 MG; Start 09/14/18 at 09:00 Apixaban (Eliquis) 5 mg BID PO ; Start 09/18/18 at 09:00 Indomethacin (Indocin) 25 mg BID PO Last administered on 09/16/18 08:24; Admin Dose 25 MG; Start 09/14/18 at 15:00 Pantoprazole (Protonix Tab) 40 mg DAILY@06 PO Last administered on 09/16/18at 06:07; Admin Dose 40 MG; Start 09/15/18 at 06:00 Carvedilol (Coreg) 25 mg BID PO Last administered on 09/16/18at 08:25; Admin Dose 25 MG; Start 09/15/18 at 21:00 Lorazepam (Ativan) 1 mg DAILY PRN PO ANXIETY; Start 09/16/18 at 14:30 Assessment/Plan Chief Complaint/Hosp Course Hypertension urgency: Currently blood pressure is under good control Acute kidney injury, improved now Acute decompensated systolic congestive heart failure Cardiomyopathy with left ventricular ejection fraction 45% Mitral and tricuspid valve regurgitation Pulmonary hypertension DVT Diabetes Paget's disease Poor medication compliance Recommendations: Correct electrolytes including potassium level. Continue with anticoagulation as long as no falls or bleeding risk Pain management as pain internal medicine and pain specialist Thank you for his referral. We will continue to follow along with you until Dr. Schmitz returns on Monday LUCIEN KEITH MD [facility] LUCIEN KEITH MD Sep 16, 2018 15:08
[2018-09-16] MEDS ORDERED: POTASSIUM CHLORIDE 20 MEQ POWDER FOR ORAL SOLN PO ONE (15:30)
[2018-09-16] MEDS: ONDANSETRON 4 MG INJ IV PRN (16:21)
[2018-09-16] MEDS: INSULIN GLARGINE [LANTus] (100 UNITS/ML) SYG SC SCH (21:47)
[2018-09-16] MEDS: LORAZEPAM 1 MG TAB PO PRN (22:43)
[2018-09-17] VITALS (11 sets, daily range): BP systolic 116–161; BP diastolic 67–79; PULSE 68–84; RESP 18–20
[2018-09-17] MEDS: ONDANSETRON 4 MG INJ IV PRN ×3 (01:25→12:54)
[2018-09-17] MEDS: traMADol 50 MG TAB PO PRN ×3 (04:04→22:07)
--- NOTE | 2018-09-17 05:32 | NUR ---
Pt. was transferred from room 614 B to front room 630, sitter was discontinued pt.; more conversant and happier after daughters paid her a visit; still asking for Ativan and pain med; still wanting an IV pain med. Ativan 1mg po did not put her to sleep; pt. said she takes 2 mg po at home. Pt. got up one time without calling for the nurse & quickly sat on the nearby commode; fall prec. in force, V/S normal, NSR w/ occ PVC.
[2018-09-17] MEDS: FUROSEMIDE 40 MG INJ IV SCH ×2 (06:11→17:39)
[2018-09-17] MEDS: PANTOPRAZOLE (EC) 40 MG TAB PO SCH (06:11)
[2018-09-17] MEDS: INSULIN ASPART [NOVOLOG] 3 ML PEN SC SCH ×7 (07:00→21:00)
[2018-09-17] MEDS: ALBUTEROL/IPRATROPIUM (NEB) 3 ML AMP HHN SCH ×3 (08:58→21:03)
[2018-09-17] MEDS: NICOTINE (14 MG/24 HR) PATCH TRANSDERM SCH (09:00)
[2018-09-17] MEDS: DOCUSATE SODIUM 100 MG CAP PO SCH ×2 (09:00→21:54)
--- NOTE | 2018-09-17 09:09 | PN ---
Date/Time of Note Date/Time of Note DATE: 09/17/18 TIME: 09:09 Assessment/Plan VTE Prophylaxis Risk score (from Nsg)>0 risk: 9 SCD applied (from Nsg): Yes Pharmacological prophylaxis: apixaban Lines/Catheters IV Catheter Type (from Nrsg): Saline Lock Urinary Cath still in place: No Assessment/Plan Assessment/Plan 1. Acute bilateral lower extremity swelling- improving - Most likely secondary to CHF exacerbation. Improving after diuresis - LE doppler shows R DVT but patient already on Eliquis. Unsure if new or chronic. Will continue to monitor - No rashes or erythema noted 2. R DVT - unknown chronicity - After discussion with Cardiology, will transition from tx to maintenance dose of eliquis tomorrow 3. Acute congestive heart failure - Cardiology on board and appreciate recommendations. Will transition to PO diuretics tomorrow as BP permits - ECHO results noted and EF 45% - BNP elevated at time of admission 4. Hypertensive emergency- resolved - noncompliance - will continue adjusting medications as needed for better BP control 5. ARMIDA- stable - most likely ATN vs cardiorenal - Will avoid nephrotoxic agents - Baseline Cr appears 0.9 6. Elevated Alk Phos - chronically elevated - most likely secondary to Pagets 7. Right popliteal Bakers cyst - chronic. pt aware 8. Diabetes mellitus - A1c noted - continue ISS and accuchecks 9. Pagets disease of the bone - pain control - pain management on board and appreciate consultation 10. Disposition - Per cardiology, will transition to PO diuretics tomorrow and continue monitoring renal function - on board for SNF placement Subjective 24 Hr Interval Summary Free Text/Dictation Patient concerned about discomfort on right upper thigh and asking for IV antibiotics since concerned about an infection. No abnormalities appreciated. Exam/Review of Systems Vital Signs Vitals Vital Signs Date Temp Pulse Resp B/P (MAP) Pulse Ox O2 O2 Flow FiO2 Time Delivery Rate 09/17/18 78 18 94 Nasal 3.0 09:01 Cannula 09/17/18 98.2 134/75 08:11 (94) 09/14/18 21 19:12 Intake and Output 09/16/18 09/16/18 09/17/18 1515:00 23:00 07:00 IntakeIntake Total 480 ml BalanceBalance 480 ml Exam General: Patient is laying in bed and answers questions appropriately Head: Normocephalic atraumatic Neck: Supple, nontender, midline Respiratory: Clear to auscultation bilaterally. no wheezing Cardiovascular: regular rate and rhythm,, no obvious murmurs Gastrointestinal: soft, non-tender to palpation, nondistended, bowel sounds heard. Neurological: Moves all extremities spontaneously Skin: Multiple chronic skin lesions, scabbed over on her lower extremity bilaterally TREY BOWEN MD Sep 17, 2018 09:09
[2018-09-17] MEDS: APIXABAN 5 MG TABLET PO SCH ×2 (11:22→21:54)
[2018-09-17] MEDS: BENAZEPRIL 40 MG TAB PO SCH ×2 (11:23→21:56)
[2018-09-17] MEDS: NIFEdipine (XL) 30 MG TAB PO SCH ×2 (11:23→21:56)
[2018-09-17] MEDS: INDOMETHACIN 25 MG PO SCH ×2 (11:23→21:54)
[2018-09-17] MEDS ORDERED: POTASSIUM CHLORIDE (SR) 20 MEQ TAB PO STA (13:09)
--- NOTE | 2018-09-17 13:12 | CONS ---
Date/Time of Note Date/Time of Note DATE: 09/17/18 TIME: 13:10 Assessment/Plan Assessment/Plan Additional Assessment/Plan Hypertension urgency Acute kidney injury, improved Acute decompensated systolic congestive heart failure Cardia myopathy with left ventricular ejection fraction 45% Mitral and tricuspid valve regurgitation Pulmonary hypertension DVT Diabetes Paget's disease Poor medication compliance -Blood pressure trend labile but improved. We will transition to p.o. diuretics starting from tomorrow. If continues to improve, DC home on Bumex 1 mg daily as renal function blood pressure permits. -Patient status post VQ scan, I did discuss with nuclear radiologist, but was read as intermediate probability secondary to pleural effusions but less likely with pulmonary emboli. Given patient with DVT unclear if acute or not, would use treatment dose Eliquis as per protocol with 10 mg p.o. twice daily for 7 days and then decrease to 5 mg p.o. twice daily. Consultation Date/Type/Reason Admit Date/Time Sep 09, 2018 at 14:09 Initial Consult Date Type of Consult cv 24 HR Interval Summary Free Text/Dictation Denies chest pain, palpitations, shortness of breath. Complaining of lower extremity swelling but admits it is improving Exam/Review of Systems Vital Signs Vitals Vital Signs Date Temp Pulse Resp B/P (MAP) Pulse Ox O2 O2 Flow FiO2 Time Delivery Rate 09/17/18 84 12:29 09/17/18 98.2 20 161/71 90 11:54 (101) 09/17/18 Nasal 3.0 09:01 Cannula 09/14/18 21 19:12 Intake and Output 09/16/18 09/16/18 09/17/18 1515:00 23:00 07:00 IntakeIntake Total 480 ml BalanceBalance 480 ml Exam No apparent distress Constitutional: alert, oriented Head: normocephalic Respiratory: other (Coarse breath sounds bilaterally, no wheezing) Cardiovascular: regular rate and rhythm, other (S1-S2 heard) Gastrointestinal: soft, non-tender, bowel sounds Extremities: edema Medications Medications Current Medications Benazepril HCl (Lotensin) 40 mg BID PO Last administered on 09/17/18at 11:23; Admin Dose 40 MG; Start 09/09/18 at 21:00 Clonidine (Catapres) 0.2 mg QID PO Last administered on 09/17/18at 11:23; Admin Dose 0.2 MG; Start 09/09/18 at 17:00 Insulin Aspart (Novolog Insulin Pen) 6 unit AC MEALS SC Last administered on 09/16/18at 18:18; Admin Dose 6 UNIT; Start 09/09/18 at 17:00 IV Flush (NS 3 ml) 3 ml PER PROTOCOL IV ; Start 09/09/18 at 15:00 Ondansetron HCl (Zofran Inj) 4 mg Q6H PRN IV NAUSEA AND/OR VOMITING Last administered on 09/17/18at 07:19; Admin Dose 4 MG; Start 09/09/18 at 15:00 Nitroglycerin (Nitroglycerin (Sl Tab) 0.4 Mg) 1 tab Q5M PRN SL CHEST PAIN; Start 09/09/18 at 15:00 Docusate Sodium (Colace) 100 mg Q12H PRN PO CONSTIPATION; Start 09/09/18 at 15:00 Magnesium Hydroxide (Milk Of Mag) 30 ml DAILY PRN PO CONSTIPATION; Start 09/09/18 at 15:00 Hydralazine HCl (Apresoline) 10 mg Q4H PRN IV SBP >170 Last administered on 09/15/18at 04:07; Admin Dose 10 MG; Start 09/09/18 at 15:00 Labetalol HCl (Labetalol) 10 mg Q4 PRN IV SBP >180 Last administered on 09/14/18at 04:15; Admin Dose 10 MG; Start 09/09/18 at 15:00 Miscellaneous Information 1 ea NOTE XX ; Start 09/09/18 at 15:30 Glucose (Glutose) 15 gm Q15M PRN PO DECREASED GLUCOSE; Start 09/09/18 at 15:30 Glucose (Glutose) 22.5 gm Q15M PRN PO DECREASED GLUCOSE; Start 09/09/18 at 15:30 Dextrose (D50w Syringe) 25 ml Q15M PRN IV DECREASED GLUCOSE; Start 09/09/18 at 15:30 Dextrose (D50w Syringe) 50 ml Q15M PRN IV DECREASED GLUCOSE; Start 09/09/18 at 15:30 Glucagon (Glucagen) 1 mg Q15M PRN IM DECREASED GLUCOSE; Start 09/09/18 at 15:30 Glucose (Glutose) 15 gm Q15M PRN BUCCAL DECREASED GLUCOSE; Start 09/09/18 at 15:30 Tramadol HCl (Ultram) 50 mg Q6H PRN PO PAIN Last administered on 09/17/18 04:04; Admin Dose 50 MG; Start 09/09/18 at 16:00 Insulin Aspart (Novolog Insulin Pen) NOVOLOG *MILD* ALGORITHM WITH MEALS BEDTIME SC Last administered on 09/16/18 12:16; Admin Dose 1 UNIT; Start 09/09/18 at 18:00 Insulin Glargine (Lantus) 16 units DAILY@2000 SC Last administered on 09/16/18 21:47; Admin Dose 16 UNITS; Start 09/09/18 at 20:00 Apixaban (Eliquis) 10 mg BID PO Last administered on 09/17/18 11:22; Admin Dose 10 MG; Start 09/10/18 at 21:00; Stop 09/17/18 at 23:55 Nicotine (Nicoderm 14 Mg/ 24hr) 1 patch DAILY TRANSDERM Last administered on 09/15/18 08:42; Admin Dose 1 PATCH; Start 09/12/18 at 11:00 Docusate Sodium (Colace) 100 mg BID PO Last administered on 09/16/18at 21:14; Admin Dose 100 MG; Start 09/12/18 at 21:00 Albuterol/ Ipratropium (Duoneb) 3 ml Q6HWA RESP THERAPY HHN Last administered on 09/17/18 08:58; Admin Dose 3 ML; Start 09/12/18 at 20:00 Albuterol/ Ipratropium (Duoneb) 3 ml Q2H RESP THERAPY PRN HHN shortness of breath; Start 09/12/18 at 15:00 Furosemide (Lasix) 40 mg BID DIURETICS IV Last administered on 09/17/18 06:11; Admin Dose 40 MG; Start 09/13/18 at 18:00 Nifedipine (Procardia Xl) 30 mg BID PO Last administered on 09/17/18 11:23; Admin Dose 30 MG; Start 09/14/18 at 09:00 Apixaban (Eliquis) 5 mg BID PO ; Start 09/18/18 at 09:00 Indomethacin (Indocin) 25 mg BID PO Last administered on 09/17/18 11:23; Admin Dose 25 MG; Start 09/14/18 at 15:00 Pantoprazole (Protonix Tab) 40 mg DAILY@06 PO Last administered on 09/17/18at 06:11; Admin Dose 40 MG; Start 09/15/18 at 06:00 Carvedilol (Coreg) 25 mg BID PO Last administered on 09/17/18at 11:24; Admin Dose 25 MG; Start 09/15/18 at 21:00 Lorazepam (Ativan) 1 mg DAILY PRN PO ANXIETY Last administered on 09/16/18at 22:43; Admin Dose 1 MG; Start 09/16/18 at 14:30 Miscellaneous Information Patients own medicat... BID@10,16 XX ; Start 09/17/18 at 10:00 Gilbert Mederos DO Sep 17, 2018 13:12
--- NOTE | 2018-09-17 13:15 | NUR ---
OT NOTE S: RN cleared pt for skilled OT tx. Pt stated 0/10 pain O: Pt received supine in bed agreeable to tx. Pt performed supine->sit at EOB with supervision. Pt required encouragement to use FWW to ambulate to bathroom sink. OTR explained to pt the benefits of using a FWW. Pt agreed and demonstrated Fair safety using FWW. Pt stood at bathroom sink with SBA while completing h/g tasks with supervision. Pt then returned to bed with CGA. OTR educated pt on deep breathing techniques as well as energy conservation strategies. Pt engaged in BUE AROM exercises including arm raises and biceps curls. Pt left supine in bed with all needs met. RN notified. A: Pt continues to require encouragement to use FWW for transfers and functional mob. P: Cont POC Progress Note: Over the past week pt has improved in her functional mob and transfers. Pt continues to require vc for safety and use of FWW. Pt performs toileting hygiene, UB/LB dressing and h/g with SBA/Supervision. Cont POC.
[2018-09-17] MEDS ORDERED: MAGNESIUM SULFATE 3 GM in DEXTROSE 5% 100 ML IVPB ONE (15:00)
--- NOTE | 2018-09-17 15:23 | NUR ---
SNF Follow Up; Followed up with following facilities; [facility]- Patient is a "straight [facility]" and cannot accept at this time. [facility]- still pending review with their director. [facility]- re-faxed inquiry to Ritu at . [facility]- left message with Lety and re-faxed inquiry. [facility]- at this time they do not have a bed available, they are expecting discharges today as such asked to check back tomorrow. [facility]- unable to provide for Patient's needs. [facility]- unable to get a hold of their Admissions department or front desk lead. [facility]- unable to review case, the soonest their RN reviewer will review case would be on Monday. [facility] , faxed to ; still pending review with their Admission. [facility]- unable to accept as there may be a chance Patient might go into long-term and they do not have a bed in their long-term unit. Addendum: 09/18/18 at 0950 by FRANKI WILSON RN [facility]; Lety from [facility] called back and will start process to obtain authorization for Patient transfer. Will await for their call back once they have obtained their SNF authorization.
--- NOTE | 2018-09-17 18:35 | NUR ---
EOSS: Pt moved from 630 back to 614B (pt agreeable to change due to noise at nurse station), pt reoriented to room and educated on using call light multiple times but pt continues to be inconsistent in its use. Fall precautions continued strictly. Pt BG stable at end of shift, needs met and questions answered.
--- NOTE | 2018-09-17 21:00 | NUR ---
PT NONCOMPLIANT REFUSING NURSE BAD CARE REFUSING BED ALARM PT VITAL SIGN STABLE CALL LIGHT WITH IN REACH Addendum: 09/18/18 at 0045 by SHAHRAM MERCADO RN PT REFUSED NURSE BED SIDE CARE
[2018-09-17] MEDS: INSULIN GLARGINE [LANTus] (100 UNITS/ML) SYG SC SCH (21:59)
[2018-09-18] VITALS (10 sets, daily range): BP systolic 111–162; BP diastolic 63–82; PULSE 65–78; RESP 18–76
[2018-09-18] MEDS ORDERED: morphine 2 MG INJ IV PRN (01:30)
[2018-09-18] MEDS: morphine 4 MG/ML VIAL IV PRN ×2 (01:39→02:30)
[2018-09-18] MEDS: LORAZEPAM 1 MG TAB PO PRN ×2 (04:04→20:50)
[2018-09-18] MEDS: PANTOPRAZOLE (EC) 40 MG TAB PO SCH (05:10)
[2018-09-18] MEDS: traMADol 50 MG TAB PO PRN ×3 (05:10→20:02)
[2018-09-18] MEDS ORDERED: BUMETANIDE 1 MG TAB PO SCH (06:00)
[2018-09-18] MEDS: INSULIN ASPART [NOVOLOG] 3 ML PEN SC SCH ×7 (08:00→20:49)
[2018-09-18] MEDS: ALBUTEROL/IPRATROPIUM (NEB) 3 ML AMP HHN SCH ×3 (08:04→19:52)
--- NOTE | 2018-09-18 08:36 | PN ---
Date/Time of Note Date/Time of Note DATE: 09/18/18 TIME: 08:36 Assessment/Plan VTE Prophylaxis Risk score (from Nsg)>0 risk: 6 SCD applied (from Nsg): No SCD contraindicated: bilateral LE trauma Pharmacological prophylaxis: apixaban Lines/Catheters IV Catheter Type (from Nrsg): Saline Lock Urinary Cath still in place: No Assessment/Plan Assessment/Plan 1. Acute bilateral lower extremity swelling- improving - Most likely secondary to CHF exacerbation - Improving but still complaining of discomfort - LE doppler shows R DVT but patient already on Eliquis. Unsure if new or chronic. Will continue to monitor - No rashes or erythema noted 2. R DVT - unknown chronicity - continue on Eliquis 5mg BID 3. Acute congestive heart failure - Cardiology on board and appreciate recommendations. Continue on PO Bumex daily - ECHO results noted and EF 45% - BNP elevated at time of admission 4. Hypertensive emergency- resolved - noncompliance - will continue adjusting medications as needed for better BP control 5. ARMIDA - Bumex decreased to daily given slight worsening in Cr. Will continue to monitor - Baseline Cr appears 0.9 6. Elevated Alk Phos - chronically elevated - most likely secondary to Pagets 7. Right popliteal Bakers cyst - chronic. pt aware 8. Diabetes mellitus - A1c noted - continue ISS and accuchecks 9. Pagets disease of the bone - pain control - pain management on board and appreciate consultation 10. Disposition - Continue monitoring renal function for improvement. Pending SNF placement once stable and accepted to facility Result Diagram: 09/17/18 0513 09/18/18 0526 Results 24hrs Laboratory Tests Test 09/17/18 12:52 09/17/18 17:30 09/17/18 20:39 09/18/18 05:26 Bedside Glucose 151 93 101 Sodium Level 139 Potassium Level 4.0 Chloride Level 100 Carbon Dioxide 34 H Level Anion Gap 5 Blood Urea 47 H Nitrogen Creatinine 1.47 H Glucose Level 63 #L Calcium Level 8.5 Phosphorus Level 3.5 Magnesium Level 1.9 Albumin 3.0 L Test 09/18/18 08:25 Bedside Glucose 90 Subjective 24 Hr Interval Summary Free Text/Dictation Per nursing, patient still impulsive and does not follow directions. She has been complaining of needing to urinate more often and discussed effects of diuretics since here with CHF. Patient understood the need to diuretics given having RLE discomfort. Exam/Review of Systems Vital Signs Vitals Vital Signs Date Temp Pulse Resp B/P (MAP) Pulse Ox O2 O2 Flow FiO2 Time Delivery Rate 09/18/18 82 18 97 Nasal 2.0 08:05 Cannula 09/18/18 97.7 155/82 07:33 (106) 09/14/18 21 19:12 Intake and Output 09/17/18 09/17/18 09/18/18 1515:00 23:00 07:00 IntakeIntake Total 850 ml 600 ml BalanceBalance 850 ml 600 ml Exam General: Patient is laying in bed and answers questions appropriately Neck: Supple Respiratory: Clear to auscultation bilaterally. no wheezing Cardiovascular: S1, S2, regular rate and rhythm, no obvious murmurs Gastrointestinal: soft, non-tender to palpation, nondistended, bowel sounds heard. Neurological: Moves all extremities spontaneously Skin: Multiple chronic skin lesions, scabbed over on her lower extremity bilaterally. edema in lower extremities Medications Medications Current Medications Benazepril HCl (Lotensin) 40 mg BID PO Last administered on 09/17/18at 21:56; Admin Dose 40 MG; Start 09/09/18 at 21:00 Clonidine (Catapres) 0.2 mg QID PO Last administered on 09/17/18at 21:56; Admin Dose 0.2 MG; Start 09/09/18 at 17:00 Insulin Aspart (Novolog Insulin Pen) 6 unit AC MEALS SC Last administered on 09/17/18at 17:39; Admin Dose 6 UNIT; Start 09/09/18 at 17:00 IV Flush (NS 3 ml) 3 ml PER PROTOCOL IV ; Start 09/09/18 at 15:00 Ondansetron HCl (Zofran Inj) 4 mg Q6H PRN IV NAUSEA AND/OR VOMITING Last administered on 09/17/18at 12:54; Admin Dose 4 MG; Start 09/09/18 at 15:00 Nitroglycerin (Nitroglycerin (Sl Tab) 0.4 Mg) 1 tab Q5M PRN SL CHEST PAIN; Start 09/09/18 at 15:00 Docusate Sodium (Colace) 100 mg Q12H PRN PO CONSTIPATION; Start 09/09/18 at 15:00 Magnesium Hydroxide (Milk Of Mag) 30 ml DAILY PRN PO CONSTIPATION; Start 09/09/18 at 15:00 Hydralazine HCl (Apresoline) 10 mg Q4H PRN IV SBP >170 Last administered on 09/15/18at 04:07; Admin Dose 10 MG; Start 09/09/18 at 15:00 Labetalol HCl (Labetalol) 10 mg Q4 PRN IV SBP >180 Last administered on 09/14/18at 04:15; Admin Dose 10 MG; Start 09/09/18 at 15:00 Miscellaneous Information 1 ea NOTE XX ; Start 09/09/18 at 15:30 Glucose (Glutose) 15 gm Q15M PRN PO DECREASED GLUCOSE; Start 09/09/18 at 15:30 Glucose (Glutose) 22.5 gm Q15M PRN PO DECREASED GLUCOSE; Start 09/09/18 at 15:30 Dextrose (D50w Syringe) 25 ml Q15M PRN IV DECREASED GLUCOSE; Start 09/09/18 at 15:30 Dextrose (D50w Syringe) 50 ml Q15M PRN IV DECREASED GLUCOSE; Start 09/09/18 at 15:30 Glucagon (Glucagen) 1 mg Q15M PRN IM DECREASED GLUCOSE; Start 09/09/18 at 15:30 Glucose (Glutose) 15 gm Q15M PRN BUCCAL DECREASED GLUCOSE; Start 09/09/18 at 15:30 Tramadol HCl (Ultram) 50 mg Q6H PRN PO PAIN Last administered on 09/18/18at 05:10; Admin Dose 50 MG; Start 09/09/18 at 16:00 Insulin Aspart (Novolog Insulin Pen) NOVOLOG *MILD* ALGORITHM WITH MEALS BEDTIME SC Last administered on 09/16/18at 12:16; Admin Dose 1 UNIT; Start 09/09/18 at 18:00 Insulin Glargine (Lantus) 16 units DAILY@2000 SC Last administered on 09/17/18at 21:59; Admin Dose 16 UNITS; Start 09/09/18 at 20:00 Nicotine (Nicoderm 14 Mg/ 24hr) 1 patch DAILY TRANSDERM Last administered on 09/15/18at 08:42; Admin Dose 1 PATCH; Start 09/12/18 at 11:00 Docusate Sodium (Colace) 100 mg BID PO Last administered on 09/17/18at 21:54; A dmin Dose 100 MG; Start 09/12/18 at 21:00 Albuterol/ Ipratropium (Duoneb) 3 ml Q6HWA RESP THERAPY HHN Last administered on 09/18/18 08:04; Admin Dose 3 ML; Start 09/12/18 at 20:00 Albuterol/ Ipratropium (Duoneb) 3 ml Q2H RESP THERAPY PRN HHN shortness of breath; Start 09/12/18 at 15:00 Nifedipine (Procardia Xl) 30 mg BID PO Last administered on 09/17/18at 21:56; Admin Dose 30 MG; Start 09/14/18 at 09:00 Apixaban (Eliquis) 5 mg BID PO ; Start 09/18/18 at 09:00 Indomethacin (Indocin) 25 mg BID PO Last administered on 09/17/18at 21:54; Admin Dose 25 MG; Start 09/14/18 at 15:00 Pantoprazole (Protonix Tab) 40 mg DAILY@06 PO Last administered on 09/18/18 05:10; Admin Dose 40 MG; Start 09/15/18 at 06:00 Carvedilol (Coreg) 25 mg BID PO Last administered on 09/17/18at 21:55; Admin Dose 25 MG; Start 09/15/18 at 21:00 Lorazepam (Ativan) 1 mg DAILY PRN PO ANXIETY Last administered on 09/18/18at 04:04; Admin Dose 1 MG; Start 09/16/18 at 14:30 Miscellaneous Information Patients own medicat... BID@10,16 XX ; Start 09/17/18 at 10:00 Bumetanide (Bumex) 1 mg BID DIURETICS PO ; Start 09/18/18 at 06:00 Morphine Sulfate (morphine) 1 mg Q4H PRN IV SEVERE PAIN LEVEL 7-10 Last adm inistered on 09/18/18at 01:39; Admin Dose 1 MG; Start 09/18/18 at 02:00 Quetiapine Fumarate (Seroquel) 25 mg BID PO ; Start 09/18/18 at 09:00 TREY BOWEN MD Sep 18, 2018 08:36
[2018-09-18] MEDS: ONDANSETRON 4 MG INJ IV PRN ×2 (08:47→17:37)
[2018-09-18] MEDS: LOSARTAN 50 MG TAB PO SCH ×2 (08:48→20:37)
[2018-09-18] MEDS: APIXABAN 5 MG TABLET PO SCH ×2 (08:48→20:30)
[2018-09-18] MEDS: QUETIAPINE 25 MG TAB PO SCH ×2 (08:49→20:30)
[2018-09-18] MEDS: NIFEdipine (XL) 30 MG TAB PO SCH ×2 (08:49→20:37)
[2018-09-18] MEDS: INDOMETHACIN 25 MG PO SCH ×2 (08:50→20:30)
[2018-09-18] MEDS: DOCUSATE SODIUM 100 MG CAP PO SCH ×2 (09:00→20:30)
[2018-09-18] MEDS: NICOTINE (14 MG/24 HR) PATCH TRANSDERM SCH (09:00)
--- NOTE | 2018-09-18 10:47 | CONS ---
Date/Time of Note Date/Time of Note DATE: 09/18/18 TIME: 10:45 Consult Date/Type/Reason Admit Date/Time Sep 09, 2018 at 14:09 Initial Consult Date Subjective cardiology follow-up progress note covering for Dr. Mederos Subjective: Discussed with the staff and rhythm was reviewed. Patient with normal sinus rhythm Patient denies any chest pain or pressure to me and stated she wants to go home She complains of leg pain still Objective: General: no acute distress HEENT: NC/AT. pupils are equal. round. NECK: NO JVD. no stridor. CV: RRR. systolic murmur; no gallop or rubs. PULM: no wheezing GI: SOFT, NT, ND, no rebound or guarding Extremity: + B/L LE edema. Right more than left neuro: awake and alert, Psych: calm rectal: deferred Echocardiogram shows: Normal left ventricular cavity size. Moderate concentric left ventricular hypertrophy. Mild left ventricular systolic dysfunction. Ejection fraction is visually estimated at 45 %. Tissue Doppler/Mitral Doppler indices are consistent with pseudonormalization with mildly elevated left atrial pressure (Stage II diastolic dysfunction). Normal right ventricular size. Normal right ventricular systolic function. There is mild enlargement of left atrium. Right atrium at upper limits of normal. Moderate mitral valve regurgitation. Estimated peak PA systolic pressure 81 mmHg. There is moderate tricuspid regurgitation. No hemodynamically significant aortic stenosis by doppler. Mild aortic valve regurgitation. Normal pericardium with no significant pericardial effusion. Objective Vital Signs Date Temp Pulse Resp B/P (MAP) Pulse Ox O2 O2 Flow FiO2 Time Delivery Rate 09/18/18 82 18 97 Nasal 2.0 08:05 Cannula 09/18/18 97.7 155/82 07:33 (106) 09/14/18 21 19:12 Intake and Output 09/17/18 09/17/18 09/18/18 1515:00 23:00 07:00 IntakeIntake Total 850 ml 600 ml BalanceBalance 850 ml 600 ml Results/Medications Result Diagram: 09/17/18 0513 09/18/18 0526 Results 24 hrs Laboratory Tests Test 09/17/18 12:52 09/17/18 17:30 09/17/18 20:39 09/18/18 05:26 Bedside Glucose 151 93 101 Sodium Level 139 Potassium Level 4.0 Chloride Level 100 Carbon Dioxide 34 H Level Anion Gap 5 Blood Urea 47 H Nitrogen Creatinine 1.47 H Glucose Level 63 #L Calcium Level 8.5 Phosphorus Level 3.5 Magnesium Level 1.9 Albumin 3.0 L Test 09/18/18 08:25 Bedside Glucose 90 Medications Current Medications Clonidine (Catapres) 0.2 mg QID PO Last administered on 09/18/18at 08:49; Admin Dose 0.2 MG; Start 09/09/18 at 17:00 Insulin Aspart (Novolog Insulin Pen) 6 unit AC MEALS SC Last administered on 09/18/18at 09:05; Admin Dose 6 UNIT; Start 09/09/18 at 17:00 IV Flush (NS 3 ml) 3 ml PER PROTOCOL IV ; Start 09/09/18 at 15:00 Ondansetron HCl (Zofran Inj) 4 mg Q6H PRN IV NAUSEA AND/OR VOMITING Last adm inistered on 09/18/18at 08:47; Admin Dose 4 MG; Start 09/09/18 at 15:00 Nitroglycerin (Nitroglycerin (Sl Tab) 0.4 Mg) 1 tab Q5M PRN SL CHEST PAIN; Start 09/09/18 at 15:00 Docusate Sodium (Colace) 100 mg Q12H PRN PO CONSTIPATION; Start 09/09/18 at 15:00 Magnesium Hydroxide (Milk Of Mag) 30 ml DAILY PRN PO CONSTIPATION; Start 09/09/18 at 15:00 Hydralazine HCl (Apresoline) 10 mg Q4H PRN IV SBP >170 Last administered on 09/15/18at 04:07; Admin Dose 10 MG; Start 09/09/18 at 15:00 Labetalol HCl (Labetalol) 10 mg Q4 PRN IV SBP >180 Last administered on 09/14/18at 04:15; Admin Dose 10 MG; Start 09/09/18 at 15:00 Miscellaneous Information 1 ea NOTE XX ; Start 09/09/18 at 15:30 Glucose (Glutose) 15 gm Q15M PRN PO DECREASED GLUCOSE; Start 09/09/18 at 15:30 Glucose (Glutose) 22.5 gm Q15M PRN PO DECREASED GLUCOSE; Start 09/09/18 at 15:30 Dextrose (D50w Syringe) 25 ml Q15M PRN IV DECREASED GLUCOSE; Start 09/09/18 at 15:30 Dextrose (D50w Syringe) 50 ml Q15M PRN IV DECREASED GLUCOSE; Start 09/09/18 at 15:30 Glucagon (Glucagen) 1 mg Q15M PRN IM DECREASED GLUCOSE; Start 09/09/18 at 15:30 Glucose (Glutose) 15 gm Q15M PRN BUCCAL DECREASED GLUCOSE; Start 09/09/18 at 15:30 Tramadol HCl (Ultram) 50 mg Q6H PRN PO PAIN Last administered on 09/18/18at 05:10; Admin Dose 50 MG; Start 09/09/18 at 16:00 Insulin Aspart (Novolog Insulin Pen) NOVOLOG *MILD* ALGORITHM WITH MEALS BEDTI ME SC Last administered on 09/16/18at 12:16; Admin Dose 1 UNIT; Start 09/09/18 at 18:00 Insulin Glargine (Lantus) 16 units DAILY@2000 SC Last administered on 09/17/18at 21:59; Admin Dose 16 UNITS; Start 09/09/18 at 20:00 Nicotine (Nicoderm 14 Mg/ 24hr) 1 patch DAILY TRANSDERM Last administered on 09/15/18at 08:42; Admin Dose 1 PATCH; Start 09/12/18 at 11:00 Docusate Sodium (Colace) 100 mg BID PO Last administered on 09/17/18at 21:54; Admin Dose 100 MG; Start 09/12/18 at 21:00 Albuterol/ Ipratropium (Duoneb) 3 ml Q6HWA RESP THERAPY HHN Last administered on 09/18/18at 08:04; Admin Dose 3 ML; Start 09/12/18 at 20:00 Albuterol/ Ipratropium (Duoneb) 3 ml Q2H RESP THERAPY PRN HHN shortness of breath; Start 09/12/18 at 15:00 Nifedipine (Procardia Xl) 30 mg BID PO Last administered on 09/18/18 08:49; Admin Dose 30 MG; Start 09/14/18 at 09:00 Apixaban (Eliquis) 5 mg BID PO Last administered on 09/18/18 08:48; Admin Dose 5 MG; Start 09/18/18 at 09:00 Indomethacin (Indocin) 25 mg BID PO Last administered on 09/18/18at 08:50; Admin Dose 25 MG; Start 09/14/18 at 15:00 Pantoprazole (Protonix Tab) 40 mg DAILY@06 PO Last administered on 09/18/18 05:10; Admin Dose 40 MG; Start 09/15/18 at 06:00 Carvedilol (Coreg) 25 mg BID PO Last administered on 09/18/18 08:49; Admin Dose 25 MG; Start 09/15/18 at 21:00 Lorazepam (Ativan) 1 mg DAILY PRN PO ANXIETY Last administered on 09/18/18 04:04; Admin Dose 1 MG; Start 09/16/18 at 14:30 Miscellaneous Information Patients own medicat... BID@10,16 XX ; Start 09/17/18 at 10:00 Bumetanide (Bumex) 1 mg BID DIURETICS PO Last administered on 09/18/18 08:47; Admin Dose 1 MG; Start 09/18/18 at 06:00 Morphine Sulfate (morphine) 1 mg Q4H PRN IV SEVERE PAIN LEVEL 7-10 Last administered on 09/18/18at 01:39; Admin Dose 1 MG; Start 09/18/18 at 02:00 Quetiapine Fumarate (Seroquel) 25 mg BID PO Last administered on 09/18/18 08:49; Admin Dose 25 MG; Start 09/18/18 at 09:00 Losartan Potassium (Cozaar) 50 mg BID PO Last administered on 09/18/18at 08:48; Admin Dose 50 MG; Start 09/18/18 at 09:00 Assessment/Plan Chief Complaint/Hosp Course Hypertension urgency: Currently blood pressure is under fair control Acute kidney injury, improved now Acute decompensated systolic congestive heart failure Cardiomyopathy with left ventricular ejection fraction 45% Mitral and tricuspid valve regurgitation Pulmonary hypertension DVT Diabetes Paget's disease Poor medication compliance Recommendations: Correct electrolytes including potassium level prn Continue with anticoagulation as long as no falls or bleeding risk Pain management as pain internal medicine and pain specialist check CXR. willl dec bumex qd for now and f.u renal fx Thank you for his referral. We will continue to follow along with you until Dr. Schmitz returns on Monday LUCIEN KEITH MD [facility] LUCIEN KEITH MD Sep 18, 2018 10:47
--- NOTE | 2018-09-18 13:45 | NUR ---
Pt has new transfer orders for med/surg. Pt still a significant fall risk that is impulsive and non-compliant with using the call light even when educated. pt calm and cooperative most the time and pain/anxiety controlled with minimal meds to reduce fall risk and mentation. Pt transferred to [facility] via bed. Report given to [place]. Pt declined transfer photos but no wounds noted. Pt VSS, BG stable, AOOx3-4 at time of transfer. Family at bedside and aware and agreeable to transfer. All other needs met and questions answered. Belongings accounted for. Novalog pen sent with pt as well.
--- NOTE | 2018-09-18 18:06 | NUR ---
End of shift report Received pt around 1350 from 6W in stable condition: BP 126/65 HR 68 RR 22 T 98.2F SpO2 100%. Pt AOx3, able to verbalize needs. Frequent reminder given to press call light before getting out of bed, but pt made at least three attempts to get out of bed on her own. Bed alarm on throughout the shift. At least one person assist needed from bed to bathroom: unsteady gait noted. Tramadol given at 1352 and effective: pt fell asleep without signs of pain/discomfort. PT refused insulin (BS 112mg/dl) and other medications around 1800 because pain medication not given to her. Educated pt on Tramadol frequency, importance of insulin and antihypertensive medication administration but pt not receptive to teaching. Ladonna, charge nurse made aware. Will continue to monitor.
[2018-09-18] MEDS: INSULIN GLARGINE [LANTus] (100 UNITS/ML) SYG SC SCH (20:42)
[2018-09-19 02:13] VITALS: BP 106/67; PULSE 71; RESP 16
[2018-09-19] MEDS: traMADol 50 MG TAB PO PRN ×4 (03:07→21:24)
[2018-09-19] MEDS: PANTOPRAZOLE (EC) 40 MG TAB PO SCH (05:57)
[2018-09-19] MEDS ORDERED: morphine SULFATE/PF (2 MG/2 ML) SYG IV PRN (06:30)
--- NOTE | 2018-09-19 06:54 | NUR ---
Shift Summary Pt in no acute distress. Pt A&O x 3, no changes in condition during shift. All due medications given except Protonix, which the patient refused. Patient's pain was treated with Tramadol and Morphine with effectiveness. Patient is ambulatory, but walks with a limp and was accompanied by this nurse when getting to toilet. Will endorse care to next shift.
[2018-09-19] MEDS: INSULIN ASPART [NOVOLOG] 3 ML PEN SC SCH ×7 (08:00→20:50)
[2018-09-19] MEDS: ALBUTEROL/IPRATROPIUM (NEB) 3 ML AMP HHN SCH ×3 (08:00→20:03)
[2018-09-19 08:06] VITALS: BP 148/77; PULSE 80; RESP 18
[2018-09-19] MEDS ORDERED: hydrOXYzine PAMOATE 25 MG CAP PO PRN (08:30)
[2018-09-19] MEDS: LOSARTAN 50 MG TAB PO SCH ×2 (08:50→20:49)
[2018-09-19] MEDS: QUETIAPINE 25 MG TAB PO SCH ×2 (08:50→20:47)
[2018-09-19] MEDS: NIFEdipine (XL) 30 MG TAB PO SCH ×2 (08:51→20:48)
[2018-09-19] MEDS: DOCUSATE SODIUM 100 MG CAP PO SCH ×2 (08:51→20:45)
[2018-09-19] MEDS: BUMETANIDE 1 MG TAB PO SCH (08:51)
[2018-09-19] MEDS: INDOMETHACIN 25 MG PO SCH (08:52)
[2018-09-19] MEDS: APIXABAN 5 MG TABLET PO SCH ×2 (08:52→20:47)
[2018-09-19] MEDS: NICOTINE (14 MG/24 HR) PATCH TRANSDERM SCH (08:57)
--- NOTE | 2018-09-19 10:55 | NUR ---
PT NOTE Therapy day number 5 Subjective Denies pain Pain Scale NUMERIC Pain Intensity 0 (0-10) Patient Stated Goal for Pain Relief 0 (0-10) Pain Level Comment denies pain Pre Treatment Vital Signs Stable Yes Exercise Assessment Label Bilat Lower Extremity Exercise Type Active ROM Additional Exercise Comments seated marching, LAQs; supine SLR Exercise Start Time 10:05 Exercise End Time 10:15 Total Exercise Time 10 min (8-127) Transfer Training Start Time 10:15 Supine to Sit Supervised Transfer Sit to Stand Ability Stand by Assist Bed Mobility Sit to Supine Supervised Toileting Ability Stand by Assist Sitting Tolerance 5 min Transfer Training End Time 10:31 Total Transfer Training Time 16 min (8-127) Gait Training Start Time 10:31 Gait Assist Levels Contact Guard Assist Assistive Devices Front Wheel Walker Ambulation Distance 150 feet Additional Gait Comments impulsive, fast siva, VC for safety Gait Training End Time 10:45 Total Gait Training Treatment Time 14 min (8-127) Weight Bearing Assessment Label Bilat Lower Extremity Weight Bearing Status Full Weight Bearing Static Sitting Balance Fair plus Dynamic Sitting Balance Fair plus Standing Static Balance Fair Dynamic Standing Balance Fair minus Additional Balance Assessments Comments with FWW Safety Judgement Poor Activity Tolerance Fair Additional Equipment Present 2LO2 via NC Post Treatment Pain Intensity 0 0-10 Variance Documentation SEE PT NOTE Total Treament Time 40 min (8-127) Total Minutes 40 Total Units 3 PT Technical Record Comment PT NOTE S: "I don't want a walker, I can run without the walker. I don't ever want to see a walker again." O: RN cleared pt for PT session. Pt received in bed. Pt pariticpated in interventions above, noted impulsivity throughout requiring verbal cues for safety. Pt returned to bed, all needs in reach, bed alarm activated. RN notified of pt's status. A: Pt with increased gait tolerance (150' with FWW) on this date, though unsteady with fast siva. Progress from initial eval: increased activity tolerance and independence with bed mobility/transfers, though pt still requires close supervision and stand by assist at all times. Continues to present as high fall risk; noncompliant with recommended use of FWW for safety P: Continue c PT POC
--- NOTE | 2018-09-19 12:24 | CONS ---
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 Would order limited echocardiogram today to better evaluate. If no significant abnormalities, DC planning -Blood pressure trend overall improved, continue antihypertensives as heart rate and blood pressure permits. Continue diuretics as renal function and blood pressure permits. -Patient status post VQ scan, I did discuss with nuclear radiologist, but was read as intermediate probability secondary to pleural effusions but less likely with pulmonary emboli. Given patient with DVT unclear if acute or not, would use treatment dose Eliquis as per protocol. Result Diagram: 09/17/18 0513 09/19/18 0609 Results 24hrs Laboratory Tests Test 09/18/18 12:38 09/18/18 17:08 09/18/18 20:36 09/19/18 06:09 Bedside Glucose 85 112 178 Sodium Level 137 Potassium Level 4.0 Chloride Level 98 Carbon Dioxide 30 Level Anion Gap 9 Blood Urea 54 H Nitrogen Creatinine 1.59 H Est Glomerular 40 L Filtrat Rate mL/min Glucose Level 120 # Calcium Level 8.7 Total Bilirubin 0.1 L Direct Bilirubin 0.00 Indirect 0.1 Bilirubin Aspartate Amino 51 H Transf (AST/SGOT ) Alanine 22 Aminotransferase (ALT/SGPT) Alkaline 864 H Phosphatase B-Type 7060 H Natriuretic Peptide Total Protein 5.3 L Albumin 3.0 L Globulin 2.30 Albumin/Globulin 1.30 Ratio Test 09/19/18 08:48 Bedside Glucose 92 Consultation Date/Type/Reason Admit Date/Time Sep 09, 2018 at 14:09 Initial Consult Date Type of Consult cv 24 HR Interval Summary Free Text/Dictation Shortness of breath is the same. Denies palpitations or dizziness. Exam/Review of Systems Vital Signs Vitals Vital Signs Date Temp Pulse Resp B/P (MAP) Pulse Ox O2 O2 Flow FiO2 Time Delivery Rate 09/19/18 97.7 80 18 148/77 97 Nasal 1.5 08:06 (100) Cannula Exam No apparent distress Constitutional: alert, oriented Head: normocephalic Respiratory: other (Coarse breath sounds bilaterally, decreased at the bases) Cardiovascular: regular rate and rhythm, other (S1-S2 heard) Gastrointestinal: soft, non-tender, bowel sounds Extremities: edema Medications Medications Current Medications Clonidine (Catapres) 0.2 mg QID PO Last administered on 09/19/18at 08:53; Admin Dose 0.2 MG; Start 09/09/18 at 17:00 Insulin Aspart (Novolog Insulin Pen) 6 unit AC MEALS SC Last administered on 09/19/18at 08:58; Admin Dose 6 UNIT; Start 09/09/18 at 17:00 IV Flush (NS 3 ml) 3 ml PER PROTOCOL IV ; Start 09/09/18 at 15:00 Ondansetron HCl (Zofran Inj) 4 mg Q6H PRN IV NAUSEA AND/OR VOMITING Last administered on 09/18/18at 17:37; Admin Dose 4 MG; Start 09/09/18 at 15:00 Nitroglycerin (Nitroglycerin (Sl Tab) 0.4 Mg) 1 tab Q5M PRN SL CHEST PAIN; Start 09/09/18 at 15:00 Docusate Sodium (Colace) 100 mg Q12H PRN PO CONSTIPATION; Start 09/09/18 at 15:00 Magnesium Hydroxide (Milk Of Mag) 30 ml DAILY PRN PO CONSTIPATION; Start 09/09/18 at 15:00 Hydralazine HCl (Apresoline) 10 mg Q4H PRN IV SBP >170 Last administered on 09/15/18at 04:07; Admin Dose 10 MG; Start 09/09/18 at 15:00 Labetalol HCl (Labetalol) 10 mg Q4 PRN IV SBP >180 Last administered on 09/14/18at 04:15; Admin Dose 10 MG; Start 09/09/18 at 15:00 Miscellaneous Information 1 ea NOTE XX ; Start 09/09/18 at 15:30 Glucose (Glutose) 15 gm Q15M PRN PO DECREASED GLUCOSE; Start 09/09/18 at 15:30 Glucose (Glutose) 22.5 gm Q15M PRN PO DECREASED GLUCOSE; Start 09/09/18 at 15:30 Dextrose (D50w Syringe) 25 ml Q15M PRN IV DECREASED GLUCOSE; Start 09/09/18 at 15:30 Dextrose (D50w Syringe) 50 ml Q15M PRN IV DECREASED GLUCOSE; Start 09/09/18 at 15:30 Glucagon (Glucagen) 1 mg Q15M PRN IM DECREASED GLUCOSE; Start 09/09/18 at 15:30 Glucose (Glutose) 15 gm Q15M PRN BUCCAL DECREASED GLUCOSE; Start 09/09/18 at 15:30 Tramadol HCl (Ultram) 50 mg Q6H PRN PO PAIN LEVEL 1-3 Last administered on 09/19/18 08:59; Admin Dose 50 MG; Start 09/09/18 at 16:00 Insulin Aspart (Novolog Insulin Pen) NOVOLOG *MILD* ALGORITHM WITH MEALS BEDTIME SC Last administered on 09/16/18 12:16; Admin Dose 1 UNIT; Start at 18:00 Insulin Glargine (Lantus) 16 units DAILY@2000 SC Last administered on 09/18/18 20:42; Admin Dose 16 UNITS; Start 09/09/18 at 20:00 Nicotine (Nicoderm 14 Mg/ 24hr) 1 patch DAILY TRANSDERM Last administered on 09/15/18at 08:42; Admin Dose 1 PATCH; Start 09/12/18 at 11:00 Docusate Sodium (Colace) 100 mg BID PO Last administered on 09/19/18 08:51; Admin Dose 100 MG; Start 09/12/18 at 21:00 Albuterol/ Ipratropium (Duoneb) 3 ml Q6HWA RESP THERAPY HHN Last administered on 09/18/18 19:52; Admin Dose 3 ML; Start 09/12/18 at 20:00 Albuterol/ Ipratropium (Duoneb) 3 ml Q2H RESP THERAPY PRN HHN shortness of breath; Start 09/12/18 at 15:00 Nifedipine (Procardia Xl) 30 mg BID PO Last administered on 09/19/18 08:51; Admin Dose 30 MG; Start 09/14/18 at 09:00 Apixaban (Eliquis) 5 mg BID PO Last administered on 09/19/18 08:52; Admin Dose 5 MG; Start 09/18/18 at 09:00 Pantoprazole (Protonix Tab) 40 mg DAILY@06 PO Last administered on 09/18/18at 05:10; Admin Dose 40 MG; Start 09/15/18 at 06:00 Carvedilol (Coreg) 25 mg BID PO Last administered on 09/19/18at 08:52; Admin Dose 25 MG; Start 09/15/18 at 21:00 Lorazepam (Ativan) 1 mg DAILY PRN PO ANXIETY Last administered on 09/18/18at 20:50; Admin Dose 1 MG; Start 09/16/18 at 14:30 Miscellaneous Information Patients own medicat... BID@10,16 XX ; Start 09/17/18 at 10:00 Quetiapine Fumarate (Seroquel) 25 mg BID PO Last administered on 09/19/18at 08:50; Admin Dose 25 MG; Start 09/18/18 at 09:00 Losartan Potassium (Cozaar) 50 mg BID PO Last administered on 09/19/18at 08:50; Admin Dose 50 MG; Start 09/18/18 at 09:00 Bumetanide (Bumex) 1 mg DAILY PO Last administered on 09/19/18at 08:51; Admin Dose 1 MG; Start 09/19/18 at 09:00 Hydroxyzine Pamoate (Vistaril) 25 mg Q4H PRN PO anxiety; Start 09/19/18 at 08:30 Acetaminophen/ Hydrocodone Bitart ([place] (5/325)) 1 tab Q6H PRN PO MODERATE PAIN LEVEL 4-6; Start 09/19/18 at 08:30 Gilbert Mederos DO Sep 19, 2018 12:24
--- NOTE | 2018-09-19 12:46 | RADRPT ---
Echocardiogram Report Patient Name: OMKAR ELIZALDE Gender: Female Date: 1955 Study Date: 19-Sep-2018 Substation Maintenance Technician: Shyann Whitaker [facility] Location: [facility] Ref. Physician: BRENDAN SALAZAR Quality: Good Procedures: Transthoracic echocardiogram examination. Indications: Pericardial Effusion. Findings Left Ventricle: Mild left ventricular systolic dysfunction. The left ventricular ejection fraction is visually estimated at 45 %. Pericardium: Normal pericardium with no significant pericardial effusion. Left pleural effusion seen. Conclusions Mild left ventricular systolic dysfunction. The left ventricular ejection fraction is visually estimated at 45 %. Normal pericardium with no significant pericardial effusion. Left pleural effusion seen. Electronically Signed By: Brendan Salazar 19-Sep-2018 12:45:25 -0800 Patient Name: OMKAR ELIZALDE Study Date: 19-Sep-2018 [id number]
--- NOTE | 2018-09-19 12:52 | NUR ---
CM NOTE: SNF UPDATE S/W Luisana from [facility] (P:[phone]) who states auth still pending for this pt. Lawrence Lozano RN CM [id number]
[2018-09-19] MEDS: HYDROCODONE/APAP (5/325) TAB PO PRN (13:14)
[2018-09-19 13:21] VITALS: BP 119/69; PULSE 74; RESP 18
--- NOTE | 2018-09-19 15:19 | NUR ---
OT NOTE Attempted to see pt for skilled OT tx. Pt declined tx today stating she worked with PT this morning. Will try back tomorrow.
--- NOTE | 2018-09-19 18:55 | NUR ---
End of Shift Summary: Patient is alert & orientated x 4, vital signs stable, no signs of acute distress. Patient c/o pain in RLE, providing pain med prn. Patient treated for DVT in RLE. Patient has Accu checks AC/HS, insulin coverage per sliding scale & scheduled. Plan is for patient to be transferred to SNF once bed is available, Patient instructed to call for assistance, rounded on hourly, will continue to monitor patient status.
[2018-09-19 19:55] VITALS: BP 140/72; PULSE 76; RESP 18
[2018-09-19 20:00] VITALS: BP 108/67; PULSE 70; RESP 17
[2018-09-19] MEDS: LORAZEPAM 1 MG TAB PO PRN (20:44)
--- NOTE | 2018-09-19 20:55 | NUR ---
BLOOD SUGAR Blood sugar was 64 at 2041. 4ounces of orange juice given and 3.5ounces of vanilla pudding given at 2049. Will recheck blood sugar at 2114. Lantus 14units held. Will continue to monitor. Addendum: 09/19/18 at 2115 by HEAVEN KATZ RN Rechecked BS at 2113. Level was 87. Will give pt 3.5oz of vanilla pudding and administer Lantus 14 units if BS remains stable and WNL after one more BS check. Addendum: 09/19/18 at 2147 by HEAVEN KATZ RN BS was 136. Will continue to monitor. Addendum: 09/20/18 at 0309 by HEAVEN KATZ RN Rechecked BS at 0303. BS was 67. Gave 8oz of orange juice and recheck BS in 15 minutes. Addendum: 09/20/18 at 0324 by HEAVEN KATZ RN Gave 3.5oz of vanilla pudding then Rechecked BS at 0318. Level is still 67. Will recheck in 15 minutes. Addendum: 09/20/18 at 0403 by HEAVEN KATZ RN BS was 81 at 0341. Gave 4oz of orange juice and 2 packets of laura crackers at 0343. Then rechecked BS at 0359 and reading was 111. It has now been two consecutive BS readings WNL. Will continue to monitor.
--- NOTE | 2018-09-19 21:24 | NUR ---
PAIN level is 9/10 and pt states she wants tramadol for the pain. I offered Deport but she states she wants the Tramadol. Will administer.
[2018-09-19] MEDS: INSULIN GLARGINE [LANTus] (100 UNITS/ML) SYG SC SCH (21:54)
[2018-09-20 02:00] VITALS: BP 108/67; PULSE 70; RESP 18
[2018-09-20] MEDS: traMADol 50 MG TAB PO PRN ×3 (03:16→18:22)
[2018-09-20] MEDS: PANTOPRAZOLE (EC) 40 MG TAB PO SCH (05:45)
--- NOTE | 2018-09-20 05:56 | NUR ---
EOSS Pt A&OX3. VSS. Blood sugar was low for HS reading. Gave snacks until BS was WNL. At 0200 BS check, BS was low again. Gave snacks and kept rechecking until BS was WNL. 6 Total accuchecks during shift. No objective signs of hypoglycemia. Pt c/o 06/04 pain. Gave tramadol per pt request. Pain meds effective. Anxiety med given. Pt on 1L NC. Pt tolerating it well. Hourly rounding done. Pt refuses to use call light before getting OOB. Reinforced teaching of call light. Bed left in lowest position with bed alarm on. Call light left within reach.
[2018-09-20 08:00] VITALS: BP 122/65; PULSE 82; RESP 18
[2018-09-20] MEDS: INSULIN ASPART [NOVOLOG] 3 ML PEN SC SCH ×7 (08:00→21:00)
--- NOTE | 2018-09-20 08:28 | PN ---
Date/Time of Note Date/Time of Note DATE: 09/20/18 TIME: 08:28 Assessment/Plan VTE Prophylaxis Risk score (from Ns)>0 risk: 7 SCD applied (from Ns): No SCD contraindicated: patient refusal Pharmacological prophylaxis: apixaban Lines/Catheters IV Catheter Type (from Nrsg): Peripheral IV Urinary Cath still in place: No Assessment/Plan Assessment/Plan 1. Acute bilateral lower extremity swelling - stable. Improved after being diuresed - Still complaining of discomfort and pain control on board 2. R DVT - continue on Eliquis 5mg BID 3. Acute congestive heart failure- stable - Cardiology on board and appreciate recommendations. Continue on PO Bumex da roz - ECHO results noted and EF 45% - BNP elevated at time of admission 4. Hypertensive emergency- resolved - continue current medications 5. ARMIDA - patient Cr stabilizing after adjustments made to medications - Continue monitoring for improvement - avoiding nephrotoxic agents 6. Elevated Alk Phos - chronically elevated - most likely secondary to Pagets 7. Right popliteal Bakers cyst - chronic. pt aware 8. Diabetes mellitus - A1c noted - continue ISS and accuchecks 9. Pagets disease of the bone - pain control - pain management on board and appreciate consultation 10. Disposition - Continue monitoring renal function. If continues to trend down, or remains stable, will d/c home with HHPT Result Diagram: 09/17/18 0513 09/20/18 0549 Results 24hrs Laboratory Tests Test 09/19/18 08:48 09/19/18 12:55 09/19/18 14:17 09/19/18 17:16 Bedside Glucose 92 68 L 110 99 Test 09/19/18 20:43 09/19/18 21:14 09/19/18 21:47 09/20/18 03:03 Bedside Glucose 64 L 87 136 67 L Test 09/20/18 03:19 09/20/18 03:41 09/20/18 03:59 09/20/18 05:49 Bedside Glucose 67 L 81 111 Sodium Level 139 Potassium Level 4.2 Chloride Level 97 Carbon Dioxide 32 H Level Anion Gap 10 Blood Urea 59 H Nitrogen Creatinine 1.57 H Glucose Level 145 Calcium Level 8.8 Phosphorus Level 3.7 Albumin 2.8 L Subjective 24 Hr Interval Summary Free Text/Dictation Patient complaining of pain in leg but gets relief with Tramadol. No acute overnight events. Exam/Review of Systems Vital Signs Vitals Vital Signs Date Temp Pulse Resp B/P (MAP) Pulse Ox O2 O2 Flow FiO2 Time Delivery Rate 09/20/18 97.5 82 18 122/65 97 Room Air 08:00 (84) 09/19/18 2.0 20:03 Intake and Output 09/19/18 09/19/18 09/20/18 1414:59 22:59 06:59 IntakeIntake Total 700 ml BalanceBalance 700 ml Exam General: Patient is laying in bed and answers questions appropriately Neck: Supple Respiratory: Clear to auscultation bilaterally. no wheezing Cardiovascular: S1, S2, regular rate and rhythm, no obvious murmurs Gastrointestinal: soft, non-tender to palpation, nondistended, bowel sounds heard. Neurological: Moves all extremities spontaneously Skin: Multiple chronic skin lesions, scabbed over on her lower extremity bilaterally. edema in lower extremities Medications Medications Current Medications Clonidine (Catapres) 0.2 mg QID PO Last administered on 09/19/18at 20:45; Admin Dose 0.2 MG; Start 09/09/18 at 17:00 Insulin Aspart (Novolog Insulin Pen) 6 unit AC MEALS SC Last administered on 09/19/18at 17:20; Admin Dose 6 UNIT; Start 09/09/18 at 17:00 IV Flush (NS 3 ml) 3 ml PER PROTOCOL IV ; Start 09/09/18 at 15:00 Ondansetron HCl (Zofran Inj) 4 mg Q6H PRN IV NAUSEA AND/OR VOMITING Last administered on 09/18/18at 17:37; Admin Dose 4 MG; Start 09/09/18 at 15:00 Nitroglycerin (Nitroglycerin (Sl Tab) 0.4 Mg) 1 tab Q5M PRN SL CHEST PAIN; Start 09/09/18 at 15:00 Docusate Sodium (Colace) 100 mg Q12H PRN PO CONSTIPATION; Start 09/09/18 at 15:00 Magnesium Hydroxide (Milk Of Mag) 30 ml DAILY PRN PO CONSTIPATION Last admini stered on 09/19/18at 15:31; Admin Dose 30 ML; Start 09/09/18 at 15:00 Hydralazine HCl (Apresoline) 10 mg Q4H PRN IV SBP >170 Last administered on 09/15/18at 04:07; Admin Dose 10 MG; Start 09/09/18 at 15:00 Labetalol HCl (Labetalol) 10 mg Q4 PRN IV SBP >180 Last administered on 09/14/18at 04:15; Admin Dose 10 MG; Start 09/09/18 at 15:00 Miscellaneous Information 1 ea NOTE XX ; Start 09/09/18 at 15:30 Glucose (Glutose) 15 gm Q15M PRN PO DECREASED GLUCOSE; Start 09/09/18 at 15:30 Glucose (Glutose) 22.5 gm Q15M PRN PO DECREASED GLUCOSE; Start 09/09/18 at 15:30 Dextrose (D50w Syringe) 25 ml Q15M PRN IV DECREASED GLUCOSE; Start 09/09/18 at 15:30 Dextrose (D50w Syringe) 50 ml Q15M PRN IV DECREASED GLUCOSE; Start 09/09/18 at 15:30 Glucagon (Glucagen) 1 mg Q15M PRN IM DECREASED GLUCOSE; Start 09/09/18 at 15:30 Glucose (Glutose) 15 gm Q15M PRN BUCCAL DECREASED GLUCOSE; Start 09/09/18 at 15:30 Tramadol HCl (Ultram) 50 mg Q6H PRN PO PAIN LEVEL 1-3 Last administered on 09/20/18at 03:16; Admin Dose 50 MG; Start 09/09/18 at 16:00 Insulin Aspart (Novolog Insulin Pen) NOVOLOG *MILD* ALGORITHM WITH MEALS BEDTIME SC Last administered on 09/16/18at 12:16; Admin Dose 1 UNIT; Start 09/09/18 at 18:00 Nicotine (Nicoderm 14 Mg/ 24hr) 1 patch DAILY TRANSDERM Last administered on at 08:42; Admin Dose 1 PATCH; Start 09/12/18 at 11:00 Docusate Sodium (Colace) 100 mg BID PO Last administered on 09/19/18at 20:45; Admin Dose 100 MG; Start 09/12/18 at 21:00 Albuterol/ Ipratropium (Duoneb) 3 ml Q6HWA RESP THERAPY HHN Last administered on 09/19/18at 20:03; Admin Dose 3 ML; Start 09/12/18 at 20:00 Albuterol/ Ipratropium (Duoneb) 3 ml Q2H RESP THERAPY PRN HHN shortness of breath; Start 09/12/18 at 15:00 Nifedipine (Procardia Xl) 30 mg BID PO Last administered on 09/19/18 20:48; Admin Dose 30 MG; Start 09/14/18 at 09:00 Apixaban (Eliquis) 5 mg BID PO Last administered on 09/19/18 20:47; Admin Dose 5 MG; Start 09/18/18 at 09:00 Pantoprazole (Protonix Tab) 40 mg DAILY@06 PO Last administered on 09/20/18 05:45; Admin Dose 40 MG; Start 09/15/18 at 06:00 Carvedilol (Coreg) 25 mg BID PO Last administered on 09/19/18 20:47; Admin Dose 25 MG; Start 09/15/18 at 21:00 Lorazepam (Ativan) 1 mg DAILY PRN PO ANXIETY Last administered on 09/19/18 20:44; Admin Dose 1 MG; Start 09/16/18 at 14:30 Miscellaneous Information Patients own medicat... BID@10,16 XX ; Start 09/17/18 at 10:00 Quetiapine Fumarate (Seroquel) 25 mg BID PO Last administered on 09/19/18 20:47; Admin Dose 25 MG; Start 09/18/18 at 09:00 Losartan Potassium (Cozaar) 50 mg BID PO Last administered on 09/19/18at 20:49; Admin Dose 50 MG; Start 09/18/18 at 09:00 Bumetanide (Bumex) 1 mg DAILY PO Last administered on 09/19/18at 08:51; Admin Dose 1 MG; Start 09/19/18 at 09:00 Hydroxyzine Pamoate (Vistaril) 25 mg Q4H PRN PO anxiety; Start 09/19/18 at 08:30 Acetaminophen/ Hydrocodone Bitart ([place] (5/325)) 1 tab Q6H PRN PO MODERATE PAIN LEVEL 4-6 Last administered on 09/19/18 13:14; Admin Dose 1 TAB; Start 09/19/18 at 08:30 Insulin Glargine (Lantus) 14 units DAILY@2000 SC Last administered on 09/19/18 21:54; Admin Dose 14 UNITS; Start 09/19/18 at 20:00 TREY BOWEN MD Sep 20, 2018 08:28
[2018-09-20] MEDS: QUETIAPINE 25 MG TAB PO SCH ×2 (08:44→19:59)
[2018-09-20] MEDS: HYDROCODONE/APAP (5/325) TAB PO PRN (08:45)
[2018-09-20] MEDS: BUMETANIDE 1 MG TAB PO SCH (08:45)
[2018-09-20] MEDS: DOCUSATE SODIUM 100 MG CAP PO SCH ×2 (08:45→19:59)
[2018-09-20] MEDS: LOSARTAN 50 MG TAB PO SCH ×2 (08:45→20:00)
[2018-09-20] MEDS: NIFEdipine (XL) 30 MG TAB PO SCH ×2 (08:46→19:59)
[2018-09-20] MEDS: APIXABAN 5 MG TABLET PO SCH ×2 (08:46→20:00)
[2018-09-20] MEDS: NICOTINE (14 MG/24 HR) PATCH TRANSDERM SCH (08:50)
[2018-09-20] MEDS: ALBUTEROL/IPRATROPIUM (NEB) 3 ML AMP HHN SCH ×3 (10:37→20:00)
--- NOTE | 2018-09-20 12:04 | NUR ---
Refusals Pt's blood sugar was 65 at 1130; pt refused orange juice and snack offered. Dextrose IV given. Pt blood sugar 103; now refusing anymore blood sugar readings. Pt has also refused to work with PT. Pt also stated she does not want anymore pills for blood pressure. Pt was educated that clonidine would be due at 1300. Pt stated she wasn't going to take it. Pt stated she was in pain; MD has already increase the dose to tramadol which pt prefers to take. Will administer tramadol when available from pharmacy. Will continue to monitor pt and educated regarding risks and benefits of mediations administration.
--- NOTE | 2018-09-20 12:10 | NUR ---
SONYA NOTE: DISCHARGE PLANNING S/W Girlstephanie at [facility] who states that they are denying for SNF placement due to no skilled need. Per Yoel, only HHPT will be approved. Informed Dr. Gordon. Lawrence Stewart RN CM [id number] Addendum: 09/20/18 at 1245 by DAVIN STEWART CM Order for HH PT faxed to YOSHI at [facility] (P:[phone], F:[phone]). Confirmation received. Addendum: 09/21/18 at 0736 by DAVIN STEWART CM Received vm from YOSHI Mc at [facility] who states that DME request was submitted to [facility] for FWW and HHPT will be serviced by [facility] (P:[phone]). Addendum: 09/21/18 at 1239 by DAVIN STEWART CM S/W [facility] who state that they are able to accept the pt with SOC tomorrow. Addendum: 09/21/18 at 1246 by DAVIN STEWART CM FWW Delivered to pt bedside. Pt signed for receipt of walker. Copy of receipt left at pt bedside.
--- NOTE | 2018-09-20 13:56 | PN ---
Date/Time of Note Date/Time of Note DATE: 09/20/18 TIME: 13:52 Assessment/Plan VTE Prophylaxis Risk score (from Ns)>0 risk: 3 SCD applied (from Ns): No SCD contraindicated: patient refusal Pharmacological prophylaxis: apixaban Lines/Catheters IV Catheter Type (from Nrsg): Saline Lock Urinary Cath still in place: No Assessment/Plan Assessment/Plan 1. Acute congestive heart failure - Cardiology on board and appreciate recommendations. Continue on PO Bumex d aily. Cleared from cardiology standpoint for discharge - ECHO results noted and EF 45% - BNP elevated at time of admission 2. R DVT - continue on Eliquis 5mg BID - unsure if acute vs chronic 3. Hypertensive emergency- resolved - noncompliance - will continue adjusting medications as needed for better BP control 4. ARMIDA - Cr shows a slight bump this am. Will d/c indomethacin and monitor for improvement - Baseline Cr appears 0.9 5. Elevated Alk Phos - chronically elevated - most likely secondary to Pagets 6. Right popliteal Bakers cyst - chronic. pt aware 7. Diabetes mellitus - A1c noted - continue ISS and accuchecks 8. Pagets disease of the bone - pain control - pain management on board and appreciate consultation 9. Disposition - Continue monitoring renal function for improvement. Pending SNF placement once stable and accepted to facility Result Diagram: 09/17/18 0513 09/20/18 0549 Results 24hrs Laboratory Tests Test 09/19/18 14:17 09/19/18 17:16 09/19/18 20:43 09/19/18 21:14 Bedside Glucose 110 99 64 L 87 Test 09/19/18 21:47 09/20/18 03:03 09/20/18 03:19 09/20/18 03:41 Bedside Glucose 136 67 L 67 L 81 Test 09/20/18 03:59 09/20/18 05:49 09/20/18 08:38 09/20/18 11:30 Bedside Glucose 111 123 65 L Sodium Level 139 Potassium Level 4.2 Chloride Level 97 Carbon Dioxide 32 H Level Anion Gap 10 Blood Urea 59 H Nitrogen Creatinine 1.57 H Glucose Level 145 Calcium Level 8.8 Phosphorus Level 3.7 Albumin 2.8 L Test 09/20/18 11:57 Bedside Glucose 103 Subjective 24 Hr Interval Summary Free Text/Dictation LATE ENTRY FOR 09/19 Patient states she wants to go home since pain is not being well controlled. Denies any new complaints. Per nursing still impulsive and getting out of bed without assistance. Exam/Review of Systems Vital Signs Vitals Vital Signs Date Temp Pulse Resp B/P (MAP) Pulse Ox O2 O2 Flow FiO2 Time Delivery Rate 09/20/18 97.5 82 18 122/65 97 Room Air 08:00 (84) 09/19/18 2.0 20:03 Intake and Output 09/19/18 09/19/18 09/20/18 1515:00 23:00 07:00 IntakeIntake Total 700 ml BalanceBalance 700 ml Exam General: mild distress secondary to pain in leg. Hard of hearing Neck: Supple Respiratory: Clear to auscultation bilaterally. no wheezing Cardiovascular: S1, S2, regular rate and rhythm, no obvious murmurs Gastrointestinal: soft, non-tender to palpation, nondistended, bowel sounds heard. Neurological: Moves all extremities spontaneously Skin: Multiple chronic skin lesions, scabbed over on her lower extremity bilaterally. edema in lower extremities Medications Medications Current Medications Clonidine (Catapres) 0.2 mg QID PO Last administered on 09/20/18at 08:46; Admin Dose 0.2 MG; Start 09/09/18 at 17:00 Insulin Aspart (Novolog Insulin Pen) 6 unit AC MEALS SC Last administered on 09/20/18at 08:48; Admin Dose 6 UNIT; Start 09/09/18 at 17:00 IV Flush (NS 3 ml) 3 ml PER PROTOCOL IV ; Start 09/09/18 at 15:00 Ondansetron HCl (Zofran Inj) 4 mg Q6H PRN IV NAUSEA AND/OR VOMITING Last administered on 09/18/18at 17:37; Admin Dose 4 MG; Start 09/09/18 at 15:00 Nitroglycerin (Nitroglycerin (Sl Tab) 0.4 Mg) 1 tab Q5M PRN SL CHEST PAIN; Start 09/09/18 at 15:00 Docusate Sodium (Colace) 100 mg Q12H PRN PO CONSTIPATION; Start 09/09/18 at 15:00 Magnesium Hydroxide (Milk Of Mag) 30 ml DAILY PRN PO CONSTIPATION Last administered on 09/19/18at 15:31; Admin Dose 30 ML; Start 09/09/18 at 15:00 Hydralazine HCl (Apresoline) 10 mg Q4H PRN IV SBP >170 Last administered on 09/15/18at 04:07; Admin Dose 10 MG; Start 09/09/18 at 15:00 Labetalol HCl (Labetalol) 10 mg Q4 PRN IV SBP >180 Last administered on 09/14/18at 04:15; Admin Dose 10 MG; Start 09/09/18 at 15:00 Miscellaneous Information 1 ea NOTE XX ; Start 09/09/18 at 15:30 Glucose (Glutose) 15 gm Q15M PRN PO DECREASED GLUCOSE; Start 09/09/18 at 15:30 Glucose (Glutose) 22.5 gm Q15M PRN PO DECREASED GLUCOSE; Start 09/09/18 at 15:30 Dextrose (D50w Syringe) 25 ml Q15M PRN IV DECREASED GLUCOSE Last administered on 09/20/18at 11:42; Admin Dose 25 ML; Start 09/09/18 at 15:30 Dextrose (D50w Syringe) 50 ml Q15M PRN IV DECREASED GLUCOSE; Start 09/09/18 at 15:30 Glucagon (Glucagen) 1 mg Q15M PRN IM DECREASED GLUCOSE; Start 09/09/18 at 15 :30 Glucose (Glutose) 15 gm Q15M PRN BUCCAL DECREASED GLUCOSE; Start 09/09/18 at 15:30 Insulin Aspart (Novolog Insulin Pen) NOVOLOG *MILD* ALGORITHM WITH MEALS BEDTIME SC Last administered on 09/16/18at 12:16; Admin Dose 1 UNIT; Start 09/09/18 at 18:00 Nicotine (Nicoderm 14 Mg/ 24hr) 1 patch DAILY TRANSDERM Last administered on 09/15/18at 08:42; Admin Dose 1 PATCH; Start 09/12/18 at 11:00 Docusate Sodium (Colace) 100 mg BID PO Last administered on 09/20/18at 08:45; Admin Dose 100 MG; Start 09/12/18 at 21:00 Albuterol/ Ipratropium (Duoneb) 3 ml Q6HWA RESP THERAPY HHN Last administered on 09/19/18at 20:03; Admin Dose 3 ML; Start 09/12/18 at 20:00 Albuterol/ Ipratropium (Duoneb) 3 ml Q2H RESP THERAPY PRN HHN shortness of breath; Start 09/12/18 at 15:00 Nifedipine (Procardia Xl) 30 mg BID PO Last administered on 09/20/18 08:46; Admin Dose 30 MG; Start 09/14/18 at 09:00 Apixaban (Eliquis) 5 mg BID PO Last administered on 09/20/18 08:46; Admin Dose 5 MG; Start 09/18/18 at 09:00 Pantoprazole (Protonix Tab) 40 mg DAILY@06 PO Last administered on 09/20/18 05:45; Admin Dose 40 MG; Start 09/15/18 at 06:00 Carvedilol (Coreg) 25 mg BID PO Last administered on 09/20/18 08:46; Admin Dose 25 MG; Start 09/15/18 at 21:00 Lorazepam (Ativan) 1 mg DAILY PRN PO ANXIETY Last administered on 09/19/18 20:44; Admin Dose 1 MG; Start 09/16/18 at 14:30 Miscellaneous Information Patients own medicat... BID@10,16 XX ; Start 09/17/18 at 10:00 Quetiapine Fumarate (Seroquel) 25 mg BID PO Last administered on 09/20/18 08:44; Admin Dose 25 MG; Start 09/18/18 at 09:00 Losartan Potassium (Cozaar) 50 mg BID PO Last administered on 09/20/18 08:45; Admin Dose 50 MG; Start 09/18/18 at 09:00 Bumetanide (Bumex) 1 mg DAILY PO Last administered on 09/20/18at 08:45; Admin Dose 1 MG; Start 09/19/18 at 09:00 Hydroxyzine Pamoate (Vistaril) 25 mg Q4H PRN PO anxiety; Start 09/19/18 at 08:30 Acetaminophen/ Hydrocodone Bitart ([place] (5/325)) 1 tab Q6H PRN PO MODERATE PAIN LEVEL 4-6 Last administered on 09/20/18at 08:45; Admin Dose 1 TAB; Start 09/19/18 at 08:30 Insulin Glargine (Lantus) 14 units DAILY@2000 SC Last administered on 09/19/18at 21:54; Admin Dose 14 UNITS; Start 09/19/18 at 20:00 Tramadol HCl (Ultram) 100 mg Q6H PRN PO PAIN LEVEL 1-3; Start 09/20/18 at 12:02 TREY BOWEN MD Sep 20, 2018 13:56
[2018-09-20 14:00] VITALS: BP 100/55; PULSE 86; RESP 19
--- NOTE | 2018-09-20 14:38 | CONS ---
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 -Blood pressure trend overall improved and at times on the lower side, would have holding parameters for antihypertensives. Continue diuretics as renal function blood pressure permits. -Patient status post VQ scan, I did discuss with nuclear radiologist, but was read as intermediate probability secondary to pleural effusions but less likely with pulmonary emboli. Given patient with DVT unclear if acute or not, would use treatment dose Eliquis as per protocol. -DC planning Result Diagram: 09/17/18 0513 09/20/18 0549 Results 24hrs Laboratory Tests Test 09/19/18 17:16 09/19/18 20:43 09/19/18 21:14 09/19/18 21:47 Bedside Glucose 99 64 L 87 136 Test 09/20/18 03:03 09/20/18 03:19 09/20/18 03:41 09/20/18 03:59 Bedside Glucose 67 L 67 L 81 111 Test 09/20/18 05:49 09/20/18 08:38 09/20/18 11:30 09/20/18 11:57 Sodium Level 139 Potassium Level 4.2 Chloride Level 97 Carbon Dioxide 32 H Level Anion Gap 10 Blood Urea 59 H Nitrogen Creatinine 1.57 H Glucose Level 145 Calcium Level 8.8 Phosphorus Level 3.7 Albumin 2.8 L Bedside Glucose 123 65 L 103 Consultation Date/Type/Reason Admit Date/Time Sep 09, 2018 at 14:09 Initial Consult Date Type of Consult cv 24 HR Interval Summary Free Text/Dictation Patient denies any shortness of breath, chest pain or palpitations Exam/Review of Systems Vital Signs Vitals Vital Signs Date Temp Pulse Resp B/P (MAP) Pulse Ox O2 O2 Flow FiO2 Time Delivery Rate 09/20/18 98.0 86 19 100/55 93 Nasal 14:00 (70) Cannula 09/19/18 2.0 20:03 Intake and Output 09/19/18 09/19/18 09/20/18 1414:59 22:59 06:59 IntakeIntake Total 700 ml BalanceBalance 700 ml Exam Sitting up in bed, no apparent distress, no dyspnea with speaking Constitutional: alert, oriented Head: normocephalic Respiratory: other (Coarse breath sounds bilaterally, no wheezing) Cardiovascular: regular rate and rhythm, other (S1-S2 heard) Gastrointestinal: soft, non-tender, bowel sounds Extremities: edema Medications Medications Current Medications Clonidine (Catapres) 0.2 mg QID PO Last administered on 09/20/18at 08:46; Admin Dose 0.2 MG; Start 09/09/18 at 17:00 Insulin Aspart (Novolog Insulin Pen) 6 unit AC MEALS SC Last administered on 09/20/18at 08:48; Admin Dose 6 UNIT; Start 09/09/18 at 17:00 IV Flush (NS 3 ml) 3 ml PER PROTOCOL IV ; Start 09/09/18 at 15:00 Ondansetron HCl (Zofran Inj) 4 mg Q6H PRN IV NAUSEA AND/OR VOMITING Last administered on 09/18/18at 17:37; Admin Dose 4 MG; Start 09/09/18 at 15:00 Nitroglycerin (Nitroglycerin (Sl Tab) 0.4 Mg) 1 tab Q5M PRN SL CHEST PAIN; Start 09/09/18 at 15:00 Docusate Sodium (Colace) 100 mg Q12H PRN PO CONSTIPATION; Start 09/09/18 at 15:00 Magnesium Hydroxide (Milk Of Mag) 30 ml DAILY PRN PO CONSTIPATION Last administered on 09/19/18at 15:31; Admin Dose 30 ML; Start 09/09/18 at 15:00 Hydralazine HCl (Apresoline) 10 mg Q4H PRN IV SBP >170 Last administered on 09/15/18at 04:07; Admin Dose 10 MG; Start 09/09/18 at 15:00 Labetalol HCl (Labetalol) 10 mg Q4 PRN IV SBP >180 Last administered on 09/14/18at 04:15; Admin Dose 10 MG; Start 09/09/18 at 15:00 Miscellaneous Information 1 ea NOTE XX ; Start 09/09/18 at 15:30 Glucose (Glutose) 15 gm Q15M PRN PO DECREASED GLUCOSE; Start 09/09/18 at 15:30 Glucose (Glutose) 22.5 gm Q15M PRN PO DECREASED GLUCOSE; Start 09/09/18 at 15:30 Dextrose (D50w Syringe) 25 ml Q15M PRN IV DECREASED GLUCOSE Last administered on 09/20/18at 11:42; Admin Dose 25 ML; Start 09/09/18 at 15:30 Dextrose (D50w Syringe) 50 ml Q15M PRN IV DECREASED GLUCOSE; Start 09/09/18 at 15:30 Glucagon (Glucagen) 1 mg Q15M PRN IM DECREASED GLUCOSE; Start 09/09/18 at 15:30 Glucose (Glutose) 15 gm Q15M PRN BUCCAL DECREASED GLUCOSE; Start 09/09/18 at 15:30 Insulin Aspart (Novolog Insulin Pen) NOVOLOG *MILD* ALGORITHM WITH MEALS BEDTIME SC Last administered on 09/16/18at 12:16; Admin Dose 1 UNIT; Start 09/09/18 at 18:00 Nicotine (Nicoderm 14 Mg/ 24hr) 1 patch DAILY TRANSDERM Last administered on 09/15/18at 08:42; Admin Dose 1 PATCH; Start 09/12/18 at 11:00 Docusate Sodium (Colace) 100 mg BID PO Last administered on 09/20/18at 08:45; Admin Dose 100 MG; Start 09/12/18 at 21:00 Albuterol/ Ipratropium (Duoneb) 3 ml Q6HWA RESP THERAPY HHN Last administered on 09/19/18at 20:03; Admin Dose 3 ML; Start 09/12/18 at 20:00 Albuterol/ Ipratropium (Duoneb) 3 ml Q2H RESP THERAPY PRN HHN shortness of breath; Start 09/12/18 at 15:00 Nifedipine (Procardia Xl) 30 mg BID PO Last administered on 09/20/18at 08:46; Admin Dose 30 MG; Start 09/14/18 at 09:00 Apixaban (Eliquis) 5 mg BID PO Last administered on 09/20/18at 08:46; Admin Dose 5 MG; Start 09/18/18 at 09:00 Pantoprazole (Protonix Tab) 40 mg DAILY@06 PO Last administered on 09/20/18at 05:45; Admin Dose 40 MG; Start 09/15/18 at 06:00 Carvedilol (Coreg) 25 mg BID PO Last administered on 09/20/18 08:46; Admin Dose 25 MG; Start 09/15/18 at 21:00 Lorazepam (Ativan) 1 mg DAILY PRN PO ANXIETY Last administered on 09/19/18at 20:44; Admin Dose 1 MG; Start 09/16/18 at 14:30 Miscellaneous Information Patients own medicat... BID@10,16 XX ; Start 09/17/18 at 10:00 Quetiapine Fumarate (Seroquel) 25 mg BID PO Last administered on 09/20/18at 08:44; Admin Dose 25 MG; Start 09/18/18 at 09:00 Losartan Potassium (Cozaar) 50 mg BID PO Last administered on 09/20/18at 08:45; Admin Dose 50 MG; Start 09/18/18 at 09:00 Bumetanide (Bumex) 1 mg DAILY PO Last administered on 09/20/18at 08:45; Admin Dose 1 MG; Start 09/19/18 at 09:00 Hydroxyzine Pamoate (Vistaril) 25 mg Q4H PRN PO anxiety; Start 09/19/18 at 08:30 Acetaminophen/ Hydrocodone Bitart ([place] (5/325)) 1 tab Q6H PRN PO MODERATE PAIN LEVEL 4-6 Last administered on 09/20/18at 08:45; Admin Dose 1 TAB; Start 09/19/18 at 08:30 Insulin Glargine (Lantus) 14 units DAILY@2000 SC Last administered on 09/19/18at 21:54; Admin Dose 14 UNITS; Start 09/19/18 at 20:00 Tramadol HCl (Ultram) 100 mg Q6H PRN PO PAIN LEVEL 1-3; Start 09/20/18 at 12:02 Gilbert Mederos DO Sep 20, 2018 14:38
--- NOTE | 2018-09-20 15:10 | NUR ---
OT NOTE Attempted to see pt for skilled OT tx- pt refused. Will try back later.
--- NOTE | 2018-09-20 16:25 | NUR ---
PT NOTE [facility] Patient: Ban Stover : 1955 Age/Sex: 63/F Unit#: [id number] Room/Bed: 5567A User: Sherita Zepeda PTA Date: 09/20/18 16:00 Type: PT Technical Record Therapy day number 6 Subjective Current complaint of pain Pain Scale NUMERIC Pain Intensity 8 (0-10) Patient Stated Goal for Pain Relief 0 (0-10) Pain Level Comment Waldemar GENAO RN aware Exercise Assessment Label Bilat Lower Extremity Exercise Type Active ROM Additional Exercise Comments seated, standing and supine therex; see PT note Exercise Start Time 16:11 Exercise End Time 16:24 Total Exercise Time 13 min (8-127) Transfer Training Start Time 16:00 Supine to Sit Supervised Transfer Sit to Stand Ability Stand by Assist Bed Mobility Sit to Supine Supervised Additional Mobility Comments STS without AD Transfer Training End Time 16:10 Total Transfer Training Time 10 min (8-127) Additional Gait Comments declined d/t pain Weight Bearing Assessment Label Bilat Lower Extremity Weight Bearing Status Full Weight Bearing Dynamic Sitting Balance Fair plus Standing Static Balance Fair plus Dynamic Standing Balance Fair Additional Balance Assessments Comments with and without AD Safety Judgement Poor Activity Tolerance Fair Post Treatment Pain Intensity 0 0-10 Variance Documentation see PT note Total Treament Time 23 min (8-127) Total Minutes 23 Total Units 2 PT Technical Record Comment PT NOTE S: "I have too much pain, I'm not getting up to walk." Mod encouragement to participate in therex; pt agreed to skilled PT. Cleared by RUSSELL Reynoso, and aware of pt complaints of pain. O: Received asleep in supine; easily with TCs as pt is WASH[place]. Transfer to EOB to perform seated HRs, SAQs and marching. STS without AD. Provided FWW to perform standing marching, HRs, and 1/4 squats. Returned back to supine to complete supine heel slides, AAROM SLR and hip abd/add. Left in supine, call light and all necessities within reach, bed alarm on. Informed RN. A: Pt hayes tx fairly. Declined gait training d/t pain. Pt c/o R LE pain with SLR and heel slides. Required AAROM with supine SLR. P: Continue with POC as appropriate.
--- NOTE | 2018-09-20 18:24 | NUR ---
END OF SHIFT SUMMARY Pt alert and oriented, all due meds given as ordered. NO acute distress noted. Pt worked with PT, able to ambulate. Pt complained of pain increased Tramadol. Accu-checks done as indicated pt noted to be hypoglycemic and refused to drink orange juice. Dextrose IV was administered instead with effective results of 103. Pt then refused to be poked again to recheck the blood sugar. Pt has been educated on protocol to make sure blood sugar is stable for pt safety. Pt laying in bed at this time, stable. Plan is for pt to go home tomorrow. Will continue to monitor pt and endorse new plan of care to oncoming shift.
[2018-09-20 19:50] VITALS: BP 201/85; PULSE 76; RESP 18
[2018-09-20] MEDS: LORAZEPAM 1 MG TAB PO PRN (19:58)
[2018-09-20] MEDS: INSULIN GLARGINE [LANTus] (100 UNITS/ML) SYG SC SCH (20:00)
[2018-09-21 02:01] VITALS: BP 142/72; PULSE 70; RESP 17
[2018-09-21] MEDS: traMADol 50 MG TAB PO PRN ×3 (02:08→15:44)
[2018-09-21] MEDS: PANTOPRAZOLE (EC) 40 MG TAB PO SCH (05:57)
--- NOTE | 2018-09-21 06:18 | NUR ---
END OF SHIFT REPORT Pt alert and oriented x3. Pt on bed in low position with call light within reach and bed alarm activated. Pt rapidly gets up from bed and to bathroom. Pt uncooperative regarding need for use of walker and assistance. Pt with elevated blood pressure. All due meds given. Vitals stable after all due meds administered. Pt with low blood sugar. Provided pt to snacks. Pt c/o leg pain. Administered Tramadol per order and pt's preference. Will endorse pt to AM shift nurse for continuation of care.
[2018-09-21] MEDS: INSULIN ASPART [NOVOLOG] 3 ML PEN SC SCH ×4 (07:00→11:54)
[2018-09-21] MEDS: LORAZEPAM 1 MG TAB PO PRN (07:30)
[2018-09-21 07:36] VITALS: BP 156/79; PULSE 75; RESP 16
[2018-09-21] MEDS: ALBUTEROL/IPRATROPIUM (NEB) 3 ML AMP HHN SCH ×2 (08:00→13:37)
[2018-09-21] MEDS: NIFEdipine (XL) 30 MG TAB PO SCH (08:23)
[2018-09-21] MEDS: QUETIAPINE 25 MG TAB PO SCH (08:23)
[2018-09-21] MEDS: DOCUSATE SODIUM 100 MG CAP PO SCH (08:23)
[2018-09-21] MEDS: NICOTINE (14 MG/24 HR) PATCH TRANSDERM SCH (08:23)
[2018-09-21] MEDS: APIXABAN 5 MG TABLET PO SCH (08:23)
[2018-09-21] MEDS: BUMETANIDE 1 MG TAB PO SCH (08:24)
[2018-09-21] MEDS: LOSARTAN 50 MG TAB PO SCH (08:24)
--- NOTE | 2018-09-21 08:52 | PN ---
Date/Time of Note Date/Time of Note DATE: 09/21/18 TIME: 08:52 Assessment/Plan VTE Prophylaxis Risk score (from Ns)>0 risk: 3 SCD applied (from Ns): No SCD contraindicated: patient refusal Pharmacological prophylaxis: apixaban Lines/Catheters IV [facility]from [facility] Saline Lock Urinary Cath still in place: No Assessment/Plan Assessment/Plan 1. Acute bilateral lower extremity swelling - improving after diuresis - still with same chronic pain 2. R DVT - continue on Eliquis 5mg BID 3. Acute congestive heart failure- stable - Cardiology on board and appreciate recommendations. Continue on PO Bumex daily - ECHO results noted and EF 45% - BNP elevated at time of admission 4. Hypertensive emergency- resolved - continue current medications 5. ARMIDA- improving - patient Cr stabilizing after adjustments made to medications - Continue monitoring for improvement - avoiding nephrotoxic agents 6. Elevated Alk Phos - chronically elevated - most likely secondary to Pagets 7. Right popliteal Bakers cyst - chronic. pt aware 8. Diabetes mellitus - A1c noted - continue ISS and accuchecks 9. Pagets disease of the bone - pain control - pain management on board and appreciate consultation 10. Disposition - Medically stable for discharge home. Discussed with patient adjustments made to pain medications and need to continue on diuretics and anticoagulation. Result Diagram: 09/17/18 0513 09/21/18 0558 Results 24hrs Laboratory Tests Test 09/20/18 11:30 09/20/18 11:57 09/20/18 17:00 09/20/18 20:39 Bedside Glucose 65 L 103 200 76 Test 09/21/18 05:58 09/21/18 07:32 Sodium Level 135 Potassium Level 4.4 Chloride Level 101 Carbon Dioxide 29 Level Anion Gap 5 Blood Urea 60 H Nitrogen Creatinine 1.46 H Glucose Level 77 # Calcium Level 8.7 Phosphorus Level 3.8 Magnesium Level 1.9 Albumin 2.9 L Bedside Glucose 86 Subjective 24 Hr Interval Summary Free Text/Dictation Patient still complaining of same chronic pain. No acute overnight events. Cleared for discharge from Cardiology standpoint. Exam/Review of Systems Vital Signs Vitals Vital Signs Date Temp Pulse Resp B/P (MAP) Pulse Ox O2 O2 Flow FiO2 Time Delivery Rate 09/21/18 2.0 08:15 09/21/18 98.2 75 16 156/79 92 07:36 (104) 09/21/18 Nasal 02:01 Cannula Intake and Output 09/20/18 09/20/18 09/21/18 1515:00 23:00 07:00 IntakeIntake Total 620 ml 360 ml BalanceBalance 620 ml 360 ml Exam General: Patient is laying in bed and answers questions appropriately Neck: Supple Respiratory: Clear to auscultation bilaterally. no wheezing Cardiovascular: S1, S2, regular rate and rhythm, no obvious murmurs Gastrointestinal: soft, non-tender to palpation, nondistended, bowel sounds heard. Neurological: Moves all extremities spontaneously Skin: Multiple chronic skin lesions, scabbed over on her lower extremity bilaterally. edema in lower extremities Medications Medications Current Medications Clonidine (Catapres) 0.2 mg QID PO Last administered on 09/21/18at 08:23; Admin Dose 0.2 MG; Start 09/09/18 at 17:00 Insulin Aspart (Novolog Insulin Pen) 6 unit AC MEALS SC Last administered on 09/20/18at 17:05; Admin Dose 6 UNIT; Start 09/09/18 at 17:00 IV Flush (NS 3 ml) 3 ml PER PROTOCOL IV ; Start 09/09/18 at 15:00 Ondansetron HCl (Zofran Inj) 4 mg Q6H PRN IV NAUSEA AND/OR VOMITING Last administered on 09/18/18at 17:37; Admin Dose 4 MG; Start 09/09/18 at 15:00 Nitroglycerin (Nitroglycerin (Sl Tab) 0.4 Mg) 1 tab Q5M PRN SL CHEST PAIN; Start 09/09/18 at 15:00 Docusate Sodium (Colace) 100 mg Q12H PRN PO CONSTIPATION; Start 09/09/18 at 15:00 Magnesium Hydroxide (Milk Of Mag) 30 ml DAILY PRN PO CONSTIPATION Last administered on 09/19/18at 15:31; Admin Dose 30 ML; Start 09/09/18 at 15:00 Hydralazine HCl (Apresoline) 10 mg Q4H PRN IV SBP >170 Last administered on 09/15/18at 04:07; Admin Dose 10 MG; Start 09/09/18 at 15:00 Labetalol HCl (Labetalol) 10 mg Q4 PRN IV SBP >180 Last administered on 09/14/18at 04:15; Admin Dose 10 MG; Start 09/09/18 at 15:00 Miscellaneous Information 1 ea NOTE XX ; Start 09/09/18 at 15:30 Glucose (Glutose) 15 gm Q15M PRN PO DECREASED GLUCOSE; Start 09/09/18 at 15:30 Glucose (Glutose) 22.5 gm Q15M PRN PO DECREASED GLUCOSE; Start 09/09/18 at 15:30 Dextrose (D50w Syringe) 25 ml Q15M PRN IV DECREASED GLUCOSE Last administered on 09/20/18at 11:42; Admin Dose 25 ML; Start 09/09/18 at 15:30 Dextrose (D50w Syringe) 50 ml Q15M PRN IV DECREASED GLUCOSE; Start 09/09/18 at 15:30 Glucagon (Glucagen) 1 mg Q15M PRN IM DECREASED GLUCOSE; Start 09/09/18 at 15:30 Glucose (Glutose) 15 gm Q15M PRN BUCCAL DECREASED GLUCOSE; Start 09/09/18 at 15:30 Insulin Aspart (Novolog Insulin Pen) NOVOLOG *MILD* ALGORITHM WITH MEALS BEDTIME SC Last administered on 09/20/18at 17:03; Admin Dose 2 UNIT; Start 09/09/18 at 18:00 Nicotine (Nicoderm 14 Mg/ 24hr) 1 patch DAILY TRANSDERM Last administered on 09/15/18at 08:42; Admin Dose 1 PATCH; Start 09/12/18 at 11:00 Docusate Sodium (Colace) 100 mg BID PO Last administered on 09/21/18 08:23; Admin Dose 100 MG; Start 09/12/18 at 21:00 Albuterol/ Ipratropium (Duoneb) 3 ml Q6HWA RESP THERAPY HHN Last administered on 09/19/18at 20:03; Admin Dose 3 ML; Start 09/12/18 at 20:00 Albuterol/ Ipratropium (Duoneb) 3 ml Q2H RESP THERAPY PRN HHN shortness of breath; Start 09/12/18 at 15:00 Nifedipine (Procardia Xl) 30 mg BID PO Last administered on 09/21/18 08:23; Admin Dose 30 MG; Start 09/14/18 at 09:00 Apixaban (Eliquis) 5 mg BID PO Last administered on 09/21/18at 08:23; Admin Dose 5 MG; Start 09/18/18 at 09:00 Pantoprazole (Protonix Tab) 40 mg DAILY@06 PO Last administered on 09/21/18 05:57; Admin Dose 40 MG; Start 09/15/18 at 06:00 Carvedilol (Coreg) 25 mg BID PO Last administered on 09/21/18 08:23; Admin Dose 25 MG; Start 09/15/18 at 21:00 Lorazepam (Ativan) 1 mg DAILY PRN PO ANXIETY Last administered on 09/21/18 07:30; Admin Dose 1 MG; Start 09/16/18 at 14:30 Miscellaneous Information Patients own medicat... BID@10,16 XX ; Start 09/17/18 at 10:00 Quetiapine Fumarate (Seroquel) 25 mg BID PO Last administered on 09/21/18 08: 23; Admin Dose 25 MG; Start 09/18/18 at 09:00 Losartan Potassium (Cozaar) 50 mg BID PO Last administered on 09/21/18 08:24; Admin Dose 50 MG; Start 09/18/18 at 09:00 Bumetanide (Bumex) 1 mg DAILY PO Last administered on 09/21/18 08:24; Admin Dose 1 MG; Start 09/19/18 at 09:00 Hydroxyzine Pamoate (Vistaril) 25 mg Q4H PRN PO anxiety; Start 09/19/18 at 08:30 Acetaminophen/ Hydrocodone Bitart ([place] (5/325)) 1 tab Q6H PRN PO MODERATE PAIN LEVEL 4-6 Last administered on 09/20/18 08:45; Admin Dose 1 TAB; Start 09/19/18 at 08:30 Insulin Glargine (Lantus) 14 units DAILY@2000 SC Last administered on 09/19/18 21:54; Admin Dose 14 UNITS; Start 09/19/18 at 20:00 Tramadol HCl (Ultram) 100 mg Q6H PRN PO PAIN LEVEL 1-3 Last administered on 09/21/18 08:24; Admin Dose 100 MG; Start 09/20/18 at 12:02 TREY BOWEN MD Sep 21, 2018 08:52
[2018-09-21] MEDS ORDERED: CARV25TA79 PO (11:14)
[2018-09-21] MEDS ORDERED: LOSA50TA2 PO (11:14)
[2018-09-21] MEDS ORDERED: NIFE30TA2 PO (11:14)
[2018-09-21] MEDS ORDERED: TRAM50TA2 PO (11:14)
[2018-09-21] MEDS ORDERED: BUME1TAB PO (11:15)
--- NOTE | 2018-09-21 11:23 | PDOCDIS ---
Discharge Instructions DIAGNOSIS Discharge Diagnosis 1. Acute bilateral lower extremity swelling 2. R DVT 3. Acute congestive heart failure- improving 4. Hypertensive emergency- resolved 5. ARMIDA- resolving 6. Elevated Alk Phos- stable 7. Right popliteal Bakers cyst 8. Diabetes mellitus 9. Pagets disease of the bone CONDITION [id number] Patient Condition: [id number] Stable HOME CARE INSTRUCTIONS: [id number] Diet Instructions: [id number] Activity Restrictions: [id number] No Restrictions FOLLOW UP/APPOINTMENTS Follow-up Plan 1. Follow up with your primary care physician in 1 week 2. You will need a referral to Utilization Review Coordinator from your primary care physician to continue monitoring your heart failure 3. You were started on new medications including Bumex which will help keep the fluid from collecting in your legs if you take daily 4. Continue all other medications as prescribed 5. You will have home health nurses and physical therapist come to your home to monitor your vitals and provide physical therapy 6. If symptoms worsen, please go to your nearest emergency department TREY BOWEN MD Sep 21, 2018 11:23
--- NOTE | 2018-09-21 11:46 | CONS ---
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 -Blood pressure trend labile but overall improved and at times on the lower side, would have holding parameters for antihypertensives. Continue diuretics as renal function blood pressure permits. -Patient status post VQ scan, I did discuss with nuclear radiologist, but was read as intermediate probability secondary to pleural effusions but less likely with pulmonary emboli. Given patient with DVT unclear if acute or not, would use treatment dose Eliquis as per protocol. -DC planning Result Diagram: 09/17/18 0513 09/21/18 0558 Results 24hrs Laboratory Tests Test 09/20/18 11:57 09/20/18 17:00 09/20/18 20:04 09/20/18 20:39 Bedside Glucose 103 200 56 L 76 Test 09/21/18 05:58 09/21/18 07:32 Sodium Level 135 Potassium Level 4.4 Chloride Level 101 Carbon Dioxide 29 Level Anion Gap 5 Blood Urea 60 H Nitrogen Creatinine 1.46 H Glucose Level 77 # Calcium Level 8.7 Phosphorus Level 3.8 Magnesium Level 1.9 Albumin 2.9 L Bedside Glucose 86 Consultation Date/Type/Reason Admit Date/Time Sep 09, 2018 at 14:09 Initial Consult Date Type of Consult cv 24 HR Interval Summary Free Text/Dictation Denies shortness of breath, palpitations Exam/Review of Systems Vital Signs Vitals Vital Signs Date Temp Pulse Resp B/P (MAP) Pulse Ox O2 O2 Flow FiO2 Time Delivery Rate 09/21/18 Nasal 2.0 08:57 Cannula 09/21/18 98.2 75 16 156/79 92 07:36 (104) Intake and Output 09/20/18 09/20/18 09/21/18 1515:00 23:00 07:00 IntakeIntake Total 620 ml 360 ml BalanceBalance 620 ml 360 ml Exam Undergoing occupational therapy, no apparent distress, no dyspnea with speaking Constitutional: alert, oriented Head: normocephalic Respiratory: other (Coarse breath sounds bilaterally, no wheezing) Cardiovascular: regular rate and rhythm, other (S1-S2 heard) Gastrointestinal: soft, non-tender, bowel sounds Extremities: edema Medications Medications Current Medications Clonidine (Catapres) 0.2 mg QID PO Last administered on 09/21/18at 08:23; Admin Dose 0.2 MG; Start 09/09/18 at 17:00 Insulin Aspart (Novolog Insulin Pen) 6 unit AC MEALS SC Last administered on 09/20/18at 17:05; Admin Dose 6 UNIT; Start 09/09/18 at 17:00 IV Flush (NS 3 ml) 3 ml PER PROTOCOL IV ; Start 09/09/18 at 15:00 Ondansetron HCl (Zofran Inj) 4 mg Q6H PRN IV NAUSEA AND/OR VOMITING Last administered on 09/18/18at 17:37; Admin Dose 4 MG; Start 09/09/18 at 15:00 Nitroglycerin (Nitroglycerin (Sl Tab) 0.4 Mg) 1 tab Q5M PRN SL CHEST PAIN; Start 09/09/18 at 15:00 Docusate Sodium (Colace) 100 mg Q12H PRN PO CONSTIPATION; Start 09/09/18 at 15:00 Magnesium Hydroxide (Milk Of Mag) 30 ml DAILY PRN PO CONSTIPATION Last administered on 09/19/18at 15:31; Admin Dose 30 ML; Start 09/09/18 at 15:00 Hydralazine HCl (Apresoline) 10 mg Q4H PRN IV SBP >170 Last administered on 09/15/18at 04:07; Admin Dose 10 MG; Start 09/09/18 at 15:00 Labetalol HCl (Labetalol) 10 mg Q4 PRN IV SBP >180 Last administered on 09/14/18at 04:15; Admin Dose 10 MG; Start 09/09/18 at 15:00 Miscellaneous Information 1 ea NOTE XX ; Start 09/09/18 at 15:30 Glucose (Glutose) 15 gm Q15M PRN PO DECREASED GLUCOSE; Start 09/09/18 at 15:30 Glucose (Glutose) 22.5 gm Q15M PRN PO DECREASED GLUCOSE; Start 09/09/18 at 15:30 Dextrose (D50w Syringe) 25 ml Q15M PRN IV DECREASED GLUCOSE Last administered on 09/20/18at 11:42; Admin Dose 25 ML; Start 09/09/18 at 15:30 Dextrose (D50w Syringe) 50 ml Q15M PRN IV DECREASED GLUCOSE; Start 09/09/18 at 15:30 Glucagon (Glucagen) 1 mg Q15M PRN IM DECREASED GLUCOSE; Start 09/09/18 at 15:30 Glucose (Glutose) 15 gm Q15M PRN BUCCAL DECREASED GLUCOSE; Start 09/09/18 at 15:30 Insulin Aspart (Novolog Insulin Pen) NOVOLOG *MILD* ALGORITHM WITH MEALS BEDTIME SC Last administered on 09/20/18 17:03; Admin Dose 2 UNIT; Start at 18:00 Nicotine (Nicoderm 14 Mg/ 24hr) 1 patch DAILY TRANSDERM Last administered on 09/15/18 08:42; Admin Dose 1 PATCH; Start 09/12/18 at 11:00 Docusate Sodium (Colace) 100 mg BID PO Last administered on 09/21/18 08:23; Admin Dose 100 MG; Start 09/12/18 at 21:00 Albuterol/ Ipratropium (Duoneb) 3 ml Q6HWA RESP THERAPY HHN Last administered on 09/19/18 20:03; Admin Dose 3 ML; Start 09/12/18 at 20:00 Albuterol/ Ipratropium (Duoneb) 3 ml Q2H RESP THERAPY PRN HHN shortness of br eath; Start 09/12/18 at 15:00 Nifedipine (Procardia Xl) 30 mg BID PO Last administered on 09/21/18 08:23; Admin Dose 30 MG; Start 09/14/18 at 09:00 Apixaban (Eliquis) 5 mg BID PO Last administered on 09/21/18 08:23; Admin Dose 5 MG; Start 09/18/18 at 09:00 Pantoprazole (Protonix Tab) 40 mg DAILY@06 PO Last administered on 09/21/18 05:57; Admin Dose 40 MG; Start 09/15/18 at 06:00 Carvedilol (Coreg) 25 mg BID PO Last administered on 09/21/18 08:23; Admin Dose 25 MG; Start 09/15/18 at 21:00 Lorazepam (Ativan) 1 mg DAILY PRN PO ANXIETY Last administered on 12/28/18at 07:30; Admin Dose 1 MG; Start 09/16/18 at 14:30 Miscellaneous Information Patients own medicat... BID@10,16 XX ; Start 09/17/18 at 10:00 Quetiapine Fumarate (Seroquel) 25 mg BID PO Last administered on 09/21/18 08:23; Admin Dose 25 MG; Start 09/18/18 at 09:00 Losartan Potassium (Cozaar) 50 mg BID PO Last administered on 09/21/18at 08:24; Admin Dose 50 MG; Start 09/18/18 at 09:00 Bumetanide (Bumex) 1 mg DAILY PO Last administered on 09/21/18 08:24; Admin Dose 1 MG; Start 09/19/18 at 09:00 Hydroxyzine Pamoate (Vistaril) 25 mg Q4H PRN PO anxiety; Start 09/19/18 at 08:30 Acetaminophen/ Hydrocodone Bitart ([place] (5/325)) 1 tab Q6H PRN PO MODERATE PAIN LEVEL 4-6 Last administered on 09/20/18at 08:45; Admin Dose 1 TAB; Start 09/19/18 at 08:30 Insulin Glargine (Lantus) 14 units DAILY@2000 SC Last administered on 09/19/18at 21:54; Admin Dose 14 UNITS; Start 09/19/18 at 20:00 Tramadol HCl (Ultram) 100 mg Q6H PRN PO PAIN LEVEL 1-3 Last administered on 09/21/18at 08:24; Admin Dose 100 MG; Start 09/20/18 at 12:02 Gilbert Mederos DO Sep 21, 2018 11:46
--- NOTE | 2018-09-21 12:22 | NUR ---
PT NOTE Therapy day number 7 Subjective Denies pain Pain Scale FACES Pain Intensity 0 (0-10) Patient Stated Goal for Pain Relief 0 (0-10) Pain Level Comment no noted c/o pain Pre Treatment Vital Signs Stable Yes Transfer Training Start Time 12:22 Supine to Sit Supervised Transfer Sit to Stand Ability Stand by Assist Bed Mobility Sit to Supine Supervised Toileting Ability Stand by Assist Additional Mobility Comments STS without AD Transfer Training End Time 12:35 Total Transfer Training Time 13 min (8-127) Gait Training Start Time 12:35 Gait Assist Levels Stand by Assist Assistive Devices Front Wheel Walker Ambulation Distance 10 feet Additional Gait Comments using furniture/ruff to steady, refuses FWW, no LOB/buckling, impulsive Gait Training End Time 12:45 Total Gait Training Treatment Time 10 min (8-127) Weight Bearing Assessment Label Bilat Lower Extremity Weight Bearing Status Full Weight Bearing Static Sitting Balance Fair plus Dynamic Sitting Balance Fair plus Standing Static Balance Fair plus Dynamic Standing Balance Fair Additional Balance Assessments Comments with and without AD Safety Judgement Poor Activity Tolerance Poor Additional Equipment Present 2LO2 via NC Post Treatment Pain Intensity 0 0-10 Additional Post Treatment Comment See Below Total Treament Time 23 min (8-127) Total Minutes 23 Total Units 2 PT Technical Record Comment PT NOTE S: Pt states "I'm not doing anything. I already walked today," . Cleared for PT per RN Deloris. O: Pt received semifoweler in bed, sleeping, multiple VC/TC to rouse, agitated and impulsive throughout tx. Pt refusing OOB, agreeable to repositioning only with encouragement, then agitated with initiation of repositioning and refusing add'l tx, then impulsively standing up and ambulating to restroom. Pt again declined add'l gait/PT tx 2/2 fatigue/agitation. Multiple VC/max encouragement for BTB. Pt refusing repositioning for comfort posttx. Left supine in bed with bed alarm armed, needs in reachm no apparent distress, RN informed. A: Pt hayes tx poorly, limited by agitation and confusion P: Cont POC
--- NOTE | 2018-09-21 12:30 | NUR ---
SS NOTE: SW DELIVERED FWW TO PT. PT SIGNED FORM OF RECEIPT. SW CALLED AND LEFT A MESSAGE FOR PT'S DTR WILIAM ELIZALDE TO MAKE HER AWARE THAT PT HAS D/C ORDERS. D/C PLAN: PT WILL D/C WITH PT'S DTR WILIAM AND APS WILL FOLLOW UP. SW WILL FOLLOW UP NEEDED.
[2018-09-21 14:19] VITALS: BP 139/59; PULSE 70; RESP 18
--- NOTE | 2018-09-21 14:35 | NUR ---
OT NOTE S: RN cleared pt for skilled OT tx. Pt agreeable to tx stating 0/10 pain. O: Pt received supine in bed. Pt performed Supine ->sit at EOB with supervision. Seated at EOB pt donned socks with SBA and performed UB bathing with supervision. Pt performed STS and toilet transfer with SBA requiring vc to use FWW. Pt then stood at bathroom sink with SBA while performing h/g task. Pt returned to bed with SBA. Pt left in bed with all needs met. A: Pt continues to be impulsive and needs max encouragement to use FWW. P: Cont POC.
--- NOTE | 2018-09-21 16:20 | NUR ---
aox2, d/c in stable condition via wheelchair, escorted by family and volunteers. Daughter verbalized understanding d/c instructions regarding follow up appointment and prescribed medications. home medications and walker given to daughter as well as d/c paperwork
--- NOTE | 2018-09-21 17:42 | DS ---
Date/Time of Note Date/Time of Note DATE: 09/21/18 TIME: 17:37 Discharge Summary Admission/Discharge Info Admit Date/Time Sep 09, 2018 at 14:09 Discharge Date/Time Sep 21, 2018 at 16:28 Discharge Diagnosis 1. Acute bilateral lower extremity swelling 2. R DVT 3. Acute congestive heart failure- improving 4. Hypertensive emergency- resolved 5. ARMIDA- resolving 6. Elevated Alk Phos- stable 7. Right popliteal Bakers cyst 8. Diabetes mellitus 9. Pagets disease of the bone Patient Condition: Stable Consults Cardiology- Dr. Mederos Pain management- Dr. Randle Procedures PROCEDURE: XR chest. CLINICAL INDICATION: CHF TECHNIQUE: A single portable view of the chest was obtained. COMPARISON: 10/02/2016 FINDINGS: Interstitial opacities are identified throughout the lungs representing pulmonary vascular congestion/edema. There is left basilar opacity representing left basilar atelectasis/airspace disease and a small left pleural effusion. No right pleural effusion is identified. There is no pneumothorax. The cardiac silhouette is enlarged. This is increased since the prior study. The aorta is tortuous and atherosclerotic. IMPRESSION: 1. Interstitial opacities throughout the lungs representing pulmonary vascular congestion/edema along with a small left pleural effusion. 2. Enlarged cardiac silhouette. This is increased since the prior exam and may represent worsening cardiomegaly or pericardial effusion. RPTAT: HRF Physician Kaycee Date Time Electronically viewed and signed by Physician Kaycee on 09/18/2018 12:29 PROCEDURE: XR Knee. CLINICAL INDICATION: Fall, pain TECHNIQUE: AP, lateral and oblique view of the left knee were obtained. The images reviewed on a PACS workstation. COMPARISON: None. FINDINGS: The bones appear intact, with no evidence of fracture, erosion, demineralization, or dislocation. There is severe degenerative narrowing of the medial left femoral tibial joint space. There is bone on bone articulation with subchondral cystic changes and osteophyte formation. No evidence of effusion or soft tissue swelling is present. There is peripheral arterial calcification. There is a varus alignment. IMPRESSION: 1. Severe medial femoral tibial degenerative joint space narrowing, with bone on bone articulation, and articular surface remodelling. There is varus alignment. 2. Peripheral arterial calcification. RPTAT: HBST .Jaden Delgado MD, MD Date Time Electronically viewed and signed by .Jaden Delgado MD, MD on 09/13/2018 23:18 PROCEDURE: Ventilation-perfusion lung scan CLINICAL INDICATION: 63 -year-old patient with DVT, complaining of shortness of breath. TECHNIQUE: Following the inhalation of approximately 1.0 mCi of Tc-99m stannous DTPA aerosol, ventilation images were obtained. The patient was then given an intravenous injection of 4.2 mCi of Tc-99m MAA, and perfusion images were obtained. COMPARISON: No prior VQ scans. Correlation was made with chest x-ray dated September 09, 2018. FINDINGS: The cardiac silhouette is enlarged. Ventilation images demonstrate a central deposition of the radionuclide in both lungs, and nonhomogeneous distribution of activity in the lungs bilaterally. Perfusion images reveal matched nonhomogeneous distribution of activity in both lungs. Overall, the perfusion images are better than the ventilation images. Matched areas of reduced ventilation and perfusion are seen in the lower lung zones bilaterally, more prominent on the right. Given the presence of bilateral pleural effusions, right greater than the left, on the chest x-ray dated September 09, 2018, the findings represent intermediate probability for pulmonary embolus. IMPRESSION: 1. Intermediate probability for pulmonary embolus. 2. Cardiomegaly. A call report was made to Dr. Mederos at 04:25 p.m. on September 10, 2018. RPTAT: HH .Maren Camarena MD, MD Date Time Electronically viewed and signed by .Maren Camarena MD, MD on 09/10/2018 16:28 PROCEDURE: XR Chest. CLINICAL INDICATION: shortness of breath TECHNIQUE: Single portable view of the chest was obtained COMPARISON: None FINDINGS: There is mild cardiomegaly. There is a moderate right pleural effusion and small left pleural effusion. There is mild pulmonary vascular congestion. There are bilateral lower lobe increased interstitial changes. The thoracic aorta is calcified.. There is no pneumothorax. RPTAT: AA IMPRESSION: Mild cardiomegaly with pulmonary vascular congestion. Moderate right pleural effusion and small left pleural effusion. .Nnamdi Davis MD, Date Time Electronically viewed and signed by .Nnamdi Davis MD, on 09/09/2018 12:32 PROCEDURE: US Lower extremity Venous. CLINICAL INDICATION: Bilateral lower extremity edema TECHNIQUE: Multiple sonographic images of the bilateral lower extremity deep venous system was obtained utilizing grayscale, color-flow, compressive sonography and doppler imaging with augmentation. The images were reviewed on a PACS workstation. COMPARISON: None. FINDINGS: There is no compressibility or flow within the right common femoral, femoral and popliteal veins. There is normal compressibility and flow within the left common femoral, femoral , posterior tibial and popliteal veins. There is a complex cystic structure in the right popliteal fossa measuring 4.7 x 1.8 cm. There are calcifications within this cystic structure. The peroneal veins were not visualized. RPTAT: AA IMPRESSION: Right leg DVT. Complex right popliteal Helms's cyst. A call report was made and the findings discussed with Nora Rodriguez by the technologist at the time of examination. .Nnamdi Davis MD, Date Time Electronically viewed and signed by .Nnamdi Davis MD, on 09/09/2018 13:33 Hx of Present Illness 63 yo F with PMH Pagets disease with hearing loss, Diabetes Mellitus, HTN, ?afib on Eliquis presented to ED complaining of lower extremity pain and swelling. Patient is hard of hearing and history challenging to obtain. Patient states shes been experiencing pain and swelling in lower legs as well as chest pressure and shortness of breath for the past week. She states she feels as if her legs are very heavy and has been difficult to walk. She was found with elevated BP as well as states she does take her medication as home but ran out recently of one but unsure of name. Patient currently admits to pain in legs but denies any chest pain, worsening shortness of breath, wheezing, dizziness, abdominal pain, constipation or diarrhea. Hospital Course Patient was admitted for evaluation and treatment of new onset congestive heart failure. Cardiology was consulted and patient was started on diuretics as well as adjustments were made to her medications for better BP control. Patient was found to have acute vs chronic DVT and continued on Eliquis. Due to patients persistent complaints of chronic pain, pain management was consulted and patient was continued on Tramadol which usually helped her pain. Patient was diuresing well and transitioned to PO Bumex. Patient has some ARMIDA but improved during hospital stay with continued downward trending of creatinine. Patients presenting symptoms improved significantly and on arrangements were made for home health with physical therapy services after insurance denied SNF placement. On day of discharge, patients vitals and physical exam were stable. Patient was discharge home with HHPT in good condition. Home Meds Active Scripts Bumetanide* (Bumetanide*) 1 Mg Tablet, 1 MG PO DAILY for 30 Days, #30 TAB 6 Refills Prov:TREY BOWEN MD 09/21/18 Nifedipine (Procardia Xl) 30 Mg Tab.er.24, 30 MG PO BID for 30 Days, #60 TAB 6 Refills Prov:TREY BOWEN MD 09/21/18 Losartan Potassium* (Cozaar*) 50 Mg Tablet, 50 MG PO BID for 30 Days, #30 TAB 6 Refills Prov:TREY BOWEN MD 09/21/18 Carvedilol* (Carvedilol*) 25 Mg Tablet, 25 MG PO BID for 30 Days, #60 TAB 6 Refills Prov:TREY BOWEN MD 09/21/18 Tramadol HCl (Tramadol HCl) 50 Mg Tablet, 50 MG PO Q6H PRN for PAIN for 30 Days, #90 TAB Prov:TREY BOWEN MD 09/21/18 Insulin Lispro (Humalog Kwikpen U-100) 100 Unit/1 Ml Insuln.pen, 6 UNIT SQ TIDAC for 30 Days, #1 EA Prov:NURYS CHATMAN MD 05/04/18 Metformin Hcl* (Metformin Hcl*) 500 Mg Tablet, 500 MG PO WITH BREAKFAST DINNE for 30 Days, #60 TAB Prov:NURYS CHATMAN MD 05/04/18 Reported Medications Apixaban* (Eliquis*) 5 Mg Tablet, 5 MG PO BID, TAB 09/09/18 Lorazepam* (Ativan*) 2 Mg Tablet, 2 MG PO Q6 PRN for ANXIETY, #60 TAB 09/09/18 Clonidine Hcl* (Clonidine Hcl*) 0.2 Mg Tablet, 0.2 MG PO QID, TAB 09/09/18 Discontinued Scripts Benazepril Hcl* (Benazepril Hcl*) 40 Mg Tablet, 40 MG PO BID for 30 Days, #60 TAB Prov:NURYS CHATMAN MD 05/04/18 Follow-up Plan 1. Follow up with your primary care physician in 1 week 2. You will need a referral to [facility] from your primary care physician to continue monitoring your heart failure 3. You were started on new medications including Bumex which will help keep the fluid from collecting in your legs if you take daily 4. Continue all other medications as prescribed 5. You will have home health nurses and physical therapist come to your home to monitor your vitals and provide physical therapy 6. If symptoms worsen, please go to your nearest emergency department Primary Care Provider Rodrigo Narayan MD Time spent on discharge: > 30 minutes Pending Labs Laboratory Tests Test 09/20/18 20:04 09/20/18 20:39 09/21/18 05:58 09/21/18 07:32 Bedside 56 76 86 Glucose mg/dL (70-220) mg/dL (70-220) mg/dL (70-220) Sodium Level 135 mmol/L (135-14 4) Potassium 4.4 Level mmol/L (3.5-5. 1) Chloride Level 101 mmol/L (97-110 ) Carbon Dioxide 29 Level mmol/L (21-31) Anion Gap 5 (5-13) Blood Urea 60 Nitrogen mg/dl (7-20) Creatinine 1.46 mg/dl (0.44-1. 00) Glucose Level 77 mg/dl (70-220) Calcium Level 8.7 mg/dl (8.4-10. 2) Phosphorus 3.8 Level mg/dl (2.5-4.9 ) Magnesium 1.9 Level mg/dl (1.7-2.5 ) Albumin 2.9 g/dl (3.3-4.9) Test 09/21/18 11:51 Bedside 127 Glucose mg/dL (70-220) TREY BOWEN MD Sep 21, 2018 17:42
== END 2018-09-21 16:28 | disposition home health service (06) | DRG 291 ==
LOC: E/R 11:00 → 6WM 14:09 → 5EC 09-18 13:25
PROVIDERS: ADMIT Internal Medicine; ATTEND Internal Medicine
DX: I11.0 Hypertensive heart disease with heart failure (principal); I50.31 Acute diastolic (congestive) heart failure; I16.1 Hypertensive emergency; I82.4Z1 Acute embolism and thrombosis of unspecified deep veins of right distal lower extremity; R79.9 Abnormal finding of blood chemistry, unspecified; M88.9 Osteitis deformans of unspecified bone; M71.21 Synovial cyst of popliteal space [Baker], right knee; Z87.891 Personal history of nicotine dependence; E11.9 Type 2 diabetes mellitus without complications; I27.20 Pulmonary hypertension, unspecified; I08.1 Rheumatic disorders of both mitral and tricuspid valves
CPT/HCPCS: 71045; 73562; 78582; 80048; 80053; 80069; 82550; 82553; 82962; 83036; 83690; 83735; 83880; 84100; 84484; 85014; 85018; 85025; 85610; 85730; 93005; 93306; 93308; 93970; 94640; 94664; 96374; 97110; 97116; 97162; 97167; 97530; 97535; A9540; J0360; J1170; J1815; J1940; J2060; J2270; J2274; J2405; J3475

== ENCOUNTER 2018-10-09 23:22 | Inpatient (IN) | payer OTHER ==
[~2018-10-09] VITALS: Ht 162.6 cm; Wt 77.3 kg
[~2018-10-09 23:22] MED LIST changes: +APIX5TAB PO; -BENA40TA56 PO; -BLOO1EAC85 MC; +BUME1TAB PO; +CARV25TA79 PO; -CLON0.1T14 PO; +CLON0.2T5 PO; -INSU100I33 SC; -ISOP1TOW MC; -LANC-831 MC; +LORA-444 PO; +LOSA50TA2 PO; +NIFE30TA2 PO; -NIFE60TA2 PO; -TRAM50TA PO; +TRAM50TA2 PO; -glucose test strips
[2018-10-10] VITALS (7 sets, daily range): BP systolic 105–183; BP diastolic 47–93; PULSE 75–96; RESP 18–20; Ht 162.6 cm; Wt 77.3 kg
[2018-10-10] MEDS ORDERED: FUROSEMIDE 40 MG INJ IV ONE (02:00)
[2018-10-10] MEDS ORDERED: HYDROmorphONE 0.5 MG/0.5 ML SYG IV STA (02:14)
[2018-10-10] MEDS ORDERED: NITROGLYCERIN (SL) 0.4 MG TAB SL PRN (02:30)
[2018-10-10] MEDS ORDERED: ACETAMINOPHEN 325 MG TAB PO PRN (02:30)
[2018-10-10] MEDS ORDERED: ONDANSETRON 4 MG INJ IV PRN (02:30)
[2018-10-10] MEDS ORDERED: NACL 0.9% 3 ML SYG IV SCH (02:30)
[2018-10-10] MEDS ORDERED: DEXTROSE 50% 50 ML SYRINGE IV PRN ×2 (03:00)
[2018-10-10] MEDS ORDERED: GLUCOSE GEL 15 GRAM TUBE PO PRN ×2 (03:00)
[2018-10-10] MEDS ORDERED: GLUCOSE GEL 15 GRAM TUBE BUCCAL PRN (03:00)
[2018-10-10] MEDS ORDERED: GLUCAGON 1 MG INJ IM PRN (03:00)
--- NOTE | 2018-10-10 03:28 | ERD ---
ER Documentation Chief Complaint Chief Complaint BILAT EXTREMETY EDEMA X'S 4 DAYS, SOB HPI This is a very pleasant 63-year-old female comes in with complaints of bilateral lower extremity edema and shortness of breath. Patient has history of CHF in the past. No chest pain. No nausea no vomiting fevers ROS All systems reviewed and are negative except as per history of present illness. Medications Home Meds Active Scripts Bumetanide* (Bumetanide*) 1 Mg Tablet, 1 MG PO DAILY for 30 Days, #30 TAB 6 Refills Prov:TREY BOWEN MD 09/21/18 Nifedipine (Procardia Xl) 30 Mg Tab.er.24, 30 MG PO BID for 30 Days, #60 TAB 6 Refills Prov:TREY BOWEN MD 09/21/18 Losartan Potassium* (Cozaar*) 50 Mg Tablet, 50 MG PO BID for 30 Days, #30 TAB 6 Refills Prov:TREY BOWEN MD 09/21/18 Carvedilol* (Carvedilol*) 25 Mg Tablet, 25 MG PO BID for 30 Days, #60 TAB 6 Refills Prov:TREY BOWEN MD 09/21/18 Tramadol HCl (Tramadol HCl) 50 Mg Tablet, 50 MG PO Q6H PRN for PAIN for 30 Days, #90 TAB Prov:TREY BOWEN MD 09/21/18 Insulin Lispro (Humalog Kwikpen U-100) 100 Unit/1 Ml Insuln.pen, 6 UNIT SQ TIDAC for 30 Days, #1 EA Prov:NURYS CHATMAN MD 05/04/18 Metformin Hcl* (Metformin Hcl*) 500 Mg Tablet, 500 MG PO WITH BREAKFAST DINNE for 30 Days, #60 TAB Prov:NURYS CHATMAN MD 05/04/18 Reported Medications Apixaban* (Eliquis*) 5 Mg Tablet, 5 MG PO BID, TAB 09/09/18 Lorazepam* (Ativan*) 2 Mg Tablet, 2 MG PO Q6 PRN for ANXIETY, #60 TAB 09/09/18 Clonidine Hcl* (Clonidine Hcl*) 0.2 Mg Tablet, 0.2 MG PO QID, TAB 09/09/18 Allergies Allergies: Coded Allergies: ketorolac (Unverified Allergy, Mild, RASHES, 09/09/18) moxifloxacin HCl (Unverified Allergy, Mild, 09/09/18) PMhx/Soc 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)) Anesthesia Reaction: No Hx Neurological Disorder: No Hx Respiratory Disorders: No Hx Cardiac Disorders: Yes (HTN) 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 Neck: Full range of motion. No meningismus. Resp: Clear to auscultation bilaterally Cardio: Regular rate and rhythm, no murmurs Abd: Soft, non tender, non distended. Normal bowel sounds Skin: No petechiae or rashes Back: No midline or flank tenderness Ext: 2+ pitting edema bilateral lower extremities to mid calf Neur: Awake and alert Psych: Normal Mood and Affect Result Diagram: 10/10/18 0125 10/10/18 0125 Results 24 hrs Laboratory Tests Test 10/10/18 01:25 White Blood Count 9.6 10^3/ul Red Blood Count 4.59 10^6/ul Hemoglobin 13.4 g/dl Hematocrit 42.8 % Mean Corpuscular Volume 93.2 fl Mean Corpuscular Hemoglobin 29.2 pg Mean Corpuscular Hemoglobin Concent 31.3 g/dl Red Cell Distribution Width 14.7 % Platelet Count 265 10^3/UL Mean Platelet Volume 12.3 fl Immature Granulocytes % 0.400 % Neutrophils % 69.9 % Lymphocytes % 20.6 % Monocytes % 8.1 % Eosinophils % 0.8 % Basophils % 0.2 % Nucleated Red Blood Cells % 0.0 /100WBC Immature Granulocytes # 0.040 10^3/ul Neutrophils # 6.7 10^3/ul Lymphocytes # 2.0 10^3/ul Monocytes # 0.8 10^3/ul Eosinophils # 0.1 10^3/ul Basophils # 0.0 10^3/ul Nucleated Red Blood Cells # 0.0 10^3/ul Sodium Level 136 mmol/L Potassium Level 3.9 mmol/L Chloride Level 99 mmol/L Carbon Dioxide Level 29 mmol/L Anion Gap 8 Blood Urea Nitrogen 65 mg/dl Creatinine 1.24 mg/dl Est Glomerular Filtrat Rate mL/min 53 mL/min Glucose Level 204 mg/dl Calcium Level 9.6 mg/dl Total Bilirubin 0.2 mg/dl Direct Bilirubin 0.00 mg/dl Indirect Bilirubin 0.2 mg/dl Aspartate Amino Transf (AST/SGOT) 42 IU/L Alanine Aminotransferase (ALT/SGPT) 26 IU/L Alkaline Phosphatase 1155 IU/L Troponin I 0.140 ng/ml B-Type Natriuretic Peptide 46146 PG/ML Total Protein 6.2 g/dl Albumin 3.5 g/dl Globulin 2.70 g/dl Albumin/Globulin Ratio 1.29 Current Medications Medications Dose Sig/Jordin Start Time Status Last (Trade) Ordered Route PRN Stop Time Admin Dose Reason Admin Furosemide 60 mg ONCE ONCE 10/10/18 DC 10/10/18 (Lasix) IV 02:00 02:28 10/10/18 02:14 1 mg ONCE STAT 10/10/18 DC 10/10/18 Hydromorphone IV 02:14 02:29 HCl 10/10/18 02:15 (Dilaudid) IV Flush 3 ml PER 10/10/18 (NS 3 ml) PROTOCOL IV 02:30 Ondansetron 4 mg Q6H PRN 10/10/18 HCl (Zofran IV NAUSEA 02:30 Inj) AND/OR VOMITING 1 tab Q5M PRN 10/10/18 Nitroglycerin SL CHEST 02:30 PAIN (Nitroglyceri n (Sl Tab) 0.4 Mg) 650 mg Q6H PRN 10/10/18 Acetaminophen PO PAIN 02:30 (Tylenol LEVEL 1-3 OR Tab) FEVER Discontinue ONCE ONCE 10/10/18 DC Miscellaneous current oral XX 02:30 sulfonylur... 10/10/18 02:33 Information (* Miscellaneous Pharmacy Order) Diagnostic 1 ea 02 XX 10/11/18 Test (Pha) 02:00 (Accu-Chek) Insulin 12 units DAILY@0800 10/10/18 Glargine SC 08:00 (Lantus) Insulin 4 unit WITH MEALS 10/10/18 Aspart SC 08:00 (Novolog Insulin Pen) ONCE ONCE 10/10/18 DC Miscellaneous HYPOGLYCEMIA XX 02:30 PROTOCOL 10/10/18 02:33 Information w... (* Miscellaneous Pharmacy Order) Insulin NOVOLOG WITH MEALS 10/10/18 Aspart *MODERATE* BEDTIME SC 08:00 (Novolog ALGORITHM Insulin Pen) Discontinue ONCE ONCE 10/10/18 DC Miscellaneous all previ... XX 02:30 10/10/18 02:33 Information (* Miscellaneous Pharmacy Order) Apixaban 5 mg BID PO 10/10/18 (Eliquis) 09:00 Bumetanide 1 mg DAILY PO 10/10/18 (Bumex) 09:00 Carvedilol 25 mg BID PO 10/10/18 (Coreg) 09:00 Clonidine 0.2 mg QID PO 10/10/18 (Catapres) 09:00 Lorazepam 2 mg Q6 PRN PO 10/10/18 (Ativan) ANXIETY 02:30 Losartan 50 mg BID PO 10/10/18 Potassium 09:00 (Cozaar) Nifedipine 30 mg BID PO 10/10/18 (Procardia 09:00 Xl) Tramadol 50 mg Q6H PRN 10/10/18 HCl PO PAIN 02:30 (Ultram) 1 ea NOTE XX 10/10/18 Miscellaneous 03:00 Information Glucose 15 gm Q15M PRN 10/10/18 (Glutose) PO DECREASED 03:00 GLUCOSE Glucose 22.5 gm Q15M PRN 10/10/18 (Glutose) PO DECREASED 03:00 GLUCOSE Dextrose 25 ml Q15M PRN 10/10/18 (D50w IV DECREASED 03:00 Syringe) GLUCOSE Dextrose 50 ml Q15M PRN 10/10/18 (D50w IV DECREASED 03:00 Syringe) GLUCOSE Glucagon 1 mg Q15M PRN 10/10/18 (Glucagen) IM DECREASED 03:00 GLUCOSE Glucose 15 gm Q15M PRN 10/10/18 (Glutose) BUCCAL 03:00 DECREASED GLUCOSE Procedures/MDM EKG: Rate/Rhythm: [Normal Sinus Rhythm] QRS, ST, T-waves: [No changes consistent w/ acute ischemia] Impression: [No evidence of ischemia or arrhythmia] Chest X-ray 1V Interpreted by me: Soft Tissue: No acute abnormalities Bones: No acute abnormalities Mediastinum/Cardiac Silhouette/Lungs: Cardiomegaly. Increased interstitial fluid markings Medical decision making: Patient's heart failure symptoms is concerning for acut e decompensation and will require inpatient workup and monitoring. Further w/u for ischemia, arrhythmia, PE or dissection will be deferred to the inpatient team. Accepting Care Team: Current data and ongoing care discussed. Time: 1:50 AM Primary Provider: Hospitalist Consulting: Deferred to inpatient team Outstanding Data: none Departure Diagnosis: Primary Impression: Congestive heart failure (CHF) Heart failure type: unspecified Heart failure chronicity: unspecified Qualified Codes: I50.9 - Heart failure, unspecified Condition: Serious SADIE JIMENEZ Oct 10, 2018 03:28
[2018-10-10] MEDS ORDERED: NIFEdipine (XL) 30 MG TAB PO ONE (04:30)
[2018-10-10] MEDS: LORAZEPAM 1 MG TAB PO PRN ×4 (06:08→23:52)
--- NOTE | 2018-10-10 08:04 | HP ---
Date/Time of Note Date/Time of Note DATE: 10/10/18 TIME: 07:55 Assessment/Plan VTE Prophylaxis Pharmacological prophylaxis: heparin Lines/Catheters IV Catheter Type (from Nrsg): Mid Line Assessment/Plan Assessment/Plan 1. Acute on chronic systolic and diastolic CHF -Patient was given Lasix 60 IV x1. -will continue her home Bumex -Continue her cardiac medications -Cardiology consult 2. NSTEMI -Treatment dose Lovenox -Continue aspirin, beta-bina. As needed nitro -Trend troponin -Cardiology consult 3. Acute renal insufficiency: Improving since last discharge about 2 weeks ago 4. Hypertensive urgency: Adjust antihypertensives as needed 5. Diabetes: Continue insulin 6. Lower extremity venous insufficiency: Patient also has several scars from a previous skin popping Result Diagram: 10/10/18 0125 10/10/18 0125 Results 24hrs Laboratory Tests Test 10/10/18 01:25 White Blood Count 9.6 # Red Blood Count 4.59 Hemoglobin 13.4 Hematocrit 42.8 Mean Corpuscular Volume 93.2 Mean Corpuscular Hemoglobin 29.2 Mean Corpuscular Hemoglobin Concent 31.3 L Red Cell Distribution Width 14.7 H Platelet Count 265 # Mean Platelet Volume 12.3 H Immature Granulocytes % 0.400 Neutrophils % 69.9 Lymphocytes % 20.6 Monocytes % 8.1 Eosinophils % 0.8 Basophils % 0.2 Nucleated Red Blood Cells % 0.0 Immature Granulocytes # 0.040 H Neutrophils # 6.7 Lymphocytes # 2.0 Monocytes # 0.8 Eosinophils # 0.1 Basophils # 0.0 Nucleated Red Blood Cells # 0.0 Sodium Level 136 Potassium Level 3.9 Chloride Level 99 Carbon Dioxide Level 29 Anion Gap 8 Blood Urea Nitrogen 65 H Creatinine 1.24 H Est Glomerular Filtrat Rate mL/min 53 L Glucose Level 204 Calcium Level 9.6 Total Bilirubin 0.2 Direct Bilirubin 0.00 Indirect Bilirubin 0.2 Aspartate Amino Transf (AST/SGOT) 42 Alanine Aminotransferase (ALT/SGPT) 26 Alkaline Phosphatase 1155 H Troponin I 0.140 *H B-Type Natriuretic Peptide 11651 H Total Protein 6.2 Albumin 3.5 Globulin 2.70 Albumin/Globulin Ratio 1.29 HPI/ROS Admit Date/Time Admit Date/Time Hx of Present Illness This is a 63-year-old female with a history of hypertension, CHF, diabetes, right lower extremity DVT, history of IV drug use with skin popping, hearing impairment. Patient presented to ER complaining of lower extremity swelling, shortness of breath and generalized weakness. She was discharged from here just a little over 2 weeks ago. At that time she was managed for CHF, ARMIDA, and a light lower extremity DVT. A 2D echo at that time shows an EF of 45%. She states she has been compliant with her medications. She thinks every time she injected insulin, lower extremity swelling gets worse. When presented to ER, BP was significantly elevated, at one-point as high as 227/106. First troponin 0.140. Chest x-ray shows Moderate cardiomegaly with mild pulmonary venous congestion, slightly increased and bilateral small pleural effusions with underlying atelectasis, slightly increased. PMH/Family/Social Past Medical History Medications Current Medications IV Flush (NS 3 ml) 3 ml PER PROTOCOL IV ; Start 10/10/18 at 02:30 Ondansetron HCl (Zofran Inj) 4 mg Q6H PRN IV NAUSEA AND/OR VOMITING; Start 10/10/18 at 02:30 Nitroglycerin (Nitroglycerin (Sl Tab) 0.4 Mg) 1 tab Q5M PRN SL CHEST PAIN; Start 10/10/18 at 02:30 Acetaminophen (Tylenol Tab) 650 mg Q6H PRN PO PAIN LEVEL 1-3 OR FEVER; Start 10/10/18 at 02:30 Diagnostic Test (Pha) (Accu-Chek) 1 ea 02 XX ; Start 10/11/18 at 02:00 Insulin Glargine (Lantus) 12 units DAILY@0800 SC ; Start 10/10/18 at 08:00 Insulin Aspart (Novolog Insulin Pen) 4 unit WITH MEALS SC ; Start 10/10/18 at 08:00 Insulin Aspart (Novolog Insulin Pen) NOVOLOG *MODERATE* ALGORITHM WITH MEALS BEDTIME SC ; Start 10/10/18 at 08:00 Apixaban (Eliquis) 5 mg BID PO ; Start 10/10/18 at 09:00 Bumetanide (Bumex) 1 mg DAILY PO ; Start 10/10/18 at 09:00 Carvedilol (Coreg) 25 mg BID PO ; Start 10/10/18 at 09:00 Clonidine (Catapres) 0.2 mg QID PO ; Start 10/10/18 at 09:00 Lorazepam (Ativan) 2 mg Q6 PRN PO ANXIETY Last administered on 10/10/18at 06:08; Admin Dose 2 MG; Start 10/10/18 at 02:30 Losartan Potassium (Cozaar) 50 mg BID PO ; Start 10/10/18 at 09:00 Nifedipine (Procardia Xl) 30 mg BID PO ; Start 10/10/18 at 09:00 Tramadol HCl (Ultram) 50 mg Q6H PRN PO PAIN; Start 10/10/18 at 02:30 Miscellaneous Information 1 ea NOTE XX ; Start 10/10/18 at 03:00 Glucose (Glutose) 15 gm Q15M PRN PO DECREASED GLUCOSE; Start 10/10/18 at 03:00 Glucose (Glutose) 22.5 gm Q15M PRN PO DECREASED GLUCOSE; Start 10/10/18 at 03:00 Dextrose (D50w Syringe) 25 ml Q15M PRN IV DECREASED GLUCOSE; Start 10/10/18 at 03:00 Dextrose (D50w Syringe) 50 ml Q15M PRN IV DECREASED GLUCOSE; Start 10/10/18 at 03:00 Glucagon (Glucagen) 1 mg Q15M PRN IM DECREASED GLUCOSE; Start 10/10/18 at 03:00 Glucose (Glutose) 15 gm Q15M PRN BUCCAL DECREASED GLUCOSE; Start 10/10/18 at 03:00 Enoxaparin Sodium (Lovenox) 75 mg Q12 SC ; Start 10/10/18 at 06:30; Status UNV Coded Allergies: ketorolac (Unverified Allergy, Mild, RASHES, 09/09/18) morphine (Verified Allergy, Mild, itching, 10/10/18) moxifloxacin HCl (Unverified Allergy, Mild, 09/09/18) Past Surgical History Past Surgical Hx: noncontributory Family History Significant Family History: no pertinent family hx Social History Alcohol Use: none Smoking Status: Never smoker Drug Use: none Exam/Review of Systems Vital Signs Vitals Vital Signs Date Temp Pulse Resp B/P (MAP) Pulse Ox O2 O2 Flow FiO2 Time Delivery Rate 10/10/18 99.0 98 20 165/99 99 Nasal 2.0 07:45 (121) Cannula Exam Exam Constitutional: alert, oriented, well developed, other Head: normocephalic, atraumatic Respiratory: normal air movement Cardiovascular: regular rate and rhythm Gastrointestinal: soft Extremities: normal pulses PMH: see HPI PSH: see HPI . SADIE ENGLE MD Oct 10, 2018 08:04
[2018-10-10] MEDS ORDERED: ENOXAPARIN 100 MG/ML SYG SC SCH (09:00)
[2018-10-10] MEDS ORDERED: BUMETANIDE 1 MG TAB PO SCH (09:00)
[2018-10-10] MEDS: NIFEdipine (XL) 30 MG TAB PO SCH ×2 (09:28→20:17)
[2018-10-10] MEDS: APIXABAN 5 MG TABLET PO SCH ×2 (09:28→20:16)
[2018-10-10] MEDS: LOSARTAN 50 MG TAB PO SCH ×2 (09:28→20:17)
[2018-10-10] MEDS: INSULIN ASPART [NOVOLOG] 3 ML PEN SC SCH ×7 (09:29→20:14)
[2018-10-10] MEDS: INSULIN GLARGINE [LANTus] (100 UNITS/ML) SYG SC SCH (10:00)
[2018-10-10] MEDS: traMADol 50 MG TAB PO PRN ×3 (10:07→22:12)
--- NOTE | 2018-10-10 13:00 | CONS ---
DATE OF ADMISSION: 10/10/2018 DATE OF CONSULTATION: 10/10/2018 REASON FOR CONSULTATION: Positive troponin, assess significance and congestive heart failure. REQUESTING PHYSICIAN: Dr. Castañeda from the hospitalist service. HISTORY OF PRESENT ILLNESS: Ms. Stover is a 63-year-old female with a history of hypertension, congestive heart failure with mildly depressed left ventricular ejection fraction of 45% by echo August 2018, diabetes mellitus, right lower extremity deep venous thrombosis, IV drug abuse, hearing impairment, who presented with complaints of lower extremity swelling, shortness of breath, generalized weakness after being discharged approximately 2 weeks prior from [facility] for similar symptoms. Upon arrival, temperature 97.5, blood pressure 171/121, pulse 99, respiratory rate 20, satting 98%. The patient's labs notable for white count of 9.6, hemoglobin 12.4, platelet count 265. Sodium 136, potassium 3.9, creatinine 1.24, BUN of 65. Troponin minimally positive at 0.14, alkaline phosphatase of 1155. BNP of 23,800. The patient underwent a chest x-ray revealing moderate cardiomegaly with mild pulmonary congestion, bilateral small pleural effusion, underlying atelectasis, slightly increased. The patient's electrocardiogram was sinus rhythm, rate of 98, normal axis and intervals, anterior lateral T-wave inversion with isolated PVC, left atrial abnormality. The patient was admitted to the floor and since admit to the floor, had very labile blood pressures. at 8:00 is was 183/93 and 11:23 to 109/68. The patient is very hard of hearing and does not respond clearly to questions pertaining to chest pain and shortness of breath. PAST MEDICAL HISTORY: As above in HPI. MEDICATIONS CURRENTLY IN HOSPITAL: 1. Eliquis 5 mg p.o. b.i.d. 2. Bumex 1 mg daily. 3. Carvedilol 25 mg p.o. b.i.d. 4. Clonidine 0.2 mg q.i.d. 5. Cozaar 50 mg b.i.d. 6. Procardia 30 mg b.i.d. 7. Lovenox 75 subcu q.12h. 8. Insulin. 9. Ativan. ALLERGIES: 1. TORADOL 2. MOXIFLOXACIN. SOCIAL HISTORY: No current tobacco, ETOH or illicit drug use. FAMILY HISTORY: No history of sudden cardiac or early CAD. REVIEW OF SYSTEMS: As above in HPI. CONSTITUTIONAL: No fevers, chills. PULMONARY: Recurrent short of breath. CARDIOVASCULAR: Unclear if the patient has chest pain. GASTROINTESTINAL: No vomiting. GENITOURINARY: Renal failure. PSYCHIATRIC: No documented psych history. NEUROLOGIC: No documented CVA. Lower extremity weakness. PHYSICAL EXAMINATION: VITAL SIGNS: Temperature 98.6, blood pressure 112/68, pulse 85, respiratory 18, sat 99%. GENERAL: The patient is alert, awake, complaining of mild shortness of breath. NECK: JVP approximately 9 cm of water. CHEST: Decreased breath sounds at bases bilaterally. HEART: Regular rate and rhythm. Normal S1, S2, 1/6 systolic murmur, nondisplaced PMI. ABDOMEN: Positive bowel sounds, soft. EXTREMITIES: 1+ edema bilaterally. Difficult to palpate distal pulses bilaterally, posterior tibial. LABORATORIES: Most recent from today with glucose 263. No further labs for my review at this time. IMAGING STUDIES: As above in HPI. No further imaging studies for my review at this time. ECG: As above in HPI. No further electrocardiograms for my review at this time. IMPRESSION: 1. Positive troponin in the setting of renal failure, but EKG abnormalities. Assess significance, assess for true non-ST elevation myocardial infarction. 2. Abnormal electrocardiogram with anterior T-wave inversions in setting of positive troponin. 3. Congestive heart failure, likely systolic and diastolic, acute on chronic with last known EF of 45%. 4. Cardiomyopathy with decreased EF of 45% by echo 08/2018. 5. Renal failure with elevated BNP. 6. Increased alkaline phosphatase. 7. Diabetes mellitus, uncontrolled blood sugars. 8. Difficulty hearing. RECOMMENDATIONS: 1. At this time, would maintain patient on telemetry monitoring to follow rhythm and rate control closely. 2. Continue to trend the patient's cardiac enzymes, assess for any significant ongoing cardiac damage. 3. Continue the patient's antihypertensives with Carvedilol, Losartan, Clonidine. Procardia, following blood pressure after receiving. 4. Continue the patient's Eliquis for now and will discontinue the patient's Lovenox. The patient is on Eliquis systemic anticoagulation. 5. Would increase patient's Bumex diuresis following creatinine, strict I's and O's closely. 8. When the patient's volume has improved, we will consider stress testing to further assess significance of positive troponin. Thank you for allowing me to take part in the care of this patient. I will continue to follow along very closely with you with recommendations to be made as the patient progresses through his inpatient hospital clinical course. Dictated By: WOJCIECH MENDEZ/NTS Conf#: [id number] DID#: [id number] CC: KATI CASTAÑEDA; SADIE ENGLE MD;*EndCC* MTDD
[2018-10-10] MEDS ORDERED: morphine 2 MG INJ IV PRN (15:30)
--- NOTE | 2018-10-10 15:58 | PN ---
Date/Time of Note Date/Time of Note DATE: 10/10/18 TIME: 15:44 Assessment/Plan VTE Prophylaxis SCD applied (from Ns): No SCD contraindicated: other Pharmacological prophylaxis: apixaban Lines/Catheters IV Catheter Type (from Nrs): Peripheral IV Assessment/Plan Hospital Course S: Patient seen by cardiology team. Complaining of some knee pain. O: VS - see below PE: Gen: lying in bed, No acute distress Head: Atraumatic Eyes: Normal Conjunctiva ENT: Normal External Ears, Nose and Mouth, hard of hearing Neck: Full range of motion. No meningismus. Resp: Clear to auscultation bilaterally Cardio: Regular rate and rhythm, no murmurs Abd: Soft, non tender, non distended. Normal bowel sounds Ext: 1-2+ pitting edema bilateral lower extremities to mid calf Neur: Awake and alert, hard of hearing Psych: No focal deficits 2D echo September 19, 2018: Conclusions Mild left ventricular systolic dysfunction. The left ventricular ejection fraction is visually estimated at 45 %. Normal pericardium with no significant pericardial effusion. Left pleural effusion seen. Assessment/Plan: 63-year-old female who presents with: 1. Acute on chronic systolic and diastolic CHF -Echo results from last month reviewed.-Patient was given Lasix 60 IV x1. -Continue Bumex IV twice daily as ordered by cardiology team -Continue her cardiac medications -Follow-up recommendations from cardiology consult 2. Elevated troponin: Possible NSTEMI-first troponin elevated. Patient received treatment dose Lovenox. -Continue aspirin, beta-bina. As needed nitro -Continue to trend troponin -Follow-up recommendations from cardiology consult 3. Acute renal insufficiency: Improving since last discharge about 2 weeks ago -Monitor for now, if worsens, we will get renal consult 4. Hypertensive urgency: Blood pressure improved now -Monitor, adjust antihypertensives as needed 5. Diabetes: Continue insulin, follow-up A1c 6. Lower extremity DVT: Also with some venous insufficiency, Patient also has several scars from a previous skin popping -Monitor, continue Eliquis, consider wound care consult as needed Result Diagram: 10/10/18 0125 10/10/18 0125 Results 24hrs Laboratory Tests Test 10/10/18 01:25 10/10/18 08:59 10/10/18 11:20 White Blood Count 9.6 # Red Blood Count 4.59 Hemoglobin 13.4 Hematocrit 42.8 Mean Corpuscular Volume 93.2 Mean Corpuscular Hemoglobin 29.2 Mean Corpuscular Hemoglobin Concent 31.3 L Red Cell Distribution Width 14.7 H Platelet Count 265 # Mean Platelet Volume 12.3 H Immature Granulocytes % 0.400 Neutrophils % 69.9 Lymphocytes % 20.6 Monocytes % 8.1 Eosinophils % 0.8 Basophils % 0.2 Nucleated Red Blood Cells % 0.0 Immature Granulocytes # 0.040 H Neutrophils # 6.7 Lymphocytes # 2.0 Monocytes # 0.8 Eosinophils # 0.1 Basophils # 0.0 Nucleated Red Blood Cells # 0.0 Sodium Level 136 Potassium Level 3.9 Chloride Level 99 Carbon Dioxide Level 29 Anion Gap 8 Blood Urea Nitrogen 65 H Creatinine 1.24 H Est Glomerular Filtrat Rate mL/min 53 L Glucose Level 204 Calcium Level 9.6 Total Bilirubin 0.2 Direct Bilirubin 0.00 Indirect Bilirubin 0.2 Aspartate Amino Transf (AST/SGOT) 42 Alanine Aminotransferase (ALT/SGPT) 26 Alkaline Phosphatase 1155 H Troponin I 0.140 *H B-Type Natriuretic Peptide 45159 H Total Protein 6.2 Albumin 3.5 Globulin 2.70 Albumin/Globulin Ratio 1.29 Bedside Glucose 244 H 263 H Exam/Review of Systems Vital Signs Vitals Vital Signs Date Temp Pulse Resp B/P (MAP) Pulse Ox O2 O2 Flow FiO2 Time Delivery Rate 10/10/18 98.6 82 20 105/58 95 Nasal 15:41 (74) Cannula 10/10/18 2.0 07:45 Medications Medications Current Medications IV Flush (NS 3 ml) 3 ml PER PROTOCOL IV ; Start 10/10/18 at 02:30 Ondansetron HCl (Zofran Inj) 4 mg Q6H PRN IV NAUSEA AND/OR VOMITING; Start 10/10/18 at 02:30 Nitroglycerin (Nitroglycerin (Sl Tab) 0.4 Mg) 1 tab Q5M PRN SL CHEST PAIN; Start 10/10/18 at 02:30 Acetaminophen (Tylenol Tab) 650 mg Q6H PRN PO PAIN LEVEL 1-3 OR FEVER; Start 10/10/18 at 02:30 Diagnostic Test (Pha) (Accu-Chek) 1 ea 02 XX ; Start 10/11/18 at 02:00 Insulin Glargine (Lantus) 12 units DAILY@0800 SC ; Start 10/10/18 at 08:00 Insulin Aspart (Novolog Insulin Pen) 4 unit WITH MEALS SC Last administered on 10/10/18 12:12; Admin Dose 4 UNIT; Start 10/10/18 at 08:00 Insulin Aspart (Novolog Insulin Pen) NOVOLOG *MODERATE* ALGORITHM WITH MEALS BEDTIME SC Last administered on 10/10/18at 12:13; Admin Dose 8 UNIT; Start 10/10/18 at 08:00 Apixaban (Eliquis) 5 mg BID PO Last administered on 10/10/18 09:28; Admin Dose 5 MG; Start 10/10/18 at 09:00 Carvedilol (Coreg) 25 mg BID PO Last administered on 10/10/18 09:27; Admin Dose 25 MG; Start 10/10/18 at 09:00 Clonidine (Catapres) 0.2 mg QID PO Last administered on 10/10/18 09:28; Admin Dose 0.2 MG; Start 10/10/18 at 09:00 Lorazepam (Ativan) 2 mg Q6 PRN PO ANXIETY Last administered on 10/10/18at 12:06; Admin Dose 2 MG; Start 10/10/18 at 02:30 Losartan Potassium (Cozaar) 50 mg BID PO Last administered on 10/10/18 09:28; Admin Dose 50 MG; Start 10/10/18 at 09:00 Nifedipine (Procardia Xl) 30 mg BID PO Last administered on 10/10/18 09:28; Admin Dose 30 MG; Start 10/10/18 at 09:00 Tramadol HCl (Ultram) 50 mg Q6H PRN PO PAIN Last administered on 10/10/18at 10:07; Admin Dose 50 MG; Start 10/10/18 at 02:30 Miscellaneous Information 1 ea NOTE XX ; Start 10/10/18 at 03:00 Glucose (Glutose) 15 gm Q15M PRN PO DECREASED GLUCOSE; Start 10/10/18 at 03:00 Glucose (Glutose) 22.5 gm Q15M PRN PO DECREASED GLUCOSE; Start 10/10/18 at 03:00 Dextrose (D50w Syringe) 25 ml Q15M PRN IV DECREASED GLUCOSE; Start 10/10/18 at 03:00 Dextrose (D50w Syringe) 50 ml Q15M PRN IV DECREASED GLUCOSE; Start 10/10/18 at 03:00 Glucagon (Glucagen) 1 mg Q15M PRN IM DECREASED GLUCOSE; Start 10/10/18 at 03:00 Glucose (Glutose) 15 gm Q15M PRN BUCCAL DECREASED GLUCOSE; Start 10/10/18 at 03:00 Bumetanide (Bumex) 1 mg BID DIURETICS IV ; Start 10/10/18 at 18:00 Morphine Sulfate (morphine) 2 mg Q4 PRN IV PAIN LEVEL 6-10; Start 10/10/18 at 15:30; Status KATI SCHOFIELD Oct 10, 2018 15:55
[2018-10-10] MEDS ORDERED: morphine 4 MG/ML VIAL IV PRN (16:00)
[2018-10-10] MEDS: BUMETANIDE 1 MG INJ IV SCH (17:43)
--- NOTE | 2018-10-10 18:30 | NUR ---
pt transferred from er this am, c\o edema of b le and hands plus one edema noted, also left knee very swollen , not new per pt c\o generalized pain, back knees etc med with po tramadol with fair relief per pt pt given iv morphine for c\o breakthrough pain , but after given pt stated does not want further morphine due to itching so i placed it as an allergy and dc per pts request pt up with nader assist , brp pt very [place], only hears some in right ear
[2018-10-11] VITALS (9 sets, daily range): BP systolic 92–113; BP diastolic 62–68; PULSE 45–79; RESP 18–20
--- NOTE | 2018-10-11 00:45 | NUR ---
Patient was found by RUSSELL Reddy smoking an ecigarette in the patient room restrrom Addendum: 10/11/18 at 0111 by ACE LEIVA RN restroom, charge nurse aware, security was called in , Security took ecigarette and place it in a bag with patient label in it, will be kept with the security in the belongings until patient is discharged. Instructed patient that smoking is not allowed in the hospital, patient stated "I know", patient verbalizes understanding that her belongings will be returned when discharged.
[2018-10-11] MEDS: ACCU-CHEK XX SCH ×2 (02:00→20:52)
--- NOTE | 2018-10-11 02:27 | NUR ---
text sent to Dr. Meza regarding critical troponin result of 0.347
--- NOTE | 2018-10-11 02:52 | NUR ---
received voice message back from Dr. Meza, no further orders.
[2018-10-11] MEDS: traMADol 50 MG TAB PO PRN ×4 (04:18→22:49)
[2018-10-11] MEDS: LORAZEPAM 1 MG TAB PO PRN ×3 (05:43→19:12)
--- NOTE | 2018-10-11 06:16 | NUR ---
EOSS Patient forgetful, reorienting patient to plan of care. Patient anxious, taking prn pain meds and ativan as ordered prn. Vital signs stable,close observation required for risk of fall, patient forgets to use call light to call for assistance. Report will be endorse to oncoming shift
[2018-10-11] MEDS: BUMETANIDE 1 MG INJ IV SCH ×2 (06:54→17:33)
--- NOTE | 2018-10-11 07:45 | NUR ---
OT EVAL: Ms. Stover is a 63-year-old female with a history of hypertension, congestive heart failure with mildly depressed left ventricular ejection fraction of 45% by echo August 2018, diabetes mellitus, right lower extremity deep venous thrombosis, IV drug abuse, hearing impairment, who presented with complaints of lower extremity swelling, shortness of breath, generalized weakness after being discharged approximately 2 weeks prior from [facility] for similar symptoms. PLOF: Pt reports living with daughter in a single story home. Pt states she ambulates inside the home without AE and uses a FWW outside the home. Pt's daughter assists patient with all ADL's. CLOF: RN cleared pt for skilled OT tx. Pt received supine in bed and agreeable to tx. Pt is [place] and requires multiple verbal cueing to follow directions. Pt AOx2 (person, place) and demonstrated BUE AROM WFL, MMT 3+/5. Pt performed supine->sit at EOB with SBA. Seated at EOB pt demonstrated Fair balance while donning socks with CGA. Pt demonstrated toilet transfer with Min A using FWW with poor safety. Pt is impulsive and tends to let go of FWW stating she does not need it. Pt stood at bathroom sink with Min A while completing h/g tasks with supervision. Pt left supine in bed with all needs met. RN notified. Pt will benefit from skilled OT tx 1x daily for 3-5x week for safety awareness, balance, endurance and independence with self care. Defer to MD recommendation for d/c.
[2018-10-11] MEDS: NIFEdipine (XL) 30 MG TAB PO SCH ×2 (08:16→20:52)
[2018-10-11] MEDS: APIXABAN 5 MG TABLET PO SCH ×2 (08:17→20:51)
[2018-10-11] MEDS: LOSARTAN 50 MG TAB PO SCH ×2 (08:17→20:52)
[2018-10-11] MEDS: INSULIN GLARGINE [LANTus] (100 UNITS/ML) SYG SC SCH (08:47)
[2018-10-11] MEDS: INSULIN ASPART [NOVOLOG] 3 ML PEN SC SCH ×7 (08:47→20:50)
--- NOTE | 2018-10-11 11:16 | PN ---
Date/Time of Note Date/Time of Note DATE: 10/11/18 TIME: 11:11 Assessment/Plan VTE Prophylaxis Risk score (from Ns)>0 risk: 4 SCD applied (from Ns): No SCD contraindicated: other Pharmacological prophylaxis: apixaban Lines/Catheters [facility] Saline Lock Assessment/Plan Hospital Course S: Patient seen by cardiology team yesterday. Still having vague complaints of anxiety and generalized pain. Also complained of constipation. Seen by occupational therapy team as well today. O: VS - see below PE: Gen: lying in bed, No acute distress Head: Atraumatic Eyes: Normal Conjunctiva ENT: Normal External Ears, Nose and Mouth, hard of hearing Neck: Full range of motion. No meningismus. Resp: Clear to auscultation bilaterally Cardio: Regular rate and rhythm, no murmurs Abd: Soft, non tender, non distended. Normal bowel sounds Ext: 1+ pitting edema bilateral lower extremities to ankles Neur: No focal deficits, hard of hearing 2D echo September 19, 2018: Conclusions Mild left ventricular systolic dysfunction. The left ventricular ejection fraction is visually estimated at 45 %. Normal pericardium with no significant pericardial effusion. Left pleural effusion seen. Assessment/Plan: 63-year-old female who presents with: 1. Acute on chronic systolic and diastolic CHF -slowly improving now, patient has been on Bumex IV twice daily since admission Echo results from last month reviewed. -Continue Bumex IV twice daily as ordered by cardiology team -Continue her cardiac medications, will lower her Coreg dose slightly -Follow-up further recommendations from cardiology consult 2. Elevated troponin: Possible NSTEMI-first troponin elevated, now the troponins have been fluctuating, second 1 normal, third 1 slightly elevated again. Patient received treatment dose Lovenox this admission. -Continue aspirin, beta-bina. As needed nitro -Continue to trend troponin -Follow-up recommendations from cardiology consult 3. Acute renal insufficiency: Creatinine still slightly elevated, but overall appears to be improving since last discharge about 2 weeks ago -Monitor for now, if worsens, we will get renal consult 4. Hypertensive urgency: Resolved, again blood pressure improved now -Monitor, adjust antihypertensives as needed 5. Diabetes: Sugars stable - continue insulin, follow-up A1c 6. Lower extremity DVT: Also with some venous insufficiency, Patient also has several scars from a previous skin popping -Monitor, continue Eliquis, consider wound care consult as needed Dispo: Hopefully later today, at the latest in 24 hours after clearance given by cardiology team and physical therapy has worked the patient Result Diagram: 10/11/1851810/11/18518 Results 24hrs Laboratory Tests Test 10/10/18 11:20 10/10/18 17:13 10/10/18 17:56 10/10/18 19:43 Bedside Glucose 263 H 129 168 Creatine Kinase 42 Creatine Kinase 4.1 Index Creatinine Kinase MB 1.73 (Mass) Troponin I 0.117 Test 10/11/18 00:44 10/11/18 05:19 10/11/18 08:14 Creatine Kinase 58 Creatine Kinase 3.8 Index Creatinine Kinase MB 2.20 (Mass) Troponin I 0.347 *H White Blood Count 6.5 # Red Blood Count 4.09 L Hemoglobin 11.9 L Hematocrit 38.8 Mean Corpuscular 94.9 Volume Mean Corpuscular 29.1 Hemoglobin Mean Corpuscular 30.7 L Hemoglobin Concent Red Cell 15.1 H Distribution Width Platelet Count 159 # Mean Platelet Volume 12.4 H Immature 0.300 Granulocytes % Neutrophils % 48.2 Lymphocytes % 39.3 Monocytes % 9.6 Eosinophils % 2.0 Basophils % 0.6 Nucleated Red Blood 0.0 Cells % Immature 0.020 Granulocytes # Neutrophils # 3.1 Lymphocytes # 2.5 Monocytes # 0.6 Eosinophils # 0.1 Basophils # 0.0 Nucleated Red Blood 0.0 Cells # Sodium Level 132 L Potassium Level 4.5 Chloride Level 96 L Carbon Dioxide Level 26 Anion Gap 10 Blood Urea Nitrogen 61 H Creatinine 1.35 H Est Glomerular 48 L Filtrat Rate mL/min Glucose Level 176 Calcium Level 8.8 Phosphorus Level 3.8 Magnesium Level 1.4 L Triglycerides Level 88 Cholesterol Level 127 LDL Cholesterol, 56 Calculated HDL Cholesterol 53 Cholesterol/HDL 2.3 Ratio Bedside Glucose 198 Exam/Review of Systems Vital Signs Vitals Vital Signs Date Temp Pulse Resp B/P (MAP) Pulse Ox O2 O2 Flow FiO2 Time Delivery Rate 10/11/18 79 08:00 10/11/18 98.1 18 108/66 93 07:46 (80) 10/11/18 Nasal 00:00 Cannula 10/10/18 2.0 20:00 Intake and Output 10/10/18 10/10/18 10/11/18 1414:59 22:59 06:59 IntakeIntake Total 800 ml BalanceBalance 800 ml Medications Medications Current Medications IV Flush (NS 3 ml) 3 ml PER PROTOCOL IV ; Start 10/10/18 at 02:30 Ondansetron HCl (Zofran Inj) 4 mg Q6H PRN IV NAUSEA AND/OR VOMITING; Start 10/10/18 at 02:30 Nitroglycerin (Nitroglycerin (Sl Tab) 0.4 Mg) 1 tab Q5M PRN SL CHEST PAIN; Start 10/10/18 at 02:30 Acetaminophen (Tylenol Tab) 650 mg Q6H PRN PO PAIN LEVEL 1-3 OR FEVER; Start 10/10/18 at 02:30 Diagnostic Test (Pha) (Accu-Chek) 1 XX ; Start 10/11/18 at 02:00 Insulin Glargine (Lantus) 12 units DAILY@0800 SC Last administered on 10/11/18at 08:47; Admin Dose 12 UNITS; Start 10/10/18 at 08:00 Insulin Aspart (Novolog Insulin Pen) 4 unit WITH MEALS SC Last administered on 10/11/18at 08:47; Admin Dose 4 UNIT; Start 10/10/18 at 08:00 Insulin Aspart (Novolog Insulin Pen) NOVOLOG *MODERATE* ALGORITHM WITH MEALS BEDTIME SC Last administered on 10/11/18at 08:47; Admin Dose 4 UNIT; Start 10/10/18 at 08:00 Apixaban (Eliquis) 5 mg BID PO Last administered on 10/11/18at 08:17; Admin Dose 5 MG; Start 10/10/18 at 09:00 Carvedilol (Coreg) 25 mg BID PO Last administered on 10/11/18at 08:19; Admin Dose 25 MG; Start 10/10/18 at 09:00 Clonidine (Catapres) 0.2 mg QID PO Last administered on 10/11/18at 08:16; Admin Dose 0.2 MG; Start 10/10/18 at 09:00 Losartan Potassium (Cozaar) 50 mg BID PO Last administered on 10/11/18at 08:17; Admin Dose 50 MG; Start 10/10/18 at 09:00 Nifedipine (Procardia Xl) 30 mg BID PO Last administered on 10/11/18at 08:16; Admin Dose 30 MG; Start 10/10/18 at 09:00 Tramadol HCl (Ultram) 50 mg Q6H PRN PO PAIN Last administered on 10/11/18at 10:42; Admin Dose 50 MG; Start 10/10/18 at 02:30 Miscellaneous Information 1 ea NOTE XX ; Start 10/10/18 at 03:00 Glucose (Glutose) 15 gm Q15M PRN PO DECREASED GLUCOSE; Start 10/10/18 at 03:00 Glucose (Glutose) 22.5 gm Q15M PRN PO DECREASED GLUCOSE; Start 10/10/18 at 03:00 Dextrose (D50w Syringe) 25 ml Q15M PRN IV DECREASED GLUCOSE; Start 10/10/18 at 03:00 Dextrose (D50w Syringe) 50 ml Q15M PRN IV DECREASED GLUCOSE; Start 10/10/18 at 03:00 Glucagon (Glucagen) 1 mg Q15M PRN IM DECREASED GLUCOSE; Start 10/10/18 at 03:00 Glucose (Glutose) 15 gm Q15M PRN BUCCAL DECREASED GLUCOSE; Start 10/10/18 at 03:00 Bumetanide (Bumex) 1 mg BID DIURETICS IV Last administered on 10/11/18at 06:54; Admin Dose 1 MG; Start 10/10/18 at 18:00 Magnesium Sulfate 3 gm/Dextrose 106 ml @ 35.333 mls/ hr ONCE ONCE IVPB ; Start 10/11/18 at 12:00; Stop 10/11/18 at 14:59 Lorazepam (Ativan) 1 mg Q6 PRN PO ANXIETY; Start 10/11/18 at 11:30; Status KATI SCHOFIELD Oct 11, 2018 11:16
[2018-10-11] MEDS: DOCUSATE SODIUM 100 MG CAP PO SCH ×2 (11:53→20:50)
[2018-10-11] MEDS ORDERED: MAGNESIUM SULFATE 3 GM in DEXTROSE 5% 100 ML IVPB ONE (12:00)
--- NOTE | 2018-10-11 12:50 | CONS ---
Date/Time of Note Date/Time of Note DATE: 10/11/18 TIME: 12:43 Assessment/Plan Assessment/Plan Hospital Course IMPRESSION: 1. Positive troponin in the setting of renal failure, but EKG abnormalities. Assess significance, assess for true non-ST elevation myocardial infarction.- trended negative and then ok mild positivity 2. Abnormal electrocardiogram with anterior T-wave inversions 3. Congestive heart failure, likely systolic and diastolic, acute on chronic with last known EF of 45%. 4. Cardiomyopathy with decreased EF of 45% by echo 08/2018. 5. Renal failure with elevated BNP. 6. Increased alkaline phosphatase. 7. Diabetes mellitus, uncontrolled blood sugars. 8. Difficulty hearing. Recc: -Tele -serial ecg's -Continue coreg/CCB/clonidine -Continue eliquis -will f/u echo -continue to trend cardiac enzymes -Contineu Bumex diuresis Result Diagram: 10/11/1851810/11/18518 Results 24hrs Laboratory Tests Test 10/10/18 17:13 10/10/18 17:56 10/10/18 19:43 10/11/18 00:44 Bedside Glucose 129 168 Creatine Kinase 42 58 Creatine Kinase 4.1 3.8 Index Creatinine Kinase MB 1.73 2.20 (Mass) Troponin I 0.117 0.347 *H Test 10/11/18 05:19 10/11/18 08:14 10/11/18 11:40 White Blood Count 6.5 # Red Blood Count 4.09 L Hemoglobin 11.9 L Hematocrit 38.8 Mean Corpuscular 94.9 Volume Mean Corpuscular 29.1 Hemoglobin Mean Corpuscular 30.7 L Hemoglobin Concent Red Cell 15.1 H Distribution Width Platelet Count 159 # Mean Platelet Volume 12.4 H Immature 0.300 Granulocytes % Neutrophils % 48.2 Lymphocytes % 39.3 Monocytes % 9.6 Eosinophils % 2.0 Basophils % 0.6 Nucleated Red Blood 0.0 Cells % Immature 0.020 Granulocytes # Neutrophils # 3.1 Lymphocytes # 2.5 Monocytes # 0.6 Eosinophils # 0.1 Basophils # 0.0 Nucleated Red Blood 0.0 Cells # Sodium Level 132 L Potassium Level 4.5 Chloride Level 96 L Carbon Dioxide Level 26 Anion Gap 10 Blood Urea Nitrogen 61 H Creatinine 1.35 H Est Glomerular 48 L Filtrat Rate mL/min Glucose Level 176 Hemoglobin A1c 6.8 H Calcium Level 8.8 Phosphorus Level 3.8 Magnesium Level 1.4 L Triglycerides Level 88 Cholesterol Level 127 LDL Cholesterol, 56 Calculated HDL Cholesterol 53 Cholesterol/HDL 2.3 Ratio Bedside Glucose 198 107 Consultation Date/Type/Reason Admit Date/Time Oct 10, 2018 at 01:49 Initial Consult Date 10/10/18 Type of Consult cardiology Reason for Consultation positive troponin Requesting Provider: KATI CASTAÑEDA Exam/Review of Systems Vital Signs Vitals Vital Signs Date Temp Pulse Resp B/P (MAP) Pulse Ox O2 O2 Flow FiO2 Time Delivery Rate 10/11/18 98.6 77 18 113/67 98 11:30 (82) 10/11/18 Nasal 00:00 Cannula 10/10/18 2.0 20:00 Intake and Output 10/10/18 10/10/18 10/11/18 1515:00 23:00 07:00 IntakeIntake Total 800 ml BalanceBalance 800 ml Exam Review of Systems: CONSTITUTIONAL: No fevers, chills. PULMONARY: No sob CARDIOVASCULAR: No chest pain/palpitations GASTROINTESTINAL: No nausea/vomiting. GENITOURINARY: No hematuria/dysuria. MUSCULOSKELETAL: No myagias/arthalgias. PSYCHIATRIC: The patient denies depression. NEUROLOGIC: No weakness Constitutional: other (sleeping) Psych: no complaints Head: normocephalic ENMT: mucosa pink and moist Neck: supple, jvd Respiratory: diminished breath sounds (at bases/B) Cardiovascular: regular rate and rhythm Gastrointestinal: soft, non-tender Musculoskeletal: muscle weakness (generalized) Extremities: pitting pedal edema (bilateral with mutiple escoriations) Medications Medications Current Medications IV Flush (NS 3 ml) 3 ml PER PROTOCOL IV ; Start 10/10/18 at 02:30 Ondansetron HCl (Zofran Inj) 4 mg Q6H PRN IV NAUSEA AND/OR VOMITING; Start 10/10/18 at 02:30 Nitroglycerin (Nitroglycerin (Sl Tab) 0.4 Mg) 1 tab Q5M PRN SL CHEST PAIN; Start 10/10/18 at 02:30 Acetaminophen (Tylenol Tab) 650 mg Q6H PRN PO PAIN LEVEL 1-3 OR FEVER; Start 10/10/18 at 02:30 Diagnostic Test (Pha) (Accu-Chek) 1 XX ; Start 10/11/18 at 02:00 Insulin Glargine (Lantus) 12 units DAILY@0800 SC Last administered on 10/11/18at 08:47; Admin Dose 12 UNITS; Start 10/10/18 at 08:00 Insulin Aspart (Novolog Insulin Pen) 4 unit WITH MEALS SC Last administered on 10/11/18at 11:59; Admin Dose 4 UNIT; Start 10/10/18 at 08:00 Insulin Aspart (Novolog Insulin Pen) NOVOLOG *MODERATE* ALGORITHM WITH MEALS BEDTIME SC Last administered on 10/11/18at 08:47; Admin Dose 4 UNIT; Start 10/10/18 at 08:00 Apixaban (Eliquis) 5 mg BID PO Last administered on 10/11/18at 08:17; Admin Dose 5 MG; Start 10/10/18 at 09:00 Clonidine (Catapres) 0.2 mg QID PO Last administered on 10/11/18at 08:16; Admin Dose 0.2 MG; Start 10/10/18 at 09:00 Losartan Potassium (Cozaar) 50 mg BID PO Last administered on 10/11/18at 08:17; Admin Dose 50 MG; Start 10/10/18 at 09:00 Nifedipine (Procardia Xl) 30 mg BID PO Last administered on 10/11/18at 08:16; Admin Dose 30 MG; Start 10/10/18 at 09:00 Tramadol HCl (Ultram) 50 mg Q6H PRN PO PAIN Last administered on 10/11/18at 10:42; Admin Dose 50 MG; Start 10/10/18 at 02:30 Miscellaneous Information 1 ea NOTE XX ; Start 10/10/18 at 03:00 Glucose (Glutose) 15 gm Q15M PRN PO DECREASED GLUCOSE; Start 10/10/18 at 03:00 Glucose (Glutose) 22.5 gm Q15M PRN PO DECREASED GLUCOSE; Start 10/10/18 at 03:00 Dextrose (D50w Syringe) 25 ml Q15M PRN IV DECREASED GLUCOSE; Start 10/10/18 at 03:00 Dextrose (D50w Syringe) 50 ml Q15M PRN IV DECREASED GLUCOSE; Start 10/10/18 at 03:00 Glucagon (Glucagen) 1 mg Q15M PRN IM DECREASED GLUCOSE; Start 10/10/18 at 03:00 Glucose (Glutose) 15 gm Q15M PRN BUCCAL DECREASED GLUCOSE; Start 10/10/18 at 03:00 Bumetanide (Bumex) 1 mg BID DIURETICS IV Last administered on 10/11/18at 06:54; Admin Dose 1 MG; Start 10/10/18 at 18:00 Magnesium Sulfate 3 gm/Dextrose 106 ml @ 35.333 mls/ hr ONCE ONCE IVPB ; Start 10/11/18 at 12:00; Stop 10/11/18 at 14:59 Lorazepam (Ativan) 1 mg Q6 PRN PO ANXIETY Last administered on 10/11/18at 11:53; Admin Dose 1 MG; Start 10/11/18 at 11:30 Docusate Sodium (Colace) 200 mg BID PO Last administered on 10/11/18at 11:53; Admin Dose 200 MG; Start 10/11/18 at 11:30 Carvedilol (Coreg) 12.5 mg BID PO ; Start 10/11/18 at 21:00 WOJCIECH THIBODEAUX Oct 11, 2018 12:50
--- NOTE | 2018-10-11 13:15 | NUR ---
Nurses Note: Notified Dr. Richardson about Trop 0.[address] Richardson acknowledged the text. No orders received.
--- NOTE | 2018-10-11 14:48 | NUR ---
PT evaluation note: S: HPI per MD note: This is a very pleasant 63-year-old female comes in with complaints of bilateral lower extremity edema and shortness of breath. Patient has history of CHF in the past. No chest pain. No nausea no vomiting fevers O: MD order received for PT consult. Pt agreed to participate with mobility after max encouragement from nursing and PT. Wanted to take pain medication so she can sleep per pt.. PLOF: Per pt she lives with daughter in single story house, household ambulatory without AD, used FWW for outdoor. Assisted with ADL by daughter CLOF: Patient independent supine to sit in bed but min assist to get to EOB. mod on sit/stand, transfers and ambulation with FWW tolerated about 10 feet x 2 with sitting rest break, unsteady gait, pt has poor motivation to move around needing increased encouragements. no noted respiratory distress after ambulation on room air. A: Patient can benefit from continue skilled PT intervention - short term SNF VERSUS HHPT with 24/7 care. P: Cont PT and progress as able. 2P for safety.
--- NOTE | 2018-10-11 16:30 | NUR ---
Nurses Note: Pt. very non compliant with hospital routine. Pt. high fall risk. Pt. refuses to be accompanied to bathroom with assistance. Pt states "Leave me alone", "I can walk by myself". Teaching provided to patient regarding falls. Bed in lowest position. Bed alarm on. Call light within reach.
--- NOTE | 2018-10-11 19:06 | NUR ---
EOSS: No acute events during shift. Pt. remained stable. Hourly rounding complete. All needs meet. Bed in lowest position. Call light within reach. Pt. continuously asked for pain medication and anti-anxiety medication. Informed the patient about dosage and frequency. Re-enforcement needed. Will continue to monitor and report care to day shift. Pt. very high fall risk. Fall pre-cautions initiated.
--- NOTE | 2018-10-11 21:49 | RADRPT ---
Vent Rate: 76 bpm RR Interval: 0 msec NH Interval: 142 msec QRS Duration: 86 msec QT Interval: 450 msec QTC Interval: 506 msec P-R-T [place]: 64 - 84 - 0 degrees Normal sinus rhythm Possible Left atrial enlargement T wave abnormality, consider inferior ischemia T wave abnormality, consider anterolateral ischemia Prolonged QT Abnormal ECG Electronically Signed By: Gilbert Mederos [id number]
[2018-10-12] VITALS (14 sets, daily range): BP systolic 121–180; BP diastolic 64–94; PULSE 53–98; RESP 16–20
[2018-10-12] MEDS: LORAZEPAM 1 MG TAB PO PRN ×4 (00:59→22:02)
--- NOTE | 2018-10-12 04:27 | NUR ---
Pt. reports not feeling well. Wanted BP recheck and blood glucose check. Accucheck done BG 77. Pt. requested for O.J.. Instructed to eat. Pudding provided. B.P. checked mildly elevated.
[2018-10-12] MEDS: traMADol 50 MG TAB PO PRN ×4 (05:01→23:11)
[2018-10-12] MEDS: BUMETANIDE 1 MG INJ IV SCH ×2 (06:57→17:11)
--- NOTE | 2018-10-12 07:39 | NUR ---
EOSS:Patient on the clock for her pain meds and ativan. Her main concern is constipation. Patient is saying she hasn't had a BM for a week. Per report, her last BM was on 10/10. Patient remains forgetful. High fall risk with unsteady gait due to previous right knee surgery. Forgets to use the call light for assistance. Endorse to oncoming nurse.
[2018-10-12] MEDS: INSULIN ASPART [NOVOLOG] 3 ML PEN SC SCH ×7 (07:46→21:00)
[2018-10-12] MEDS: APIXABAN 5 MG TABLET PO SCH ×2 (08:26→21:53)
[2018-10-12] MEDS: DOCUSATE SODIUM 100 MG CAP PO SCH ×2 (08:26→21:51)
[2018-10-12] MEDS: NIFEdipine (XL) 30 MG TAB PO SCH ×2 (08:27→21:52)
[2018-10-12] MEDS: LOSARTAN 50 MG TAB PO SCH ×2 (08:27→21:53)
[2018-10-12] MEDS: INSULIN GLARGINE [LANTus] (100 UNITS/ML) SYG SC SCH (08:59)
--- NOTE | 2018-10-12 10:15 | NUR ---
OT NOTE S: RN cleared pt for skilled OT tx. O: Pt received supine in bed stating 10/10 pain in BLE. Pt lethargic and required encouragement to engage in tx. Pt demonstrated Supine->sit at EOB with SBA. Pt required Min A for functional mob and 3/1 commode transfer using FWW due to impulsivity and impaired balance. Pt stood at bathroom sink with CGA while completing h/g tasks with supervision. Pt returned to bed with CGA. Pt left supine in bed with all needs met. RN notified.b A: Pt demonstrates poor balance and requires encouragement to engage in tx. P: Cont POC.
--- NOTE | 2018-10-12 10:55 | NUR ---
PT NOTE Therapy day number 2 Subjective Current complaint of pain Pain Scale NUMERIC Pain Intensity 10 (0-10) Patient Stated Goal for Pain Relief 0 (0-10) Pain Level Comment GENERAL PAIN Transfer Training Start Time 10:55 Supine to Sit Stand by Assist Transfer Sit to Stand Ability Minimum Assist Bed Mobility Sit to Supine Minimum Assist Bed Transfer Ability Minimum Assist Chair Transfer Ability Minimum Assist Additional Mobility Comments Bed mobility w/HOB elevated using BR and VCs/TCs for sequence Transfer Training End Time 11:10 Total Transfer Training Time 15 min (8-127) Gait Training Start Time 11:10 Gait Assist Levels Contact Guard Assist Assistive Devices Front Wheel Walker Ambulation Distance 10 feet Additional Gait Comments 10' x 2 CGA, 2PA for safety. flexed posture, impulsive, decreased step freedom Gait Training End Time 11:34 Total Gait Training Treatment Time 24 min (8-127) Static Sitting Balance Good Dynamic Sitting Balance Good Standing Static Balance Fair minus Dynamic Standing Balance Poor plus Additional Balance Assessments Comments FWW Safety Judgement Poor Activity Tolerance Poor Post Treatment Pain Intensity 10 0-10 Variance Documentation SEE BELOW AND PT NOTE Total Treament Time 39 min (8-127) Total Minutes 39 Total Units 3 PT Technical Record Comment PT NOTE S: Pt stated, "I am in pain. I can't walk. I need to go to the bathroom." After max encouragement pt agreeable for PT and cleared per RUSSELL Lozada. O: Received pt in semi-fowlers, asleep. VCs to rouse. Bed mobility w/HOB elevated using BR and VCs/TCs for sequence CGA/SBA. Applied gait belt at EOB. STS to FWW w/VCs for proper hand/foot placement and sequence Perez, 2PA for safety. Assisted pt to BSC per pt's request Perez, 2PA for safety. Gait training performed w/FWW inside room 10' x 2 CGA, 2PA for safety. Noted flexed posture, impulsive, decreased step length/stride, and low foot clearance. Pt required frequent VCs to correct posture, increase foot clearance/step length/stride and maintain distance from AD for safe ambulation. Pt demonstrated w/poor return. Assisted pt BTB due to pt refusing to ambulate further due to increased pain. Positioned pt for comfort. Left pt in comfort position, call light/phone within reach, bed alarmed, and all needs met. RUSSELL Lozada informed of pt's status. A: Poor tolerance to tx. Pt showed no signs of distress or SOB during or after tx. No c/o dizziness or nausea throughout tx. Limited gait due to pt refusing to ambulate further due to pain. Bed mobility and transfers improved compared to previous tx. Pt required VCs throughout tx due to pt being impulsive, confused, and having poor safety awareness. P: Continue POC and progress as tolerated.
--- NOTE | 2018-10-12 11:35 | PN ---
Date/Time of Note Date/Time of Note DATE: 10/12/18 TIME: 11:32 Assessment/Plan VTE Prophylaxis Risk score (from Ns)>0 risk: 2 SCD applied (from Ns): No SCD contraindicated: other Pharmacological prophylaxis: apixaban Lines/Catheters IV Catheter Type (from [facility]): Mid Line Assessment/Plan Hospital Course S: Patient seen by cardiology team yesterday. Still having vague complaints of anxiety and generalized pain. Also complained of constipation. Seen by occupational therapy team as well today. O: VS - see below PE: Gen: lying in bed, No acute distress Head: Atraumatic Eyes: Normal Conjunctiva ENT: Normal External Ears, Nose and Mouth, hard of hearing Neck: Full range of motion. No meningismus. Resp: Clear to auscultation bilaterally Cardio: Regular rate and rhythm, no murmurs Abd: Soft, non tender, non distended. Normal bowel sounds Ext: 1+ pitting edema bilateral lower extremities to ankles Neur: No focal deficits, hard of hearing 2D echo September 19, 2018: Conclusions Mild left ventricular systolic dysfunction. The left ventricular ejection fraction is visually estimated at 45 %. Normal pericardium with no significant pericardial effusion. Left pleural effusion seen. Assessment/Plan: 63-year-old female who presents with: 1. Acute on chronic systolic and diastolic CHF -slowly improving now, patient has been on Bumex IV twice daily since admission Echo results from last month reviewed. -Continue Bumex, follow-up cardiology recommendations -Continue her cardiac medications -Follow-up further recommendations from cardiology consult 2. Elevated troponin: Per cardiology, in the setting of renal failure, but EKG abnormalities. Assess significance, assess for true non-ST elevation myocardial infarction. Levels appear to be fluctuating but have been elevated in the last 3 draws. -Continue aspirin, beta-bina. As needed nitro -Continue to trend troponin -Follow-up recommendations from cardiology consult 3. Acute renal insufficiency: Creatinine again more slightly elevated today, patient has also been on IV Bumex since admission -Monitor for now, if worsens, we will get renal consult 4. Hypertensive urgency: Resolved, again blood pressure improved now -Monitor, adjust antihypertensives as needed 5. Diabetes: Sugars stable, A1c was 6.8. - continue insulin regimen 6. Lower extremity DVT: Also with some venous insufficiency, Patient also has several scars from a previous skin popping. -Monitor, continue Eliquis, consider wound care consult as needed Result Diagram: 10/12/18 0515 10/12/18 0506 Results 24hrs Laboratory Tests Test 10/11/18 11:40 10/11/18 12:09 10/11/18 17:31 10/11/18 18:54 Bedside Glucose 107 119 Troponin I 0.507 *H 0.463 *H Test 10/11/18 20:50 10/12/18 04:27 10/12/18 05:06 10/12/18 05:14 Bedside Glucose 93 77 Sodium Level 133 L Potassium Level 4.3 Chloride Level 93 L Carbon Dioxide Level 30 Anion Gap 10 Blood Urea Nitrogen 63 H Creatinine 1.57 H Est Glomerular 40 L Filtrat Rate mL/min Glucose Level 94 # Calcium Level 8.9 Phosphorus Level 3.9 Magnesium Level 1.7 Test 10/12/18 05:15 10/12/18 07:38 White Blood Count 8.6 # Red Blood Count 4.32 Hemoglobin 12.6 Hematocrit 41.6 Mean Corpuscular 96.3 Volume Mean Corpuscular 29.2 Hemoglobin Mean Corpuscular 30.3 L Hemoglobin Concent Red Cell 14.6 H Distribution Width Platelet Count 194 # Mean Platelet Volume 13.0 H Immature 0.300 Granulocytes % Neutrophils % 55.9 Lymphocytes % 30.4 Monocytes % 11.8 H Eosinophils % 1.0 Basophils % 0.6 Nucleated Red Blood 0.0 Cells % Immature 0.030 Granulocytes # Neutrophils # 4.8 Lymphocytes # 2.6 Monocytes # 1.0 H Eosinophils # 0.1 Basophils # 0.1 Nucleated Red Blood 0.0 Cells # Creatine Kinase 52 Creatine Kinase 4.6 Index Creatinine Kinase MB 2.39 (Mass) Troponin I 0.614 *H Bedside Glucose 91 Exam/Review of Systems Vital Signs Vitals Vital Signs Date Temp Pulse Resp B/P (MAP) Pulse Ox O2 O2 Flow FiO2 Time Delivery Rate 10/12/18 98.3 82 17 150/85 96 11:31 (106) 10/12/18 Nasal 2.0 04:30 Cannula Intake and Output 10/11/18 10/11/18 10/12/18 1515:00 23:00 07:00 IntakeIntake Total 930 ml 80 ml BalanceBalance 930 ml 80 ml Medications Medications Current Medications IV Flush (NS 3 ml) 3 ml PER PROTOCOL IV ; Start 10/10/18 at 02:30 Ondansetron HCl (Zofran Inj) 4 mg Q6H PRN IV NAUSEA AND/OR VOMITING; Start 10/10/18 at 02:30 Nitroglycerin (Nitroglycerin (Sl Tab) 0.4 Mg) 1 tab Q5M PRN SL CHEST PAIN; Start 10/10/18 at 02:30 Acetaminophen (Tylenol Tab) 650 mg Q6H PRN PO PAIN LEVEL 1-3 OR FEVER; Start 10/10/18 at 02:30 Diagnostic Test (Pha) (Accu-Chek) 1 ea 02 XX ; Start 10/11/18 at 02:00 Insulin Glargine (Lantus) 12 units DAILY@0800 SC Last administered on 10/12/18at 08:59; Admin Dose 12 UNITS; Start 10/10/18 at 08:00 Insulin Aspart (Novolog Insulin Pen) 4 unit WITH MEALS SC Last administered on 10/12/18 08:58; Admin Dose 4 UNIT; Start 10/10/18 at 08:00 Insulin Aspart (Novolog Insulin Pen) NOVOLOG *MODERATE* ALGORITHM WITH MEALS BEDTIME SC Last administered on 10/11/18 08:47; Admin Dose 4 UNIT; Start 10/10/18 at 08:00 Apixaban (Eliquis) 5 mg BID PO Last administered on 10/12/18 08:26; Admin Dose 5 MG; Start 10/10/18 at 09:00 Clonidine (Catapres) 0.2 mg QID PO Last administered on 10/12/18 08:27; Admin Dose 0.2 MG; Start 10/10/18 at 09:00 Losartan Potassium (Cozaar) 50 mg BID PO Last administered on 10/12/18 08:27; Admin Dose 50 MG; Start 10/10/18 at 09:00 Nifedipine (Procardia Xl) 30 mg BID PO Last administered on 10/12/18 08:27; Admin Dose 30 MG; Start 10/10/18 at 09:00 Tramadol HCl (Ultram) 50 mg Q6H PRN PO PAIN Last administered on 10/12/18at 10:53; Admin Dose 50 MG; Start 10/10/18 at 02:30 Miscellaneous Information 1 ea NOTE XX ; Start 10/10/18 at 03:00 Glucose (Glutose) 15 gm Q15M PRN PO DECREASED GLUCOSE; Start 10/10/18 at 03:00 Glucose (Glutose) 22.5 gm Q15M PRN PO DECREASED GLUCOSE; Start 10/10/18 at 03:00 Dextrose (D50w Syringe) 25 ml Q15M PRN IV DECREASED GLUCOSE; Start 10/10/18 at 03:00 Dextrose (D50w Syringe) 50 ml Q15M PRN IV DECREASED GLUCOSE; Start 10/10/18 at 03:00 Glucagon (Glucagen) 1 mg Q15M PRN IM DECREASED GLUCOSE; Start 10/10/18 at 03:00 Glucose (Glutose) 15 gm Q15M PRN BUCCAL DECREASED GLUCOSE; Start 10/10/18 at 03:00 Bumetanide (Bumex) 1 mg BID DIURETICS IV Last administered on 10/12/18at 06:57; Admin Dose 1 MG; Start 10/10/18 at 18:00 Lorazepam (Ativan) 1 mg Q6 PRN PO ANXIETY Last administered on 10/12/18at 06:58; Admin Dose 1 MG; Start 10/11/18 at 11:30 Docusate Sodium (Colace) 200 mg BID PO Last administered on 10/12/18at 08:26; Admin Dose 200 MG; Start 10/11/18 at 11:30 Carvedilol (Coreg) 12.5 mg BID PO Last administered on 10/12/18at 08:28; Admin Dose 12.5 MG; Start 10/11/18 at 21:00 Magnesium Hydroxide (Milk Of Mag) 30 ml BID PO ; Start 10/12/18 at 11:30 Senna (Senokot) 1 tab BID PO ; Start 10/12/18 at 11:30 KATI CASTAÑEDA Oct 12, 2018 11:35
[2018-10-12] MEDS: MAGNESIUM HYDROXIDE 30ML CUP PO SCH ×2 (11:45→21:50)
[2018-10-12] MEDS: SENNA TAB PO SCH ×2 (11:45→21:50)
--- NOTE | 2018-10-12 14:21 | CONS ---
Date/Time of Note Date/Time of Note DATE: 10/12/18 TIME: 14:17 Assessment/Plan Assessment/Plan Hospital Course IMPRESSION: 1. Positive troponin in the setting of renal failure, but EKG abnormalities. Assess significance, assess for true non-ST elevation myocardial infarction.- trended negative and then ok mild positivity 2. Abnormal electrocardiogram with anterior T-wave inversions 3. Congestive heart failure, likely systolic and diastolic, acute on chronic with last known EF of 45%. 4. Cardiomyopathy with decreased EF of 45% by echo 08/2018. 5. Renal failure with elevated BNP. 6. Increased alkaline phosphatase. 7. Diabetes mellitus, uncontrolled blood sugars. 8. Difficulty hearing. Recc: -Tele -serial ecg's -Continue coreg/CCB/clonidine with further uptitration to improve overall systolic BP -Continue eliquis -continue to trend cardiac enzymes -Contineu Bumex diuresis Result Diagram: 10/12/18 0515 10/12/18 0506 Results 24hrs Laboratory Tests Test 10/11/18 17:31 10/11/18 18:54 10/11/18 20:50 10/12/18 04:27 Bedside Glucose 119 93 77 Troponin I 0.463 *H Test 10/12/18 05:06 10/12/18 05:14 10/12/18 05:15 10/12/18 07:38 Sodium Level 133 L Potassium Level 4.3 Chloride Level 93 L Carbon Dioxide Level 30 Anion Gap 10 Blood Urea Nitrogen 63 H Creatinine 1.57 H Est Glomerular 40 L Filtrat Rate mL/min Glucose Level 94 # Calcium Level 8.9 Phosphorus Level 3.9 Magnesium Level 1.7 White Blood Count 8.6 # Red Blood Count 4.32 Hemoglobin 12.6 Hematocrit 41.6 Mean Corpuscular 96.3 Volume Mean Corpuscular 29.2 Hemoglobin Mean Corpuscular 30.3 L Hemoglobin Concent Red Cell 14.6 H Distribution Width Platelet Count 194 # Mean Platelet Volume 13.0 H Immature 0.300 Granulocytes % Neutrophils % 55.9 Lymphocytes % 30.4 Monocytes % 11.8 H Eosinophils % 1.0 Basophils % 0.6 Nucleated Red Blood 0.0 Cells % Immature 0.030 Granulocytes # Neutrophils # 4.8 Lymphocytes # 2.6 Monocytes # 1.0 H Eosinophils # 0.1 Basophils # 0.1 Nucleated Red Blood 0.0 Cells # Creatine Kinase 52 Creatine Kinase 4.6 Index Creatinine Kinase MB 2.39 (Mass) Troponin I 0.614 *H Bedside Glucose 91 Test 10/12/18 11:53 Bedside Glucose 120 Consultation Date/Type/Reason Admit Date/Time Oct 10, 2018 at 01:49 Initial Consult Date 10/10/18 Type of Consult cardiology Reason for Consultation positive troponin Requesting Provider: KATI CASTAÑEDA Exam/Review of Systems Vital Signs Vitals Vital Signs Date Temp Pulse Resp B/P (MAP) Pulse Ox O2 O2 Flow FiO2 Time Delivery Rate 10/12/18 82 12:00 10/12/18 98.3 17 150/85 96 11:31 (106) 10/12/18 Nasal 2.0 04:30 Cannula Intake and Output 10/11/18 10/11/18 10/12/18 1414:59 22:59 06:59 IntakeIntake Total 930 ml 80 ml BalanceBalance 930 ml 80 ml Exam Review of Systems: CONSTITUTIONAL: No fevers, chills. PULMONARY: No sob CARDIOVASCULAR: No chest pain/palpitations GASTROINTESTINAL: No nausea/vomiting. GENITOURINARY: No hematuria/dysuria. MUSCULOSKELETAL: No myagias/arthalgias. PSYCHIATRIC: The patient denies depression. NEUROLOGIC: No weakness Constitutional: alert Psych: no complaints Head: normocephalic ENMT: mucosa pink and moist Neck: supple, jvd (9 cm water) Respiratory: diminished breath sounds (at bases/B) Cardiovascular: regular rate and rhythm Gastrointestinal: soft, non-tender Musculoskeletal: muscle tone (normal) Extremities: edema (none) Neurological: other (No focal deficits) Medications Medications Current Medications IV Flush (NS 3 ml) 3 ml PER PROTOCOL IV ; Start 10/10/18 at 02:30 Ondansetron HCl (Zofran Inj) 4 mg Q6H PRN IV NAUSEA AND/OR VOMITING; Start 10/10/18 at 02:30 Nitroglycerin (Nitroglycerin (Sl Tab) 0.4 Mg) 1 tab Q5M PRN SL CHEST PAIN; Start 10/10/18 at 02:30 Acetaminophen (Tylenol Tab) 650 mg Q6H PRN PO PAIN LEVEL 1-3 OR FEVER; Start 10/10/18 at 02:30 Diagnostic Test (Pha) (Accu-Chek) 1 XX ; Start 10/11/18 at 02:00 Insulin Glargine (Lantus) 12 units DAILY@0800 SC Last administered on 10/12/18at 08:59; Admin Dose 12 UNITS; Start 10/10/18 at 08:00 Insulin Aspart (Novolog Insulin Pen) 4 unit WITH MEALS SC Last administered on 10/12/18at 13:13; Admin Dose 4 UNIT; Start 10/10/18 at 08:00 Insulin Aspart (Novolog Insulin Pen) NOVOLOG *MODERATE* ALGORITHM WITH MEALS BEDTIME SC Last administered on 10/11/18at 08:47; Admin Dose 4 UNIT; Start 10/10/18 at 08:00 Apixaban (Eliquis) 5 mg BID PO Last administered on 10/12/18at 08:26; Admin Dose 5 MG; Start 10/10/18 at 09:00 Clonidine (Catapres) 0.2 mg QID PO Last administered on 10/12/18at 13:07; Admin Dose 0.2 MG; Start 10/10/18 at 09:00 Losartan Potassium (Cozaar) 50 mg BID PO Last administered on 10/12/18at 08:27; Admin Dose 50 MG; Start 10/10/18 at 09:00 Nifedipine (Procardia Xl) 30 mg BID PO Last administered on 10/12/18at 08:27; Admin Dose 30 MG; Start 10/10/18 at 09:00 Tramadol HCl (Ultram) 50 mg Q6H PRN PO PAIN Last administered on 10/12/18at 10:53; Admin Dose 50 MG; Start 10/10/18 at 02:30 Miscellaneous Information 1 ea NOTE XX ; Start 10/10/18 at 03:00 Glucose (Glutose) 15 gm Q15M PRN PO DECREASED GLUCOSE; Start 10/10/18 at 03:00 Glucose (Glutose) 22.5 gm Q15M PRN PO DECREASED GLUCOSE; Start 10/10/18 at 03:00 Dextrose (D50w Syringe) 25 ml Q15M PRN IV DECREASED GLUCOSE; Start 10/10/18 at 03:00 Dextrose (D50w Syringe) 50 ml Q15M PRN IV DECREASED GLUCOSE; Start 10/10/18 at 03:00 Glucagon (Glucagen) 1 mg Q15M PRN IM DECREASED GLUCOSE; Start 10/10/18 at 03:00 Glucose (Glutose) 15 gm Q15M PRN BUCCAL DECREASED GLUCOSE; Start 10/10/18 at 03:00 Bumetanide (Bumex) 1 mg BID DIURETICS IV Last administered on 10/12/18at 06:57; Admin Dose 1 MG; Start 10/10/18 at 18:00 Lorazepam (Ativan) 1 mg Q6 PRN PO ANXIETY Last administered on 10/12/18 13:07; Admin Dose 1 MG; Start 10/11/18 at 11:30 Docusate Sodium (Colace) 200 mg BID PO Last administered on 10/12/18 08:26; Admin Dose 200 MG; Start 10/11/18 at 11:30 Carvedilol (Coreg) 12.5 mg BID PO Last administered on 10/12/18 08:28; Admin Dose 12.5 MG; Start 10/11/18 at 21:00 Magnesium Hydroxide (Milk Of Mag) 30 ml BID PO Last administered on 10/12/18 11:45; Admin Dose 30 ML; Start 10/12/18 at 11:30 Senna (Senokot) 1 tab BID PO Last administered on 10/12/18 11:45; Admin Dose 1 TAB; Start 10/12/18 at 11:30 WOJCIECH THIBODEAUX Oct 12, 2018 14:21
--- NOTE | 2018-10-12 18:27 | NUR ---
EOSS: Pt AO x 4, forgetful. SR on tele. Had episode of elevated BP, all scheduled BP meds given. Pt c/o constipation, PRN and scheduled meds given. Still no BM. Had episode of hypoglycemia, 53, treated with 1/2 amp D50, resolved. Last glucose 164. Pt is impulsive and gets up without calling for assistance. Bed alarm on, hourly rounding done. Needs attended to, will endorse accordingly to oncoming shift.
[2018-10-13] VITALS (13 sets, daily range): BP systolic 125–204; BP diastolic 66–101; PULSE 70–80; RESP 18–20
[2018-10-13] MEDS ORDERED: hydrALAzine 20 MG INJ IV PRN
[2018-10-13] MEDS: ACCU-CHEK XX SCH (01:25)
[2018-10-13] MEDS: traMADol 50 MG TAB PO PRN ×3 (05:06→18:26)
[2018-10-13] MEDS: LORAZEPAM 1 MG TAB PO PRN ×4 (06:41→18:25)
[2018-10-13] MEDS: BUMETANIDE 1 MG INJ IV SCH ×2 (06:42→17:46)
--- NOTE | 2018-10-13 07:40 | NUR ---
EOSS:No fall or injury during shift. Patient remains high fall risk due to being forgetfull and not calling for help. Brother Travis visited. Patient does not remember her brother. Medicated with Ultram for pain and Ativan as requested for anxiety. Endorsed to day nurse.
[2018-10-13] MEDS: MAGNESIUM HYDROXIDE 30ML CUP PO SCH ×2 (08:00→20:14)
[2018-10-13] MEDS: SENNA TAB PO SCH ×3 (08:00→20:20)
[2018-10-13] MEDS: DOCUSATE SODIUM 100 MG CAP PO SCH ×3 (08:00→20:20)
[2018-10-13] MEDS: APIXABAN 5 MG TABLET PO SCH ×2 (08:00→20:12)
[2018-10-13] MEDS: INSULIN GLARGINE [LANTus] (100 UNITS/ML) SYG SC SCH (08:02)
[2018-10-13] MEDS: INSULIN ASPART [NOVOLOG] 3 ML PEN SC SCH ×7 (08:02→20:22)
[2018-10-13] MEDS: NIFEdipine (XL) 30 MG TAB PO SCH ×2 (08:06→20:12)
--- NOTE | 2018-10-13 12:32 | CONS ---
Date/Time of Note Date/Time of Note DATE: 10/13/18 TIME: 12:30 Assessment/Plan Assessment/Plan Assessment/Plan 1. Positive troponin in the setting of renal failure, but EKG abnormalities. Assess significance, assess for true non-ST elevation myocardial infarction.- trended negative and then ok mild positivity - no CP - on't to treat medically. 2. Abnormal electrocardiogram with anterior T-wave inversions - troponin going down. 3. Congestive heart failure, likely systolic and diastolic, acute on chronic with last known EF of 45% - no indication for ICD. 4. Cardiomyopathy with decreased EF of 45% by echo 08/2018. 5. Renal failure with elevated BNP - CR better now - rowena lmonitor clinically - avoid nephrotoxic meds. 6. Increased alkaline phosphatase - 7. Diabetes mellitus, uncontrolled blood sugars- Rx as needed. 8. Difficulty hearing. Result Diagram: 10/13/18 0505 10/13/18 0505 Results 24hrs Laboratory Tests Test 10/12/18 17:15 10/12/18 17:31 10/12/18 17:49 10/12/18 21:49 Bedside Glucose 53 L 134 164 111 Test 10/13/18 04:35 10/13/18 05:05 10/13/18 07:58 10/13/18 11:10 Bedside Glucose 144 172 White Blood Count 6.4 # Red Blood Count 4.11 L Hemoglobin 12.1 Hematocrit 40.1 Mean Corpuscular 97.6 Volume Mean Corpuscular 29.4 Hemoglobin Mean Corpuscular 30.2 L Hemoglobin Concent Red Cell 14.6 H Distribution Width Platelet Count 140 # Mean Platelet Volume 13.7 H Immature 0.300 Granulocytes % Neutrophils % 50.7 Lymphocytes % 35.9 Monocytes % 11.5 H Eosinophils % 0.8 Basophils % 0.8 Nucleated Red Blood 0.3 H Cells % Immature 0.020 Granulocytes # Neutrophils # 3.3 Lymphocytes # 2.3 Monocytes # 0.7 Eosinophils # 0.1 Basophils # 0.1 Nucleated Red Blood 0.0 Cells # Sodium Level 134 L Potassium Level 4.5 Chloride Level 98 Carbon Dioxide Level 27 Anion Gap 9 Blood Urea Nitrogen 54 H Creatinine 1.38 H Est Glomerular 47 L Filtrat Rate mL/min Glucose Level 143 # Calcium Level 9.0 Phosphorus Level 4.1 Magnesium Level 1.8 Troponin I 0.371 *H 0.342 *H Test 10/13/18 12:14 Bedside Glucose 78 Consultation Date/Type/Reason Admit Date/Time Oct 10, 2018 at 01:49 Initial Consult Date Requesting Provider: KATI CASTAÑEDA 24 HR Interval Summary Free Text/Dictation NO focal ectopy on tele - NO CP now - Cr better - con't medical optimization now. ROS: No fever, no chills, no nausea, no vomiting, no diarrhea/constipation No recent weight changes No chest pain, no PND, no orthopnea - improved SOB No dizziness, blurred vision No thirst, no heat or cold intolerance Exam/Review of Systems Vital Signs Vitals Vital Signs Date Temp Pulse Resp B/P (MAP) Pulse Ox O2 O2 Flow FiO2 Time Delivery Rate 10/13/18 98.3 74 20 127/73 92 11:44 (91) 10/13/18 Nasal 2.0 08:20 Cannula Intake and Output 10/12/18 10/12/18 10/13/18 1515:00 23:00 07:00 IntakeIntake Total 30 ml 600 ml 60 ml BalanceBalance 30 ml 600 ml 60 ml Exam General: WN/WD/NAD, AOx 2-3 HEENT: Unicetric/atraumatic/EOMI (follows commands) NECK: JVD elevated, no thyromegaly Lymph: no lymphadenopathy HEART: regular with no S3, II/ systolic murmur at apex LUNGS: Coarse sounds ABD: soft, NT, ND, +BS : Intact Neuro: non focal SKIN: chronic changes EXT: trace edema Medications Medications Current Medications IV Flush (NS 3 ml) 3 ml PER PROTOCOL IV ; Start 10/10/18 at 02:30 Ondansetron HCl (Zofran Inj) 4 mg Q6H PRN IV NAUSEA AND/OR VOMITING; Start 10/10/18 at 02:30 Nitroglycerin (Nitroglycerin (Sl Tab) 0.4 Mg) 1 tab Q5M PRN SL CHEST PAIN; Start 10/10/18 at 02:30 Acetaminophen (Tylenol Tab) 650 mg Q6H PRN PO PAIN LEVEL 1-3 OR FEVER; Start 10/10/18 at 02:30 Diagnostic Test (Pha) (Accu-Chek) 1 ea 02 XX ; Start 10/11/18 at 02:00 Insulin Glargine (Lantus) 12 units DAILY@0800 SC Last administered on 10/13/18at 08:02; Admin Dose 12 UNITS; Start 10/10/18 at 08:00 Insulin Aspart (Novolog Insulin Pen) 4 unit WITH MEALS SC Last administered on 10/13/18at 08:02; Admin Dose 4 UNIT; Start 10/10/18 at 08:00 Insulin Aspart (Novolog Insulin Pen) NOVOLOG *MODERATE* ALGORITHM WITH MEALS BEDTIME SC Last administered on 10/13/18 08:03; Admin Dose 2 UNIT; Start 10/10/18 at 08:00 Apixaban (Eliquis) 5 mg BID PO Last administered on 10/13/18 08:00; Admin Dose 5 MG; Start 10/10/18 at 09:00 Clonidine (Catapres) 0.2 mg QID PO Last administered on 10/13/18at 12:13; Admin Dose 0.2 MG; Start 10/10/18 at 09:00 Losartan Potassium (Cozaar) 50 mg BID PO Last administered on 10/12/18at 21:53; Admin Dose 50 MG; Start 10/10/18 at 09:00; Status Hold Nifedipine (Procardia Xl) 30 mg BID PO Last administered on 10/13/18at 08:06; Admin Dose 30 MG; Start 10/10/18 at 09:00 Tramadol HCl (Ultram) 50 mg Q6H PRN PO PAIN Last administered on 10/13/18at 05:06; Admin Dose 50 MG; Start 10/10/18 at 02:30 Miscellaneous Information 1 ea NOTE XX ; Start 10/10/18 at 03:00 Glucose (Glutose) 15 gm Q15M PRN PO DECREASED GLUCOSE; Start 10/10/18 at 03:00 Glucose (Glutose) 22.5 gm Q15M PRN PO DECREASED GLUCOSE; Start 10/10/18 at 03:00 Dextrose (D50w Syringe) 25 ml Q15M PRN IV DECREASED GLUCOSE Last administered on 10/12/18at 17:19; Admin Dose 25 ML; Start 10/10/18 at 03:00 Dextrose (D50w Syringe) 50 ml Q15M PRN IV DECREASED GLUCOSE; Start 10/10/18 at 03:00 Glucagon (Glucagen) 1 mg Q15M PRN IM DECREASED GLUCOSE; Start 10/10/18 at 03:00 Glucose (Glutose) 15 gm Q15M PRN BUCCAL DECREASED GLUCOSE; Start 10/10/18 at 03:00 Bumetanide (Bumex) 1 mg BID DIURETICS IV Last administered on 10/13/18at 06:42; Admin Dose 1 MG; Start 10/10/18 at 18:00 Lorazepam (Ativan) 1 mg Q6 PRN PO ANXIETY Last administered on 10/13/18 06:41; Admin Dose 1 MG; Start 10/11/18 at 11:30 Docusate Sodium (Colace) 200 mg BID PO Last administered on 10/13/18 08:00; Admin Dose 200 MG; Start 10/11/18 at 11:30 Carvedilol (Coreg) 12.5 mg BID PO Last administered on 10/13/18 08:07; Admin Dose 12.5 MG; Start 10/11/18 at 21:00 Magnesium Hydroxide (Milk Of Mag) 30 ml BID PO Last administered on 10/13/18at 08:00; Admin Dose 30 ML; Start 10/12/18 at 11:30 Senna (Senokot) 1 tab BID PO Last administered on 10/13/18 08:00; Admin Dose 1 TAB; Start 10/12/18 at 11:30 Hydralazine HCl (Apresoline) 10 mg Q4H PRN IV ELEVATED SYSTOLIC BP; Start 10/13/18 at 00:00 ENEDINA BLAKE MD Oct 13, 2018 12:32
--- NOTE | 2018-10-13 12:46 | PN ---
Date/Time of Note Date/Time of Note DATE: 10/13/18 TIME: 12:44 Assessment/Plan VTE Prophylaxis Risk score (from Ns)>0 risk: 9 SCD applied (from Ns): No SCD contraindicated: other Pharmacological prophylaxis: apixaban Lines/Catheters IV [facility]ter Type (from [facility]): PICC Line Central line still needed: Yes Urinary Cath still in place: No Assessment/Plan Hospital Course S: Patient complains of less pain symptoms presently. Presently being evaluated by cardiology team. O: VS - see below PE: Gen: lying in bed, No acute distress Head: Atraumatic Eyes: Normal Conjunctiva ENT: Normal External Ears, Nose and Mouth, hard of hearing Neck: Full range of motion. No meningismus. Resp: Clear to auscultation bilaterally Cardio: Regular rate and rhythm, no murmurs Abd: Soft, non tender, non distended. Normal bowel sounds Ext: Trace pitting edema bilateral lower extremities to ankles Neur: No focal deficits, hard of hearing 2D echo September 19, 2018: Conclusions Mild left ventricular systolic dysfunction. The left ventricular ejection fraction is visually estimated at 45 %. Normal pericardium with no significant pericardial effusion. Left pleural effusion seen. Assessment/Plan: 63-year-old female who presents with: 1. Acute on chronic systolic and diastolic CHF -slowly improving now, patient has been on Bumex IV twice daily since admission Echo results from last month reviewed. -Continue Bumex, follow-up cardiology recommendations -Continue her cardiac medications -Follow-up further recommendations from cardiology consult 2. Elevated troponin: Per cardiology, in the setting of renal failure, but EKG abnormalities. Assess significance, assess for true non-ST elevation myocardial infarction. Levels appear to be fluctuating but have been elevated in the last few blood draws. -Continue aspirin, beta-bina. As needed nitro -Continue to trend troponin -Follow-up recommendations from cardiology consult 3. Acute renal insufficiency: Creatinine more improved today, overall still slightly elevated, patient has also been on IV Bumex since admission -Monitor for now 4. Hypertensive urgency: Resolved, again blood pressure improved now -Monitor, adjust antihypertensives as needed 5. Diabetes: Sugars stable, A1c was 6.8. - continue insulin regimen 6. Lower extremity DVT: Also with some venous insufficiency, Patient also has several scars from a previous skin popping. -Monitor, continue Eliquis, consider wound care consult as needed Result Diagram: 10/13/18 0505 10/13/18 0505 Results 24hrs Laboratory Tests Test 10/12/18 17:15 10/12/18 17:31 10/12/18 17:49 10/12/18 21:49 Bedside Glucose 53 L 134 164 111 Test 10/13/18 04:35 10/13/18 05:05 10/13/18 07:58 10/13/18 11:10 Bedside Glucose 144 172 White Blood Count 6.4 # Red Blood Count 4.11 L Hemoglobin 12.1 Hematocrit 40.1 Mean Corpuscular 97.6 Volume Mean Corpuscular 29.4 Hemoglobin Mean Corpuscular 30.2 L Hemoglobin Concent Red Cell 14.6 H Distribution Width Platelet Count 140 # Mean Platelet Volume 13.7 H Immature 0.300 Granulocytes % Neutrophils % 50.7 Lymphocytes % 35.9 Monocytes % 11.5 H Eosinophils % 0.8 Basophils % 0.8 Nucleated Red Blood 0.3 H Cells % Immature 0.020 Granulocytes # Neutrophils # 3.3 Lymphocytes # 2.3 Monocytes # 0.7 Eosinophils # 0.1 Basophils # 0.1 Nucleated Red Blood 0.0 Cells # Sodium Level 134 L Potassium Level 4.5 Chloride Level 98 Carbon Dioxide Level 27 Anion Gap 9 Blood Urea Nitrogen 54 H Creatinine 1.38 H Est Glomerular 47 L Filtrat Rate mL/min Glucose Level 143 # Calcium Level 9.0 Phosphorus Level 4.1 Magnesium Level 1.8 Troponin I 0.371 *H 0.342 *H Test 10/13/18 12:14 Bedside Glucose 78 Exam/Review of Systems Vital Signs Vitals Vital Signs Date Temp Pulse Resp B/P (MAP) Pulse Ox O2 O2 Flow FiO2 Time Delivery Rate 10/13/18 98.3 74 20 127/73 92 11:44 (91) 10/13/18 Nasal 2.0 08:20 Cannula Intake and Output 10/12/18 10/12/18 10/13/18 1515:00 23:00 07:00 IntakeIntake Total 30 ml 600 ml 60 ml BalanceBalance 30 ml 600 ml 60 ml Medications Medications Current Medications IV Flush (NS 3 ml) 3 ml PER PROTOCOL IV ; Start 10/10/18 at 02:30 Ondansetron HCl (Zofran Inj) 4 mg Q6H PRN IV NAUSEA AND/OR VOMITING; Start 10/10/18 at 02:30 Nitroglycerin (Nitroglycerin (Sl Tab) 0.4 Mg) 1 tab Q5M PRN SL CHEST PAIN; Start 10/10/18 at 02:30 Acetaminophen (Tylenol Tab) 650 mg Q6H PRN PO PAIN LEVEL 1-3 OR FEVER; Start 10/10/18 at 02:30 Diagnostic Test (Pha) (Accu-Chek) 1 ea 02 XX ; Start 10/11/18 at 02:00 Insulin Glargine (Lantus) 12 units DAILY@0800 SC Last administered on 10/13/18 08:02; Admin Dose 12 UNITS; Start 10/10/18 at 08:00 Insulin Aspart (Novolog Insulin Pen) 4 unit WITH MEALS SC Last administered on 10/13/18 08:02; Admin Dose 4 UNIT; Start 10/10/18 at 08:00 Insulin Aspart (Novolog Insulin Pen) NOVOLOG *MODERATE* ALGORITHM WITH MEALS BEDTIME SC Last administered on 10/13/18 08:03; Admin Dose 2 UNIT; Start 10/10 at 08:00 Apixaban (Eliquis) 5 mg BID PO Last administered on 10/13/18at 08:00; Admin Dose 5 MG; Start 10/10/18 at 09:00 Clonidine (Catapres) 0.2 mg QID PO Last administered on 10/13/18at 12:13; Admin Dose 0.2 MG; Start 10/10/18 at 09:00 Losartan Potassium (Cozaar) 50 mg BID PO Last administered on 10/12/18at 21:53; Admin Dose 50 MG; Start 10/10/18 at 09:00; Status Hold Nifedipine (Procardia Xl) 30 mg BID PO Last administered on 10/13/18 08:06; Admin Dose 30 MG; Start 10/10/18 at 09:00 Tramadol HCl (Ultram) 50 mg Q6H PRN PO PAIN Last administered on 10/13/18 05:06; Admin Dose 50 MG; Start 10/10/18 at 02:30 Miscellaneous Information 1 ea NOTE XX ; Start 10/10/18 at 03:00 Glucose (Glutose) 15 gm Q15M PRN PO DECREASED GLUCOSE; Start 10/10/18 at 03:00 Glucose (Glutose) 22.5 gm Q15M PRN PO DECREASED GLUCOSE; Start 10/10/18 at 03:00 Dextrose (D50w Syringe) 25 ml Q15M PRN IV DECREASED GLUCOSE Last administered on 10/12/18at 17:19; Admin Dose 25 ML; Start 10/10/18 at 03:00 Dextrose (D50w Syringe) 50 ml Q15M PRN IV DECREASED GLUCOSE; Start 10/10/18 at 03:00 Glucagon (Glucagen) 1 mg Q15M PRN IM DECREASED GLUCOSE; Start 10/10/18 at 03:00 Glucose (Glutose) 15 gm Q15M PRN BUCCAL DECREASED GLUCOSE; Start 10/10/18 at 03:00 Bumetanide (Bumex) 1 mg BID DIURETICS IV Last administered on 10/13/18at 06:42; Admin Dose 1 MG; Start 10/10/18 at 18:00 Lorazepam (Ativan) 1 mg Q6 PRN PO ANXIETY Last administered on 10/13/18at 06:41; Admin Dose 1 MG; Start 10/11/18 at 11:30 Docusate Sodium (Colace) 200 mg BID PO Last administered on 10/13/18at 08:00; Admin Dose 200 MG; Start 10/11/18 at 11:30 Carvedilol (Coreg) 12.5 mg BID PO Last administered on 10/13/18at 08:07; Admin Dose 12.5 MG; Start 10/11/18 at 21:00 Magnesium Hydroxide (Milk Of Mag) 30 ml BID PO Last administered on 10/13/18at 08:00; Admin Dose 30 ML; Start 10/12/18 at 11:30 Senna (Senokot) 1 tab BID PO Last administered on 10/13/18at 08:00; Admin Dose 1 TAB; Start 10/12/18 at 11:30 Hydralazine HCl (Apresoline) 10 mg Q4H PRN IV ELEVATED SYSTOLIC BP; Start 10/13/18 at 00:00 KATI CASTAÑEDA Oct 13, 2018 12:46
[2018-10-13] MEDS: BISACODYL (EC) 5 MG TAB PO PRN (17:46)
--- NOTE | 2018-10-13 18:01 | NUR ---
EOSS Patient stable, very hard of hearing, impulsive, no safety awareness, and non-complaint with fall precautions but does allow bed alarm on. Blood glucose controlled and per Dr. Pearl held scheduled 4 units of novolog twice due to blood glucose in the 70s and patient has poor appetite, the patient slept most of the day with ativan 1 mg PO and tramadol 50mg PO Q6H, patient complaining of constipation and was only able to have a small bowel movement, administered senna and started dulcolax daily, but patient refuses colace and milk of magnesia (claims it causes nausea), pending stress test tomorrow with Dr. Mujica with orders for NPO after midnight except for medications, patient is currently resting, will endorse care to machinist 2nd shift.
[2018-10-14] VITALS (11 sets, daily range): BP systolic 128–185; BP diastolic 69–94; PULSE 17–81; RESP 17–18
[2018-10-14] MEDS: traMADol 50 MG TAB PO PRN ×4 (00:27→18:30)
[2018-10-14] MEDS: LORAZEPAM 1 MG TAB PO PRN ×4 (00:27→18:29)
[2018-10-14] MEDS: ACCU-CHEK XX SCH (02:00)
--- NOTE | 2018-10-14 05:26 | NUR ---
EOSS: Pt A&O x 3. VSS, on 2L NC. B/P at beginning of shift was elevated 204/101, hydralazine IV administered; patient asymptomatic. B/P subsequently was WNL. Tramadol administered Q6H for generalized pain. Fall precautions maintained; bed alarm on. Hourly rounding performed. Call light within reach; instructed pt to call for assistance as needed. Pt clean and dry; all needs and concerns attended to. AM labs drawn. Patient maintained as NPO after midnight for cardiac stress test today. Will endorse pt to AM RN for continuity of care.
[2018-10-14] MEDS: BUMETANIDE 1 MG INJ IV SCH ×2 (06:33→17:57)
[2018-10-14] MEDS: DOCUSATE SODIUM 100 MG CAP PO SCH ×2 (07:37→21:00)
[2018-10-14] MEDS: MAGNESIUM HYDROXIDE 30ML CUP PO SCH ×2 (07:37→21:00)
[2018-10-14] MEDS: INSULIN ASPART [NOVOLOG] 3 ML PEN SC SCH ×7 (08:00→21:00)
[2018-10-14] MEDS: SENNA TAB PO SCH ×2 (09:04→21:08)
[2018-10-14] MEDS: BISACODYL (EC) 5 MG TAB PO PRN (09:04)
[2018-10-14] MEDS: NIFEdipine (XL) 30 MG TAB PO SCH ×2 (09:04→21:09)
[2018-10-14] MEDS: APIXABAN 5 MG TABLET PO SCH ×2 (09:04→21:07)
[2018-10-14] MEDS ORDERED: REGADENOSON 0.4 MG/5 ML SYG ONE (10:01)
--- NOTE | 2018-10-14 10:16 | CONS ---
Date/Time of Note Date/Time of Note DATE: 10/14/18 TIME: 10:14 Assessment/Plan Assessment/Plan Assessment/Plan 1. Positive troponin in the setting of renal failure, but EKG abnormalities. Assess significance, assess for true non-ST elevation myocardial infarction.- trended negative and then ok mild positivity - no CP - on't to treat medically. Stres test planned today. 2. Abnormal electrocardiogram with anterior T-wave inversions - troponin going down. 3. Congestive heart failure, likely systolic and diastolic, acute on chronic with last known EF of 45% - no indication for ICD. Will monitor. 4. Cardiomyopathy with decreased EF of 45% by echo 08/2018. 5. Renal failure with elevated BNP - CR better now - will monitor clinically - avoid nephrotoxic meds. Con't to improve. 6. Increased alkaline phosphatase - 7. Diabetes mellitus, uncontrolled blood sugars- Rx as needed. 8. Difficulty hearing. 9. HIgh BP - will resume meds post stress test. Result Diagram: 10/14/18 0501 10/14/18 0501 Results 24hrs Laboratory Tests Test 10/13/18 11:10 10/13/18 12:14 10/13/18 17:44 10/13/18 19:19 Troponin I 0.342 *H 0.288 *H Bedside Glucose 78 79 Test 10/13/18 20:22 10/14/18 05:01 10/14/18 09:05 Bedside Glucose 93 74 White Blood Count 6.0 Red Blood Count 4.11 L Hemoglobin 12.0 Hematocrit 39.7 Mean Corpuscular 96.6 Volume Mean Corpuscular 29.2 Hemoglobin Mean Corpuscular 30.2 L Hemoglobin Concent Red Cell 14.6 H Distribution Width Platelet Count 231 # Mean Platelet Volume 11.8 H Immature 0.300 Granulocytes % Neutrophils % 43.7 Lymphocytes % 42.8 Monocytes % 11.5 H Eosinophils % 1.2 Basophils % 0.5 Nucleated Red Blood 0.0 Cells % Immature 0.020 Granulocytes # Neutrophils # 2.6 Lymphocytes # 2.6 Monocytes # 0.7 Eosinophils # 0.1 Basophils # 0.0 Nucleated Red Blood 0.0 Cells # Prothrombin Time 16.9 #H Prothrombin Time 1.3 Ratio INR International 1.36 Normalized Ratio Activated 33.7 Partial Thromboplast Time Sodium Level 136 Potassium Level 3.8 Chloride Level 98 Carbon Dioxide Level 32 H Anion Gap 6 Blood Urea Nitrogen 47 H Creatinine 1.33 H Est Glomerular 49 L Filtrat Rate mL/min Glucose Level 77 # Calcium Level 9.5 Phosphorus Level 4.1 Magnesium Level 1.7 Consultation Date/Type/Reason Admit Date/Time Oct 10, 2018 at 01:49 Initial Consult Date Requesting Provider: KATI CASTAÑEDA 24 HR Interval Summary Free Text/Dictation NO acute events - Stress test today - Add BP meds as needed. ROS: No fever, no chills, no nausea, no vomiting, no diarrhea/constipation No recent weight changes No chest pain, no PND, no orthopnea - mild SOB No dizziness, blurred vision No thirst, no heat or cold intolerance Exam/Review of Systems Vital Signs Vitals Vital Signs Date Temp Pulse Resp B/P (MAP) Pulse Ox O2 O2 Flow FiO2 Time Delivery Rate 10/14/18 81 08:53 10/14/18 98.1 18 185/90 100 Nasal 08:27 (121) Cannula 10/14/18 2.0 05:00 Intake and Output 10/13/18 10/13/18 10/14/18 1414:59 22:59 06:59 IntakeIntake Total 450 ml 250 ml BalanceBalance 450 ml 250 ml Exam General: WN/WD/NAD, AOx 2-3 HEENT: Unicetric/atraumatic/EOMI (follow commands) NECK: JVD elevated, no thyromegaly Lymph: no lymphadenopathy HEART: regular with no S3, II/ systolic murmur at apex, PMI L LUNGS: Coarse sounds ABD: soft, NT, ND, +BS : Intact Neuro: non focal SKIN: chronic changes EXT: trace edema Medications Medications Current Medications IV Flush (NS 3 ml) 3 ml PER PROTOCOL IV ; Start 10/10/18 at 02:30 Ondansetron HCl (Zofran Inj) 4 mg Q6H PRN IV NAUSEA AND/OR VOMITING; Start 10/10/18 at 02:30 Nitroglycerin (Nitroglycerin (Sl Tab) 0.4 Mg) 1 tab Q5M PRN SL CHEST PAIN; Start 10/10/18 at 02:30 Acetaminophen (Tylenol Tab) 650 mg Q6H PRN PO PAIN LEVEL 1-3 OR FEVER Last administered on 10/13/18at 21:23; Admin Dose 650 MG; Start 10/10/18 at 02:30 Diagnostic Test (Pha) (Accu-Chek) 1 ea 02 XX ; Start 10/11/18 at 02:00 Insulin Glargine (Lantus) 12 units DAILY@0800 SC Last administered on 10/13/18at 08:02; Admin Dose 12 UNITS; Start 10/10/18 at 08:00 Insulin Aspart (Novolog Insulin Pen) 4 unit WITH MEALS SC Last administered on 10/13/18at 08:02; Admin Dose 4 UNIT; Start 10/10/18 at 08:00 Insulin Aspart (Novolog Insulin Pen) NOVOLOG *MODERATE* ALGORITHM WITH MEALS BEDTIME SC Last administered on 10/13/18 08:03; Admin Dose 2 UNIT; Start 10/10/18 at 08:00 Apixaban (Eliquis) 5 mg BID PO Last administered on 10/14/18at 09:04; Admin Dose 5 MG; Start 10/10/18 at 09:00 Clonidine (Catapres) 0.2 mg QID PO Last administered on 10/14/18at 09:04; Admin Dose 0.2 MG; Start 10/10/18 at 09:00 Losartan Potassium (Cozaar) 50 mg BID PO Last administered on 10/12/18at 21:53; Admin Dose 50 MG; Start 10/10/18 at 09:00; Status Hold Nifedipine (Procardia Xl) 30 mg BID PO Last administered on 10/14/18at 09:04; Admin Dose 30 MG; Start 10/10/18 at 09:00 Tramadol HCl (Ultram) 50 mg Q6H PRN PO PAIN Last administered on 10/14/18at 06:29; Admin Dose 50 MG; Start 10/10/18 at 02:30 Miscellaneous Information 1 ea NOTE XX ; Start 10/10/18 at 03:00 Glucose (Glutose) 15 gm Q15M PRN PO DECREASED GLUCOSE; Start 10/10/18 at 03:00 Glucose (Glutose) 22.5 gm Q15M PRN PO DECREASED GLUCOSE; Start 10/10/18 at 03:00 Dextrose (D50w Syringe) 25 ml Q15M PRN IV DECREASED GLUCOSE Last administered on 10/12/18at 17:19; Admin Dose 25 ML; Start 10/10/18 at 03:00 Dextrose (D50w Syringe) 50 ml Q15M PRN IV DECREASED GLUCOSE; Start 10/10/18 at 03:00 Glucagon (Glucagen) 1 mg Q15M PRN IM DECREASED GLUCOSE; Start 10/10/18 at 03:00 Glucose (Glutose) 15 gm Q15M PRN BUCCAL DECREASED GLUCOSE; Start 10/10/18 at 03:00 Bumetanide (Bumex) 1 mg BID DIURETICS IV Last administered on 10/14/18at 06:33; Admin Dose 1 MG; Start 10/10/18 at 18:00 Lorazepam (Ativan) 1 mg Q6 PRN PO ANXIETY Last administered on 10/14/18 06:28; Admin Dose 1 MG; Start 10/11/18 at 11:30 Docusate Sodium (Colace) 200 mg BID PO Last administered on 10/13/18 08:00; Admin Dose 200 MG; Start 10/11/18 at 11:30 Carvedilol (Coreg) 12.5 mg BID PO Last administered on 10/14/18 09:05; Admin Dose 12.5 MG; Start 10/11/18 at 21:00 Magnesium Hydroxide (Milk Of Mag) 30 ml BID PO Last administered on 10/13/18 08:00; Admin Dose 30 ML; Start 10/12/18 at 11:30 Senna (Senokot) 1 tab BID PO Last administered on 10/14/18 09:04; Admin Dose 1 TAB; Start 10/12/18 at 11:30 Hydralazine HCl (Apresoline) 10 mg Q4H PRN IV ELEVATED SYSTOLIC BP Last administered on 10/13/18at 20:11; Admin Dose 10 MG; Start 10/13/18 at 00:00 Bisacodyl (Dulcolax) 10 mg DAILY PRN PO CONSTIPATION Last administered on 10/14/18 09:04; Admin Dose 10 MG; Start 10/13/18 at 17:30 ENEDINA BLAKE MD Oct 14, 2018 10:16
--- NOTE | 2018-10-14 11:07 | ECORPT ---
DATE OF SERVICE: REFERRING PHYSICIAN: Dr. Castañeda REASON FOR REFERRAL Chest pain. DESCRIPTION: She was brought to the heart station. She had successful Lexiscan injection. Blood pre ssure was 112/60. With injection, initial blood pressure went up to 162/75. There was no precordial chest pain. She has LVH on EKG with some nonspecific ST-T changes. IMAGING: Changes will be reported separately. Dictated By: ENEDINA BLAKE MD ML/NTS Conf#: [id number] DID#: [id number] CC: KATI CASTAÑEDA; SADIE ENGLE MD;*EndCC*
--- NOTE | 2018-10-14 11:17 | PN ---
Date/Time of Note Date/Time of Note DATE: 10/14/18 TIME: 11:15 Assessment/Plan VTE Prophylaxis Risk score (from Ns)>0 risk: 10 SCD applied (from Ns): No SCD contraindicated: other Pharmacological prophylaxis: apixaban Lines/Catheters [facility]from [facility] Mid Line Urinary Cath still in place: No Assessment/Plan Hospital Course S: Patient seen by cardiology team this morning, presently getting cardiac stress test. O: VS - see below PE: -Unable to perform today because patient presently off the floor at cardiac stress test 2D echo September 19, 2018: Conclusions Mild left ventricular systolic dysfunction. The left ventricular ejection fraction is visually estimated at 45 %. Normal pericardium with no significant pericardial effusion. Left pleural effusion seen. Assessment/Plan: 63-year-old female who presents with: 1. Acute on chronic systolic and diastolic CHF -slowly improving now, patient has been on Bumex IV twice daily since admission Echo results from last month reviewed. -Continue Bumex per cardiology recommendations, follow-up cardiology recommendations -again for cardiac stress test today, follow-up results of this -Continue her cardiac medications 2. Elevated troponin: Per cardiology, in the setting of renal failure, but EKG abnormalities. Assess significance, assess for true non-ST elevation myocardial infarction. Levels appear to be fluctuating but have been elevated in the last few blood draws. -Continue aspirin, beta-bina. As needed nitro -again presently getting cardiac stress test, follow-up results of -Follow-up any further cardiac recommendations 3. Acute renal insufficiency: Creatinine slowly improving, overall still slightly elevated, patient has also been on IV Bumex since admission -Monitor for now 4. Hypertensive urgency: Resolved, again blood pressure improved now -Monitor, adjust antihypertensives as needed 5. Diabetes: Sugars stable, A1c was 6.8. - continue insulin regimen 6. Lower extremity DVT: Also with some venous insufficiency, Patient also has several scars from a previous skin popping. -Monitor, continue Eliquis, consider wound care consult as needed Result Diagram: 10/14/18 0501 10/14/18 0501 Results 24hrs Laboratory Tests Test 10/13/18 12:14 10/13/18 17:44 10/13/18 19:19 10/13/18 20:22 Bedside Glucose 78 79 93 Troponin I 0.288 *H Test 10/14/18 05:01 10/14/18 09:05 White Blood Count 6.0 Red Blood Count 4.11 L Hemoglobin 12.0 Hematocrit 39.7 Mean Corpuscular 96.6 Volume Mean Corpuscular 29.2 Hemoglobin Mean Corpuscular 30.2 L Hemoglobin Concent Red Cell 14.6 H Distribution Width Platelet Count 231 # Mean Platelet Volume 11.8 H Immature 0.300 Granulocytes % Neutrophils % 43.7 Lymphocytes % 42.8 Monocytes % 11.5 H Eosinophils % 1.2 Basophils % 0.5 Nucleated Red Blood 0.0 Cells % Immature 0.020 Granulocytes # Neutrophils # 2.6 Lymphocytes # 2.6 Monocytes # 0.7 Eosinophils # 0.1 Basophils # 0.0 Nucleated Red Blood 0.0 Cells # Prothrombin Time 16.9 #H Prothrombin Time 1.3 Ratio INR International 1.36 Normalized Ratio Activated 33.7 Partial Thromboplast Time Sodium Level 136 Potassium Level 3.8 Chloride Level 98 Carbon Dioxide Level 32 H Anion Gap 6 Blood Urea Nitrogen 47 H Creatinine 1.33 H Est Glomerular 49 L Filtrat Rate mL/min Glucose Level 77 # Calcium Level 9.5 Phosphorus Level 4.1 Magnesium Level 1.7 Bedside Glucose 74 Exam/Review of Systems Vital Signs Vitals Vital Signs Date Temp Pulse Resp B/P (MAP) Pulse Ox O2 O2 Flow FiO2 Time Delivery Rate 10/14/18 81 08:53 10/14/18 98.1 18 185/90 100 Nasal 08:27 (121) Cannula 10/14/18 2.0 05:00 Intake and Output 10/13/18 10/13/18 10/14/18 1515:00 23:00 07:00 IntakeIntake Total 450 ml 250 ml BalanceBalance 450 ml 250 ml Medications Medications Current Medications IV Flush (NS 3 ml) 3 ml PER PROTOCOL IV ; Start 10/10/18 at 02:30 Ondansetron HCl (Zofran Inj) 4 mg Q6H PRN IV NAUSEA AND/OR VOMITING; Start 10/10/18 at 02:30 Nitroglycerin (Nitroglycerin (Sl Tab) 0.4 Mg) 1 tab Q5M PRN SL CHEST PAIN; Start 10/10/18 at 02:30 Acetaminophen (Tylenol Tab) 650 mg Q6H PRN PO PAIN LEVEL 1-3 OR FEVER Last a dministered on 10/13/18at 21:23; Admin Dose 650 MG; Start 10/10/18 at 02:30 Diagnostic Test (Pha) (Accu-Chek) 1 ea 02 XX ; Start 10/11/18 at 02:00 Insulin Glargine (Lantus) 12 units DAILY@0800 SC Last administered on 10/13/18 08:02; Admin Dose 12 UNITS; Start 10/10/18 at 08:00 Insulin Aspart (Novolog Insulin Pen) 4 unit WITH MEALS SC Last administered on 10/13/18at 08:02; Admin Dose 4 UNIT; Start 10/10/18 at 08:00 Insulin Aspart (Novolog Insulin Pen) NOVOLOG *MODERATE* ALGORITHM WITH MEALS BE DTIME SC Last administered on 10/13/18 08:03; Admin Dose 2 UNIT; Start 10/10/18 at 08:00 Apixaban (Eliquis) 5 mg BID PO Last administered on 10/14/18at 09:04; Admin Dose 5 MG; Start 10/10/18 at 09:00 Clonidine (Catapres) 0.2 mg QID PO Last administered on 10/14/18at 09:04; Admin Dose 0.2 MG; Start 10/10/18 at 09:00 Losartan Potassium (Cozaar) 50 mg BID PO Last administered on 10/12/18at 21:53; Admin Dose 50 MG; Start 10/10/18 at 09:00; Status Hold Nifedipine (Procardia Xl) 30 mg BID PO Last administered on 10/14/18at 09:04; Admin Dose 30 MG; Start 10/10/18 at 09:00 Tramadol HCl (Ultram) 50 mg Q6H PRN PO PAIN Last administered on 10/14/18at 06:29; Admin Dose 50 MG; Start 10/10/18 at 02:30 Miscellaneous Information 1 ea NOTE XX ; Start 10/10/18 at 03:00 Glucose (Glutose) 15 gm Q15M PRN PO DECREASED GLUCOSE; Start 10/10/18 at 03:00 Glucose (Glutose) 22.5 gm Q15M PRN PO DECREASED GLUCOSE; Start 10/10/18 at 03:00 Dextrose (D50w Syringe) 25 ml Q15M PRN IV DECREASED GLUCOSE Last administered on 10/12/18at 17:19; Admin Dose 25 ML; Start 10/10/18 at 03:00 Dextrose (D50w Syringe) 50 ml Q15M PRN IV DECREASED GLUCOSE; Start 10/10/18 at 03:00 Glucagon (Glucagen) 1 mg Q15M PRN IM DECREASED GLUCOSE; Start 10/10/18 at 03:00 Glucose (Glutose) 15 gm Q15M PRN BUCCAL DECREASED GLUCOSE; Start 10/10/18 at 03:00 Bumetanide (Bumex) 1 mg BID DIURETICS IV Last administered on 10/14/18 06:33; Admin Dose 1 MG; Start 10/10/18 at 18:00 Lorazepam (Ativan) 1 mg Q6 PRN PO ANXIETY Last administered on 10/14/18 06:28; Admin Dose 1 MG; Start 10/11/18 at 11:30 Docusate Sodium (Colace) 200 mg BID PO Last administered on 10/13/18 08:00; Admin Dose 200 MG; Start 10/11/18 at 11:30 Carvedilol (Coreg) 12.5 mg BID PO Last administered on 10/14/18 09:05; Admin Dose 12.5 MG; Start 10/11/18 at 21:00 Magnesium Hydroxide (Milk Of Mag) 30 ml BID PO Last administered on 10/13/18 08:00; Admin Dose 30 ML; Start 10/12/18 at 11:30 Senna (Senokot) 1 tab BID PO Last administered on 10/14/18 09:04; Admin Dose 1 TAB; Start 10/12/18 at 11:30 Hydralazine HCl (Apresoline) 10 mg Q4H PRN IV ELEVATED SYSTOLIC BP Last administered on 10/13/18 20:11; Admin Dose 10 MG; Start 10/13/18 at 00:00 Bisacodyl (Dulcolax) 10 mg DAILY PRN PO CONSTIPATION Last administered on 10/14/18 09:04; Admin Dose 10 MG; Start 10/13/18 at 17:30 KATI CASTAÑEDA Oct 14, 2018 11:17
[2018-10-14] MEDS: INSULIN GLARGINE [LANTus] (100 UNITS/ML) SYG SC SCH (12:13)
--- NOTE | 2018-10-14 14:59 | NUR ---
0935 Patient off unit to nuclear medicine for stress test. 11:30 Patient back on unit, telemetry monitoring on.
--- NOTE | 2018-10-14 18:21 | NUR ---
EOSS Patient stable, went to nuclear medicine for stress test which was positive, Dr. Mujica and Dae aware, with orders for patient to stay overnight and Dr. Mujica stated he will go over the results with the family tomorrow, patient is tolerating diet well, was able to have a large bowel movement today and reported much relief, blood glucose controlled, still receiving ativan 1mg PO and tramadol 50mg Q6H, patient complains that the doses are not high enough and requesting 2mg of ativan and 100mg of tramadol but Dr. Pearl refused to increase the doses, patient was hypertensive at 185/90 this morning but responded well to scheduled cardiac medications, patient is a high fall risk, bed alarm on at all times since patient refuses to call for assistance and is unsteady. Patient is currently resting comfortably, will endorse care to machinist 2nd shift.
[2018-10-15] VITALS (10 sets, daily range): BP systolic 127–158; BP diastolic 67–95; PULSE 66–84; RESP 17–18
[2018-10-15] MEDS: LORAZEPAM 1 MG TAB PO PRN ×4 (00:30→20:12)
[2018-10-15] MEDS: traMADol 50 MG TAB PO PRN ×4 (00:30→20:16)
[2018-10-15] MEDS: ACCU-CHEK XX SCH (01:28)
--- NOTE | 2018-10-15 06:24 | NUR ---
EOSS: Pt A&O x 3. VSS, on 2L NC. SR on the monitor. Tramadol administered Q6H for generalized pain. Fall precautions maintained; bed alarm on. Hourly rounding performed. Call light within reach; instructed pt to call for assistance as needed. Pt clean and dry; all needs and concerns attended to. Will endorse pt to AM RN for continuity of care.
[2018-10-15] MEDS: BUMETANIDE 1 MG INJ IV SCH ×2 (06:41→17:19)
[2018-10-15] MEDS: INSULIN GLARGINE [LANTus] (100 UNITS/ML) SYG SC SCH (08:10)
[2018-10-15] MEDS: INSULIN ASPART [NOVOLOG] 3 ML PEN SC SCH ×7 (08:11→20:24)
--- NOTE | 2018-10-15 08:25 | CONS ---
Date/Time of Note Date/Time of Note DATE: 10/15/18 TIME: 08:22 Assessment/Plan Assessment/Plan Assessment/Plan 1. Positive troponin in the setting of renal failure, but EKG abnormalities. Assess significance, assess for true non-ST elevation myocardial infarction.- trended negative and then ok mild positivity - no CP - on't to treat medically. Stress test showed EF 30% with minimally reversible disease - I think ECHO is more accurate estimate of EF. Given minimal revesribility, I will advise med Rx oprimization ow - especially given Cr 1.3 and risk of contrast induced nephropathy oif LHC is needed. 2. Abnormal electrocardiogram with anterior T-wave inversions - troponin going down. 3. Congestive heart failure, likely systolic and diastolic, acute on chronic with last known EF of 45% - no indication for ICD. Will monitor. 4. Cardiomyopathy with decreased EF of 45% by echo 08/2018. 5. Renal failure with elevated BNP - CR better now - will monitor clinically - avoid nephrotoxic meds. Con't to improve. 6. Increased alkaline phosphatase - 7. Diabetes mellitus, uncontrolled blood sugars- Rx as needed. 8. Difficulty hearing. 9. HIgh BP - will resume meds post stress test- con't to adjust BP Rx. Result Diagram: 10/14/18 0501 10/14/18 0501 Results 24hrs Laboratory Tests Test 10/14/18 09:05 10/14/18 12:07 10/14/18 17:56 10/14/18 21:13 Bedside Glucose 74 80 137 152 Consultation Date/Type/Reason Admit Date/Time Oct 10, 2018 at 01:49 Initial Consult Date Requesting Provider: KATI CASTAÑEDA 24 HR Interval Summary Free Text/Dictation Stress test showed EF 30% with minimally reversible disease - I think ECHO is more accurate estimate of EF. Given minimal revesribility, I will advise med Rx oprimization ow - especially given Cr 1.3 and risk of contrast induced nephropathy oif LHC is needed. 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 ROS: No fever, no chills, no nausea, no vomiting, no diarrhea/constipation No recent weight changes No chest pain, no PND, no orthopnea - improved SOB. No dizziness, blurred vision No thirst, no heat or cold intolerance Exam/Review of Systems Vital Signs Vitals Vital Signs Date Temp Pulse Resp B/P (MAP) Pulse Ox O2 O2 Flow FiO2 Time Delivery Rate 10/15/18 2.0 05:00 10/15/18 73 04:00 10/15/18 97.9 18 135/67 92 04:00 (89) 10/14/18 Nasal 20:10 Cannula Intake and Output 10/14/18 10/14/18 10/15/18 1515:00 23:00 07:00 IntakeIntake Total 500 ml 650 ml BalanceBalance 500 ml 650 ml Exam General: WN/WD/NAD, AOx 3 HEENT: Unicetric/atraumatic/EOMI ( follows commands) NECK: JVD elevated, no thyromegaly Lymph: no lymphadenopathy HEART: regular with no S3, II/ systolic murmur at apex, PMI L LUNGS: Coarse sounds ABD: soft, NT, ND, +BS : Intact Neuro: non focal SKIN: chronic changes EXT: trace edema Medications Medications Current Medications IV Flush (NS 3 ml) 3 ml PER PROTOCOL IV ; Start 10/10/18 at 02:30 Ondansetron HCl (Zofran Inj) 4 mg Q6H PRN IV NAUSEA AND/OR VOMITING; Start 10/10/18 at 02:30 Nitroglycerin (Nitroglycerin (Sl Tab) 0.4 Mg) 1 tab Q5M PRN SL CHEST PAIN; Start 10/10/18 at 02:30 Acetaminophen (Tylenol Tab) 650 mg Q6H PRN PO PAIN LEVEL 1-3 OR FEVER Last administered on 10/13/18at 21:23; Admin Dose 650 MG; Start 10/10/18 at 02:30 Diagnostic Test (Pha) (Accu-Chek) 1 ea 02 XX ; Start 10/11/18 at 02:00 Insulin Glargine (Lantus) 12 units DAILY@0800 SC Last administered on 10/15/18at 08:10; Admin Dose 12 UNITS; Start 10/10/18 at 08:00 Insulin Aspart (Novolog Insulin Pen) 4 unit WITH MEALS SC Last administered on 10/15/18at 08:11; Admin Dose 4 UNIT; Start 10/10/18 at 08:00 Insulin Aspart (Novolog Insulin Pen) NOVOLOG *MODERATE* ALGORITHM WITH MEALS BEDTIME SC Last administered on 10/15/18at 08:12; Admin Dose 4 UNIT; Start 10/10/18 at 08:00 Apixaban (Eliquis) 5 mg BID PO Last administered on 10/14/18at 21:07; Admin Dose 5 MG; Start 10/10/18 at 09:00 Clonidine (Catapres) 0.2 mg QID PO Last administered on 10/14/18 21:06; Admin Dose 0.2 MG; Start 10/10/18 at 09:00 Losartan Potassium (Cozaar) 50 mg BID PO Last administered on 10/12/18 21:53; Admin Dose 50 MG; Start 10/10/18 at 09:00; Status Hold Nifedipine (Procardia Xl) 30 mg BID PO Last administered on 10/14/18 21:09; Admin Dose 30 MG; Start 10/10/18 at 09:00 Tramadol HCl (Ultram) 50 mg Q6H PRN PO PAIN Last administered on 10/15/18 06:39; Admin Dose 50 MG; Start 10/10/18 at 02:30 Miscellaneous Information 1 ea NOTE XX ; Start 10/10/18 at 03:00 Glucose (Glutose) 15 gm Q15M PRN PO DECREASED GLUCOSE; Start 10/10/18 at 03:00 Glucose (Glutose) 22.5 gm Q15M PRN PO DECREASED GLUCOSE; Start 10/10/18 at 03:00 Dextrose (D50w Syringe) 25 ml Q15M PRN IV DECREASED GLUCOSE Last administered on 10/12/18at 17:19; Admin Dose 25 ML; Start 10/10/18 at 03:00 Dextrose (D50w Syringe) 50 ml Q15M PRN IV DECREASED GLUCOSE; Start 10/10/18 at 03:00 Glucagon (Glucagen) 1 mg Q15M PRN IM DECREASED GLUCOSE; Start 10/10/18 at 03:00 Glucose (Glutose) 15 gm Q15M PRN BUCCAL DECREASED GLUCOSE; Start 10/10/18 at 03:00 Bumetanide (Bumex) 1 mg BID DIURETICS IV Last administered on 10/15/18at 06:41; Admin Dose 1 MG; Start 10/10/18 at 18:00 Lorazepam (Ativan) 1 mg Q6 PRN PO ANXIETY Last administered on 10/15/18at 06:39; Admin Dose 1 MG; Start 10/11/18 at 11:30 Docusate Sodium (Colace) 200 mg BID PO Last administered on 10/13/18 08:00; Admin Dose 200 MG; Start 10/11/18 at 11:30 Carvedilol (Coreg) 12.5 mg BID PO Last administered on 10/14/18 21:09; Admin Dose 12.5 MG; Start 10/11/18 at 21:00 Magnesium Hydroxide (Milk Of Mag) 30 ml BID PO Last administered on 10/13/18at 08:00; Admin Dose 30 ML; Start 10/12/18 at 11:30 Senna (Senokot) 1 tab BID PO Last administered on 10/14/18 21:08; Admin Dose 1 TAB; Start 10/12/18 at 11:30 Hydralazine HCl (Apresoline) 10 mg Q4H PRN IV ELEVATED SYSTOLIC BP Last administered on 10/13/18 20:11; Admin Dose 10 MG; Start 10/13/18 at 00:00 Bisacodyl (Dulcolax) 10 mg DAILY PRN PO CONSTIPATION Last administered on 10/14/18 09:04; Admin Dose 10 MG; Start 10/13/18 at 17:30 ENEDINA BLAKE MD Oct 15, 2018 08:25
[2018-10-15] MEDS: SENNA TAB PO SCH ×2 (09:34→20:24)
[2018-10-15] MEDS: DOCUSATE SODIUM 100 MG CAP PO SCH ×2 (09:34→20:17)
[2018-10-15] MEDS: MAGNESIUM HYDROXIDE 30ML CUP PO SCH ×2 (09:34→20:17)
[2018-10-15] MEDS: NIFEdipine (XL) 30 MG TAB PO SCH ×2 (09:35→20:11)
[2018-10-15] MEDS: APIXABAN 5 MG TABLET PO SCH ×2 (09:36→20:11)
--- NOTE | 2018-10-15 15:13 | PN ---
Date/Time of Note Date/Time of Note DATE: 10/15/18 TIME: 15:09 Assessment/Plan VTE Prophylaxis Risk score (from Ns)>0 risk: 7 SCD applied (from Ns): No SCD contraindicated: other (no) Pharmacological prophylaxis: other (eliquis) Lines/Catheters IV Catheter Type (from [facility]): Mid Line Urinary Cath still in place: No Assessment/Plan Assessment/Plan 63-year-old female who presents with: # Acute on chronic systolic and diastolic CHF -slowly improving now, patient has been on Bumex IV twice daily since admission Echo results from last month reviewed. -Continue Bumex per cardiology recommendations -Continue her cardiac medications # Elevated troponin: -Levels appear to be fluctuating but have been elevated in the last few blood draws. -Continue aspirin, beta-bina. As needed nitro -again presently getting cardiac stress test, follow-up results of -Per cardiology; manage medically no cath. - Aspirin and statin to be determined per cardiology. # Acute renal insufficiency: Creatinine slowly improving, overall still slightly elevated, patient has also been on IV Bumex since admission -Monitor for now # Hypertensive urgency: Resolved, again blood pressure improved now -Monitor, adjust antihypertensives as needed # Diabetes: Sugars stable, A1c was 6.8. - continue insulin regimen # Lower extremity DVT: Also with some venous insufficiency, Patient also has several scars from a previous skin popping. -Monitor, continue Eliquis, consider wound care consult as needed Dispo: Tentative plan for discharge tomorrow unless more diuresis needed per cardiology Result Diagram: 10/14/18 0501 10/14/18 0501 Results 24hrs Laboratory Tests Test 10/14/18 17:56 10/14/18 21:13 10/15/18 08:06 10/15/18 11:27 Bedside Glucose 137 152 186 72 Subjective 24 Hr Interval Summary Free Text/Dictation No acute overnight events. Patient does report burning epigastric pain which has been gradually worsening since yesterday. Otherwise feeling well, saturating well off oxygen. Exam/Review of Systems Vital Signs Vitals Vital Signs Date Temp Pulse Resp B/P (MAP) Pulse Ox O2 O2 Flow FiO2 Time Delivery Rate 10/15/18 76 12:00 10/15/18 98.9 18 155/84 100 Nasal 11:43 (107) Cannula 10/15/18 2.0 08:00 Intake and Output 10/14/18 10/14/18 10/15/18 1515:00 23:00 07:00 IntakeIntake Total 500 ml 650 ml BalanceBalance 500 ml 650 ml Exam Gen: Overweight woman lying in bed, No acute distress Head: Atraumatic Eyes: Normal Conjunctiva ENT: Normal External Ears, Nose and Mouth, hard of hearing Neck: Full range of motion. No meningismus. Resp: Clear to auscultation bilaterally Cardio: Regular rate and rhythm, no murmurs Abd: Soft, non tender, non distended. Normal bowel sounds Ext: Nonpitting LE edema. Medications Medications Current Medications IV Flush (NS 3 ml) 3 ml PER PROTOCOL IV ; Start 10/10/18 at 02:30 Ondansetron HCl (Zofran Inj) 4 mg Q6H PRN IV NAUSEA AND/OR VOMITING; Start 10/10/18 at 02:30 Nitroglycerin (Nitroglycerin (Sl Tab) 0.4 Mg) 1 tab Q5M PRN SL CHEST PAIN; Start 10/10/18 at 02:30 Acetaminophen (Tylenol Tab) 650 mg Q6H PRN PO PAIN LEVEL 1-3 OR FEVER Last administered on 10/13/18at 21:23; Admin Dose 650 MG; Start 10/10/18 at 02:30 Diagnostic Test (Pha) (Accu-Chek) 1 ea 02 XX ; Start 10/11/18 at 02:00 Insulin Glargine (Lantus) 12 units DAILY@0800 SC Last administered on 10/15/18at 08:10; Admin Dose 12 UNITS; Start 10/10/18 at 08:00 Insulin Aspart (Novolog Insulin Pen) 4 unit WITH MEALS SC Last administered on 10/15/18at 11:31; Admin Dose 4 UNIT; Start 10/10/18 at 08:00 Insulin Aspart (Novolog Insulin Pen) NOVOLOG *MODERATE* ALGORITHM WITH MEALS BEDTIME SC Last administered on 10/15/18at 08:12; Admin Dose 4 UNIT; Start 10/10/18 at 08:00 Apixaban (Eliquis) 5 mg BID PO Last administered on 10/15/18at 09:36; Admin Dose 5 MG; Start 10/10/18 at 09:00 Clonidine (Catapres) 0.2 mg QID PO Last administered on 10/15/18at 12:48; Admin Dose 0.2 MG; Start 10/10/18 at 09:00 Losartan Potassium (Cozaar) 50 mg BID PO Last administered on 10/12/18 21:53; Admin Dose 50 MG; Start 10/10/18 at 09:00; Status Hold Nifedipine (Procardia Xl) 30 mg BID PO Last administered on 10/15/18 09:35; Admin Dose 30 MG; Start 10/10/18 at 09:00 Tramadol HCl (Ultram) 50 mg Q6H PRN PO PAIN Last administered on 10/15/18 12:4 9; Admin Dose 50 MG; Start 10/10/18 at 02:30 Miscellaneous Information 1 ea NOTE XX ; Start 10/10/18 at 03:00 Glucose (Glutose) 15 gm Q15M PRN PO DECREASED GLUCOSE; Start 10/10/18 at 03:00 Glucose (Glutose) 22.5 gm Q15M PRN PO DECREASED GLUCOSE; Start 10/10/18 at 03:00 Dextrose (D50w Syringe) 25 ml Q15M PRN IV DECREASED GLUCOSE Last administered on 10/12/18at 17:19; Admin Dose 25 ML; Start 10/10/18 at 03:00 Dextrose (D50w Syringe) 50 ml Q15M PRN IV DECREASED GLUCOSE; Start 10/10/18 at 03:00 Glucagon (Glucagen) 1 mg Q15M PRN IM DECREASED GLUCOSE; Start 10/10/18 at 03:00 Glucose (Glutose) 15 gm Q15M PRN BUCCAL DECREASED GLUCOSE; Start 10/10/18 at 03:00 Bumetanide (Bumex) 1 mg BID DIURETICS IV Last administered on 10/15/18 06:41; Admin Dose 1 MG; Start 10/10/18 at 18:00 Lorazepam (Ativan) 1 mg Q6 PRN PO ANXIETY Last administered on 10/15/18 12:49; Admin Dose 1 MG; Start 10/11/18 at 11:30 Docusate Sodium (Colace) 200 mg BID PO Last administered on 10/15/18 09:34; Admin Dose 200 MG; Start 10/11/18 at 11:30 Carvedilol (Coreg) 12.5 mg BID PO Last administered on 10/15/18 09:35; Admin Dose 12.5 MG; Start 10/11/18 at 21:00 Magnesium Hydroxide (Milk Of Mag) 30 ml BID PO Last administered on 10/15/18at 09:34; Admin Dose 30 ML; Start 10/12/18 at 11:30 Senna (Senokot) 1 tab BID PO Last administered on 10/15/18 09:34; Admin Dose 1 TAB; Start 10/12/18 at 11:30 Hydralazine HCl (Apresoline) 10 mg Q4H PRN IV ELEVATED SYSTOLIC BP Last administered on 10/13/18at 20:11; Admin Dose 10 MG; Start 10/13/18 at 00:00 Bisacodyl (Dulcolax) 10 mg DAILY PRN PO CONSTIPATION Last administered on 10/14/18 09:04; Admin Dose 10 MG; Start 10/13/18 at 17:30 Pantoprazole (Protonix Tab) 40 mg BID@06,18 PO ; Start 10/15/18 at 18:00 WOJCIECH GUADARRAMA MD Oct 15, 2018 15:13
--- NOTE | 2018-10-15 15:46 | NUR ---
PT [facility] Patient: Ban Stover : 1955 Age/Sex: 63/F Unit#: [id number] Room/Bed: 630/A User: Sangita Stevenson PTA Date: 10/15/18 15:46 Type: PT Technical Record Therapy day number 4 Subjective Denies pain Pain Scale NUMERIC Pain Intensity 0 (0-10) Patient Stated Goal for Pain Relief 0 (0-10) Pain Level Comment no c/o pain Transfer Training Start Time 15:31 Supine to Sit Stand by Assist Transfer Sit to Stand Ability Stand by Assist Bed Mobility Sit to Supine Stand by Assist Bed Transfer Ability Stand by Assist Chair Transfer Ability Stand by Assist Toileting Ability Modified Independent Additional Mobility Comments pt refused FWW Transfer Training End Time 15:45 Total Transfer Training Time 14 min (8-127) Gait Assist Levels Stand by Assist Assistive Devices None Ambulation Distance 6 feet Additional Gait Comments 6'x2. SBA. Pt refused FWW Static Sitting Balance Good Dynamic Sitting Balance Good Standing Static Balance Fair minus Dynamic Standing Balance Fair minus Additional Balance Assessments Comments FWW Safety Judgement Poor Activity Tolerance Poor Post Treatment Pain Intensity 0 0-10 Total Treament Time 14 min (8-127) Total Minutes 14 Total Units 1 PT Technical Record Comment S: RUSSELL Nunn cleared pt for PT. Required max encouragement to participate in PT O: Received pt sleeping in semifowler. VC/TC to rouse. See above for assist levels. Pt refusing to perform gait training w/ FWW. Respected pt's wishes. Assisted pt to toilet. Gait training x 6' and presented with unsteady gait. LOB x1 and pt able to self recover. Pt refused this therapist help stating, "I don't need your help. I can do this on my own." Pt refused further gait training and PT services despite max encouragement from this therapist. Returned pt back to bed. Positioned pt to comfort in semifowler. Call light/phone within reach. Needs met. Informed RN of pt status and activities A: Poor tolerance to tx. Pt noncompliant and refused further gait training P: Continue w/ POC and progress as tolerated
[2018-10-15] MEDS: PANTOPRAZOLE (EC) 40 MG TAB PO SCH (17:51)
[2018-10-16] VITALS (9 sets, daily range): BP systolic 115–178; BP diastolic 68–87; PULSE 70–77; RESP 18
[2018-10-16] MEDS: ACCU-CHEK XX SCH (03:00)
[2018-10-16] MEDS: traMADol 50 MG TAB PO PRN ×3 (03:00→16:43)
[2018-10-16] MEDS: PANTOPRAZOLE (EC) 40 MG TAB PO SCH ×2 (07:11→17:34)
[2018-10-16] MEDS: BUMETANIDE 1 MG INJ IV SCH ×2 (07:11→17:34)
--- NOTE | 2018-10-16 07:27 | NUR ---
EOSS:Patient had a good night. Medicated twice with a combination of Ultram 50 mg po and Ativan 1 mg po. per patient's request. Slept well. No fall or injury noted or reported. Bed alarm on at all times. Patient refuse to use the call light for assistance. Endorsed to day nurse.
[2018-10-16] MEDS: INSULIN ASPART [NOVOLOG] 3 ML PEN SC SCH ×6 (07:46→17:34)
[2018-10-16] MEDS: INSULIN GLARGINE [LANTus] (100 UNITS/ML) SYG SC SCH (07:48)
[2018-10-16] MEDS: MAGNESIUM HYDROXIDE 30ML CUP PO SCH ×2 (08:57→09:00)
[2018-10-16] MEDS: DOCUSATE SODIUM 100 MG CAP PO SCH ×2 (08:57→09:00)
[2018-10-16] MEDS: APIXABAN 5 MG TABLET PO SCH (08:57)
[2018-10-16] MEDS: NIFEdipine (XL) 30 MG TAB PO SCH (08:58)
[2018-10-16] MEDS: LORAZEPAM 1 MG TAB PO PRN ×2 (08:59→16:43)
[2018-10-16] MEDS: SENNA TAB PO SCH (09:00)
--- NOTE | 2018-10-16 11:21 | CONS ---
Date/Time of Note Date/Time of Note DATE: 10/16/18 TIME: 11:18 Assessment/Plan Assessment/Plan Assessment/Plan 1. Positive troponin in the setting of renal failure, but EKG abnormalities. Assess significance, assess for true non-ST elevation myocardial infarction.- trended negative and then ok mild positivity - no CP - on't to treat medically. Stress test showed EF 30% with minimally reversible disease - I think ECHO is more accurate estimate of EF. Given minimal revesribility, I will advise med Rx optimization ow - especially given Cr 1.3 and risk of contrast induced nephropathy if LHC is needed. NO intervention planned now. MED RX. Called daughter day prior and today - no answer - left a message. F/up with DR. Richardson after D/c. 2. Abnormal electrocardiogram with anterior T-wave inversions - troponin going down. 3. Congestive heart failure, likely systolic and diastolic, acute on chronic with last known EF of 45% - no indication for ICD. Will monitor. 4. Cardiomyopathy with decreased EF of 45% by echo 08/2018. 5. Renal failure with elevated BNP - CR better now - will monitor clinically - avoid nephrotoxic meds. Con't to improve. 6. Increased alkaline phosphatase - 7. Diabetes mellitus, uncontrolled blood sugars- Rx as needed. 8. Difficulty hearing. 9. HIgh BP - will resume meds post stress test- con't to adjust BP Rx. Add RX now. Result Diagram: 10/14/18 0501 10/14/18 0501 Results 24hrs Laboratory Tests Test 10/15/18 11:27 10/15/18 17:22 10/15/18 20:15 10/16/18 03:01 Bedside Glucose 72 150 73 191 Test 10/16/18 07:41 Bedside Glucose 160 Consultation Date/Type/Reason Admit Date/Time Oct 10, 2018 at 01:49 Initial Consult Date Requesting Provider: KATI CASTAÑEDA 24 HR Interval Summary Free Text/Dictation Called daughter day prior and today - no answer - left a message. F/up with DR. Richardson after D/c. ROS: No fever, no chills, no nausea, no vomiting, no diarrhea/constipation No recent weight changes No chest pain, no PND, no orthopnea - mild SOB No dizziness, blurred vision No thirst, no heat or cold intolerance Exam/Review of Systems Vital Signs Vitals Vital Signs Date Temp Pulse Resp B/P (MAP) Pulse Ox O2 O2 Flow FiO2 Time Delivery Rate 10/16/18 77 08:00 10/16/18 98.2 18 178/79 94 Room Air 07:54 (112) 10/16/18 2.0 01:26 Intake and Output 10/15/18 10/15/18 10/16/18 1515:00 23:00 07:00 IntakeIntake Total 360 ml 780 ml 420 ml BalanceBalance 360 ml 780 ml 420 ml Exam General: WN/WD/NAD, AOx 3 HEENT: Unicetric/atraumatic/EOMI (follows commands) NECK: JVD elevated, no thyromegaly Lymph: no lymphadenopathy HEART: regular with no S3, II/ systolic murmur at apex, PMI L LUNGS: Coarse sounds ABD: soft, NT, ND, +BS : Intact Neuro: non focal SKIN: chronic changes EXT: trace edema Medications Medications Current Medications IV Flush (NS 3 ml) 3 ml PER PROTOCOL IV ; Start 10/10/18 at 02:30 Ondansetron HCl (Zofran Inj) 4 mg Q6H PRN IV NAUSEA AND/OR VOMITING; Start 10/10/18 at 02:30 Nitroglycerin (Nitroglycerin (Sl Tab) 0.4 Mg) 1 tab Q5M PRN SL CHEST PAIN; Start 10/10/18 at 02:30 Acetaminophen (Tylenol Tab) 650 mg Q6H PRN PO PAIN LEVEL 1-3 OR FEVER Last administered on 10/13/18at 21:23; Admin Dose 650 MG; Start 10/10/18 at 02:30 Diagnostic Test (Pha) (Accu-Chek) 1 ea 02 XX Last administered on 10/16/18at 03:00; Admin Dose 1 EA; Start 10/11/18 at 02:00 Insulin Glargine (Lantus) 12 units DAILY@0800 SC Last administered on 10/16/18at 07:48; Admin Dose 12 UNITS; Start 10/10/18 at 08:00 Insulin Aspart (Novolog Insulin Pen) 4 unit WITH MEALS SC Last administered on 10/16/18at 07:47; Admin Dose 4 UNIT; Start 10/10/18 at 08:00 Insulin Aspart (Novolog Insulin Pen) NOVOLOG *MODERATE* ALGORITHM WITH MEALS BEDTIME SC Last administered on 10/16/18at 07:46; Admin Dose 2 UNIT; Start 10/10/18 at 08:00 Apixaban (Eliquis) 5 mg BID PO Last administered on 10/16/18at 08:57; Admin Dose 5 MG; Start 10/10/18 at 09:00 Clonidine (Catapres) 0.2 mg QID PO Last administered on 10/16/18at 08:59; Admin Dose 0.2 MG; Start 10/10/18 at 09:00 Losartan Potassium (Cozaar) 50 mg BID PO Last administered on 10/12/18at 21:53; Admin Dose 50 MG; Start 10/10/18 at 09:00; Status Hold Nifedipine (Procardia Xl) 30 mg BID PO Last administered on 10/16/18at 08:58; Admin Dose 30 MG; Start 10/10/18 at 09:00 Tramadol HCl (Ultram) 50 mg Q6H PRN PO PAIN Last administered on 10/16/18at 08:59; Admin Dose 50 MG; Start 10/10/18 at 02:30 Miscellaneous Information 1 ea NOTE XX ; Start 10/10/18 at 03:00 Glucose (Glutose) 15 gm Q15M PRN PO DECREASED GLUCOSE; Start 10/10/18 at 03:00 Glucose (Glutose) 22.5 gm Q15M PRN PO DECREASED GLUCOSE; Start 10/10/18 at 03:00 Dextrose (D50w Syringe) 25 ml Q15M PRN IV DECREASED GLUCOSE Last administered on 10/12/18at 17:19; Admin Dose 25 ML; Start 10/10/18 at 03:00 Dextrose (D50w Syringe) 50 ml Q15M PRN IV DECREASED GLUCOSE; Start 10/10/18 at 03:00 Glucagon (Glucagen) 1 mg Q15M PRN IM DECREASED GLUCOSE; Start 10/10/18 at 03:00 Glucose (Glutose) 15 gm Q15M PRN BUCCAL DECREASED GLUCOSE; Start 10/10/18 at 03:00 Bumetanide (Bumex) 1 mg BID DIURETICS IV Last administered on 10/16/18at 07:11; Admin Dose 1 MG; Start 10/10/18 at 18:00 Lorazepam (Ativan) 1 mg Q6 PRN PO ANXIETY Last administered on 10/16/18 08:59; Admin Dose 1 MG; Start 10/11/18 at 11:30 Docusate Sodium (Colace) 200 mg BID PO Last administered on 10/15/18 09:34; Admin Dose 200 MG; Start 10/11/18 at 11:30 Carvedilol (Coreg) 12.5 mg BID PO Last administered on 10/16/18 08:58; Admin Dose 12.5 MG; Start 10/11/18 at 21:00 Magnesium Hydroxide (Milk Of Mag) 30 ml BID PO Last administered on 10/15/18 09:34; Admin Dose 30 ML; Start 10/12/18 at 11:30 Senna (Senokot) 1 tab BID PO Last administered on 10/15/18 09:34; Admin Dose 1 TAB; Start 10/12/18 at 11:30 Hydralazine HCl (Apresoline) 10 mg Q4H PRN IV ELEVATED SYSTOLIC BP Last administered on 10/13/18 20:11; Admin Dose 10 MG; Start 10/13/18 at 00:00 Bisacodyl (Dulcolax) 10 mg DAILY PRN PO CONSTIPATION Last administered on 10/14/18 09:04; Admin Dose 10 MG; Start 10/13/18 at 17:30 Pantoprazole (Protonix Tab) 40 mg BID@,18 PO Last administered on 10/16/18 07:11; Admin Dose 40 MG; Start 10/15/18 at 18:00 ENEDINA BLAKE MD Oct 16, 2018 11:21
[2018-10-16] MEDS ORDERED: PANT40TA4 PO (11:38)
[2018-10-16] MEDS ORDERED: ATOR40TA68 PO (11:38)
[2018-10-16] MEDS ORDERED: NIFE30TA2 PO (11:38)
[2018-10-16] MEDS ORDERED: ASPI-903 PO (11:38)
--- NOTE | 2018-10-16 11:41 | PDOCDIS ---
Discharge Instructions DIAGNOSIS Discharge Diagnosis CHF exacerbation CONDITION [id number] Patient Condition: [id number] Good HOME CARE INSTRUCTIONS: [id number] Diet Instructions: [id number] Reduced Sodium ACTIVITY: [id number] Activity Restrictions: [id number] No Restrictions FOLLOW UP/APPOINTMENTS Follow-up Plan 1. Take all medications as prescribed. Two new medications were added, aspirin and atorvastatin. 2. See your primary care doctor in 1-2 weeks. 3. Make an appointment with your maintenance shop welder Dr. Richardson ([phone]) within 2-4 weeks. 4. For worsening difficulty breathing, return to the emergency room. WOJCIECH GUADARRAMA MD Oct 16, 2018 11:41
--- NOTE | 2018-10-16 16:39 | DS ---
Date/Time of Note Date/Time of Note DATE: 10/16/18 TIME: 16:36 Discharge Summary Admission/Discharge Info Admit Date/Time Oct 10, 2018 at 01:49 Discharge Date/Time Oct 16, 2018 Discharge Diagnosis CHF exacerbation Patient Condition: Good Consults Cardiology Hx of Present Illness This is a 63-year-old female with a history of hypertension, CHF, diabetes, right lower extremity DVT, history of IV drug use with skin popping, hearing impairment. Patient presented to ER complaining of lower extremity swelling, shortness of breath and generalized weakness. She was discharged from here just a little over 2 weeks ago. At that time she was managed for CHF, ARMIDA, and a light lower extremity DVT. A 2D echo at that time shows an EF of 45%. She states she has been compliant with her medications. She thinks every time she injected insulin, lower extremity swelling gets worse. When presented to ER, BP was significantly elevated, at one-point as high as 227/106. First troponin 0.140. Chest x-ray shows Moderate cardiomegaly with mild pulmonary venous congestion, slightly increased and bilateral small pleural effusions with underlying atelectasis, slightly increased. Hospital Course For her CHF exacerbation, she was started on IV bumex. She will be continued on Eliquis for chronic LE DVT. For possible CAD, she got a stress test which did show a small minimally reversible area of ischemia. Due to her multiple comorbidities this will be managed conservatively with aspirin and statin, no cardiac cath. 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 Home Meds Active Scripts Atorvastatin* (Atorvastatin*) 40 Mg Tablet, 40 MG PO QHS, #30 TAB Prov:WOJCIECH GUADARRAMA MD 10/16/18 Aspirin* (Aspirin* Chew) 81 Mg Tab.chew, 81 MG PO DAILY, #60 TAB.CHEW Prov:WOJCIECH GUADARRAMA MD 10/16/18 Pantoprazole* (Pantoprazole*) 40 Mg Tablet.dr, 40 MG PO DAILY, #60 TAB Prov:WOJCIECH GUADARRAMA MD 10/16/18 Nifedipine (Procardia Xl) 30 Mg Tab.er.24, 60 MG PO BID for 30 Days, #60 TAB 6 Refills Prov:WOJCIECH GUADARRAMA MD 10/16/18 Bumetanide* (Bumetanide*) 1 Mg Tablet, 1 MG PO DAILY for 30 Days, #30 TAB 6 Refills Prov:TREY BOWEN MD 09/21/18 Losartan Potassium* (Cozaar*) 50 Mg Tablet, 50 MG PO BID for 30 Days, #30 TAB 6 Refills Prov:TREY BOWEN MD 09/21/18 Carvedilol* (Carvedilol*) 25 Mg Tablet, 25 MG PO BID for 30 Days, #60 TAB 6 Refills Prov:TREY BOWEN MD 09/21/18 Tramadol HCl (Tramadol HCl) 50 Mg Tablet, 50 MG PO Q6H PRN for PAIN for 30 Days, #90 TAB Prov:TREY BOWEN MD 09/21/18 Insulin Lispro (Humalog Kwikpen U-100) 100 Unit/1 Ml Insuln.pen, 6 UNIT SQ TIDAC for 30 Days, #1 EA Prov:NURYS CHATMAN MD 05/04/18 Metformin Hcl* (Metformin Hcl*) 500 Mg Tablet, 500 MG PO WITH BREAKFAST DINNE for 30 Days, #60 TAB Prov:NURYS CHATMAN MD 05/04/18 Reported Medications Apixaban* (Eliquis*) 5 Mg Tablet, 5 MG PO BID, TAB 09/09/18 Lorazepam* (Ativan*) 2 Mg Tablet, 2 MG PO Q6 PRN for ANXIETY, #60 TAB 09/09/18 Clonidine Hcl* (Clonidine Hcl*) 0.2 Mg Tablet, 0.2 MG PO QID, TAB 09/09/18 Follow-up Plan 1. Take all medications as prescribed. Two new medications were added, aspirin and atorvastatin. 2. See your primary care doctor in 1-2 weeks. 3. Make an appointment with your rough rib grader Dr. Richardson ([phone]) within 2-4 weeks. 4. For worsening difficulty breathing, return to the emergency room. Primary Care Provider Rodrigo Narayan MD Time spent on discharge: > 30 minutes Pending Labs Laboratory Tests Test 10/15/18 17:22 10/15/18 20:15 10/16/18 03:01 10/16/18 07:41 Bedside 150 73 191 160 Glucose mg/dL (70-220) mg/dL (70-220) mg/dL (70-220) mg/dL (70-220) Test 10/16/18 11:59 Bedside 86 Glucose mg/dL (70-220) WOJCIECH GUADARRAMA MD Oct 16, 2018 16:39
--- NOTE | 2018-10-16 19:27 | NUR ---
Joe/power distribution engineer Rosie here to filler picker patient. Patient is being discharge home. All discharge paperworks done by Arline [facility]S and provided to patient. All belongings accounted for. Patient is brought down via wheelchair by volunteers. Patient was sitting up in chair on street clothes appears to be in stable condition without c/o any pain.
[2018-10-16] MEDS ORDERED: NIFEdipine (XL) 60 MG TAB PO SCH (21:00)
== END 2018-10-16 19:28 | disposition home or self-care (01) | DRG 281 ==
LOC: E/R 23:22 → 6WM 10-10 01:49 → EDBEDREQ 10-10 01:51 → 6WM 10-10 08:20
PROVIDERS: ADMIT Internal Medicine; ATTEND Internal Medicine
DX: I50.43 Acute on chronic combined systolic (congestive) and diastolic (congestive) heart failure (principal); I21.4 Non-ST elevation (NSTEMI) myocardial infarction; N17.9 Acute kidney failure, unspecified; I82.502 Chronic embolism and thrombosis of unspecified deep veins of left lower extremity; I42.9 Cardiomyopathy, unspecified; I11.0 Hypertensive heart disease with heart failure; E11.9 Type 2 diabetes mellitus without complications; Z79.4 Long term (current) use of insulin; Z79.02 Long term (current) use of antithrombotics/antiplatelets; H91.90 Unspecified hearing loss, unspecified ear; F41.9 Anxiety disorder, unspecified; K59.00 Constipation, unspecified; R10.13 Epigastric pain; M88.9 Osteitis deformans of unspecified bone
CPT/HCPCS: 36415; 71045; 78452; 80048; 80053; 80061; 82550; 82553; 82962; 83036; 83735; 83880; 84100; 84484; 85025; 85610; 85730; 93005; 93017; 97116; 97161; 97167; 97530; 97535; A9500; A9505; J0360; J1170; J1815; J1940; J2270; J2785; J3475

== ENCOUNTER 2018-11-23 16:56 | Inpatient (IN) | payer OTHER ==
[~2018-11-23] VITALS: Ht 152.4 cm; Wt 70.0 kg
[~2018-11-23 16:56] MED LIST changes: +ASPI-903 PO; +ATOR40TA68 PO; +PANT40TA4 PO
[2018-11-23 17:08] VITALS: Ht 152.4 cm; Wt 70.0 kg
--- NOTE | 2018-11-23 17:26 | ERD ---
ER Documentation Chief Complaint Chief Complaint pt is wheeled in by EMT, pricila family for fall HPI 63-year-old female very poor historian with a history of hypertension, diabetes, CHF, drug abuse brought in by family after a fall while trying to get off the toilet. She states that her foot slipped. She fell onto the floor and comp lains of bilateral medial thigh pain. She is unable to explain to me how she fell exactly and then went position. She denies dizziness. Patient is a very poor historian and unable to answer questions appropriately. She states that she was recently admitted to hospital and recently discharged but she cannot tell me when. She is on oxygen at baseline but states she may have run out of oxygen at home. Otherwise history is limited. ROS Unable to obtain Medications Home Meds Active Scripts Atorvastatin* (Atorvastatin*) 40 Mg Tablet, 40 MG PO QHS, #30 TAB Prov:WOJCIECH GUADARRAMA MD 10/16/18 Aspirin* (Aspirin* Chew) 81 Mg Tab.chew, 81 MG PO DAILY, #60 TAB.CHEW Prov:WOJCIECH GUADARRAMA MD 10/16/18 Pantoprazole* (Pantoprazole*) 40 Mg Tablet.dr, 40 MG PO DAILY, #60 TAB Prov:WOJCIECH GUADARRAMA MD 10/16/18 Nifedipine (Procardia Xl) 30 Mg Tab.er.24, 60 MG PO BID for 30 Days, #60 TAB 6 Refills Prov:WOJCIECH GUADARRAMA MD 10/16/18 Bumetanide* (Bumetanide*) 1 Mg Tablet, 1 MG PO DAILY for 30 Days, #30 TAB 6 Refills Prov:TREY BOWEN MD 09/21/18 Losartan Potassium* (Cozaar*) 50 Mg Tablet, 50 MG PO BID for 30 Days, #30 TAB 6 Refills Prov:TREY BOWEN MD 09/21/18 Carvedilol* (Carvedilol*) 25 Mg Tablet, 25 MG PO BID for 30 Days, #60 TAB 6 Refills Prov:TREY BOWEN MD 09/21/18 Tramadol HCl (Tramadol HCl) 50 Mg Tablet, 50 MG PO Q6H PRN for PAIN for 30 Days, #90 TAB Prov:TREY BOWEN MD 09/21/18 Insulin Lispro (Humalog Kwikpen U-100) 100 Unit/1 Ml Insuln.pen, 6 UNIT SQ TIDAC for 30 Days, #1 EA Prov:NURYS CHATMAN MD 05/04/18 Metformin Hcl* (Metformin Hcl*) 500 Mg Tablet, 500 MG PO WITH BREAKFAST DINNE for 30 Days, #60 TAB Prov:NURYS CHATMAN MD 05/04/18 Reported Medications Apixaban* (Eliquis*) 5 Mg Tablet, 5 MG PO BID, TAB 09/09/18 Lorazepam* (Ativan*) 2 Mg Tablet, 2 MG PO Q6 PRN for ANXIETY, #60 TAB 09/09/18 Clonidine Hcl* (Clonidine Hcl*) 0.2 Mg Tablet, 0.2 MG PO QID, TAB 09/09/18 Allergies Allergies: Coded Allergies: ketorolac (Unverified Allergy, Mild, RASHES, 11/23/18) morphine (Verified Allergy, Mild, itching, 11/23/18) moxifloxacin HCl (Unverified Allergy, Mild, 11/23/18) PMhx/Soc History of Surgery: No Anesthesia Reaction: No Hx Neurological Disorder: No Hx Respiratory Disorders: Yes Hx Cardiac Disorders: Yes Hx Psychiatric Problems: No Hx Miscellaneous Medical Probl: Yes (pls see EMR) Hx Alcohol Use: No Hx Substance Use: Yes Hx Tobacco Use: No FmHx Unable to obtain Physical Exam Vitals Vital Signs Date Temp Pulse Resp B/P (MAP) Pulse Ox O2 O2 Flow FiO2 Time Delivery Rate 11/23/18 72 14 171/103 100 Nasal 2.0 23:22 (125) Cannula 11/23/18 87 16 224/113 100 Nasal 2.0 22:44 (150) Cannula 11/23/18 93 16 184/128 96 Nasal 2.0 18:34 (146) Cannula 11/23/18 99.1 107 24 88 17:08 Physical Exam Const: Appears chronically ill, with oxygen in place, very sleepy but arousable Head: Atraumatic Eyes: Normal Conjunctiva, PERRLA ENT: Dry mucous membranes Neck: Full range of motion. No meningismus. Resp: Diminished breath sounds bilaterally, poor respiratory effort. No whe ezing or rales Cardio: Regular rate and rhythm, no murmurs Abd: Soft, non tender, non distended. Normal bowel sounds Skin: Old scars noted all throughout extremities Back: No midline or flank tenderness Ext: No cyanosis, 2+ bilateral lower extremity edema to the thighs, equal bilaterally. Diffuse tenderness to palpation of bilateral lower extremities with no deformities or joint swelling. Full range of motion at all joints. No upper extremity deformities. Neur: Somnolent but arousable, normal speech, moves all extremities spontaneously, no facial asymmetry Psych: Easily agitated Result Diagram: 11/23/18199911/23/181999 Results 24 hrs Laboratory Tests Test 11/23/18 20:00 11/23/18 20:14 White Blood Count 10.1 10^3/ul Red Blood Count 4.25 10^6/ul Hemoglobin 12.3 g/dl Hematocrit 40.4 % Mean Corpuscular Volume 95.1 fl Mean Corpuscular Hemoglobin 28.9 pg Mean Corpuscular Hemoglobin Concent 30.4 g/dl Red Cell Distribution Width 15.1 % Platelet Count 385 10^3/UL Mean Platelet Volume 11.4 fl Immature Granulocytes % 0.400 % Neutrophils % 65.5 % Lymphocytes % 23.4 % Monocytes % 10.2 % Eosinophils % 0.2 % Basophils % 0.3 % Nucleated Red Blood Cells % 0.0 /100WBC Immature Granulocytes # 0.040 10^3/ul Neutrophils # 6.6 10^3/ul Lymphocytes # 2.4 10^3/ul Monocytes # 1.0 10^3/ul Eosinophils # 0.0 10^3/ul Basophils # 0.0 10^3/ul Nucleated Red Blood Cells # 0.0 10^3/ul Sodium Level 142 mmol/L Potassium Level 4.2 mmol/L Chloride Level 105 mmol/L Carbon Dioxide Level 25 mmol/L Anion Gap 12 Blood Urea Nitrogen 31 mg/dl Creatinine 1.76 mg/dl Est Glomerular Filtrat Rate mL/min 35 mL/min Glucose Level 103 mg/dl Calcium Level 9.9 mg/dl Total Bilirubin 0.4 mg/dl Direct Bilirubin 0.00 mg/dl Indirect Bilirubin 0.4 mg/dl Aspartate Amino Transf (AST/SGOT) 48 IU/L Alanine Aminotransferase (ALT/SGPT) 27 IU/L Alkaline Phosphatase 1307 IU/L Troponin I 0.179 ng/ml Total Protein 6.6 g/dl Albumin 3.6 g/dl Blood Gas Specimen Source Blood arterial Arterial Blood Date Drawn 11/23/2018 8:20:55 PM Arterial Blood pH (Temp corrected) 7.383 Arterial Blood pCO2 (Temp correct) 36.8 mmhg Arterial Blood pO2 (Temp corrected) 65.4 mmHG Arterial Blood HCO3 21.4 mmol/L Arterial Blood Base Excess -3.1 mmol/L Arterial Blood Oxygen Saturation 92.2 mmHG Austin Test ACCEPTAB Arterial Blood Gas Puncture Site Left Radial Arterial Blood Carboxyhemoglobin 0.1 % Arterial Blood Methemoglobin 0.3 % Blood Gas A-a O2 Differential 83.6 mmHg Oxyhemoglobin Percent 91.8 % Blood Gas Temperature 37.0 C Blood Gas Actual Respiration Rate 16 Blood Gas Modality NASAL CANNULA FiO2 27.0 % Blood Gas Notified Whom Agnes ANTONINA QUANTITATIVE RESEARCH ANALYST Blood Gas Notified Time 11/23/2018 8:26:20 PM Current Medications Medications Dose Sig/Jordin Start Time Status Last (Trade) Ordered Route PRN Stop Time Admin Dose Reason Admin 1 tab ONCE ONCE 11/23/18 DC Acetaminophen PO 22:00 11/23/18 / 22:01 Hydrocodone Bitart ([place] (5/325)) Labetalol 10 mg ONCE ONCE 11/23/18 DC 11/23/18 HCl IV 23:00 11/23/18 22:46 (Labetalol) 23:01 Ondansetron 4 mg ER BRIDGE 11/23/18 HCl (Zofran PRN IV 23:00 11/24/18 Inj) NAUSEA/VOMITI 22:59 NG 650 mg ER BRIDGE 11/23/18 Acetaminophen PRN PO 23:00 11/24/18 (Tylenol .MILD PAIN 22:59 Tab) 1-3 OR TEMP Hydralazine 10 mg ONCE ONCE 11/24/18 11/24/18 HCl IV 00:30 11/24/18 00:17 (Apresoline) 00:31 Lorazepam 0.5 mg ONCE ONCE 11/24/18 11/24/18 (Ativan) IV 00:30 11/24/18 00:18 00:31 Procedures/MDM EMERGENT LABS AND DIAGNOSTIC STUDIES: Lab Results above were reviewed and interpreted by me. CBC: no anemia or evidence of infection CMP: Evidence of renal failure with elevated BUN and creatinine, increased from previous. No evidence of electrolyte abnormality or hypoglycemia BNP: Elevated, improved from previous Troponin increased, possibly indicative of myocardial ischemia versus decreased clearance due to renal failure 12-lead EKG was interpreted by Obinna Braxton MD: Sinus tachycardia with premature supraventricular complexes at 106 bpm Normal axis Normal intervals No acute ST or T wave changes suggestive of acute ischemia or STEMI. Radiology Results as interpreted by Radiology below were reviewed by Doreen Braxton MD: Chest x-ray: IMPRESSION: 1. No evidence for active cardiopulmonary disease. 2. Moderate cardiomegaly with central pulmonary vascular congestion. No evidence of interstitial pulmonary edema. 3. Moderate atherosclerotic calcification of the thoracic aorta. 4. Trace bilateral pleural effusions with minimal subsegmental atelectasis in the left lower lobe. Bilateral femur x-rays negative for acute fracture or other abnormalities Pelvic x-ray with no obvious fracture or dislocation Initial Nursing notes reviewed. Previous Medical Records requested via the Electronic Health Record. EMERGENCY DEPARTMENT COURSE / MEDICAL DECISION MAKING: Patient is presenting with generalized weakness and chest pain with bilateral leg pain after a ground-level fall. Head CT was not done as there is no history of head injury. X-rays of her upper lower extremities were done with no evidence of acute fracture. Labs did show evidence of elevated troponin, possibly NSTEMI. However given her acute on chronic renal failure, this may be elevated secondary to decreased clearance. Patient will be admitted for ACS rule out. I did offer her [place] for her pain but she refused and is requesting Dilaudid. I explained to the patient that I cannot give her Dilaudid as she has no evidence of serious injuries on workup. Accepting Care Team: Current data and ongoing care discussed. Time: Time of admission Primary Provider: Dr. Derrick Lujan Diagnosis: Primary Impression: Acute on chronic renal failure Acute renal failure type: unspecified Chronic kidney disease stage: unspecified stage Qualified Codes: N17.9 - Acute kidney failure, unspecified; N18.9 - Chronic kidney disease, unspecified Additional Impressions: Fall with no significant injury Encounter type: initial encounter Qualified Codes: W19.XXXA - Unspecified fall, initial encounter Elevated troponin Chronic respiratory failure with hypoxia Condition: DAVY Barclay MD Nov 23, 2018 17:26
[2018-11-23] MEDS ORDERED: HYDROCODONE/APAP (5/325) TAB PO ONE (22:00)
[2018-11-23] MEDS ORDERED: ONDANSETRON 4 MG INJ IV PRN (23:00)
[2018-11-23] MEDS ORDERED: ACETAMINOPHEN 325 MG TAB PO PRN (23:00)
[2018-11-23] MEDS ORDERED: LABETALOL HCL 20MG INJ IV ONE (23:00)
--- NOTE | 2018-11-23 23:58 | HP ---
Date/Time of Note Date/Time of Note DATE: 11/23/18 TIME: 23:58 Assessment/Plan VTE Prophylaxis Pharmacological prophylaxis: heparin Lines/Catheters IV Catheter Type (from Nrsg): Mid Line Central line still needed: Yes Assessment/Plan Assessment/Plan 1. Status post fall/syncope -Multifactorial etiology. Likely orthostatic hypotension/vasovagal VS cardiac NSTEMI. Patient also has chronic lower extremity pain and difficulty with ambulation. -Telemetry monitoring -2D echo -Trend troponin 2. NSTEMI: Rule out ACS -We will give aspirin and treatment dose Lovenox for now -Trend troponin. Obtain 2D echo. Consult cardiology 3. Hypoxia: Likely secondary to COPD -Supplemental oxygen, bronchodilators, steroid 4. Hypertensive urgency: Adjust BP meds as needed 5. Possible left pubic bone fracture: Follow-up CT result Result Diagram: 11/23/18199911/23/181999 Results 24hrs Laboratory Tests Test 11/23/18 20:00 11/23/18 20:14 White Blood Count 10.1 # Red Blood Count 4.25 Hemoglobin 12.3 Hematocrit 40.4 Mean Corpuscular Volume 95.1 Mean Corpuscular Hemoglobin 28.9 L Mean Corpuscular Hemoglobin Concent 30.4 L Red Cell Distribution Width 15.1 H Platelet Count 385 # Mean Platelet Volume 11.4 H Immature Granulocytes % 0.400 Neutrophils % 65.5 Lymphocytes % 23.4 Monocytes % 10.2 Eosinophils % 0.2 Basophils % 0.3 Nucleated Red Blood Cells % 0.0 Immature Granulocytes # 0.040 H Neutrophils # 6.6 Lymphocytes # 2.4 Monocytes # 1.0 H Eosinophils # 0.0 Basophils # 0.0 Nucleated Red Blood Cells # 0.0 Sodium Level 142 Potassium Level 4.2 Chloride Level 105 Carbon Dioxide Level 25 Anion Gap 12 Blood Urea Nitrogen 31 H Creatinine 1.76 H Est Glomerular Filtrat Rate mL/min 35 L Glucose Level 103 Calcium Level 9.9 Total Bilirubin 0.4 Direct Bilirubin 0.00 Indirect Bilirubin 0.4 Aspartate Amino Transf (AST/SGOT) 48 H Alanine Aminotransferase (ALT/SGPT) 27 Alkaline Phosphatase 1307 H Troponin I 0.179 *H Total Protein 6.6 Albumin 3.6 Blood Gas Specimen Source Blood arterial Arterial Blood Date Drawn 11/23/2018 8:20:55 PM Arterial Blood pH (Temp corrected) 7.383 Arterial Blood pCO2 (Temp correct) 36.8 Arterial Blood pO2 (Temp corrected) 65.4 L Arterial Blood HCO3 21.4 L Arterial Blood Base Excess -3.1 L Arterial Blood Oxygen Saturation 92.2 L Austin Test ACCEPTAB Arterial Blood Gas Puncture Site Left Radial Arterial Blood Carboxyhemoglobin 0.1 Arterial Blood Methemoglobin 0.3 Blood Gas A-a O2 Differential 83.6 H Oxyhemoglobin Percent 91.8 L Blood Gas Temperature 37.0 Blood Gas Actual Respiration Rate 16 Blood Gas Modality NASAL CANNULA FiO2 27.0 Blood Gas Notified Whom Agnes ANTONINA PLANT ETIOLOGIST Blood Gas Notified Time 11/23/2018 8:26:20 PM HPI/ROS Admit Date/Time Admit Date/Time Hx of Present Illness This is a 63-year-old female with a history of COPD on home oxygen, hypertension, diabetes, hypertension, noncompliant with medication all who was brought to the ER after she fell/loss of consciousness after she finished using the toilet. She said she has been falling down multiple times. She also reports shortness of breath. Even though she did not mention this to me, per ER notes, she states she ran out of her oxygen at home. She complains of lower extremity pain especially the right lower extremity. She has a several skin popping mckenna. She says the last time she is a 15 years ago. When presents to ER, blood pressure was as high as 224/133, troponin elevated at 0.179, creatinine 1.76. She was initially hypoxic with oxygen saturation of 88% on room air. ABG on 27% shows PO2 of 65. Pelvic x-ray in the ER shows linear density involving the paramedian left pubic bone, which may be related to possible fracture versus overlying shadows. CT is recommended for further evaluation. PMH/Family/Social Past Medical History Medications Current Medications Ondansetron HCl (Zofran Inj) 4 mg ER BRIDGE PRN IV NAUSEA/VOMITING; Start 11/23/18 at 23:00; Stop 11/24/18 at 22:59 Acetaminophen (Tylenol Tab) 650 mg ER BRIDGE PRN PO .MILD PAIN 1-3 OR TEMP; Start 11/23/18 at 23:00; Stop 11/24/18 at 22:59 Coded Allergies: ketorolac (Unverified Allergy, Mild, RASHES, 11/23/18) morphine (Verified Allergy, Mild, itching, 11/23/18) moxifloxacin HCl (Unverified Allergy, Mild, 11/23/18) Past Surgical History Past Surgical Hx: noncontributory Family History Significant Family History: no pertinent family hx Social History Smoking Status: Unknown if ever smoked Exam/Review of Systems Vital Signs Vitals Vital Signs Date Temp Pulse Resp B/P (MAP) Pulse Ox O2 O2 Flow FiO2 Time Delivery Rate 11/23/18 72 14 171/103 100 Nasal 2.0 23:22 (125) Cannula 11/23/18 99.1 17:08 Exam Exam Past Medical History: see hpi Past Surgical History Past Surgical Hx: other (see hpi) Family History Significant Family History: no pertinent family hx Social History Alcohol Use: other Smoking Status: Unknown if ever smoked Drug Use: other Medications Exam Eyes: PERRL ENMT: mucosa pink and moist Respiratory: normal air movement Cardiovascular: nl pulses Gastrointestinal: soft Extremities: normal pulses SADIE ENGLE MD Nov 23, 2018 23:58
[2018-11-24] VITALS (15 sets, daily range): BP systolic 154–218; BP diastolic 78–126; PULSE 69–105; RESP 19–21
[2018-11-24] MEDS ORDERED: HYDROCODONE/APAP (5/325) TAB PO PRN (00:30)
[2018-11-24] MEDS ORDERED: hydrALAzine 20 MG INJ IV ONE ×2 (00:30→02:30)
[2018-11-24] MEDS ORDERED: ONDANSETRON 4 MG INJ IV PRN (00:30)
[2018-11-24] MEDS ORDERED: LORAZEPAM 2 MG INJ IV ONE (00:30)
[2018-11-24] MEDS ORDERED: NACL 0.9% 3 ML SYG IV SCH (00:30)
[2018-11-24] MEDS ORDERED: ACETAMINOPHEN 325 MG TAB PO PRN (00:30)
[2018-11-24] MEDS ORDERED: ALBUTEROL/IPRATROPIUM (NEB) 3 ML AMP HHN PRN (00:30)
[2018-11-24] MEDS: HYDROCODONE/APAP (5/325) TAB PO PRN ×2 (01:16→18:03)
[2018-11-24] MEDS: traMADol 50 MG TAB PO PRN ×2 (03:02→21:17)
[2018-11-24] MEDS: LORAZEPAM 1 MG TAB PO PRN ×2 (03:02→21:16)
[2018-11-24] MEDS ORDERED: ASPIRIN (EC) 325 MG TAB PO ONE (05:30)
[2018-11-24] MEDS ORDERED: ENOXAPARIN 80 MG/0.8 ML SYG SC ONE (05:33)
[2018-11-24] MEDS ORDERED: KETOROLAC 30 MG INJ IV ONE (06:07)
[2018-11-24] MEDS: PANTOPRAZOLE (EC) 40 MG TAB PO SCH (06:12)
[2018-11-24] MEDS: BUMETANIDE 1 MG TAB PO SCH (06:12)
[2018-11-24] MEDS ORDERED: PENDING SANTYL ORDER FOR WOUND CARE XX PRN (08:00)
[2018-11-24] MEDS: metFORMIN 500 MG TAB PO SCH ×2 (08:21→17:38)
[2018-11-24] MEDS: LOSARTAN 50 MG TAB PO SCH ×3 (08:22→21:16)
[2018-11-24] MEDS: APIXABAN 5 MG TABLET PO SCH ×3 (08:22→21:16)
[2018-11-24] MEDS: NIFEdipine (XL) 30 MG TAB PO SCH ×3 (08:22→21:16)
[2018-11-24] MEDS ORDERED: ASPIRIN 81 MG TAB PO SCH (09:00)
[2018-11-24] MEDS ORDERED: METHYLPREDNISOLONE 125 MG INJ IV SCH (12:00)
--- NOTE | 2018-11-24 12:02 | PN ---
Date/Time of Note Date/Time of Note DATE: 11/24/18 TIME: 11:58 Assessment/Plan VTE Prophylaxis Risk score (from Ns)>0 risk: 8 SCD applied (from Ns): Yes Pharmacological prophylaxis: apixaban Lines/Catheters IV C[facility]ter Type (from [facility]): Mid Line Urinary Cath still in place: No Assessment/Plan Hospital Course 1. Status post fall/syncope -Multifactorial etiology. Likely orthostatic hypotension/vasovagal VS cardiac NSTEMI. Patient also has chronic lower extremity pain and difficulty with ambulation. -Telemetry monitoring -2D echo -Trend troponin 2. NSTEMI: Rule out ACS -We will give aspirin and treatment dose Lovenox for now -Trend troponin. Obtain 2D echo. Cardiology consultation obtained 3. Hypoxia: Likely secondary to COPD -Supplemental oxygen, bronchodilators, steroid 4. Hypertensive urgency: Adjust BP meds as needed 5. Possible left pubic bone fracture: Follow-up CT result Prophylaxis: Eliquis DC planning: Patient may be leaving AMA today Result Diagram: 11/24/18 0732 11/24/18 0732 Results 24hrs Laboratory Tests Test 11/23/18 20:00 11/23/18 20:14 11/24/18 01:49 11/24/18 07:32 White Blood Count 10.1 # 8.0 # Red Blood Count 4.25 4.47 Hemoglobin 12.3 12.9 Hematocrit 40.4 43.2 Mean Corpuscular 95.1 96.6 Volume Mean Corpuscular 28.9 L 28.9 L Hemoglobin Mean Corpuscular 30.4 L 29.9 L Hemoglobin Concent Red Cell 15.1 H 15.3 H Distribution Width Platelet Count 385 # 410 Mean Platelet 11.4 H 10.9 H Volume Immature 0.400 0.700 H Granulocytes % Neutrophils % 65.5 68.6 Lymphocytes % 23.4 21.2 Monocytes % 10.2 9.1 Eosinophils % 0.2 0.0 Basophils % 0.3 0.4 Nucleated Red 0.0 0.2 H Blood Cells % Immature 0.040 H 0.060 H Granulocytes # Neutrophils # 6.6 5.5 Lymphocytes # 2.4 1.7 Monocytes # 1.0 H 0.7 Eosinophils # 0.0 0.0 Basophils # 0.0 0.0 Nucleated Red 0.0 0.0 Blood Cells # Sodium Level 142 142 Potassium Level 4.2 4.3 Chloride Level 105 105 Carbon Dioxide 25 24 Level Anion Gap 12 13 Blood Urea 31 H 30 H Nitrogen Creatinine 1.76 H 1.53 H Est Glomerular 35 L 41 L Filtrat Rate mL/min Glucose Level 103 152 Calcium Level 9.9 9.9 Total Bilirubin 0.4 0.4 Direct Bilirubin 0.00 0.00 Indirect Bilirubin 0.4 0.4 Aspartate Amino 48 H 40 Transf (AST/SGOT) Alanine 27 27 Aminotransferase ( ALT/SGPT) Alkaline 1307 H 1337 H Phosphatase Troponin I 0.179 *H 0.152 *H 0.151 *H Total Protein 6.6 6.3 Albumin 3.6 3.6 Blood Gas Specimen Blood arterial Source Arterial Blood 11/23/2018 8:20:55 Date Drawn PM Arterial Blood pH 7.383 (Temp corrected) Arterial Blood 36.8 pCO2 (Temp correct) Arterial Blood pO2 65.4 L (Temp corrected) Arterial Blood 21.4 L HCO3 Arterial Blood -3.1 L Base Excess Arterial Blood 92.2 L Oxygen Saturation [place] Test ACCEPTAB Arterial Blood Gas Left Radial Puncture Site Arterial 0.1 Blood Carboxyhemog lobin Arterial Blood 0.3 Methemoglobin Blood Gas A-a O2 83.6 H Differential Oxyhemoglobin 91.8 L Percent Blood Gas 37.0 Temperature Blood Gas Actual 16 Respiration Rate Blood Gas Modality NASAL CANNULA FiO2 27.0 Blood Gas Notified Agnes SARKAR RCP Whom Blood Gas Notified 11/23/2018 8:26:20 Time PM Creatine Kinase 86 81 Creatine Kinase 2.8 3.0 Index Creatinine Kinase 2.39 2.45 H MB (Mass) Globulin 2.70 Albumin/Globulin 1.33 Ratio Subjective 24 Hr Interval Summary Constitutional: no complaints Exam/Review of Systems Exam Vitals Vital Signs Date Temp Pulse Resp B/P (MAP) Pulse Ox O2 O2 Flow FiO2 Time Delivery Rate 11/24/18 94 162/84 09:20 (110) 11/24/18 Nasal 2.0 09:05 Cannula 11/24/18 98.8 20 97 08:07 Intake and Output 11/23/18 11/23/18 11/24/18 1515:00 23:00 07:00 IntakeIntake Total 450 ml BalanceBalance 450 ml Constitutional: alert Respiratory: clear to auscultation Cardiovascular: regular rate and rhythm Gastrointestinal: soft; No distended Musculoskeletal: nl extremities to inspection Results Results 24hrs Laboratory Tests Test 11/23/18 20:00 11/23/18 20:14 11/24/18 01:49 11/24/18 07:32 White Blood Count 10.1 # 8.0 # Red Blood Count 4.25 4.47 Hemoglobin 12.3 12.9 Hematocrit 40.4 43.2 Mean Corpuscular 95.1 96.6 Volume Mean Corpuscular 28.9 L 28.9 L Hemoglobin Mean Corpuscular 30.4 L 29.9 L Hemoglobin Concent Red Cell 15.1 H 15.3 H Distribution Width Platelet Count 385 # 410 Mean Platelet 11.4 H 10.9 H Volume Immature 0.400 0.700 H Granulocytes % Neutrophils % 65.5 68.6 Lymphocytes % 23.4 21.2 Monocytes % 10.2 9.1 Eosinophils % 0.2 0.0 Basophils % 0.3 0.4 Nucleated Red 0.0 0.2 H Blood Cells % Immature 0.040 H 0.060 H Granulocytes # Neutrophils # 6.6 5.5 Lymphocytes # 2.4 1.7 Monocytes # 1.0 H 0.7 Eosinophils # 0.0 0.0 Basophils # 0.0 0.0 Nucleated Red 0.0 0.0 Blood Cells # Sodium Level 142 142 Potassium Level 4.2 4.3 Chloride Level 105 105 Carbon Dioxide 25 24 Level Anion Gap 12 13 Blood Urea 31 H 30 H Nitrogen Creatinine 1.76 H 1.53 H Est Glomerular 35 L 41 L Filtrat Rate mL/min Glucose Level 103 152 Calcium Level 9.9 9.9 Total Bilirubin 0.4 0.4 Direct Bilirubin 0.00 0.00 Indirect Bilirubin 0.4 0.4 Aspartate Amino 48 H 40 Transf (AST/SGOT) Alanine 27 27 Aminotransferase ( ALT/SGPT) Alkaline 1307 H 1337 H Phosphatase Troponin I 0.179 *H 0.152 *H 0.151 *H Total Protein 6.6 6.3 Albumin 3.6 3.6 Blood Gas Specimen Blood arterial Source Arterial Blood 11/23/2018 8:20:55 Date Drawn PM Arterial Blood pH 7.383 (Temp corrected) Arterial Blood 36.8 pCO2 (Temp correct) Arterial Blood pO2 65.4 L (Temp corrected) Arterial Blood 21.4 L HCO3 Arterial Blood -3.1 L Base Excess Arterial Blood 92.2 L Oxygen Saturation [place] Test ACCEPTAB Arterial Blood Gas Left Radial Puncture Site Arterial 0.1 Blood Carboxyhemog lobin Arterial Blood 0.3 Methemoglobin Blood Gas A-a O2 83.6 H Differential Oxyhemoglobin 91.8 L Percent Blood Gas 37.0 Temperature Blood Gas Actual 16 Respiration Rate Blood Gas Modality NASAL CANNULA FiO2 27.0 Blood Gas Notified Agnes SARKAR RCP Whom Blood Gas Notified 11/23/2018 8:26:20 Time PM Creatine Kinase 86 81 Creatine Kinase 2.8 3.0 Index Creatinine Kinase 2.39 2.45 H MB (Mass) Globulin 2.70 Albumin/Globulin 1.33 Ratio Medications Medication Current Medications Ondansetron HCl (Zofran Inj) 4 mg ER BRIDGE PRN IV NAUSEA/VOMITING; Start 11/23/18 at 23:00; Stop 11/24/18 at 22:59 Acetaminophen (Tylenol Tab) 650 mg ER BRIDGE PRN PO .MILD PAIN 1-3 OR TEMP; Start 11/23/18 at 23:00; Stop 11/24/18 at 22:59 IV Flush (NS 3 ml) 3 ml PER PROTOCOL IV ; Start 11/24/18 at 00:30 Ondansetron HCl (Zofran Inj) 4 mg Q6H PRN IV NAUSEA/VOMITING; Start 11/24/18 at 00:30 Acetaminophen (Tylenol Tab) 650 mg Q6H PRN PO .PAIN 1-3 OR TEMP; Start 11/24/18 at 00:30 Acetaminophen/ Hydrocodone Bitart ([place] (5/325)) 1 tab Q6H PRN PO .PAIN 4-6; Start 11/24/18 at 00:30 Acetaminophen/ Hydrocodone Bitart ([place] (5/325)) 2 tab Q6H PRN PO .PAIN 7-10 Last administered on 11/24/18at 01:16; Admin Dose 2 TAB; Start 11/24/18 at 00:30 Albuterol/ Ipratropium (Duoneb) 3 ml Q2H RESP THERAPY PRN HHN SHORTNESS OF BREATH; Start 11/24/18 at 00:30 Apixaban (Eliquis) 5 mg BID PO Last administered on 11/24/18at 08:22; Admin Dose 5 MG; Start 11/24/18 at 09:00 Atorvastatin Calcium (Lipitor) 40 mg QHS PO ; Start 11/24/18 at 21:00 Bumetanide (Bumex) 1 mg DAILY@0600 PO Last administered on 11/24/18 06:12; Admin Dose 1 MG; Start 11/24/18 at 06:00 Carvedilol (Coreg) 25 mg BID PO Last administered on 11/24/18 08:22; Admin Dose 25 MG; Start 11/24/18 at 09:00 Clonidine (Catapres) 0.2 mg QID PO Last administered on 11/24/18 08:22; Admin Dose 0.2 MG; Start 11/24/18 at 09:00 Lorazepam (Ativan) 2 mg Q6 PRN PO ANXIETY Last administered on 11/24/18 03:02; Admin Dose 2 MG; Start 11/24/18 at 00:30 Losartan Potassium (Cozaar) 50 mg BID PO Last administered on 11/24/18 08:22; Admin Dose 50 MG; Start 11/24/18 at 09:00 Metformin HCl (Glucophage) 500 mg WITH BREAKFAST DINNE PO Last administered on 11/24/18 08:21; Admin Dose 500 MG; Start 11/24/18 at 08:00 Nifedipine (Procardia Xl) 60 mg BID PO Last administered on 11/24/18 08:22; Admin Dose 60 MG; Start 11/24/18 at 09:00 Pantoprazole (Protonix Tab) 40 mg DAILY@0600 PO Last administered on 11/24/18 06:12; Admin Dose 40 MG; Start 11/24/18 at 06:00 Tramadol HCl (Ultram) 50 mg Q6H PRN PO PAIN Last administered on 11/24/18 03:02; Admin Dose 50 MG; Start 11/24/18 at 00:30 Influenza Virus Vaccine Quadrival (Fluzone) 0.5 ml ONCE ONCE IM* ; Start 11/25/18 at 10:00; Stop 11/25/18 at 10:01 Aspirin (Aspirin) 81 mg DAILY PO ; Start 11/25/18 at 09:00 Miscellaneous Information (Pending Santyl Order For Wound Care) This patient marshall... PRN PRN XX WOUND CARE; Start 11/24/18 at 08:00 Labetalol HCl (Labetalol) 20 mg Q4H PRN IV SBP>170; Start 11/24/18 at 09:00 SHAWANDA QUINONES Nov 24, 2018 12:02
[2018-11-24] MEDS: LABETALOL HCL 20MG INJ IV PRN ×2 (12:41→16:45)
--- NOTE | 2018-11-24 13:35 | CONS ---
Consultation Date/Type/Reason Admit Date/Time Type of Consult Cardiology Date/Time of Note DATE: 11/24/18 TIME: 13:34 Hx of Present Illness 63 yo with htn, cad - mild elv trop - no CP - syncope is poorly described - will monitor for now, add BP meds Past Medical History Home Meds Active Scripts Atorvastatin* (Atorvastatin*) 40 Mg Tablet, 40 MG PO QHS, #30 TAB Prov:WOJCIECH GUADARRAMA MD 10/16/18 Aspirin* (Aspirin* Chew) 81 Mg Tab.chew, 81 MG PO DAILY, #60 TAB.CHEW Prov:WOJCIECH GUADARRAMA MD 10/16/18 Pantoprazole* (Pantoprazole*) 40 Mg Tablet.dr, 40 MG PO DAILY, #60 TAB Prov:WOJCIECH GUADARRAMA MD 10/16/18 Nifedipine (Procardia Xl) 30 Mg Tab.er.24, 60 MG PO BID for 30 Days, #60 TAB 6 Refills Prov:WOJCIECH GUADARRAMA MD 10/16/18 Bumetanide* (Bumetanide*) 1 Mg Tablet, 1 MG PO DAILY for 30 Days, #30 TAB 6 Refills Prov:TREY BOWEN MD 09/21/18 Losartan Potassium* (Cozaar*) 50 Mg Tablet, 50 MG PO BID for 30 Days, #30 TAB 6 Refills Prov:TREY BOWEN MD 09/21/18 Carvedilol* (Carvedilol*) 25 Mg Tablet, 25 MG PO BID for 30 Days, #60 TAB 6 Ref ills Prov:TREY BOWEN MD 09/21/18 Tramadol HCl (Tramadol HCl) 50 Mg Tablet, 50 MG PO Q6H PRN for PAIN for 30 Days, #90 TAB Prov:TREY BOWEN MD 09/21/18 Insulin Lispro (Humalog Kwikpen U-100) 100 Unit/1 Ml Insuln.pen, 6 UNIT SQ TIDAC for 30 Days, #1 EA Prov:NURYS CHATMAN MD 05/04/18 Metformin Hcl* (Metformin Hcl*) 500 Mg Tablet, 500 MG PO WITH BREAKFAST DINNE for 30 Days, #60 TAB Prov:NURYS CHATMAN MD 05/04/18 Reported Medications Apixaban* (Eliquis*) 5 Mg Tablet, 5 MG PO BID, TAB 12/16/18 Lorazepam* (Ativan*) 2 Mg Tablet, 2 MG PO Q6 PRN for ANXIETY, #60 TAB 09/09/18 Clonidine Hcl* (Clonidine Hcl*) 0.2 Mg Tablet, 0.2 MG PO QID, TAB 09/09/18 Medications Current Medications IV Flush (NS 3 ml) 3 ml PER PROTOCOL IV ; Start 11/24/18 at 00:30 Ondansetron HCl (Zofran Inj) 4 mg Q6H PRN IV NAUSEA/VOMITING; Start 11/24/18 at 00:30 Acetaminophen (Tylenol Tab) 650 mg Q6H PRN PO .PAIN 1-3 OR TEMP; Start 11/24/18 at 00:30 Acetaminophen/ Hydrocodone Bitart ([place] (5/325)) 1 tab Q6H PRN PO .PAIN 4-6; Start 11/24/18 at 00:30 Acetaminophen/ Hydrocodone Bitart ([place] (5/325)) 2 tab Q6H PRN PO .PAIN 7-10 Last administered on 11/24/18at 01:16; Admin Dose 2 TAB; Start 11/24/18 at 00:30 Albuterol/ Ipratropium (Duoneb) 3 ml Q2H RESP THERAPY PRN HHN SHORTNESS OF BREATH; Start 11/24/18 at 00:30 Apixaban (Eliquis) 5 mg BID PO Last administered on 11/24/18at 08:22; Admin Dose 5 MG; Start 11/24/18 at 09:00 Atorvastatin Calcium (Lipitor) 40 mg QHS PO ; Start 11/24/18 at 21:00 Bumetanide (Bumex) 1 mg DAILY@0600 PO Last administered on 11/24/18at 06:12; Admin Dose 1 MG; Start 11/24/18 at 06:00 Carvedilol (Coreg) 25 mg BID PO Last administered on 11/24/18 08:22; Admin Dose 25 MG; Start 11/24/18 at 09:00 Clonidine (Catapres) 0.2 mg QID PO Last administered on 11/24/18at 12:42; Admin Dose 0.2 MG; Start 11/24/18 at 09:00 Lorazepam (Ativan) 2 mg Q6 PRN PO ANXIETY Last administered on 11/24/18 03:02; Admin Dose 2 MG; Start 11/24/18 at 00:30 Losartan Potassium (Cozaar) 50 mg BID PO Last administered on 11/24/18at 08:22; Admin Dose 50 MG; Start 11/24/18 at 09:00 Metformin HCl (Glucophage) 500 mg WITH BREAKFAST DINNE PO Last administered on 11/24/18at 08:21; Admin Dose 500 MG; Start 11/24/18 at 08:00 Nifedipine (Procardia Xl) 60 mg BID PO Last administered on 11/24/18at 08:22; Admin Dose 60 MG; Start 11/24/18 at 09:00 Pantoprazole (Protonix Tab) 40 mg DAILY@0600 PO Last administered on 11/24/18at 06:12; Admin Dose 40 MG; Start 11/24/18 at 06:00 Tramadol HCl (Ultram) 50 mg Q6H PRN PO PAIN Last administered on 11/24/18at 03:02; Admin Dose 50 MG; Start 11/24/18 at 00:30 Influenza Virus Vaccine Quadrival (Fluzone) 0.5 ml ONCE ONCE IM* ; Start 11/25/18 at 10:00; Stop 11/25/18 at 10:01 Aspirin (Aspirin) 81 mg DAILY PO ; Start 11/25/18 at 09:00 Miscellaneous Information (Pending [facility] Order For Wound Care) This patient marshall... PRN PRN XX WOUND CARE; Start 11/24/18 at 08:00 Labetalol HCl (Labetalol) 20 mg Q4H PRN IV SBP>170 Last administered on 11/24/18at 12:41; Admin Dose 20 MG; Start 11/24/18 at 09:00 Allergies: Coded Allergies: ketorolac (Unverified Allergy, Mild, RASHES, 11/23/18) morphine (Verified Allergy, Mild, itching, 11/23/18) moxifloxacin HCl (Unverified Allergy, Mild, 11/23/18) Past Surgical History Past Surgical Hx: noncontributory Social History Smoking Status: Former smoker Exam/Review of Systems Vital Signs Vitals Vital Signs Date Temp Pulse Resp B/P (MAP) Pulse Ox O2 O2 Flow FiO2 Time Delivery Rate 11/24/18 97.3 83 19 174/83 92 12:38 (113) 11/24/18 Nasal 2.0 09:05 Cannula Intake and Output 11/23/18 11/23/18 11/24/18 1515:00 23:00 07:00 IntakeIntake Total 450 ml BalanceBalance 450 ml Labs Result Diagram: 11/24/18 0732 11/24/18 0732 Results 24hrs Laboratory Tests Test 11/23/18 20:00 11/23/18 20:14 11/24/18 01:49 11/24/18 07:32 White Blood Count 10.1 # 8.0 # Red Blood Count 4.25 4.47 Hemoglobin 12.3 12.9 Hematocrit 40.4 43.2 Mean Corpuscular 95.1 96.6 Volume Mean Corpuscular 28.9 L 28.9 L Hemoglobin Mean Corpuscular 30.4 L 29.9 L Hemoglobin Concent Red Cell 15.1 H 15.3 H Distribution Width Platelet Count 385 # 410 Mean Platelet 11.4 H 10.9 H Volume Immature 0.400 0.700 H Granulocytes % Neutrophils % 65.5 68.6 Lymphocytes % 23.4 21.2 Monocytes % 10.2 9.1 Eosinophils % 0.2 0.0 Basophils % 0.3 0.4 Nucleated Red 0.0 0.2 H Blood Cells % Immature 0.040 H 0.060 H Granulocytes # Neutrophils # 6.6 5.5 Lymphocytes # 2.4 1.7 Monocytes # 1.0 H 0.7 Eosinophils # 0.0 0.0 Basophils # 0.0 0.0 Nucleated Red 0.0 0.0 Blood Cells # Sodium Level 142 142 Potassium Level 4.2 4.3 Chloride Level 105 105 Carbon Dioxide 25 24 Level Anion Gap 12 13 Blood Urea 31 H 30 H Nitrogen Creatinine 1.76 H 1.53 H Est Glomerular 35 L 41 L Filtrat Rate mL/min Glucose Level 103 152 Calcium Level 9.9 9.9 Total Bilirubin 0.4 0.4 Direct Bilirubin 0.00 0.00 Indirect Bilirubin 0.4 0.4 Aspartate Amino 48 H 40 Transf (AST/SGOT) Alanine 27 27 Aminotransferase ( ALT/SGPT) Alkaline 1307 H 1337 H Phosphatase Troponin I 0.179 *H 0.152 *H 0.151 *H Total Protein 6.6 6.3 Albumin 3.6 3.6 Blood Gas Specimen Blood arterial Source Arterial Blood 11/23/2018 8:20:55 Date Drawn PM Arterial Blood pH 7.383 (Temp corrected) Arterial Blood 36.8 pCO2 (Temp correct) Arterial Blood pO2 65.4 L (Temp corrected) Arterial Blood 21.4 L HCO3 Arterial Blood -3.1 L Base Excess Arterial Blood 92.2 L Oxygen Saturation [place] Test ACCEPTAB Arterial Blood Gas Left Radial Puncture Site Arterial 0.1 Blood Carboxyhemog lobin Arterial Blood 0.3 Methemoglobin Blood Gas A-a O2 83.6 H Differential Oxyhemoglobin 91.8 L Percent Blood Gas 37.0 Temperature Blood Gas Actual 16 Respiration Rate Blood Gas Modality NASAL CANNULA FiO2 27.0 Blood Gas Notified Agnes SARKAR RCP Whom Blood Gas Notified 11/23/2018 8:26:20 Time PM Creatine Kinase 86 81 Creatine Kinase 2.8 3.0 Index Creatinine Kinase 2.39 2.45 H MB (Mass) Globulin 2.70 Albumin/Globulin 1.33 Ratio Medications Medications Current Medications IV Flush (NS 3 ml) 3 ml PER PROTOCOL IV ; Start 11/24/18 at 00:30 Ondansetron HCl (Zofran Inj) 4 mg Q6H PRN IV NAUSEA/VOMITING; Start 11/24/18 at 00:30 Acetaminophen (Tylenol Tab) 650 mg Q6H PRN PO .PAIN 1-3 OR TEMP; Start 11/24/18 at 00:30 Acetaminophen/ Hydrocodone Bitart ([place] (5/325)) 1 tab Q6H PRN PO .PAIN 4-6; Start 11/24/18 at 00:30 Acetaminophen/ Hydrocodone Bitart ([place] (5/325)) 2 tab Q6H PRN PO .PAIN 7-10 Last administered on 11/24/18at 01:16; Admin Dose 2 TAB; Start 11/24/18 at 00:30 Albuterol/ Ipratropium (Duoneb) 3 ml Q2H RESP THERAPY PRN HHN SHORTNESS OF BREATH; Start 11/24/18 at 00:30 Apixaban (Eliquis) 5 mg BID PO Last administered on 11/24/18at 08:22; Admin Dose 5 MG; Start 11/24/18 at 09:00 Atorvastatin Calcium (Lipitor) 40 mg QHS PO ; Start 11/24/18 at 21:00 Bumetanide (Bumex) 1 mg DAILY@0600 PO Last administered on 11/24/18 06:12; Admin Dose 1 MG; Start 11/24/18 at 06:00 Carvedilol (Coreg) 25 mg BID PO Last administered on 11/24/18 08:22; Admin Dose 25 MG; Start 11/24/18 at 09:00 Clonidine (Catapres) 0.2 mg QID PO Last administered on 11/24/18 12:42; Admin Dose 0.2 MG; Start 11/24/18 at 09:00 Lorazepam (Ativan) 2 mg Q6 PRN PO ANXIETY Last administered on 11/24/18 03:02; Admin Dose 2 MG; Start 11/24/18 at 00:30 Losartan Potassium (Cozaar) 50 mg BID PO Last administered on 11/24/18 08:22; Admin Dose 50 MG; Start 11/24/18 at 09:00 Metformin HCl (Glucophage) 500 mg WITH BREAKFAST DINNE PO Last administered on 11/24/18 08:21; Admin Dose 500 MG; Start 11/24/18 at 08:00 Nifedipine (Procardia Xl) 60 mg BID PO Last administered on 11/24/18 08:22; Admin Dose 60 MG; Start 11/24/18 at 09:00 Pantoprazole (Protonix Tab) 40 mg DAILY@0600 PO Last administered on 11/24/18 06:12; Admin Dose 40 MG; Start 11/24/18 at 06:00 Tramadol HCl (Ultram) 50 mg Q6H PRN PO PAIN Last administered on 11/24/18 03:02; Admin Dose 50 MG; Start 11/24/18 at 00:30 Influenza Virus Vaccine Quadrival (Fluzone) 0.5 ml ONCE ONCE IM* ; Start 11/25/18 at 10:00; Stop 11/25/18 at 10:01 Aspirin (Aspirin) 81 mg DAILY PO ; Start 11/25/18 at 09:00 Miscellaneous Information (Pending [facility] Order For Wound Care) This patient marshall... PRN PRN XX WOUND CARE; Start 11/24/18 at 08:00 Labetalol HCl (Labetalol) 20 mg Q4H PRN IV SBP>170 Last administered on 11/24/18 12:41; Admin Dose 20 MG; Start 11/24/18 at 09:00 ENEDINA BLAKE MD Nov 24, 2018 13:35
[2018-11-24] MEDS: MINOXIDIL 2.5 MG TAB PO SCH ×3 (14:27→22:30)
[2018-11-24] MEDS: COLLAGENASE 5 GM (UD JAR) TOP SCH (16:30)
[2018-11-24] MEDS: ATORVASTATIN 40 MG TAB PO SCH ×2 (20:23→21:16)
--- NOTE | 2018-11-24 22:47 | CONS ---
DATE OF ADMISSION: 11/23/2018 DATE OF CONSULTATION: 11/24/2018 TYPE OF CONSULTATION: Cardiology. REFERRING PHYSICIAN: Sadie Meza MD REASON FOR EVALUATION: Elevated troponins. HISTORY OF PRESENT ILLNESS: Ms. Stover is a 63-year-old woman with history of hypertension, dyslip idemia, history of coronary artery disease, history of COPD, history of elevated troponins, history o f drug use in the past, who comes to the hospital now for evaluation of syncopal episode versus low b lood pressure. The patient is not a very consistent historian. It is unclear for me if she truly sy ncopized or not but the patient appears to be hemodynamically stable right now. She is sleeping. He r troponin is mildly elevated and she does not report any chest pain to me at this particular point. Currently, the patient is fairly asymptomatic. The patient is on a fairly large dose of carvedilol as well as some other medications. I think, for now, conservative therapy is expected. We will adju st medications as needed. Her troponin is trending down. She had history of elevated troponins befo re. We will continue supportive care per her condition as more information on her condition becomes available. She is very hypertensive. We will try to optimize her blood pressure now. PAST MEDICAL HISTORY: Hypertension, dyslipidemia, history of skin popping drug use in the past, hist ory of heart failure with ejection fraction 45%, history of COPD, history of coronary artery disease, history of chronic pain syndrome. ALLERGIES: 1. KETOROLAC. 2. MORPHINE. 3. MOXIFLOXACIN. REVIEW OF SYSTEMS: CONSTITUTIONAL: No fevers, no chills, no recent weight changes. HEENT: No changes in vision or hearing. CARDIAC: No chest pain reported now. RESPIRATORY: No shortness of breath. GASTROINTESTINAL: No nausea, vomiting. GENITOURINARY: No dysuria, hematuria. NEUROLOGIC: No focal deficits. HEMATOLOGIC: No easy bruising. PSYCHIATRIC: History of psychiatric illness. PHYSICAL EXAMINATION: VITAL SIGNS: Temperature is 97.3, heart rate 82, blood pressure 174/83. GENERAL: She is a well-nourished woman in no acute distress, alert and oriented x2 to 3, somewhat aw are of her condition but not really her medical condition. HEENT: Head is normocephalic. Extraocular movements intact. NECK: Supple. JVD is 8 to 9 cm. There is no lymphadenopathy. HEART: Regular with a grade I/ systolic murmur. PMI is minimally displaced. There is no S3. LUNGS: Coarse at the base. ABDOMEN: Distended. Bowel sounds are present. There is no hepatosplenomegaly. GENITOURINARY: Intact. EXTREMITIES: Show trace edema. There are chronic skin changes as described. LABORATORY DATA: Sodium 142, potassium 4.3. Her BUN is 30, creatinine 1.5. Her troponin is from 1. 79 on admission to 0.12 with CK-MB slightly elevated to 0.45. Her white blood cell count is 8.0 and hemoglobin is 12.9. ASSESSMENT AND PLAN: 1. Syncope or presyncope, etiology is unclear. The patient is not the most consistent historian. F or now, we will continue to monitor the patient on telemetry and provide recommendations as they beco me available. 2. Elevated troponin. The patient has mildly elevated troponin. She had history of elevated tropon ins prior. No chest pain now. Difficult to control hypertension with renal insufficiency likely con tributing. We will continue to adjust now. 3. Hypertension. We will resume home medications now. In hope to optimize blood pressure I am grisel g to add minoxidil to her regimen. 4. History of drug use. Defer to primary team. 5. History of psychiatric illness. Continue to monitor. I would like to thank Dr. Meza for referring this patient for my evaluation. Dictated By: ENEDINA BLAKE MD ML/NTS Conf#: [id number] DID#: [id number] CC: SADIE MEZA MD;*EndCC*
[2018-11-25] VITALS (11 sets, daily range): BP systolic 85–165; BP diastolic 50–72; PULSE 61–82; RESP 18–19
[2018-11-25] MEDS: traMADol 50 MG TAB PO PRN ×2 (02:37→12:25)
[2018-11-25] MEDS: BUMETANIDE 1 MG TAB PO SCH (05:54)
[2018-11-25] MEDS: PANTOPRAZOLE (EC) 40 MG TAB PO SCH (06:03)
[2018-11-25] MEDS ORDERED: traMADol 50 MG TAB PO ONE (06:30)
[2018-11-25] MEDS: metFORMIN 500 MG TAB PO SCH ×2 (08:00→17:49)
[2018-11-25] MEDS: APIXABAN 5 MG TABLET PO SCH (08:13)
[2018-11-25] MEDS: LOSARTAN 50 MG TAB PO SCH (08:14)
[2018-11-25] MEDS: MINOXIDIL 2.5 MG TAB PO SCH (08:15)
[2018-11-25] MEDS: COLLAGENASE 5 GM (UD JAR) TOP SCH (08:15)
[2018-11-25] MEDS: NIFEdipine (XL) 30 MG TAB PO SCH (08:15)
[2018-11-25] MEDS ORDERED: ASPIRIN 81 MG TAB PO SCH (09:00)
--- NOTE | 2018-11-25 12:44 | CONS ---
Consult Date/Type/Reason Admit Date/Time Nov 23, 2018 at 22:53 Initial Consult Date Date/Time of Note DATE: 11/25/18 TIME: 12:41 Subjective NO acute events - tele reviewd - some VPCs - no anshu pauses - stable overall. ROS: No fever, no chills, no nausea, no vomiting, no diarrhea/constipation No recent weight changes No chest pain, no PND, no orthopnea + asking for pain meds No dizziness, blurred vision No thirst, no heat or cold intolerance Objective Vitals Vital Signs Date Temp Pulse Resp B/P (MAP) Pulse Ox O2 O2 Flow FiO2 Time Delivery Rate 11/25/18 71 12:38 11/25/18 98.5 19 116/65 96 12:07 (82) 11/24/18 Nasal 2.0 21:00 Cannula Intake and Output 11/24/18 11/24/18 11/25/18 1515:00 23:00 07:00 IntakeIntake Total 350 ml 800 ml BalanceBalance 350 ml 800 ml Exam General: WN/WD/NAD, AOx 2-3 HEENT: Unicetric/atraumatic/EOMI ( follow commands) NECK: JVD elevated, no thyromegaly Lymph: no lymphadenopathy HEART: regular with no S3, II/ systolic murmur at apex LUNGS: Coarse sounds ABD: soft, NT, ND, +BS : Intact Neuro: non focal SKIN: chronic changes EXT: trace edema, skin lesions Results/Medications Result Diagram: 11/25/18 0511 11/25/18 0511 Results 24 hrs Laboratory Tests Test 11/25/18 05:11 White Blood Count 6.8 Red Blood Count 3.67 L Hemoglobin 10.6 L Hematocrit 35.2 L Mean Corpuscular Volume 95.9 Mean Corpuscular Hemoglobin 28.9 L Mean Corpuscular Hemoglobin Concent 30.1 L Red Cell Distribution Width 15.7 H Platelet Count 368 Mean Platelet Volume 11.6 H Immature Granulocytes % 0.400 Neutrophils % 69.1 Lymphocytes % 20.1 Monocytes % 9.6 Eosinophils % 0.4 Basophils % 0.4 Nucleated Red Blood Cells % 0.0 Immature Granulocytes # 0.030 Neutrophils # 4.7 Lymphocytes # 1.4 Monocytes # 0.7 Eosinophils # 0.0 Basophils # 0.0 Nucleated Red Blood Cells # 0.0 Sodium Level 138 Potassium Level 4.6 Chloride Level 107 Carbon Dioxide Level 24 Anion Gap 7 Blood Urea Nitrogen 39 H Creatinine 1.88 H Est Glomerular Filtrat Rate mL/min 33 L Glucose Level 213 Calcium Level 8.5 Phosphorus Level 3.9 Magnesium Level 1.6 L Home Meds Active Scripts Atorvastatin* (Atorvastatin*) 40 Mg Tablet, 40 MG PO QHS, #30 TAB Prov:WOJCIECH GUADARRAMA MD 10/16/18 Aspirin* (Aspirin* Chew) 81 Mg Tab.chew, 81 MG PO DAILY, #60 TAB.CHEW Prov:WOJCIECH GUADARRAMA MD 10/16/18 Pantoprazole* (Pantoprazole*) 40 Mg Tablet.dr, 40 MG PO DAILY, #60 TAB Prov:WOJCIECH GUADARRAMA MD 10/16/18 Nifedipine (Procardia Xl) 30 Mg Tab.er.24, 60 MG PO BID for 30 Days, #60 TAB 6 Refills Prov:WOJCIECH GUADARRAMA MD 10/16/18 Bumetanide* (Bumetanide*) 1 Mg Tablet, 1 MG PO DAILY for 30 Days, #30 TAB 6 Refills Prov:TREY BOWEN MD 09/21/18 Losartan Potassium* (Cozaar*) 50 Mg Tablet, 50 MG PO BID for 30 Days, #30 TAB 6 Refills Prov:TREY BOWEN MD 09/21/18 Carvedilol* (Carvedilol*) 25 Mg Tablet, 25 MG PO BID for 30 Days, #60 TAB 6 Re fills Prov:TREY BOWEN MD 09/21/18 Tramadol HCl (Tramadol HCl) 50 Mg Tablet, 50 MG PO Q6H PRN for PAIN for 30 Days, #90 TAB Prov:TREY BOWEN MD 09/21/18 Insulin Lispro (Humalog Kwikpen U-100) 100 Unit/1 Ml Insuln.pen, 6 UNIT SQ TIDAC for 30 Days, #1 EA Prov:NURYS CHATMAN MD 05/04/18 Metformin Hcl* (Metformin Hcl*) 500 Mg Tablet, 500 MG PO WITH BREAKFAST DINNE for 30 Days, #60 TAB Prov:NURYS CHATMAN MD 05/04/18 Reported Medications Apixaban* (Eliquis*) 5 Mg Tablet, 5 MG PO BID, TAB 09/09/18 Lorazepam* (Ativan*) 2 Mg Tablet, 2 MG PO Q6 PRN for ANXIETY, #60 TAB 09/09/18 Clonidine Hcl* (Clonidine Hcl*) 0.2 Mg Tablet, 0.2 MG PO QID, TAB 09/09/18 Medications Current Medications IV Flush (NS 3 ml) 3 ml PER PROTOCOL IV ; Start 11/24/18 at 00:30 Ondansetron HCl (Zofran Inj) 4 mg Q6H PRN IV NAUSEA/VOMITING; Start 11/24/18 at 00:30 Acetaminophen (Tylenol Tab) 650 mg Q6H PRN PO .PAIN 1-3 OR TEMP; Start 11/24/18 at 00:30 Acetaminophen/ Hydrocodone Bitart ([place] (5/325)) 1 tab Q6H PRN PO .PAIN 4-6; Start 11/24/18 at 00:30 Acetaminophen/ Hydrocodone Bitart ([place] (5/325)) 2 tab Q6H PRN PO .PAIN 7-10 Last administered on 11/24/18 18:03; Admin Dose 2 TAB; Start 11/24/18 at 00:30 Albuterol/ Ipratropium (Duoneb) 3 ml Q2H RESP THERAPY PRN HHN SHORTNESS OF BREATH; Start 11/24/18 at 00:30 Apixaban (Eliquis) 5 mg BID PO Last administered on 11/24/18 21:16; Admin Dose 5 MG; Start 11/24/18 at 09:00 Atorvastatin Calcium (Lipitor) 40 mg QHS PO Last administered on 11/24/18 21:16; Admin Dose 40 MG; Start 11/24/18 at 21:00 Bumetanide (Bumex) 1 mg DAILY@0600 PO Last administered on 11/24/18 06:12; Admin Dose 1 MG; Start 11/24/18 at 06:00 Carvedilol (Coreg) 25 mg BID PO Last administered on 11/24/18 22:30; Admin Dose 25 MG; Start 11/24/18 at 09:00 Clonidine (Catapres) 0.2 mg QID PO Last administered on 11/24/18 21:15; Admin Dose 0.2 MG; Start 11/24/18 at 09:00 Lorazepam (Ativan) 2 mg Q6 PRN PO ANXIETY Last administered on 11/24/18 21:16; Admin Dose 2 MG; Start 11/24/18 at 00:30 Losartan Potassium (Cozaar) 50 mg BID PO Last administered on 11/24/18 21:16; Admin Dose 50 MG; Start 11/24/18 at 09:00 Metformin HCl (Glucophage) 500 mg WITH BREAKFAST DINNE PO Last administered on 11/24/18 17:38; Admin Dose 500 MG; Start 11/24/18 at 08:00 Nifedipine (Procardia Xl) 60 mg BID PO Last administered on 11/24/18 21:16; Adm in Dose 60 MG; Start 11/24/18 at 09:00 Pantoprazole (Protonix Tab) 40 mg DAILY@0600 PO Last administered on 11/25/18 06:03; Admin Dose 40 MG; Start 11/24/18 at 06:00 Tramadol HCl (Ultram) 50 mg Q6H PRN PO PAIN Last administered on 11/25/18 12:25; Admin Dose 50 MG; Start 11/24/18 at 00:30 Aspirin (Aspirin) 81 mg DAILY PO ; Start 11/25/18 at 09:00 Labetalol HCl (Labetalol) 20 mg Q4H PRN IV SBP>170 Last administered on 11/24/18 16:45; Admin Dose 20 MG; Start 11/24/18 at 09:00 Minoxidil (Loniten) 5 mg BID PO Last administered on 11/24/18 22:30; Admin Dose 5 MG; Start 11/24/18 at 15:00 Collagenase (Santyl) 1 applic DAILY TOP ; Start 11/24/18 at 16:30 Assessment/Plan Hospital Course (Demo Recall) 1. Syncope or presyncope, etiology is unclear. The patient is not the most consistent historian. For now, we will continue to monitor the patient on telemetry and provide recommendations as they become available. Not bardy - no pauses now - likely related to pain meds overuse. 2. Elevated troponin. The patient has mildly elevated troponin. She had history of elevated troponins prior. No chest pain now. Difficult to control hypertension with renal insufficiency likely contributing. We will continue to adjust now. NO new Sx now. R/o Mi. 3. Hypertension. We will resume home medications now. In hope to optimize blood pressure I am going to add minoxidil to her regimen. Treated. 4. History of drug use. Defer to primary team. BETTER. 5. History of psychiatric illness. Continue to monito ENEDINA BLAKE MD Nov 25, 2018 12:44
--- NOTE | 2018-11-25 13:38 | PDOCDIS ---
Discharge Instructions CONDITION [id number] Patient Condition: [id number] Good HOME CARE INSTRUCTIONS: [id number] Diet Instructions: [id number] Reduced Sodium ACTIVITY: [id number] Activity Restrictions: [id number] No Restrictions FOLLOW UP/APPOINTMENTS Follow-up Plan FOLLOW UP WITH YOUR PCP IN 1-2 WEEKS SHAWANDA QUINONES Nov 25, 2018 13:38
[2018-11-25] MEDS ORDERED: MAGNESIUM OXIDE 400 MG TAB PO ONE (14:00)
--- NOTE | 2018-11-25 17:34 | DS ---
Date/Time of Note Date/Time of Note DATE: 11/25/18 TIME: 17:29 Discharge Summary Admission/Discharge Info Admit Date/Time Nov 23, 2018 at 22:53 Discharge Date/Time November 25, 2018 Discharge Diagnosis 1. Status post fall/syncope -Multifactorial etiology. Likely orthostatic hypotension/vasovagal and polypharmacy with pain medications, patient also has chronic lower extremity pain and difficulty with ambulation -No further interventions per cardiology 2. NSTEMI: Likely type II -Cardiology consultation appreciated, no indication for further diagnostics 3. Hypoxia-improved -Status post supplemental oxygen, bronchodilators, steroid 4. Hypertensive urgency-resolved -Continue home meds 5. Pelvic pain like secondary to fall -CT showed no fractures but did show severe diffuse subcutaneous edema noted in the soft tissues 6. Diabetes -Continue Home meds Patient Condition: Good Hospital Course Patient is a 63-year-old female with a history of hypertension,, diabetes drug use who presents after a syncopal episode with fall. Etiology is likely multifactorial with orthostatic hypotension and vasovagal, patient also likely uses a significant amount of pain medications due to chronic pain. Patient did have mild elevation of troponin was seen by cardiology, no further diagnostics are indicated and troponins were stable. Patient did have pelvic pain from the fall and CT pelvis showed no fracture. Patient was stable for DC to home, on the day of discharge patient's vitals, labs of exam are stable. Home Meds Active Scripts Atorvastatin* (Atorvastatin*) 40 Mg Tablet, 40 MG PO QHS, #30 TAB Prov:WOJCIECH GUADARRAMA MD 10/16/18 Aspirin* (Aspirin* Chew) 81 Mg Tab.chew, 81 MG PO DAILY, #60 TAB.CHEW Prov:WOJCIECH GUADARRAMA MD 10/16/18 Pantoprazole* (Pantoprazole*) 40 Mg Tablet.dr, 40 MG PO DAILY, #60 TAB Prov:WOJCIECH GUADARRAMA MD 10/16/18 Nifedipine (Procardia Xl) 30 Mg Tab.er.24, 60 MG PO BID for 30 Days, #60 TAB 6 Refills Prov:WOJCIECH GUADARRAMA MD 10/16/18 Bumetanide* (Bumetanide*) 1 Mg Tablet, 1 MG PO DAILY for 30 Days, #30 TAB 6 Refills Prov:TREY BOWEN MD 09/21/18 Losartan Potassium* (Cozaar*) 50 Mg Tablet, 50 MG PO BID for 30 Days, #30 TAB 6 Refills Prov:TREY BOWEN MD 09/21/18 Carvedilol* (Carvedilol*) 25 Mg Tablet, 25 MG PO BID for 30 Days, #60 TAB 6 Refills Prov:TREY BOWEN MD 09/21/18 Tramadol HCl (Tramadol HCl) 50 Mg Tablet, 50 MG PO Q6H PRN for PAIN for 30 Days, #90 TAB Prov:RTEY BOWEN MD 09/21/18 Insulin Lispro (Humalog Kwikpen U-100) 100 Unit/1 Ml Insuln.pen, 6 UNIT SQ TIDAC for 30 Days, #1 EA Prov:NURYS CHATMAN MD 05/04/18 Metformin Hcl* (Metformin Hcl*) 500 Mg Tablet, 500 MG PO WITH BREAKFAST DINNE for 30 Days, #60 TAB Prov:NURYS CHATMAN MD 05/04/18 Reported Medications Apixaban* (Eliquis*) 5 Mg Tablet, 5 MG PO BID, TAB 09/09/18 Lorazepam* (Ativan*) 2 Mg Tablet, 2 MG PO Q6 PRN for ANXIETY, #60 TAB 09/09/18 Clonidine Hcl* (Clonidine Hcl*) 0.2 Mg Tablet, 0.2 MG PO QID, TAB 09/09/18 Follow-up Plan FOLLOW UP WITH YOUR PCP IN 1-2 WEEKS Primary Care Provider Rodrigo Narayan MD Time spent on discharge: > 30 minutes SHAWANDA QUINONES Nov 25, 2018 17:34
== END 2018-11-25 19:40 | disposition home or self-care (01) | DRG 281 ==
LOC: E/R 16:56 → 6WM 22:53
PROVIDERS: ADMIT Internal Medicine; ATTEND Internal Medicine
DX: I95.1 Orthostatic hypotension (principal); I21.4 Non-ST elevation (NSTEMI) myocardial infarction; N17.9 Acute kidney failure, unspecified; I21.A1 Myocardial infarction type 2; Z99.81 Dependence on supplemental oxygen; E11.22 Type 2 diabetes mellitus with diabetic chronic kidney disease; I12.9 Hypertensive chronic kidney disease with stage 1 through stage 4 chronic kidney disease, or unspecified chronic kidney disease; N18.9 Chronic kidney disease, unspecified; I16.0 Hypertensive urgency; J44.9 Chronic obstructive pulmonary disease, unspecified; Z79.4 Long term (current) use of insulin; Z79.82 Long term (current) use of aspirin; Z91.14 Patient's other noncompliance with medication regimen; Z87.891 Personal history of nicotine dependence
CPT/HCPCS: 36415; 36600; 71045; 72170; 72192; 73550; 80048; 80053; 80076; 82550; 82553; 82803; 83735; 84100; 84484; 85025; 90686; 93005; 96374; J0360; J1885; J2060